=== PATIENT | male | born 1955 | race Caucasian/White ===

== ENCOUNTER 2016-04-01 22:43 | Inpatient (IN) | payer BC, MEDICAID ==
[2016-04-01] MEDS ORDERED: NORMAL SALINE 500 ML IV ONE (23:41)
[2016-04-02 00:01] LABS: HEMATOCRIT 30.7 % (37.9-51.0); HEMOGLOBIN 9.8 g/dL (13.5-17.0); HGB HCT DIFFERENCE -1.3; MEAN CORPUSCULAR HEMOGLOBIN 24.6 pg (27.0-33.4); MEAN CORPUSCULAR VOLUME 77 fl (80-97); RED CELL DISTRIBUTION WIDTH 18.9 % (11.5-14.0); WHITE BLOOD COUNT 21.1 10^3/uL (4.0-10.5)
[2016-04-02 00:08] LABS: PROTHROMBIN TIME 40.9 SEC (11.4-15.4)
[2016-04-02 00:14] LABS: ALANINE AMINOTRANSFERASE 25 U/L (21-72); ALBUMIN 3.3 g/dL (3.5-5.0); ALKALINE PHOSPHATASE 115 U/L (38-126); ANION GAP 13 (5-19); ASPARTATE AMINO TRANSFERASE 23 U/L (17-59); BILIRUBIN,TOTAL 0.7 mg/dL (0.2-1.3); BLOOD UREA NITROGEN 11 mg/dL (7-20); CALCIUM 9.2 mg/dL (8.4-10.2); CARBON DIOXIDE 28 mmol/L (22-30); CHLORIDE 95 mmol/L (98-107); CREATINE KINASE 24 U/L (55-170); CREATININE RESULT 1.05 mg/dL (0.52-1.25); GLUCOSE 122 mg/dL (75-110); LIPASE 209.2 U/L (23-300); POTASSIUM 4.2 mmol/L (3.6-5.0); SODIUM 136.1 mmol/L (137-145); TOTAL PROTEIN 6.5 g/dL (6.3-8.2)
[2016-04-02 00:26] LABS: CREATINE KINASE MB 1.32 ng/mL (<4.55)
[2016-04-02 00:30] LABS: TROPONIN I 0.046 ng/mL
[2016-04-02 00:32] LABS: APPEARANCE,URINE CLEAR; BILIRUBIN,URINE NEGATIVE (NEGATIVE); GLUCOSE, URINE NEGATIVE (NEGATIVE); KETONES,URINE NEGATIVE (NEGATIVE); LEUKOCYTE ESTERASE,URINE NEGATIVE (NEGATIVE); NITRITE,URINE NEGATIVE (NEGATIVE); PROTEIN,URINE NEGATIVE (NEGATIVE); URINE SPECIFIC GRAVITY 1.009; UROBILINOGEN,URINE NEGATIVE mg/dL (<2.0)
[2016-04-02] MEDS ORDERED: VANCOMYCIN HCL INJ 1000 MG VIAL IV ONE (00:33)
[2016-04-02] MEDS ORDERED: PIPERACILLIN/TAZOBACTAM 3.375 GM VIAL IV ONE ×3 (00:33→04:30)
[2016-04-02] MEDS ORDERED: METRONIDAZOLE 500 MG TABLET PO ONE (00:35)
[2016-04-02 00:40] LABS: BAND NEUTROPHILS % (MANUAL) 7 % (3-5); BASOPHILS % (MANUAL) 0 % (0-2); EOSINOPHILS % (MANUAL) 0 % (0-6); LYMPHOCYTES % (MANUAL) 3 % (13-45); TOTAL CELLS COUNTED 100
[2016-04-02] MEDS ORDERED: DIGOXIN INJ 0.5 MG/2 ML AMPULE IV ONE (00:42)
[2016-04-02 00:45] LABS: HYPOCHROMASIA 2+; POLYCHROMASIA SLIGHT; TOXIC GRANULATION 2+
[2016-04-02 00:46] LABS: ANISOCYTOSIS 2+; MICROCYTOSIS SLIGHT; OVALOCYTES 1+
[2016-04-02] MEDS ORDERED: NORMAL SALINE 1000 ML 500 ML IV ONE (01:02)
[2016-04-02 01:09] LABS: ADD ON TESTING BLD IN LAB ACKNOWLEDGE
--- NOTE | 2016-04-02 01:10 | ER Document Report ---
ED General - General Chief Complaint: Abnormal Lab Results Stated Complaint: ABNORMAL LABS Notes: Patient is a 60-year-old male with past medical history of CHF, coronary artery disease, hypertension and hyperlipidemia who presents at the request of his primary care doctor for leukocytosis. Patient also admits to having increasingly severe mucousy, nonbloody diarrhea for the day today. Dr. Torres, the patient's primary care physician contacted and notified him that his white blood cell count was significantly elevated and that he needed to come directly to the emergency department. Patient states that he feels mildly ill but "better than I did last time" referring to the last time he was seen at this emergency department. He has not had any fever or vomiting but does note some mild, diffuse abdominal cramping prior to his episodes of diarrhea. Nothing improves or worsens the symptoms. States been taking all medications as directed. Notes that his home health nurse has been reporting higher heart rates throughout the past several days and that his heart was normal when he was discharged from by the [facility]. Likewise he states he is discharged from [facility] his white blood cell count was normal. He denies any cough, shortness of breath, chest pain, dysuria, headache or neck pain. He has not had a fever at home. TRAVEL OUTSIDE OF THE [place] IN LAST 30 DAYS: No - Related Data Allergies/Adverse Reactions: codeine Allergy (Verified 04/01/16 22:48) Past Medical History - General Information source: Patient - Social History Smoking Status: Never Smoker Frequency of alcohol use: None Drug Abuse: None Lives with: Spouse/Significant other Family History: Reviewed & Not Pertinent Patient has suicidal ideation: No Patient has homicidal ideation: No - Past Medical History Cardiac Medical History: Reports: Hx Coronary Artery Disease, Hx Hypertension Pulmonary Medical History: Reports: Hx Asthma Endocrine Medical History: Reports: Hx Diabetes Mellitus Type 2 Past Surgical History: Reports: Hx Cardiac Surgery - CABG 2014, Hx Coronary Artery Bypass Graft - He had quadruple bypass on 03/08/2014 in [place] Review of Systems - Review of Systems Notes: Constitutional: Negative for fever. HENT: Negative for sore throat. Eyes: Negative for visual changes. Cardiovascular: Negative for chest pain. Positive palpitations Respiratory: Negative for shortness of breath. Gastrointestinal: Negative for abdominal pain, positive persistent diarrhea Genitourinary: Negative for dysuria. Musculoskeletal: Negative for back pain. Skin: Positive for rash. Neurological: Negative for headaches, weakness or numbness. 10 point ROS negative except as marked above and in HPI. Physical Exam - Vital signs Vitals: Pulse Resp BP Pulse Ox 120 H 18 110/73 97 04/01/16 22:48 04/01/16 22:48 04/01/16 22:48 04/01/16 22:48 Interpretation: Tachycardic Notes: PHYSICAL EXAMINATION: GENERAL: Appears older than stated age, uncomfortable in appearance but in no acute distress HEAD: Atraumatic, normocephalic. EYES: Pupils equal round and reactive to light, extraocular movements intact, sclera anicteric, conjunctiva are normal. ENT: nares patent, oropharynx clear without exudates. Moderately dry mucous membranes. NECK: Normal range of motion, supple without lymphadenopathy LUNGS: Breath sounds clear to auscultation bilaterally and equal. No wheezes rales or rhonchi. HEART: Regular tachycardia without murmurs ABDOMEN: Soft, nontender, normoactive bowel sounds. No guarding, no rebound. No masses appreciated. EXTREMITIES: Normal range of motion, 2+ pitting edema bilateral lower extremities NEUROLOGICAL: No focal neurological deficits. Moves all extremities spontaneously and on command. PSYCH: Normal mood, normal affect. SKIN: Warm, Dry, normal turgor, there is a superimposed ulcerated lesion on the right tibial surface with a small amount of purulent drainage. Course - Re-evaluation Re-evalutation: 2315-patient immediately assessed after being found to be severely tachycardic in triage to a heart rate of 140. Patient is somewhat ill in appearance but in no acute obvious distress. His clinical history is most concerning for sepsis secondary to C. difficile colitis versus an area of venous stasis with associated superimposed infection on the right lower extremity although he states multiple infectious disease physicians at [facility] told him that this was not infected. States the area is actually better than before. Patient's pressure was mildly soft with initial systolics in the low 100s in association with his sinus tachycardia. Patient does take digoxin and was told while he was at [facility] that his heart rate had normalized to 94 prior to him being discharged. Will trial a fluid challenge and obtain labs at this time. Patient continues to electronic device monitor and is critically ill at this time given his vitals. 0040-patient has had no response to 500 mL fluid bolus challenge. He does have severe CHF so I am trying to avoid excessive fluid administration. Initial laboratories were returned showing an elevated lactate of 3.4. Patient also has a significant leukocytosis at 21. His troponin was also mildly elevated although below our AMI cutoff I suspect this is demand mediated setting of a significant tachycardia. He hasn't started on vancomycin, Zosyn and oral Flagyl. He has produced a stool sample here that will be sent for C. difficile assay testing. We'll also trial a dose of 0.125 mg of IV digoxin to see if this will help rate control the patient and provide inotropic support given his mildly low blood pressure. 0100-I have spoken with Dr. Torres, the patient's primary care physician who has accepted the patient for admission to the [facility]. 04/02/16 01:17 Patient has had a nonsustained run of ventricular tachycardia approximately 12 beats. This is prior to the infusion of digoxin. The IV digoxin that was provided has had no effect on patient's heart rate. Given the episode of ventricular tachycardia and patient's continued sustained tachycardia, will start an amiodarone infusion at this time. - Vital Signs Vital signs: Temp Pulse Resp BP Pulse Ox 98.5 F 120 H 14 94/62 L 96 04/01/16 23:15 04/01/16 22:48 04/02/16 00:01 04/02/16 00:01 04/02/16 00:01 - Laboratory Result Diagrams: 04/01/16 23:08 04/01/16 23:08 Laboratory results interpreted by me: 04/01/16 04/01/16 04/01/16 23:08 23:08 23:08 WBC 21.1 H RBC 4.00 L Hgb 9.8 L Hct 30.7 L MCV 77 L MCH 24.6 L RDW 18.9 H Plt Count 483 H Seg Neuts % (Manual) 86 H Band Neutrophils % 7 H Lymphocytes % (Manual) 3 L Abs Neuts (Manual) 19.6 H PT Sodium 136.1 L Chloride 95 L Glucose 122 H Lactic Acid 3.4 H Creatine Kinase 24 L Albumin 3.3 L Urine Blood 04/01/16 04/02/16 23:08 00:15 WBC RBC Hgb Hct MCV MCH RDW Plt Count Seg Neuts % (Manual) Band Neutrophils % Lymphocytes % (Manual) Abs Neuts (Manual) PT 40.9 H Sodium Chloride Glucose Lactic Acid Creatine Kinase Albumin Urine Blood SMALL H - EKG Interpretation by Me Additional EKG results interpreted by me: 04/02/16 01:09 Junctional tachycardia, rate 143. No ST elevations or depressions. QTC 488. Critical Care Note - Critical Care Note Total time excluding time spent on procedures (mins): 35 Comments: Critical care time spent obtaining history from patient or surrogate, discussions with consultants, development of treatment plan with patient or surrogate, evaluation of patient's response to treatment, examination of patient , ordering and performing treatments and interventions, ordering and review of laboratory studies, re-evaluation of patient's condition, ordering and review of radiographic studies and review of old charts Discharge - Discharge Clinical Impression: Junctional tachycardia Sepsis Qualifiers: Sepsis type: sepsis due to unspecified organism Qualified Code(s): A41.9 - Sepsis, unspecified organism Leukocytosis Qualifiers: Leukocytosis type: unspecified Qualified Code(s): D72.829 - Elevated white blood cell count, unspecified Diarrhea Qualifiers: Diarrhea type: unspecified type Qualified Code(s): R19.7 - Diarrhea, unspecified Condition: Fair Disposition: ADMITTED INPATIENT [facility] Unit Admitted: [facility]
[2016-04-02] MEDS ORDERED: DEXTROSE 5%-WATER 500 ML with AMIODARONE HCL 900 MG IV PRN ×4 (01:16→16:06)
[2016-04-02] MEDS ORDERED: AMIODARONE HCL 150 MG in DEXTROSE 5%-WATER 100 ML IV ONE (01:17)
[2016-04-02 01:22] LABS: DIGOXIN < 0.40 ng/mL (0.8-2.0)
[2016-04-02] MEDS ORDERED: AMIODARONE HCL INJ 150 MG/3 ML VIAL IV ONE ×2 (01:24→02:04)
[2016-04-02] MEDS ORDERED: ALBUTEROL SULFATE HFA (90 MCG/PUFF) 8 GM MDI (1 MDI/ER DISP) IH PRN (01:24)
[2016-04-02] MEDS ORDERED: METFORMIN HCL PO SCH (01:30)
[2016-04-02] MEDS ORDERED: (PENDING PHARMACY ID) (Lisinopril [Lisinopril] 1 TAB) PO SCH (01:30)
[2016-04-02] MEDS ORDERED: WARFARIN SODIUM 5 MG TABLET PO SCH ×2 (01:30→22:00)
[2016-04-02] MEDS ORDERED: FLUTICASONE/SALMETEROL DISKUS 250-50 MCG/DOSE IH SCH (01:30)
[2016-04-02] MEDS ORDERED: ATORVASTATIN CALCIUM 20 MG TABLET PO SCH (01:30)
[2016-04-02 01:39] LABS: LIPASE 212.8 U/L (23-300)
[2016-04-02 02:03] LABS: PROTHROMBIN TIME 43.9 SEC (11.4-15.4)
[2016-04-02 02:22] LABS: THYROID STIMULATING HORMONE 5.28 uIU/mL (0.47-4.68)
[2016-04-02 02:29] LABS: CREATINE KINASE MB 1.17 ng/mL (<4.55); TROPONIN I 0.04 ng/mL
[2016-04-02] MEDS ORDERED: METOPROLOL SUCCINATE 25 MG TAB.SR.24H PO ONE (02:30)
[2016-04-02] MEDS ORDERED: PIPERACILLIN SODIUM/TAZOBACTAM 3.375 GM in NORMAL SALINE 100 ML IV ONE (02:30)
[2016-04-02] MEDS ORDERED: METRONIDAZOLE 500 MG/NS RTU 100 ML IV ONE (02:30)
[2016-04-02] MEDS ORDERED: FUROSEMIDE 40 MG TABLET PO ONE (02:30)
[2016-04-02] MEDS ORDERED: PIPERACILLIN/TAZOBACTAM 3.375 GM VIAL IV PRN (02:37)
[2016-04-02] MEDS ORDERED: GLUCAGON,HUMAN RECOMB 1 MG INJ IM PRN (04:10)
[2016-04-02] MEDS ORDERED: DEXTROSE 40% GEL 15 GM TUBE PO PRN (04:10)
[2016-04-02] MEDS ORDERED: DEXTROSE 40% GEL 15 GM TUBE X 2 PO PRN (04:10)
[2016-04-02] MEDS ORDERED: DEXTROSE 50%-WATER SYRINGE 25 GM/50 ML DOSE IV PRN (04:10)
[2016-04-02] MEDS ORDERED: DEXTROSE 50%-WATER SYRINGE 12.5 GM/25 ML DOSE IV PRN (04:10)
[2016-04-02] MEDS ORDERED: VANCOMYCIN HCL INJ 500 MG VIAL ONE (06:23)
[2016-04-02] MEDS: VANCOMYCIN HCL INJ 500 MG VIAL PO SCH ×3 (06:36→17:18)
[2016-04-02 07:49] LABS: HEMATOCRIT 30.1 % (37.9-51.0); HEMOGLOBIN 9.2 g/dL (13.5-17.0); HGB HCT DIFFERENCE -2.5; MEAN CORPUSCULAR HGB CONC 30.4 g/dL (32.0-36.0); MEAN CORPUSCULAR VOLUME 79 fl (80-97); RED BLOOD COUNT 3.82 10^6/uL (4.35-5.55); RED CELL DISTRIBUTION WIDTH 19.2 % (11.5-14.0); WHITE BLOOD COUNT 18.2 10^3/uL (4.0-10.5)
[2016-04-02] MEDS: METRONIDAZOLE 500 MG/NS RTU 100 ML IV SCH ×3 (08:06→21:37)
[2016-04-02 08:21] LABS: CREATINE KINASE MB 1.38 ng/mL (<4.55); TROPONIN I 0.038 ng/mL
--- NOTE | 2016-04-02 08:28 | EKG REPORT ---
SEVERITY:- ABNORMAL ECG - SINUS TACHYCARDIA REPOL ABNRM SUGGESTS ISCHEMIA, LATERAL LEADS BORDERLINE PROLONGED QT INTERVAL : Confirmed by: Dorian Santacruz 02-Apr-2016 08:27:58
[2016-04-02] MEDS ORDERED: PIPERACILLIN SODIUM/TAZOBACTAM 3.375 GM in NORMAL SALINE 100 ML IV SCH (09:00)
[2016-04-02] MEDS: FLUTICASONE/SALMETEROL DISKUS 250-50 MCG/DOSE IH SCH ×2 (09:29→21:38)
[2016-04-02] MEDS: METOPROLOL SUCCINATE 25 MG TAB.SR.24H PO SCH (09:31)
[2016-04-02] MEDS: FUROSEMIDE 40 MG TABLET PO SCH (09:31)
[2016-04-02] MEDS: LISINOPRIL 10 MG TABLET PO SCH (09:32)
[2016-04-02 09:42] LABS: APPEARANCE,URINE CLOUDY; BILIRUBIN,URINE NEGATIVE (NEGATIVE); GLUCOSE, URINE NEGATIVE (NEGATIVE); KETONES,URINE NEGATIVE (NEGATIVE); LEUKOCYTE ESTERASE,URINE NEGATIVE (NEGATIVE); NITRITE,URINE NEGATIVE (NEGATIVE); PROTEIN,URINE NEGATIVE (NEGATIVE); URINE SPECIFIC GRAVITY 1.019; UROBILINOGEN,URINE NEGATIVE mg/dL (<2.0)
[2016-04-02] MEDS: INSULIN LISPRO 100 UNIT/ML 3 ML VIAL SUBCUT PRN ×2 (11:29→16:52)
--- NOTE | 2016-04-02 13:12 | PDOC H&P ---
History of Present Illness Admission Date/PCP: 04/02/16 01:20 LIANE LEIGH, History of Present Illness: KENIA MCALLISTER is a 60 year old male with history of chronic systolic heart failure, ischemic cardiomyopathy, he had blood work done on Sunday in the office and I saw the results of the blood work on Sunday, the white blood cell count was 25,000 ,with a left shift, this suggest bacterial infection because of the significantly elevated white blood cell count I advised him to go to the emergency room for evaluation, which he did. In the emergency room he was evaluated, the admitted to passing loose stool with abdominal pain, the white blood cell count emergency room was 21,000 and feces was positive for C. difficile toxin. He was also found to be in atrial fibrillation with rapid ventricular response, in emergency room he was started on amiodarone to control heart rate, he is known to have chronic atrial fibrillation and he is supposed to be on chronic anticoagulation with Coumadin, the last time he was admitted in this hospital which was 02/28/2016. He was found to have thrombos in the left and the right ventricle. He has severe Clostridium difficile colitis with associated systemic inflammatory response syndrome. He has chronic right leg swelling with areas of erythema and Eschar. He said [facility], he was advised that it was not an infection, but clearly there is evidence of inflammation, with redness and pain on palpation of the leg Past Medical History Cardiac Medical History: Reports: Coronary Artery Disease, Myocardial Infarction , Hypertension Pulmonary Medical History: Reports: Asthma Endocrine Medical History: Reports: Diabetes Mellitus Type 2 Past Surgical History Past Surgical History: Reports: Coronary Artery Bypass Graft - He had quadruple bypass on 03/08/2014 in [place] Social History Lives with: Spouse/Significant other Smoking Status: Never Smoker Frequency of Alcohol Use: Rare Hx Recreational Drug Use: No Drugs: None Hx Prescription Drug Abuse: No Family History Family History: Reviewed & Not Pertinent Parental Family History Reviewed: Yes Children Family History Reviewed: Yes Sibling(s) Family History Reviewed.: Yes Medication/Allergy Home Medications: Albuterol Sulfate [Ventolin Hfa] 2 puff IH Q4HP PRN 04/02/16 Aspirin 81 mg PO DAILY 04/02/16 Atorvastatin Calcium [Lipitor 80 mg Tablet] 80 mg PO QHS 04/02/16 Bumetanide [Bumex 0.5 mg Tablet] 0.5 mg PO BID 04/02/16 Digoxin [Lanoxin 0.125 mg Tablet] 0.125 mg PO DAILY 04/02/16 Furosemide [Lasix 40 mg Tablet] 40 mg PO DAILY 04/02/16 Insulin Glargine,Hum.rec.anlog [Lantus Insulin 100 Unit/mL] 20 units PO QHS 11/09 Lisinopril 5 mg PO DAILY 04/02/16 Metformin HCl 500 mg PO BIDACBS 04/02/16 Metoprolol Succinate 25 mg PO DAILY 04/02/16 Potassium Chloride 10 meq PO BID 04/02/16 Allergies/Adverse Reactions: codeine Allergy (Verified 04/01/16 22:48) Review of Systems Constitutional: PRESENT: chills, fever(s) Eyes: ABSENT: visual disturbances Ears: ABSENT: hearing changes Cardiovascular: ABSENT: chest pain, dyspnea on exertion, edema, orthropnea, palpitations Respiratory: ABSENT: cough, hemoptysis Gastrointestinal: PRESENT: abdominal pain, diarrhea Genitourinary: ABSENT: dysuria, hematuria Musculoskeletal: ABSENT: joint swelling Integumentary: ABSENT: rash, wounds Neurological: ABSENT: abnormal gait, abnormal speech, confusion, dizziness, focal weakness, syncope Psychiatric: ABSENT: anxiety, depression, homidical ideation, suicidal ideation Endocrine: ABSENT: cold intolerance, heat intolerance, menstrual abnormalities, polydipsia, polyuria Hematologic/Lymphatic: ABSENT: easy bleeding, easy bruising, lymphadenopathy Physical Exam Vital Signs: Temp Pulse Resp BP Pulse Ox 98.3 F 130 H 18 100/77 98 04/02/16 07:29 04/02/16 08:23 04/02/16 07:29 04/02/16 07:29 04/02/16 07:29 Intake & Output 04/01/16 04/02/16 04/03/16 06:59 06:59 06:59 Intake Total 293 Balance 293 Weight 93.2 kg General appearance: PRESENT: cooperative Head exam: PRESENT: normocephalic Eye exam: PRESENT: PERRLA Respiratory exam: PRESENT: clear to auscultation nik Cardiovascular exam: PRESENT: irregular rhythm, +S1, +S2 Vascular exam: PRESENT: normal capillary refill GI/Abdominal exam: PRESENT: soft Rectal exam: PRESENT: deferred Extremities exam: PRESENT: other - There is redness, swelling of the right leg with eschar, tender to touch Neurological exam: PRESENT: alert, awake, oriented to person, oriented to place , oriented to time, oriented to situation, CN II-XII grossly intact. ABSENT: motor sensory deficit Psychiatric exam: PRESENT: appropriate affect, normal mood Skin exam: PRESENT: dry, intact, warm Results Laboratory Results: 04/02/16 07:41 04/02/16 04/02/16 04/02/16 07:41 08:50 08:50 WBC 18.2 H RBC 3.82 L Hgb 9.2 L Hct 30.1 L MCV 79 L MCH 24.0 L MCHC 30.4 L RDW 19.2 H Plt Count 426 Urine Color YELLOW Urine Appearance CLOUDY Urine pH 5.0 Ur Specific [place] 1.019 Urine Protein NEGATIVE Urine Glucose (UA) NEGATIVE Urine Ketones NEGATIVE Urine Blood SMALL H Urine Nitrite NEGATIVE Ur Leukocyte Esterase NEGATIVE Urine WBC (Auto) 4 Urine RBC (Auto) 10 Stool Occult Blood POSITIVE 04/02/16 04/02/16 04/02/16 01:43 01:43 07:41 Creatine Kinase 22 L 21 L CK-MB (CK-2) 1.17 Troponin I 0.040 04/02/16 07:41 Creatine Kinase CK-MB (CK-2) 1.38 Troponin I 0.038 Impressions: Chest X-Ray 04/02/16 01:00 IMPRESSION: HEART ENLARGED WITHOUT FAILURE. NO OTHER SIGNIFICANT RADIOGRAPHIC FINDING IN THE CHEST. Assessment & Plan - Diagnosis (1) Sepsis Qualifiers: Sepsis type: sepsis due to unspecified organism Qualified Code(s): A41.9 - Sepsis, unspecified organism Is this a current diagnosis for this admission?: YesPlan: He has severe sepsis due to Clostridium difficile colitis. (2) Enterocolitis due to Clostridium difficile Is this a current diagnosis for this admission?: YesPlan: He has severe C. difficile colitis, the white blood cell count is 21,000, he will be treated with Flagyl and by mouth vancomycin, KUB will be ordered to rule out any obstruction of GI tract (3) Chronic systolic heart failure Is this a current diagnosis for this admission?: YesPlan: He will continue beta kaylin, angiotensin converting enzyme inhibitor, diuretic , patient may be started on low dose eplerenone (4) Atrial fibrillation with RVR Is this a current diagnosis for this admission?: Yes (5) Diabetes mellitus type II, controlled Qualifiers: Diabetes mellitus complication status: with neurologic complications Diabetes mellitus complication detail: with polyneuropathy Diabetes mellitus intermediate insulin use: without terminal manager use Qualified Code(s): E11.42 - Type 2 diabetes mellitus with diabetic polyneuropathy Is this a current diagnosis for this admission?: Yes
[2016-04-02 14:53] LABS: CREATINE KINASE MB 1.69 ng/mL (<4.55); TROPONIN I 0.038 ng/mL
[2016-04-02] MEDS: METFORMIN HCL 500 MG TABLET PO SCH (15:10)
[2016-04-02] MEDS: EPLERENONE 25 MG TABLET PO SCH (17:19)
[2016-04-02] MEDS: WARFARIN SODIUM 5 MG TABLET PO SCH (21:26)
[2016-04-02] MEDS: ATORVASTATIN CALCIUM 20 MG TABLET PO SCH (21:38)
[2016-04-03] MEDS: VANCOMYCIN HCL INJ 500 MG VIAL PO SCH ×4 (00:13→17:45)
[2016-04-03] MEDS: METRONIDAZOLE 500 MG/NS RTU 100 ML IV SCH ×4 (03:16→21:29)
[2016-04-03 06:29] LABS: ABSOLUTE LYMPHOCYTES (AUTO) 1.1 10^3/uL (0.5-4.7); ABSOLUTE MONOCYTES (AUTO) 1.7 10^3/uL (0.1-1.4); ABSOLUTE NEUT (AUTO) 13.3 10^3/uL (1.7-8.2); BASOPHILS % (AUTO) 0.3 % (0-2); EOSINOPHILS % (AUTO) 0.2 % (0-6); HEMATOCRIT 30.2 % (37.9-51.0); HEMOGLOBIN 9.5 g/dL (13.5-17.0); HGB HCT DIFFERENCE -1.7; LYMPHOCYTES % (AUTO) 6.7 % (13-45); MEAN CORPUSCULAR HEMOGLOBIN 24.2 pg (27.0-33.4); MEAN CORPUSCULAR HGB CONC 31.5 g/dL (32.0-36.0); MEAN CORPUSCULAR VOLUME 77 fl (80-97); MONOCYTES % (AUTO) 10.3 % (3-13); RED BLOOD COUNT 3.93 10^6/uL (4.35-5.55); RED CELL DISTRIBUTION WIDTH 19.5 % (11.5-14.0); SEGMENTED NEUTROPHILS % (AUTO) 82.5 % (42-78); WHITE BLOOD COUNT 16.1 10^3/uL (4.0-10.5)
[2016-04-03 06:34] LABS: PROTHROMBIN TIME 39.8 SEC (11.4-15.4)
[2016-04-03 06:51] LABS: ALANINE AMINOTRANSFERASE 29 U/L (21-72); ALBUMIN 3.1 g/dL (3.5-5.0); ALKALINE PHOSPHATASE 96 U/L (38-126); ANION GAP 14 (5-19); ASPARTATE AMINO TRANSFERASE 19 U/L (17-59); BLOOD UREA NITROGEN 10 mg/dL (7-20); CALCIUM 8.7 mg/dL (8.4-10.2); CARBON DIOXIDE 25 mmol/L (22-30); CHLORIDE 98 mmol/L (98-107); CREATININE RESULT 1.02 mg/dL (0.52-1.25); Direct HDL 41 mg/dL (>40); GLUCOSE 139 mg/dL (75-110); MAGNESIUM 1.4 mg/dL (1.6-2.3); PHOSPHORUS 3.7 mg/dL (2.5-4.5); POTASSIUM 3.7 mmol/L (3.6-5.0); SODIUM 136.5 mmol/L (137-145); TOTAL PROTEIN 6.2 g/dL (6.3-8.2); TRIGLYCERIDES 63 mg/dL (<150)
[2016-04-03 07:03] LABS: DIRECT LDL < 30 mg/dL (<100)
[2016-04-03 07:13] LABS: APPEARANCE,URINE CLEAR; BILIRUBIN,URINE NEGATIVE (NEGATIVE); GLUCOSE, URINE NEGATIVE (NEGATIVE); KETONES,URINE NEGATIVE (NEGATIVE); LEUKOCYTE ESTERASE,URINE TRACE (NEGATIVE); NITRITE,URINE NEGATIVE (NEGATIVE); PROTEIN,URINE NEGATIVE (NEGATIVE); URINE SPECIFIC GRAVITY 1.005; UROBILINOGEN,URINE NEGATIVE mg/dL (<2.0)
[2016-04-03] MEDS: INSULIN LISPRO 100 UNIT/ML 3 ML VIAL SUBCUT PRN ×4 (07:46→22:57)
[2016-04-03] MEDS: METFORMIN HCL 500 MG TABLET PO SCH ×2 (07:47→15:09)
[2016-04-03] MEDS: METOPROLOL SUCCINATE 25 MG TAB.SR.24H PO SCH (09:22)
[2016-04-03] MEDS: LISINOPRIL 10 MG TABLET PO SCH (09:22)
[2016-04-03] MEDS: FLUTICASONE/SALMETEROL DISKUS 250-50 MCG/DOSE IH SCH ×2 (09:23→21:36)
[2016-04-03] MEDS: FUROSEMIDE 40 MG TABLET PO SCH (09:23)
[2016-04-03] MEDS: EPLERENONE 25 MG TABLET PO SCH ×2 (09:23→17:45)
[2016-04-03] MEDS: DICYCLOMINE HCL 20 MG TABLET PO SCH ×4 (09:23→21:30)
[2016-04-03] MEDS ORDERED: METOPROLOL SUCCINATE 25 MG TAB.SR.24H PO SCH (13:00)
[2016-04-03] MEDS ORDERED: AMIODARONE HCL 200 MG TABLET PO ONE (13:15)
--- NOTE | 2016-04-03 21:05 | PDOC PROGRESS REPORT ---
Subjective Progress Note for:: 04/03/16 Subjective:: Patient was admitted because of severe C. difficile colitis, infection of the right leg and atrial fibrillation with rapid ventricular response Physical Exam Vital Signs: Temp Pulse Resp BP Pulse Ox 97.6 F 112 H 20 113/65 100 04/03/16 20:05 04/03/16 20:05 04/03/16 20:05 04/03/16 20:05 04/03/16 20:05 Intake & Output 04/02/16 04/03/16 04/04/16 06:59 06:59 06:59 Intake Total 293 2165 1369 Output Total 600 200 Balance 293 1565 1169 Weight 93.2 kg 94.2 kg 94.2 kg Head exam: PRESENT: atraumatic, normocephalic Eye exam: PRESENT: PERRLA. ABSENT: scleral icterus Neck exam: PRESENT: full ROM Respiratory exam: PRESENT: clear to auscultation nik Cardiovascular exam: PRESENT: irregular rhythm, RRR, +S1, +S2 GI/Abdominal exam: PRESENT: soft Rectal exam: PRESENT: deferred Neurological exam: PRESENT: alert Results Laboratory Results: 04/03/16 05:27 04/03/16 05:27 04/03/16 04/03/16 04/03/16 05:27 05:27 06:25 WBC 16.1 H RBC 3.93 L Hgb 9.5 L Hct 30.2 L MCV 77 L MCH 24.2 L MCHC 31.5 L RDW 19.5 H Plt Count 482 H Seg Neutrophils % 82.5 H Lymphocytes % 6.7 L Monocytes % 10.3 Eosinophils % 0.2 Basophils % 0.3 Absolute Neutrophils 13.3 H Absolute Lymphocytes 1.1 Absolute Monocytes 1.7 H Absolute Eosinophils 0.0 Absolute Basophils 0.0 Sodium 136.5 L Potassium 3.7 Chloride 98 Carbon Dioxide 25 Anion Gap 14 BUN 10 Creatinine 1.02 Est GFR ( Amer) > 60 Est GFR (Non-Af Amer) > 60 Glucose 139 H Calcium 8.7 Phosphorus 3.7 Magnesium 1.4 L Total Bilirubin 1.0 AST 19 ALT 29 Alkaline Phosphatase 96 Total Protein 6.2 L Albumin 3.1 L Triglycerides 63 Cholesterol 86.60 LDL Cholesterol Direct < 30 VLDL Cholesterol 13.0 HDL Cholesterol 41 Urine Color YELLOW Urine Appearance CLEAR Urine pH 6.0 Ur Specific [place] 1.005 Urine Protein NEGATIVE Urine Glucose (UA) NEGATIVE Urine Ketones NEGATIVE Urine Blood SMALL H Urine Nitrite NEGATIVE Ur Leukocyte Esterase TRACE H Urine WBC (Auto) 3 Urine RBC (Auto) 3 Stool Occult Blood 04/03/16 11:40 WBC RBC Hgb Hct MCV MCH MCHC RDW Plt Count Seg Neutrophils % Lymphocytes % Monocytes % Eosinophils % Basophils % Absolute Neutrophils Absolute Lymphocytes Absolute Monocytes Absolute Eosinophils Absolute Basophils Sodium Potassium Chloride Carbon Dioxide Anion Gap BUN Creatinine Est GFR ( Amer) Est GFR (Non-Af Amer) Glucose Calcium Phosphorus Magnesium Total Bilirubin AST ALT Alkaline Phosphatase Total Protein Albumin Triglycerides Cholesterol LDL Cholesterol Direct VLDL Cholesterol HDL Cholesterol Urine Color Urine Appearance Urine pH Ur Specific [place] Urine Protein Urine Glucose (UA) Urine Ketones Urine Blood Urine Nitrite Ur Leukocyte Esterase Urine WBC (Auto) Urine RBC (Auto) Stool Occult Blood POSITIVE 04/02/16 04/02/16 04/02/16 01:43 01:43 07:41 Creatine Kinase 22 L 21 L CK-MB (CK-2) 1.17 Troponin I 0.040 04/02/16 04/02/16 04/02/16 07:41 13:47 13:47 Creatine Kinase 20 L CK-MB (CK-2) 1.38 1.69 Troponin I 0.038 0.038 Impressions: KUB X-Ray 04/02/16 00:00 IMPRESSION: NO RADIOGRAPHIC EVIDENCE FOR ACUTE ABDOMINAL DISEASE. Lower Extremity MRI 04/02/16 00:00 IMPRESSION: 1. No osteomyelitis. 2. Focal swelling with ill-defined fluid in the mid pereyra. Given the history of redness and swelling, potential abscess. Limited soft tissue ultrasound may prove helpful to determine how much drainable fluid there may be. Tibia/Fibula X-Ray 04/02/16 00:00 IMPRESSION: 1. No osteomyelitis. 2. Focal swelling with ill-defined fluid in the mid pereyra. Given the history of redness and swelling, potential abscess. Limited soft tissue ultrasound may prove helpful to determine how much drainable fluid there may be. Chest X-Ray 04/02/16 01:00 IMPRESSION: HEART ENLARGED WITHOUT FAILURE. NO OTHER SIGNIFICANT RADIOGRAPHIC FINDING IN THE CHEST. Assessment & Plan - Diagnosis (1) Sepsis Qualifiers: Sepsis type: sepsis due to unspecified organism Qualified Code(s): A41.9 - Sepsis, unspecified organism Is this a current diagnosis for this admission?: Yes (2) Enterocolitis due to Clostridium difficile Is this a current diagnosis for this admission?: YesPlan: Continue Flagyl and by mouth vancomycin, the white blood said is elevated, but on the decline (3) Chronic systolic heart failure Is this a current diagnosis for this admission?: Yes (4) Atrial fibrillation with RVR Is this a current diagnosis for this admission?: YesPlan: The amiodarone infusion is discontinued, start by mouth (5) Diabetes mellitus type II, controlled Qualifiers: Diabetes mellitus complication status: with neurologic complications Diabetes mellitus complication detail: with polyneuropathy Diabetes mellitus group home insulin use: without ad terminal makeup operator use Qualified Code(s): E11.42 - Type 2 diabetes mellitus with diabetic polyneuropathy; Z79.4 - alf (current) use of insulin Is this a current diagnosis for this admission?: Yes
[2016-04-03] MEDS: ATORVASTATIN CALCIUM 20 MG TABLET PO SCH (21:30)
[2016-04-03] MEDS: WARFARIN SODIUM 5 MG TABLET PO SCH (21:36)
[2016-04-04] MEDS: VANCOMYCIN HCL INJ 500 MG VIAL PO SCH ×5 (00:32→23:30)
[2016-04-04] MEDS: METRONIDAZOLE 500 MG/NS RTU 100 ML IV SCH ×4 (02:47→22:33)
[2016-04-04 05:55] LABS: PROTHROMBIN TIME 37.8 SEC (11.4-15.4)
[2016-04-04 06:03] LABS: ABSOLUTE BASOPHILS # (AUTO) 0.1 10^3/uL (0.0-0.2); ABSOLUTE LYMPHOCYTES (AUTO) 1.1 10^3/uL (0.5-4.7); ABSOLUTE MONOCYTES (AUTO) 1.3 10^3/uL (0.1-1.4); ABSOLUTE NEUT (AUTO) 10.5 10^3/uL (1.7-8.2); BASOPHILS % (AUTO) 0.4 % (0-2); EOSINOPHILS % (AUTO) 0.3 % (0-6); HEMATOCRIT 30.3 % (37.9-51.0); HEMOGLOBIN 9.4 g/dL (13.5-17.0); HGB HCT DIFFERENCE -2.1; LYMPHOCYTES % (AUTO) 8.2 % (13-45); MEAN CORPUSCULAR HEMOGLOBIN 23.8 pg (27.0-33.4); MEAN CORPUSCULAR HGB CONC 30.9 g/dL (32.0-36.0); MEAN CORPUSCULAR VOLUME 77 fl (80-97); MONOCYTES % (AUTO) 9.8 % (3-13); RED BLOOD COUNT 3.93 10^6/uL (4.35-5.55); RED CELL DISTRIBUTION WIDTH 19.2 % (11.5-14.0); SEGMENTED NEUTROPHILS % (AUTO) 81.3 % (42-78); WHITE BLOOD COUNT 12.9 10^3/uL (4.0-10.5)
[2016-04-04 06:09] LABS: ALANINE AMINOTRANSFERASE 26 U/L (21-72); ALBUMIN 2.9 g/dL (3.5-5.0); ALKALINE PHOSPHATASE 85 U/L (38-126); ANION GAP 12 (5-19); ASPARTATE AMINO TRANSFERASE 19 U/L (17-59); BILIRUBIN,TOTAL 0.7 mg/dL (0.2-1.3); BLOOD UREA NITROGEN 9 mg/dL (7-20); CALCIUM 8.7 mg/dL (8.4-10.2); CARBON DIOXIDE 25 mmol/L (22-30); CHLORIDE 101 mmol/L (98-107); CREATININE RESULT 0.93 mg/dL (0.52-1.25); GLUCOSE 102 mg/dL (75-110); MAGNESIUM 1.5 mg/dL (1.6-2.3); PHOSPHORUS 3.4 mg/dL (2.5-4.5); POTASSIUM 3.5 mmol/L (3.6-5.0); SODIUM 138.3 mmol/L (137-145)
[2016-04-04] MEDS: METFORMIN HCL 500 MG TABLET PO SCH ×2 (08:03→16:58)
[2016-04-04] MEDS: METOPROLOL SUCCINATE 50 MG TAB.SR.24H PO SCH (09:01)
[2016-04-04] MEDS: LISINOPRIL 10 MG TABLET PO SCH (09:15)
[2016-04-04] MEDS: DICYCLOMINE HCL 20 MG TABLET PO SCH ×2 (09:15→13:15)
[2016-04-04] MEDS: FUROSEMIDE 40 MG TABLET PO SCH (09:16)
[2016-04-04] MEDS: AMIODARONE HCL 200 MG TABLET PO SCH (09:16)
[2016-04-04] MEDS: FLUTICASONE/SALMETEROL DISKUS 250-50 MCG/DOSE IH SCH ×2 (09:22→22:42)
[2016-04-04] MEDS: EPLERENONE 25 MG TABLET PO SCH ×2 (09:22→17:00)
[2016-04-04] MEDS ORDERED: POTASSIUM CHLORIDE 10 MEQ TABLET.SA PO ONE (16:30)
[2016-04-04] MEDS: INSULIN LISPRO 100 UNIT/ML 3 ML VIAL SUBCUT PRN ×2 (16:57→22:33)
[2016-04-04] MEDS: CIPROFLOXACIN 400 MG/D5W RTU 400 MG/200 ML RTUPB IV SCH (17:02)
--- NOTE | 2016-04-04 18:52 | PDOC PROGRESS REPORT ---
Subjective Progress Note for:: 04/04/16 Subjective:: Patient was seen by the bedside, he has severe C. difficile colitis, Pseudomonas UTI and Serratia cellulitis of the right leg. The Pseudomonas and Serratia both sensitive to Cipro with very good RENETTA. Patient is improving clinically Physical Exam Vital Signs: Temp Pulse Resp BP Pulse Ox 97.9 F 120 H 20 131/81 H 100 04/04/16 11:57 04/04/16 14:00 04/04/16 11:57 04/04/16 11:57 04/04/16 11:57 Intake & Output 04/03/16 04/04/16 04/05/16 06:59 06:59 06:59 Intake Total 2165 2229 909 Output Total 600 200 Balance 1565 2029 909 Weight 94.2 kg 90.6 kg General appearance: PRESENT: no acute distress Head exam: PRESENT: atraumatic, normocephalic Eye exam: PRESENT: PERRLA Neck exam: PRESENT: full ROM Respiratory exam: PRESENT: clear to auscultation nik Cardiovascular exam: PRESENT: RRR, +S1, +S2 GI/Abdominal exam: PRESENT: normal bowel sounds, soft Rectal exam: PRESENT: deferred Neurological exam: PRESENT: alert Psychiatric exam: PRESENT: appropriate affect, normal mood Skin exam: PRESENT: other - The cellulitis of the right leg Results Laboratory Results: 04/04/16 05:03 04/04/16 05:03 04/04/16 04/04/16 05:03 05:03 WBC 12.9 H RBC 3.93 L Hgb 9.4 L Hct 30.3 L MCV 77 L MCH 23.8 L MCHC 30.9 L RDW 19.2 H Plt Count 421 Seg Neutrophils % 81.3 H Lymphocytes % 8.2 L Monocytes % 9.8 Eosinophils % 0.3 Basophils % 0.4 Absolute Neutrophils 10.5 H Absolute Lymphocytes 1.1 Absolute Monocytes 1.3 Absolute Eosinophils 0.0 Absolute Basophils 0.1 Sodium 138.3 Potassium 3.5 L Chloride 101 Carbon Dioxide 25 Anion Gap 12 BUN 9 Creatinine 0.93 Est GFR ( Amer) > 60 Est GFR (Non-Af Amer) > 60 Glucose 102 Calcium 8.7 Phosphorus 3.4 Magnesium 1.5 L Total Bilirubin 0.7 AST 19 ALT 26 Alkaline Phosphatase 85 Total Protein 6.0 L Albumin 2.9 L 04/02/16 05:53 Leg - Right Gram Stain - Final 04/02/16 08:50 Clean Catch Midstream Urine Culture - Final Pseudomonas Aeruginosa 04/02/16 04/02/16 04/02/16 01:43 01:43 07:41 Creatine Kinase 22 L 21 L CK-MB (CK-2) 1.17 Troponin I 0.040 04/02/16 04/02/16 04/02/16 07:41 13:47 13:47 Creatine Kinase 20 L CK-MB (CK-2) 1.38 1.69 Troponin I 0.038 0.038 Impressions: KUB X-Ray 04/02/16 00:00 IMPRESSION: NO RADIOGRAPHIC EVIDENCE FOR ACUTE ABDOMINAL DISEASE. Lower Extremity MRI 04/02/16 00:00 IMPRESSION: 1. No osteomyelitis. 2. Focal swelling with ill-defined fluid in the mid pereyra. Given the history of redness and swelling, potential abscess. Limited soft tissue ultrasound may prove helpful to determine how much drainable fluid there may be. Tibia/Fibula X-Ray 04/02/16 00:00 IMPRESSION: 1. No osteomyelitis. 2. Focal swelling with ill-defined fluid in the mid pereyra. Given the history of redness and swelling, potential abscess. Limited soft tissue ultrasound may prove helpful to determine how much drainable fluid there may be. Chest X-Ray 04/02/16 01:00 IMPRESSION: HEART ENLARGED WITHOUT FAILURE. NO OTHER SIGNIFICANT RADIOGRAPHIC FINDING IN THE CHEST. Assessment & Plan - Diagnosis (1) Sepsis Qualifiers: Sepsis type: sepsis due to unspecified organism Qualified Code(s): A41.9 - Sepsis, unspecified organism Is this a current diagnosis for this admission?: Yes (2) Enterocolitis due to Clostridium difficile Is this a current diagnosis for this admission?: Yes (3) Chronic systolic heart failure Is this a current diagnosis for this admission?: Yes (4) Atrial fibrillation with RVR Is this a current diagnosis for this admission?: Yes (5) Diabetes mellitus type II, controlled Qualifiers: Diabetes mellitus complication status: with neurologic complications Diabetes mellitus complication detail: with polyneuropathy Diabetes mellitus long term care social worker insulin use: without long term care social worker use Qualified Code(s): E11.42 - Type 2 diabetes mellitus with diabetic polyneuropathy; Z79.4 - assistant terminal manager (current) use of insulin Is this a current diagnosis for this admission?: Yes (6) Pseudomonas urinary tract infection Is this a current diagnosis for this admission?: YesPlan: Sensitive to Cipro with very good RENETTA (7) Serratia marcescens infection Is this a current diagnosis for this admission?: YesPlan: Patient to Cipro with good RENETTA (8) Serratia wound infection Is this a current diagnosis for this admission?: Yes
[2016-04-04] MEDS: ATORVASTATIN CALCIUM 20 MG TABLET PO SCH (22:33)
[2016-04-04] MEDS: WARFARIN SODIUM 5 MG TABLET PO SCH (23:14)
[2016-04-05] MEDS: METRONIDAZOLE 500 MG/NS RTU 100 ML IV SCH ×4 (02:47→21:43)
[2016-04-05] MEDS: VANCOMYCIN HCL INJ 500 MG VIAL PO SCH ×4 (05:41→23:45)
[2016-04-05] MEDS: CIPROFLOXACIN 400 MG/D5W RTU 400 MG/200 ML RTUPB IV SCH ×2 (05:41→17:03)
[2016-04-05 07:45] LABS: HEMATOCRIT 31.1 % (37.9-51.0); HEMOGLOBIN 9.6 g/dL (13.5-17.0); HGB HCT DIFFERENCE -2.3; MEAN CORPUSCULAR HEMOGLOBIN 23.9 pg (27.0-33.4); MEAN CORPUSCULAR HGB CONC 30.8 g/dL (32.0-36.0); MEAN CORPUSCULAR VOLUME 77 fl (80-97); RED BLOOD COUNT 4.02 10^6/uL (4.35-5.55); RED CELL DISTRIBUTION WIDTH 19.6 % (11.5-14.0); WHITE BLOOD COUNT 16.3 10^3/uL (4.0-10.5)
[2016-04-05 07:48] LABS: ALANINE AMINOTRANSFERASE 23 U/L (21-72); ALBUMIN 2.8 g/dL (3.5-5.0); ALKALINE PHOSPHATASE 95 U/L (38-126); ANION GAP 13 (5-19); ASPARTATE AMINO TRANSFERASE 18 U/L (17-59); BILIRUBIN,TOTAL 0.5 mg/dL (0.2-1.3); BLOOD UREA NITROGEN 11 mg/dL (7-20); CALCIUM 8.7 mg/dL (8.4-10.2); CARBON DIOXIDE 24 mmol/L (22-30); CHLORIDE 100 mmol/L (98-107); CREATININE RESULT 1.02 mg/dL (0.52-1.25); GLUCOSE 131 mg/dL (75-110); MAGNESIUM 1.3 mg/dL (1.6-2.3); PHOSPHORUS 3.3 mg/dL (2.5-4.5); POTASSIUM 4.1 mmol/L (3.6-5.0); SODIUM 137.2 mmol/L (137-145); TOTAL PROTEIN 6.1 g/dL (6.3-8.2)
[2016-04-05] MEDS: INSULIN LISPRO 100 UNIT/ML 3 ML VIAL SUBCUT PRN ×4 (07:57→22:42)
[2016-04-05] MEDS: METFORMIN HCL 500 MG TABLET PO SCH ×2 (07:58→15:47)
[2016-04-05 08:19] LABS: PROTHROMBIN TIME 30.1 SEC (11.4-15.4)
[2016-04-05 08:35] LABS: BAND NEUTROPHILS % (MANUAL) 1 % (3-5); LYMPHOCYTES % (MANUAL) 8 % (13-45); TOTAL CELLS COUNTED 100
[2016-04-05 08:36] LABS: ANISOCYTOSIS 2+; BASOPHILS % (MANUAL) 0 % (0-2); BURR CELLS SLIGHT; EOSINOPHILS % (MANUAL) 0 % (0-6); MICROCYTOSIS SLIGHT; OVALOCYTES 1+; POIKILOCYTOSIS 1+; POLYCHROMASIA SLIGHT; TOXIC GRANULATION SLIGHT; TOXIC VACUOLATION PRESENT
[2016-04-05] MEDS: EPLERENONE 25 MG TABLET PO SCH ×2 (09:14→17:05)
[2016-04-05] MEDS: FUROSEMIDE 40 MG TABLET PO SCH (09:15)
[2016-04-05] MEDS: FLUTICASONE/SALMETEROL DISKUS 250-50 MCG/DOSE IH SCH ×2 (09:15→21:44)
[2016-04-05] MEDS: LISINOPRIL 10 MG TABLET PO SCH (09:15)
[2016-04-05] MEDS: AMIODARONE HCL 200 MG TABLET PO SCH (09:15)
[2016-04-05] MEDS: METOPROLOL SUCCINATE 50 MG TAB.SR.24H PO SCH (09:15)
[2016-04-05 19:18] LABS: HEMATOCRIT 31.7 % (37.9-51.0); HEMOGLOBIN 9.9 g/dL (13.5-17.0); MEAN CORPUSCULAR HEMOGLOBIN 23.9 pg (27.0-33.4); MEAN CORPUSCULAR HGB CONC 31.1 g/dL (32.0-36.0); MEAN CORPUSCULAR VOLUME 77 fl (80-97); RED BLOOD COUNT 4.13 10^6/uL (4.35-5.55); RED CELL DISTRIBUTION WIDTH 19.2 % (11.5-14.0); WHITE BLOOD COUNT 16.9 10^3/uL (4.0-10.5)
[2016-04-05 19:47] LABS: BAND NEUTROPHILS % (MANUAL) 2 % (3-5); BASOPHILS % (MANUAL) 0 % (0-2); EOSINOPHILS % (MANUAL) 0 % (0-6); LYMPHOCYTES % (MANUAL) 11 % (13-45); TOTAL CELLS COUNTED 100
[2016-04-05 19:49] LABS: ANISOCYTOSIS 2+; HYPOCHROMASIA SLIGHT; MICROCYTOSIS SLIGHT; TOXIC GRANULATION SLIGHT
--- NOTE | 2016-04-05 20:15 | PDOC PROGRESS REPORT ---
Subjective Progress Note for:: 04/05/16 Subjective:: Patient was seen by the bedside, he has a slight increase in the white blood cell count today , clinically patient is improving, the reason for the slight leukocytosis is not clear Physical Exam Vital Signs: Temp Pulse Resp BP Pulse Ox 98.2 F 114 H 18 110/73 99 04/05/16 15:35 04/05/16 15:35 04/05/16 15:35 04/05/16 15:35 04/05/16 15:35 Intake & Output 04/04/16 04/05/16 04/06/16 06:59 06:59 06:59 Intake Total 2229 2881 2007 Output Total 200 400 Balance 2028 2480 2007 Weight 90.6 kg General appearance: PRESENT: no acute distress Eye exam: PRESENT: PERRLA Respiratory exam: PRESENT: clear to auscultation nik Cardiovascular exam: PRESENT: +S1, +S2 Results Laboratory Results: 04/05/16 18:45 04/05/16 05:43 04/05/16 04/05/16 04/05/16 05:43 05:43 18:45 WBC 16.3 H 16.9 H RBC 4.02 L 4.13 L Hgb 9.6 L 9.9 L Hct 31.1 L 31.7 L MCV 77 L 77 L MCH 23.9 L 23.9 L MCHC 30.8 L 31.1 L RDW 19.6 H 19.2 H Plt Count 480 H 509 H Seg Neutrophils % Not Reportable Not Reportable Lymphocytes % Not Reportable Not Reportable Monocytes % Not Reportable Not Reportable Eosinophils % Not Reportable Not Reportable Basophils % Not Reportable Not Reportable Absolute Neutrophils Not Reportable Not Reportable Absolute Lymphocytes Not Reportable Not Reportable Absolute Monocytes Not Reportable Not Reportable Absolute Eosinophils Not Reportable Not Reportable Absolute Basophils Not Reportable Not Reportable Sodium 137.2 Potassium 4.1 Chloride 100 Carbon Dioxide 24 Anion Gap 13 BUN 11 Creatinine 1.02 Est GFR ( Amer) > 60 Est GFR (Non-Af Amer) > 60 Glucose 131 H Calcium 8.7 Phosphorus 3.3 Magnesium 1.3 L Total Bilirubin 0.5 AST 18 ALT 23 Alkaline Phosphatase 95 Total Protein 6.1 L Albumin 2.8 L 04/02/16 05:53 Leg - Right Gram Stain - Final 04/02/16 05:53 Leg - Right Wound Culture - Final Serratia Marcescens Enterococcus Faecium (Group D) Skin Sho No Anaerobic Organisms 04/02/16 04/02/16 04/02/16 01:43 01:43 07:41 Creatine Kinase 22 L 21 L CK-MB (CK-2) 1.17 Troponin I 0.040 04/02/16 04/02/16 04/02/16 07:41 13:47 13:47 Creatine Kinase 20 L CK-MB (CK-2) 1.38 1.69 Troponin I 0.038 0.038 Impressions: KUB X-Ray 04/02/16 00:00 IMPRESSION: NO RADIOGRAPHIC EVIDENCE FOR ACUTE ABDOMINAL DISEASE. Lower Extremity MRI 04/02/16 00:00 IMPRESSION: 1. No osteomyelitis. 2. Focal swelling with ill-defined fluid in the mid pereyra. Given the history of redness and swelling, potential abscess. Limited soft tissue ultrasound may prove helpful to determine how much drainable fluid there may be. Tibia/Fibula X-Ray 04/02/16 00:00 IMPRESSION: 1. No osteomyelitis. 2. Focal swelling with ill-defined fluid in the mid pereyra. Given the history of redness and swelling, potential abscess. Limited soft tissue ultrasound may prove helpful to determine how much drainable fluid there may be. Chest X-Ray 04/02/16 01:00 IMPRESSION: HEART ENLARGED WITHOUT FAILURE. NO OTHER SIGNIFICANT RADIOGRAPHIC FINDING IN THE CHEST. Assessment & Plan - Diagnosis (1) Sepsis Qualifiers: Sepsis type: sepsis due to unspecified organism Qualified Code(s): A41.9 - Sepsis, unspecified organism Is this a current diagnosis for this admission?: Yes (2) Enterocolitis due to Clostridium difficile Is this a current diagnosis for this admission?: Yes (3) Chronic systolic heart failure Is this a current diagnosis for this admission?: Yes (4) Atrial fibrillation with RVR Is this a current diagnosis for this admission?: Yes (5) Diabetes mellitus type II, controlled Qualifiers: Diabetes mellitus complication status: with neurologic complications Diabetes mellitus complication detail: with polyneuropathy Diabetes mellitus fci insulin use: without terminal system operator use Qualified Code(s): E11.42 - Type 2 diabetes mellitus with diabetic polyneuropathy; Z79.4 - FDC (current) use of insulin Is this a current diagnosis for this admission?: Yes (6) Pseudomonas urinary tract infection Is this a current diagnosis for this admission?: Yes (7) Serratia marcescens infection Is this a current diagnosis for this admission?: Yes (8) Serratia wound infection Is this a current diagnosis for this admission?: Yes
[2016-04-05] MEDS: ATORVASTATIN CALCIUM 20 MG TABLET PO SCH (21:43)
[2016-04-05] MEDS: WARFARIN SODIUM 5 MG TABLET PO SCH (22:00)
[2016-04-05] MEDS: ALBUTEROL SULFATE HFA (90 MCG/PUFF) 200 PUFF/8.5 GM MDI IH PRN (22:43)
[2016-04-06] MEDS: METRONIDAZOLE 500 MG/NS RTU 100 ML IV SCH ×2 (03:53→08:05)
[2016-04-06] MEDS: VANCOMYCIN HCL INJ 500 MG VIAL PO SCH ×4 (05:37→23:57)
[2016-04-06] MEDS: CIPROFLOXACIN 400 MG/D5W RTU 400 MG/200 ML RTUPB IV SCH (05:37)
[2016-04-06] MEDS: INSULIN LISPRO 100 UNIT/ML 3 ML VIAL SUBCUT PRN ×2 (07:34→16:45)
[2016-04-06] MEDS: METFORMIN HCL 500 MG TABLET PO SCH ×2 (07:36→16:25)
[2016-04-06] MEDS: EPLERENONE 25 MG TABLET PO SCH ×2 (09:35→17:19)
[2016-04-06] MEDS: FLUTICASONE/SALMETEROL DISKUS 250-50 MCG/DOSE IH SCH ×2 (09:35→21:56)
[2016-04-06] MEDS: FUROSEMIDE 40 MG TABLET PO SCH (09:35)
[2016-04-06] MEDS: METOPROLOL SUCCINATE 50 MG TAB.SR.24H PO SCH (09:35)
[2016-04-06] MEDS: LISINOPRIL 10 MG TABLET PO SCH (09:36)
[2016-04-06] MEDS: AMIODARONE HCL 200 MG TABLET PO SCH (09:36)
[2016-04-06] MEDS: METRONIDAZOLE 500 MG TABLET PO SCH ×2 (17:22→23:57)
[2016-04-06] MEDS: CIPROFLOXACIN HCL 500 MG TABLET PO SCH (17:22)
[2016-04-06] MEDS: AMPICILLIN TRIHYD 500 MG CAPSULE PO SCH ×2 (17:28→23:57)
[2016-04-06 19:29] LABS: HEMATOCRIT 31.5 % (37.9-51.0); HEMOGLOBIN 9.9 g/dL (13.5-17.0); HGB HCT DIFFERENCE -1.8; MEAN CORPUSCULAR HEMOGLOBIN 24.2 pg (27.0-33.4); MEAN CORPUSCULAR HGB CONC 31.4 g/dL (32.0-36.0); MEAN CORPUSCULAR VOLUME 77 fl (80-97); RED BLOOD COUNT 4.08 10^6/uL (4.35-5.55); RED CELL DISTRIBUTION WIDTH 19.4 % (11.5-14.0)
[2016-04-06 19:45] LABS: BAND NEUTROPHILS % (MANUAL) 3 % (3-5); BASOPHILS % (MANUAL) 0 % (0-2); EOSINOPHILS % (MANUAL) 0 % (0-6); LYMPHOCYTES % (MANUAL) 13 % (13-45); TOTAL CELLS COUNTED 100
[2016-04-06 19:47] LABS: ANISOCYTOSIS 2+; HYPOCHROMASIA SLIGHT; MICROCYTOSIS SLIGHT; POLYCHROMASIA SLIGHT; TOXIC GRANULATION SLIGHT
[2016-04-06 19:50] LABS: ALANINE AMINOTRANSFERASE 22 U/L (21-72); ALBUMIN 3.3 g/dL (3.5-5.0); ALKALINE PHOSPHATASE 99 U/L (38-126); ANION GAP 15 (5-19); ASPARTATE AMINO TRANSFERASE 19 U/L (17-59); BILIRUBIN,TOTAL 0.6 mg/dL (0.2-1.3); BLOOD UREA NITROGEN 18 mg/dL (7-20); CARBON DIOXIDE 21 mmol/L (22-30); CHLORIDE 99 mmol/L (98-107); CREATININE RESULT 1.16 mg/dL (0.52-1.25); GLUCOSE 173 mg/dL (75-110); POTASSIUM 4.4 mmol/L (3.6-5.0); SODIUM 134.7 mmol/L (137-145); TOTAL PROTEIN 6.3 g/dL (6.3-8.2)
--- NOTE | 2016-04-06 20:40 | PDOC DISCHARGE SUMMARY ---
General - Admit/Disc Date/PCP Admission Date/Primary Care Provider: 04/02/16 01:20 LIANE LEIGH, Discharge Date: 04/07/16 - Discharge Diagnosis (1) Sepsis Is this a current diagnosis for this admission?: Yes (2) Enterocolitis due to Clostridium difficile Is this a current diagnosis for this admission?: Yes (3) Chronic systolic heart failure Is this a current diagnosis for this admission?: Yes (4) Atrial fibrillation with RVR Is this a current diagnosis for this admission?: Yes (5) Diabetes mellitus type II, controlled Is this a current diagnosis for this admission?: Yes (6) Pseudomonas urinary tract infection Is this a current diagnosis for this admission?: Yes (7) Serratia marcescens infection Is this a current diagnosis for this admission?: Yes (8) Serratia wound infection Is this a current diagnosis for this admission?: Yes (9) Enterococcus faecalis infection Is this a current diagnosis for this admission?: Yes - Additional Information Home Medications: Albuterol Sulfate [Ventolin Hfa] 2 puff IH Q4HP PRN 04/02/16 Atorvastatin Calcium [Lipitor 80 mg Tablet] 80 mg PO QHS 04/02/16 Digoxin [Lanoxin 0.125 mg Tablet] 0.125 mg PO DAILY 04/02/16 Insulin Glargine,Hum.rec.anlog [Lantus Insulin 100 Unit/mL] 20 units PO QHS 11/09 Metformin HCl 500 mg PO BIDACBS 04/02/16 Amiodarone HCl [Cordarone 200 mg Tablet] 200 mg PO DAILY #30 tablet 04/06/16 Ampicillin Trihydrate [Princepen 500 mg Capsule] 500 mg PO Q6 #20 capsule Bumetanide [Bumex 0.5 mg Tablet] 0.5 mg PO BID #60 04/06/16 Ciprofloxacin HCl [Cipro 500 mg Tablet] 500 mg PO Q12A #14 tablet 04/06/16 Eplerenone [Inspra 25 mg Tablet] 25 mg PO BID #60 tablet 04/06/16 Lisinopril [Prinivil 10 mg Tablet] 40 mg PO DAILY #30 tablet 04/06/16 Metoprolol Succinate [Toprol Xl 50 mg Tab.sr] 50 mg PO DAILY #30 tab.sr.24h 03/11 Metronidazole [Flagyl 500 mg Tablet] 500 mg PO Q6 #20 tablet 04/06/16 Potassium Chloride 10 meq PO DAILY #30 04/06/16 Warfarin Sodium [Coumadin 5 mg Tablet] 5 mg PO QHS #30 tablet 04/06/16 History of Present Illness History of Present Illness: KENIA MCALLISTER is a 60 year old male with history of chronic systolic heart failure, ischemic cardiomyopathy, he had blood work done on Sunday in the office and I saw the results of the blood work on Sunday, the white blood cell count was 25,000 ,with a left shift, this suggest bacterial infection because of the significantly elevated white blood cell count I advised him to go to the emergency room for evaluation, which he did. In the emergency room he was evaluated, the admitted to passing loose stool with abdominal pain, the white blood cell count emergency room was 21,000 and feces was positive for C. difficile toxin. He was also found to be in atrial fibrillation with rapid ventricular response, in emergency room he was started on amiodarone to control heart rate, he is known to have chronic atrial fibrillation and he is supposed to be on chronic anticoagulation with Coumadin, the last time he was admitted in this hospital which was 02/28/2016. He was found to have thrombos in the left and the right ventricle. He has severe Clostridium difficile colitis with associated systemic inflammatory response syndrome. He has chronic right leg swelling with areas of erythema and Eschar. He said [facility], he was advised that it was not an infection, but clearly there is evidence of inflammation, with redness and pain on palpation of the leg Hospital Course Hospital Course: Patient was admitted because of sepsis syndrome due to clostridium difficile colitis, he was treated with IV Flagyl and by mouth vancomycin. He has a right leg lesion. MRI of the leg was obtained and it showed subcutaneous edema in the mid pereyra anteriorly. Focal soft tissue swelling and non-loculated fluid measures up to several centimeters transversely potential abscess was questioned the culture from the wound grew 3 different organisms, Serratia, Enterococcus faecalis and Streptococcus, he also had Pseudomonas UTI, he was treated with IV Cipro, Pseudomonas sensitive to Cipro, Serratia was also sensitive to Cipro, Enterococcus faecalis was sensitive to ampicillin. He also had atrial fibrillation with rapid response and chronic systolic heart failure , he required IV amiodarone for the atrial fibrillation and this was transitioned to by mouth amiodarone. He was also started on eplerenone because of the stage 3-4 systolic heart failure Physical Exam Vital Signs: Temp Pulse Resp BP Pulse Ox 98.1 F 125 H 20 121/78 99 04/06/16 15:44 04/06/16 15:44 04/06/16 15:44 04/06/16 15:44 04/06/16 15:44 Intake & Output 04/05/16 04/06/16 04/07/16 06:59 06:59 06:59 Intake Total 2881 2867 1563 Output Total 400 Balance 2481 2867 1563 Weight 90.6 kg General appearance: PRESENT: no acute distress Eye exam: PRESENT: PERRLA Respiratory exam: PRESENT: clear to auscultation nik Cardiovascular exam: PRESENT: +S1, +S2 GI/Abdominal exam: PRESENT: soft Skin exam: PRESENT: erythema - Of the right lower extremities Results Laboratory Results: 04/06/16 19:10 04/06/16 19:10 04/06/16 04/06/16 19:10 19:10 WBC 15.0 H RBC 4.08 L Hgb 9.9 L Hct 31.5 L MCV 77 L MCH 24.2 L MCHC 31.4 L RDW 19.4 H Plt Count 464 H Seg Neutrophils % Not Reportable Lymphocytes % Not Reportable Monocytes % Not Reportable Eosinophils % Not Reportable Basophils % Not Reportable Absolute Neutrophils Not Reportable Absolute Lymphocytes Not Reportable Absolute Monocytes Not Reportable Absolute Eosinophils Not Reportable Absolute Basophils Not Reportable Sodium 134.7 L Potassium 4.4 Chloride 99 Carbon Dioxide 21 L Anion Gap 15 BUN 18 Creatinine 1.16 Est GFR ( Amer) > 60 Est GFR (Non-Af Amer) > 60 Glucose 173 H Calcium 9.0 Total Bilirubin 0.6 AST 19 ALT 22 Alkaline Phosphatase 99 Total Protein 6.3 Albumin 3.3 L 04/02/16 04/02/16 04/02/16 01:43 01:43 07:41 Creatine Kinase 22 L 21 L CK-MB (CK-2) 1.17 Troponin I 0.040 04/02/16 04/02/16 04/02/16 07:41 13:47 13:47 Creatine Kinase 20 L CK-MB (CK-2) 1.38 1.69 Troponin I 0.038 0.038 Impressions: KUB X-Ray 04/02/16 00:00 IMPRESSION: NO RADIOGRAPHIC EVIDENCE FOR ACUTE ABDOMINAL DISEASE. Lower Extremity MRI 04/02/16 00:00 IMPRESSION: 1. No osteomyelitis. 2. Focal swelling with ill-defined fluid in the mid pereyra. Given the history of redness and swelling, potential abscess. Limited soft tissue ultrasound may prove helpful to determine how much drainable fluid there may be. Tibia/Fibula X-Ray 04/02/16 00:00 IMPRESSION: 1. No osteomyelitis. 2. Focal swelling with ill-defined fluid in the mid pereyra. Given the history of redness and swelling, potential abscess. Limited soft tissue ultrasound may prove helpful to determine how much drainable fluid there may be. Chest X-Ray 04/02/16 01:00 IMPRESSION: HEART ENLARGED WITHOUT FAILURE. NO OTHER SIGNIFICANT RADIOGRAPHIC FINDING IN THE CHEST.
[2016-04-06] MEDS: WARFARIN SODIUM 5 MG TABLET PO SCH (21:56)
[2016-04-06] MEDS: ATORVASTATIN CALCIUM 20 MG TABLET PO SCH (21:56)
[2016-04-06] MEDS: ALBUTEROL SULFATE HFA (90 MCG/PUFF) 200 PUFF/8.5 GM MDI IH PRN (22:06)
[2016-04-07] MEDS: METRONIDAZOLE 500 MG TABLET PO SCH (05:20)
[2016-04-07] MEDS: AMPICILLIN TRIHYD 500 MG CAPSULE PO SCH (05:20)
[2016-04-07] MEDS: VANCOMYCIN HCL INJ 500 MG VIAL PO SCH (05:20)
[2016-04-07] MEDS: CIPROFLOXACIN HCL 500 MG TABLET PO SCH (05:20)
[2016-04-07] MEDS: INSULIN LISPRO 100 UNIT/ML 3 ML VIAL SUBCUT PRN (07:26)
[2016-04-07] MEDS: METFORMIN HCL 500 MG TABLET PO SCH (07:27)
[2016-04-07] MEDS: FLUTICASONE/SALMETEROL DISKUS 250-50 MCG/DOSE IH SCH (10:05)
[2016-04-07] MEDS: LISINOPRIL 10 MG TABLET PO SCH (10:08)
[2016-04-07] MEDS: AMIODARONE HCL 200 MG TABLET PO SCH (10:09)
[2016-04-07] MEDS: EPLERENONE 25 MG TABLET PO SCH (10:09)
[2016-04-07] MEDS: FUROSEMIDE 40 MG TABLET PO SCH (10:10)
[2016-04-07] MEDS: METOPROLOL SUCCINATE 50 MG TAB.SR.24H PO SCH (10:10)
[2016-04-07 10:25] VITALS: BP 102/80
== END 2016-04-07 11:03 | disposition home or self-care (01) | DRG 872 ==
LOC: ER 22:43 → EH 04-02 01:20 → UNDOADMIN 04-02 01:24 → EH 04-02 01:24 → 3W 04-02 03:14
PROVIDERS: ADMIT Internal Medicine; ATTEND Internal Medicine
DX: A41.9 Sepsis, unspecified organism (principal); A04.7 Enterocolitis due to Clostridium difficile; I50.22 Chronic systolic (congestive) heart failure; I47.1 Supraventricular tachycardia; N39.0 Urinary tract infection, site not specified; L03.115 Cellulitis of right lower limb; I48.2 Chronic atrial fibrillation; B96.5 Pseudomonas (aeruginosa) (mallei) (pseudomallei) as the cause of diseases classified elsewhere; B96.89 Other specified bacterial agents as the cause of diseases classified elsewhere; I25.10 Atherosclerotic heart disease of native coronary artery without angina pectoris; I10 Essential (primary) hypertension; E11.9 Type 2 diabetes mellitus without complications; J45.909 Unspecified asthma, uncomplicated; Z79.01 Long term (current) use of anticoagulants; Z79.82 Long term (current) use of aspirin; Z79.4 Long term (current) use of insulin; Z95.1 Presence of aortocoronary bypass graft
CPT/HCPCS: 36415; 71010; 74000; 80048; 80053; 80061; 80076; 80162; 81001; 82150; 82272; 82550; 82553; 82962; 83036; 83605; 83690; 83735; 84100; 84439; 84443; 84484; 85025; 85027; 85610; 87040; 87070; 87075; 87077; 87086; 87088; 87186; 87205; 87493; 93005; 93010; 96365; 96375; 99291; J0282; J0744; J1160; J1815; J2543; J3370; J3490; J7030; J7040; J7060

== ENCOUNTER → 2016-04-21 | Outpatient (CLI) | payer BC, MEDICAID ==
[2016-04-21 19:05] LABS: PROTHROMBIN TIME 39.1 SEC (11.4-15.4)
== END ==
LOC: OD 16:53
PROVIDERS: ATTEND Internal Medicine
DX: Z79.01 Long term (current) use of anticoagulants (principal)
CPT/HCPCS: 36415; 85610

== ENCOUNTER → 2016-04-24 | Outpatient (CLI) | payer BC, MEDICAID ==
[2016-04-24 12:34] LABS: PROTHROMBIN TIME 31.1 SEC (11.4-15.4)
== END ==
LOC: OD 11:36
PROVIDERS: ATTEND Internal Medicine
DX: Z79.01 Long term (current) use of anticoagulants (principal)
CPT/HCPCS: 36415; 85610

== ENCOUNTER → 2016-05-10 | Outpatient (CLI) | payer BC, MEDICAID | LOC: OD 11:59 | PROVIDERS: ATTEND Nurse Practitioner Family | DX: I50.9 Heart failure, unspecified (principal) | CPT/HCPCS: 36415; 80162 ==

== ENCOUNTER → 2016-05-24 | Outpatient (CLI) | payer MEDICAID ==
[2016-05-24 12:16] LABS: PROTHROMBIN TIME 20.5 SEC (11.4-15.4)
== END ==
LOC: OD 10:49
PROVIDERS: ATTEND Internal Medicine
DX: Z79.01 Long term (current) use of anticoagulants (principal)
CPT/HCPCS: 36415; 85610

== ENCOUNTER → 2016-07-03 | Outpatient (CLI) | payer MEDICARE, MEDICAID ==
[2016-07-03 11:04] LABS: PROTHROMBIN TIME 26.9 SEC (11.4-15.4)
== END ==
LOC: OD 10:32
PROVIDERS: ATTEND Internal Medicine
DX: I50.22 Chronic systolic (congestive) heart failure (principal); Z79.01 Long term (current) use of anticoagulants
CPT/HCPCS: 36415; 85610

== ENCOUNTER → 2016-08-28 | Outpatient (CLI) | payer MEDICARE, MEDICAID ==
[2016-08-28 10:43] LABS: PROTHROMBIN TIME 13.3 SEC (11.4-15.4)
== END ==
LOC: OD 09:54
PROVIDERS: ATTEND Internal Medicine
DX: I50.22 Chronic systolic (congestive) heart failure (principal); Z79.01 Long term (current) use of anticoagulants
CPT/HCPCS: 36415; 85610

== ENCOUNTER → 2016-10-04 | Outpatient (CLI) | payer MEDICARE, MEDICAID ==
--- NOTE | 2016-10-04 11:03 | RADIOLOGY REPORT (SQ) ---
EXAM DESCRIPTION: CHEST PA/LATERAL COMPLETED DATE/TIME: 10/04/2016 10:55 am REASON FOR STUDY: CHRONIC SYSTOLIC (CONGESTIVE) HEART FAILURE COMPARISON: 04/02/2016 EXAM PARAMETERS: NUMBER OF VIEWS: two views TECHNIQUE: Digital Frontal and Lateral radiographic views of the chest acquired. RADIATION DOSE: NA LIMITATIONS: none FINDINGS: LUNGS AND PLEURA: There is minimal linear atelectasis in the left base. Lung locke are o therwise clear. No effusions. MEDIASTINUM AND HILAR STRUCTURES: No masses or contour abnormalities. HEART AND VASCULAR STRUCTURES: Heart normal size. No evidence for failure. BONES: No acute findings. HARDWARE: Sternotomy wires are in place. OTHER: No other significant finding. IMPRESSION: Minimal atelectasis left base. No other significant findings. TECHNICAL DOCUMENTATION: JOB ID: [id number]- All Rights Reserved
== END ==
LOC: OD 10:43
PROVIDERS: ATTEND Internal Medicine
DX: I50.22 Chronic systolic (congestive) heart failure (principal); J98.11 Atelectasis
CPT/HCPCS: 71020

== ENCOUNTER → 2017-01-04 | Outpatient (CLI) | payer MEDICARE, MEDICAID ==
--- NOTE | 2017-01-04 10:45 | RADIOLOGY REPORT (SQ) ---
EXAM DESCRIPTION: CHEST PA/LATERAL COMPLETED DATE/TIME: 01/04/2017 10:34 am REASON FOR STUDY: PLEURISY COMPARISON: CT angio chest 02/28/2016 AP chest 04/02/2016, 10/04/2016 EXAM PARAMETERS: NUMBER OF VIEWS: two views TECHNIQUE: Digital Frontal and Lateral radiographic views of the chest acquired. RADIATION DOSE: NA LIMITATIONS: none FINDINGS: LUNGS AND PLEURA: No opacities, masses or pneumothorax. No pleural effusion. MEDIASTINUM AND HILAR STRUCTURES: No masses or contour abnormalities. HEART AND VASCULAR STRUCTURES: No cardiomegaly. Old sternotomy for CABG. BONES: Osteoporotic. No acute changes. HARDWARE: None in the chest. OTHER: No other significant finding. IMPRESSION: No acute findings TECHNICAL DOCUMENTATION: JOB ID: [id number] [employer]- All Rights Reserved
== END ==
LOC: OD 10:14
PROVIDERS: ATTEND Internal Medicine
DX: R09.1 Pleurisy (principal)
CPT/HCPCS: 71020

== ENCOUNTER → 2017-01-05 | Outpatient (CLI) | payer MEDICARE, MEDICAID ==
[2017-01-05 14:29] LABS: PROTHROMBIN TIME 14.5 SEC (11.4-15.4)
== END ==
LOC: OD 12:57
PROVIDERS: ATTEND Internal Medicine
DX: Z79.01 Long term (current) use of anticoagulants (principal); I50.22 Chronic systolic (congestive) heart failure
CPT/HCPCS: 36415; 85610

== ENCOUNTER → 2017-02-01 | Outpatient (CLI) | payer MEDICARE, MEDICAID ==
--- NOTE | 2017-02-01 16:41 | RADIOLOGY REPORT (SQ) ---
EXAM DESCRIPTION: SHOULDER LEFT 2 OR MORE VIEWS COMPLETED DATE/TIME: 02/01/2017 3:51 pm REASON FOR STUDY: PAIN IN LEFT SHOULDER M25.512 PAIN IN LEFT SHOULDER COMPARISON: None. NUMBER OF VIEWS: Three views. TECHNIQUE: Internal rotation, external rotation, and Y view images acquired of the left shoulder. LIMITATIONS: None. FINDINGS: MINERALIZATION: Normal. BONES: No acute fracture or dislocation. No worrisome bone lesions. No significant osteophytes. GLENOHUMERAL JOINT: No significant findings. ACROMIOCLAVICULAR JOINT: No large osteophytes. SOFT TISSUES: No calcifications. VISUALIZED RIBS, SPINE, AND LUNG: No other significant finding. OTHER: No other significant finding. IMPRESSION: NEGATIVE STUDY OF THE LEFT SHOULDER. NO RADIOGRAPHIC EVIDENCE OF ACUTE INJURY. NO EXPLAN ATION FOR PAIN. TECHNICAL DOCUMENTATION: JOB ID: [id number] [employer]- All Rights Reserved
== END ==
LOC: OD 15:32
PROVIDERS: ATTEND Internal Medicine
DX: M25.512 Pain in left shoulder (principal)

== ENCOUNTER → 2017-03-14 | Outpatient (CLI) | payer MEDICARE, MEDICAID ==
[2017-03-14 12:01] LABS: PROTHROMBIN TIME 15.9 SEC (11.4-15.4)
== END ==
LOC: OD 11:17
PROVIDERS: ATTEND Internal Medicine
DX: I50.22 Chronic systolic (congestive) heart failure (principal); Z79.01 Long term (current) use of anticoagulants
CPT/HCPCS: 36415; 85610

== ENCOUNTER 2018-06-16 18:31 | Emergency (ER) | payer MEDICARE ==
[2018-06-16] MEDS ORDERED: IPRATROPIUM/ALBUTEROL 0.5-2.5 MG/3 ML AMPUL NEB ONE (19:10)
[2018-06-16] MEDS ORDERED: BUMETANIDE INJ/PF 1 MG/4 ML SDV IV ONE (19:12)
--- NOTE | 2018-06-16 19:13 | ER Document Report ---
ED Medical Screen (RME) - General Chief Complaint: Asthma Exacerbation Stated Complaint: DIFFICULTY BREATHING Time Seen by Provider: 06/16/18 18:55 Primary Care Provider: LIANE LEIGH MD [Primary Care Provider] - Follow up as needed TRAVEL OUTSIDE OF THE [place] IN LAST 30 DAYS: No - HPI Notes: 06/16/18 19:[address] Leigh coming in for increased shortness of breath weight gain with her retention has ran out of his bronchodilator therapy at home also has been confused about his diuretic regiment taking the wrong diuretic over the last few days. Patient states he feels a short of breath needs a breathing treatment and is full of fluid. - Related Data Allergies/Adverse Reactions: codeine Allergy (Verified 04/01/16 22:48) Past Medical History - Social History Chew tobacco use (# tins/day): No Frequency of alcohol use: None Drug Abuse: None - Past Medical History Cardiac Medical History: Reports: Hx Congestive Heart Failure, Hx Coronary Artery Disease, Hx Heart Attack, Hx Hypertension Pulmonary Medical History: Reports: Hx Asthma Endocrine Medical History: Reports: Hx Diabetes Mellitus Type 2 Renal/ Medical History: Denies: Hx Peritoneal Dialysis Past Surgical History: Reports: Hx Cardiac Surgery - CABG 2014, Hx Coronary Artery Bypass Graft - He had quadruple bypass on 03/08/2014 in [place] Review of Systems - Review of Systems Cardiovascular: Edema Physical Exam - Vital signs Vitals: Temp Pulse Resp BP Pulse Ox 97.7 F 103 H 24 H 153/97 H 96 06/16/18 18:40 06/16/18 18:40 06/16/18 18:40 06/16/18 18:40 06/16/18 18:40 Course - Vital Signs Vital signs: Temp Pulse Resp BP Pulse Ox 97.7 F 103 H 24 H 153/97 H 96 06/16/18 18:40 06/16/18 18:40 06/16/18 18:40 06/16/18 18:40 06/16/18 18:40 Doctor's Discharge - Discharge Referrals: LIANE LEIGH MD [Primary Care Provider] - Follow up as needed
[2018-06-16 19:50] LABS: ABSOLUTE BASOPHILS # (AUTO) 0.1 10^3/uL (0.0-0.2); ABSOLUTE EOSINOPHILS # (AUTO) 0.1 10^3/uL (0.0-0.6); ABSOLUTE LYMPHOCYTES (AUTO) 0.9 10^3/uL (0.5-4.7); ABSOLUTE NEUT (AUTO) 10.5 10^3/uL (1.7-8.2); EOSINOPHILS % (AUTO) 0.9 % (0-6); HEMATOCRIT 43.8 % (37.9-51.0); HEMOGLOBIN 13.9 g/dL (13.5-17.0); LYMPHOCYTES % (AUTO) 7.4 % (13-45); MEAN CORPUSCULAR HEMOGLOBIN 24.6 pg (27.0-33.4); MEAN CORPUSCULAR HGB CONC 31.8 g/dL (32.0-36.0); MEAN CORPUSCULAR VOLUME 77 fl (80-97); MONOCYTES % (AUTO) 7.9 % (3-13); PLATELET COUNT 326 10^3/uL (150-450); RED BLOOD COUNT 5.66 10^6/uL (4.35-5.55); RED CELL DISTRIBUTION WIDTH 17.1 % (11.5-14.0); SEGMENTED NEUTROPHILS % (AUTO) 82.8 % (42-78); TOTAL CELLS COUNTED % (AUTO) 100 %; WHITE BLOOD COUNT 12.7 10^3/uL (4.0-10.5)
[2018-06-16 19:56] LABS: PROTHROMBIN TIME 14.7 SEC (11.4-15.4)
--- NOTE | 2018-06-16 20:01 | RADIOLOGY REPORT (SQ) ---
EXAM DESCRIPTION: CHEST SINGLE VIEW COMPLETED DATE/TIME: 06/16/2018 7:55 pm REASON FOR STUDY: sob COMPARISON: None. NUMBER OF VIEWS: One view. TECHNIQUE: Single frontal radiographic view of the chest acquired. LIMITATIONS: None. FINDINGS: LUNGS AND PLEURA: No opacities, masses or pneumothorax. No pleural effusion. MEDIASTINUM AND HILAR STRUCTURES: No masses. Contour normal. HEART AND VASCULAR STRUCTURES: Heart enlarged without failure. Normal vasculature. BONES: No acute findings. HARDWARE: Sternal wires. OTHER: No other significant finding. IMPRESSION: HEART ENLARGED WITHOUT FAILURE. NO OTHER SIGNIFICANT RADIOGRAPHIC FINDING IN THE CHEST. TECHNICAL DOCUMENTATION: JOB ID: [id number] [employer]- All Rights Reserved Reading location - IP/workstation name: [email or web address]
[2018-06-16 20:11] LABS: ALANINE AMINOTRANSFERASE 27 U/L (21-72); ALBUMIN 3.9 g/dL (3.5-5.0); ALKALINE PHOSPHATASE 93 U/L (38-126); ANION GAP 9 (5-19); ASPARTATE AMINO TRANSFERASE 24 U/L (17-59); BILIRUBIN,DIRECT 0.3 mg/dL (0.0-0.4); BILIRUBIN,TOTAL 1.7 mg/dL (0.2-1.3); BLOOD UREA NITROGEN 18 mg/dL (7-20); CALCIUM 9.3 mg/dL (8.4-10.2); CARBON DIOXIDE 28 mmol/L (22-30); CHLORIDE 100 mmol/L (98-107); CREATINE KINASE 110 U/L (55-170); GLUCOSE 227 mg/dL (75-110); POTASSIUM 4.5 mmol/L (3.6-5.0); SODIUM 137.2 mmol/L (137-145); TOTAL PROTEIN 7.2 g/dL (6.3-8.2)
[2018-06-16 20:12] LABS: DIGOXIN < 0.40 ng/mL (0.8-2.0)
[2018-06-16] MEDS ORDERED: DIGOXIN INJ 0.5 MG/2 ML AMPULE IV ONE (20:19)
[2018-06-16 20:21] LABS: CREATINE KINASE MB 2.73 ng/mL (<4.55)
[2018-06-16 20:23] LABS: TROPONIN I 0.068 ng/mL
[2018-06-16] MEDS ORDERED: ALBUTEROL SULFATE 0.083% NEB 2.5 MG/3 ML AMPUL NEB ONE ×2 (21:17→21:34)
[2018-06-16] MEDS ORDERED: ALBUTEROL SULFATE HFA (90 MCG/PUFF) 8 GM MDI (1 MDI/ER DISP) IH ONE (22:20)
--- NOTE | 2018-06-16 22:38 | ER Document Report ---
Entered by MICHELLE BRADSHAW SCRIBE 06/16/181954 Acting as scribe for:NIGEL BLEVINS MD ED General - General Chief Complaint: Asthma Exacerbation Stated Complaint: DIFFICULTY BREATHING Time Seen by Provider: 06/16/18 18:55 Primary Care Provider: LIANE LEIGH MD [Primary Care Provider] - Follow up as needed Mode of Arrival: Ambulatory Information source: Patient Notes: Patient is a 62 year old male with HTN, CHF, CAD, hyperlipidemia and a history of CABG and afib presents to the emergency department complaining of shortness of breath and weight gain. Patient states he is very short of breath on exertion and further complains of orthopnea. He states he has recently ran out of his asthma inhaler. Patient also complains of gaining weight over the last week stating that he was initially around 219 and is currently approximately 230 pounds. He states that he is confused about which diuretics to take, further stating that he has "Lasix and furosemide "and states one of those medications does not work for him. He also complains of bilateral lower extremity swelling. Patient is currently prescribed digoxin and warfarin. Of significance, patient has chronic iron deficiency anemia and leukocytosis. Reviewing his medications with the patient and his spouse, it turns out that what he takes as a diuretic is Bumex 0.5 mg dosing and ran out about 2 months ago. He was taking it only on an as-needed basis. TRAVEL OUTSIDE OF THE [place] IN LAST 30 DAYS: No - Related Data Allergies/Adverse Reactions: codeine Allergy (Verified 06/16/18 21:44) Past Medical History - General Information source: Patient - Social History Smoking Status: Never Smoker Chew tobacco use (# tins/day): No Frequency of alcohol use: None Drug Abuse: None Family History: Reviewed & Not Pertinent Patient has suicidal ideation: No Patient has homicidal ideation: No - Past Medical History Cardiac Medical History: Reports: Hx Congestive Heart Failure, Hx Coronary Artery Disease, Hx Heart Attack, Hx Hypertension Pulmonary Medical History: Reports: Hx Asthma Endocrine Medical History: Reports: Hx Diabetes Mellitus Type 2 Past Surgical History: Reports: Hx Cardiac Surgery - CABG 2014, Hx Coronary Artery Bypass Graft - He had quadruple bypass on 03/08/2014 in [place] Review of Systems - Review of Systems Constitutional: See HPI, Weight gain EENT: No symptoms reported Cardiovascular: No symptoms reported Respiratory: See HPI, Short of breath Gastrointestinal: No symptoms reported Genitourinary: No symptoms reported Male Genitourinary: No symptoms reported Musculoskeletal: See HPI Skin: No symptoms reported Hematologic/Lymphatic: No symptoms reported Neurological/Psychological: No symptoms reported -: Yes All other systems reviewed and negative Physical Exam - Vital signs Vitals: Temp Pulse Resp BP Pulse Ox 97.7 F 103 H 24 H 153/97 H 96 06/16/18 18:40 06/16/18 18:40 06/16/18 18:40 06/16/18 18:40 06/16/18 18:40 - Notes Notes: GENERAL: Alert, interacts well. No acute distress. HEAD: Normocephalic, atraumatic. EYES: Pupils equal, round, and reactive to light. Extraocular movements intact. ENT: Oral mucosa moist, tongue midline. NECK: Full range of motion. Supple. Trachea midline. LUNGS: Rales bilaterally. No respiratory distress. HEART: Regular rate and rhythm. No murmurs, gallops, or rubs. ABDOMEN: Soft, obese, non-tender, no guarding, rigidity, or rebound. Non- distended. Bowel sounds present in all 4 quadrants. EXTREMITIES: Moves all 4 extremities spontaneously. Pitting edema to the bilateral feet, L>R. Radial and dorsalis pedis pulses 2/4 bilaterally. No cyanosis. NEUROLOGICAL: Alert and oriented x3. Normal speech. PSYCH: Normal affect, normal mood. SKIN: Warm, dry, normal turgor. No rashes or lesions noted. Course - Re-evaluation Re-evalutation: 06/16/18 21:35 Patient reports his breathing feels much better after the DuoNeb treatment. 06/16/18 22:19 Patient reports he has urinated quite a bit and the tension in the skin of his feet has been decreasing. He reports his breathing is back to normal after the breathing treatments and he is ready to go home. He also reports that he was planning on seeing Dr. Leigh tomorrow, so I have asked him to follow-up with Dr. Leigh tomorrow to inquire about his low INR, his low digoxin level, and to ask about a refill of his Bumex diuretic and his albuterol inhaler. He will be sent home with a dispense inhaler for this evening.. - Vital Signs Vital signs: Temp Pulse Resp BP Pulse Ox 97.7 F 103 H 24 H 153/97 H 96 06/16/18 18:40 06/16/18 18:40 06/16/18 18:40 06/16/18 18:40 06/16/18 19:31 - Laboratory Result Diagrams: 06/16/18 19:38 06/16/18 19:38 Laboratory results interpreted by me: 06/16/18 06/16/18 06/16/18 19:38 19:38 19:38 WBC 12.7 H RBC 5.66 H MCV 77 L MCH 24.6 L MCHC 31.8 L RDW 17.1 H Seg Neutrophils % 82.8 H Lymphocytes % 7.4 L Absolute Neutrophils 10.5 H Glucose 227 H Total Bilirubin 1.7 H NT-Pro-B Natriuret Pep 7500 H Digoxin < 0.40 L - Diagnostic Test Radiology reviewed: Image reviewed, Reports reviewed - Cardiomegaly without failure - EKG Interpretation by Me EKG shows normal: Sinus rhythm, [place], QRS Complexes. abnormal: Intervals - Borderline prolonged QT interval, ST-T Waves - Nonspecific lateral T abnormalities Rate: Normal - 98 Rhythm: NSR Voltage: Decreased voltage P Waves: LAE Discharge - Discharge Clinical Impression: COPD with exacerbation, Fluid retention in legs Condition: Stable Disposition: HOME, SELF-CARE Additional Instructions: Use the inhaler that is dispensed as needed for your wheezing. Elevate your feet to try to help the fluid get out of the feet, and use compression stockings. Follow-up with Dr. Leigh tomorrow as planned, and talk with him about your low digoxin level, low bleeding time, and need for refills on your Bumex and your albuterol inhalers. RETURN TO THE EMERGENCY ROOM IF ANY NEW OR WORSENING SYMPTOMS. Referrals: LIANE LEIGH MD [Primary Care Provider] - Follow up tomorrow Scribe Attestation: 06/16/18 22:21 I personally performed the services described in the documentation, reviewed and edited the documentation which was dictated to the scribe in my presence, and it accurately records my words and actions. I personally performed the services described in the documentation, reviewed and edited the documentation which was dictated to the scribe in my presence, and it accurately records my words and actions.
[2018-06-16 22:43] VITALS: BP 157/106
--- NOTE | 2018-06-17 00:14 | EKG REPORT ---
SEVERITY:- ABNORMAL ECG - SINUS RHYTHM PROBABLE LEFT ATRIAL ABNORMALITY LOW VOLTAGE IN FRONTAL LEADS NONSPECIFIC ST-T ABNORMALITIES, LATERAL LEADS BORDERLINE PROLONGED QT INTERVAL : Confirmed by: Dorian Santacruz 17-Jun-2018 00:13:16
== END 2018-06-16 22:44 | disposition home or self-care (01) ==
LOC: ER 18:31
DX: J44.1 Chronic obstructive pulmonary disease with (acute) exacerbation (principal); R60.9 Edema, unspecified; R63.5 Abnormal weight gain; I11.0 Hypertensive heart disease with heart failure; I50.9 Heart failure, unspecified; I25.10 Atherosclerotic heart disease of native coronary artery without angina pectoris; E78.5 Hyperlipidemia, unspecified; Z95.1 Presence of aortocoronary bypass graft; E11.9 Type 2 diabetes mellitus without complications; Z79.899 Other long term (current) drug therapy; Z79.01 Long term (current) use of anticoagulants
CPT/HCPCS: 93005; 94640 ×2; 99285; 96374; 96375; 36415; 82553; 82550; 80162; 85025; 85610; 80053; 84484; 83880; 71045; 93010; J3490 ×2; J1160; A9270 ×2; J7620

== ENCOUNTER 2018-10-09 13:14 | Inpatient (IN) | payer MEDICARE ==
--- NOTE | 2018-10-09 15:14 | ER Document Report ---
ED General - General Chief Complaint: Direct Admit/Private MD Stated Complaint: SICK Time Seen by Provider: 10/09/18 15:13 Mode of Arrival: Ambulatory Information source: Patient, Dr. Davis, [facility] Records Notes: 63-year-old male with asthma, type 2 diabetes, hypertension, coronary artery disease, congestive heart failure presents from Dr. Torres's office for a direct admission. Patient reports persistent cough, dyspnea over the last few months. Denies any fever, chills, chest pain, abdominal pain, weight loss. Patient reports having an echocardiogram with Dr. Santacruz which showed an EF of 20 to 30%. Patient was also recently started on Bumex approximately 3 weeks ago. He denies any weight gain TRAVEL OUTSIDE OF THE [place] IN LAST 30 DAYS: No - HPI Onset: Other Onset/Duration: Gradual Quality of pain: No pain Severity: None Pain Level: Denies Associated symptoms: Nonproductive cough, Leg swelling, Shortness of breath. denies: Body/muscle aches, Chest pain, Fever, Headache, Nausea, Vomiting Exacerbated by: Movement, Coughing Relieved by: Remaining still Similar symptoms previously: Yes Recently seen / treated by doctor: Yes - Related Data Allergies/Adverse Reactions: codeine Allergy (Verified 10/09/18 13:20) Past Medical History - General Information source: Patient, Dr. Davis, [facility] Records - Social History Smoking Status: Never Smoker Frequency of alcohol use: None Drug Abuse: None Lives with: Family Family History: Reviewed & Not Pertinent Patient has suicidal ideation: No Patient has homicidal ideation: No - Past Medical History Cardiac Medical History: Reports: Hx Congestive Heart Failure, Hx Coronary Artery Disease, Hx Heart Attack, Hx Hypertension Pulmonary Medical History: Reports: Hx Asthma Endocrine Medical History: Reports: Hx Diabetes Mellitus Type 2 Renal/ Medical History: Denies: Hx Peritoneal Dialysis Past Surgical History: Reports: Hx Cardiac Surgery - CABG 2014, Hx Coronary Artery Bypass Graft - He had quadruple bypass on 03/08/2014 in [place] Review of Systems - Review of Systems Notes: REVIEW OF SYSTEMS: CONSTITUTIONAL : Denies fever, chills, or sweats. Denies recent illness. Denies weight loss, recent hospitalizations. EENT: Denies visual changes, eye pain. Denies sore throat, oral lesions, difficulty swallowing. CARDIOVASCULAR: Denies chest pain. Denies palpitations. Denies lower extremity edema. RESPIRATORY: +cough. + shortness of breath, denies wheezing. GASTROINTESTINAL: Denies abdominal pain or distention. Denies nausea, vomiting, or diarrhea. Denies blood in vomitus, stools, or per rectum. Denies black, tarry stools. Denies constipation. GENITOURINARY: Denies difficulty urinating, painful urination, frequency, blood in urine, testicular pain or penile discharge. MUSCULOSKELETAL: Denies back or neck pain or stiffness. Denies joint pain + lower extremity swelling. SKIN: Denies rash, lesions or sores. HEMATOLOGIC : Denies easy bruising or bleeding. LYMPHATIC: Denies swollen glands. NEUROLOGICAL: Denies confusion or altered mental status. Denies loss of consciousness. Denies dizziness or lightheadedness. Denies headache. Denies weakness or paralysis. Denies problems difficulty with ambulation, slurred speech. Denies sensory loss, numbness, or tingling. Denies seizures. PSYCHIATRIC: Denies anxiety or stress. Denies depression, suicidal ideation, or Physical Exam - Vital signs Vitals: Temp Pulse Resp BP Pulse Ox 98.2 F 95 18 153/93 H 94 10/09/18 13:23 10/09/18 13:23 10/09/18 13:23 10/09/18 13:23 10/09/18 13:23 - Notes Notes: PHYSICAL EXAMINATION: GENERAL: Well-appearing, well-nourished and in no acute distress. HEAD: Atraumatic, normocephalic. EYES: Pupils equal round and reactive to light, extraocular movements intact, sclera anicteric, conjunctiva are normal. ENT: Nares patent, oropharynx clear without exudates. Moist mucous membranes. NECK: Normal range of motion, supple without lymphadenopathy LUNGS: Diminished breath sounds in the left lower lung field. No wheezes rales or rhonchi. No hypoxia, tachypnea, increased work of breathing, accessory muscle use. HEART: Regular rate and rhythm without murmurs ABDOMEN: Soft, nontender, nondistended abdomen. No guarding, no rebound. No masses appreciated. Musculoskeletal: Normal range of motion, 1+ pitting edema. No cyanosis. NEUROLOGICAL: Cranial nerves grossly intact. Normal speech, normal gait. Normal sensory, motor exams PSYCH: Normal mood, normal affect. SKIN: Warm, Dry, normal turgor, no rashes or lesions noted. Course - Re-evaluation Re-evalutation: Temp Pulse Resp BP Pulse Ox 98.2 F 95 18 153/93 H 94 10/09/18 13:23 10/09/18 13:23 10/09/18 13:23 10/09/18 13:23 10/09/18 13:23 Chest X-Ray 10/09/18 00:00 IMPRESSION: Mild or borderline congestive heart failure. Minimal atelectasis or infiltrate left base. 10/09/18 15:43 63-year-old male presents from Dr. Torres's office as a direct admission for concern for CHF exacerbation. Vital signs reviewed upon arrival and patient is afebrile, hypertensive but not hypoxic. Patient has diminished breath sounds in the left lower lung field but no increased work of breathing. Dr. Torres's admission orders have been placed. Patient requesting a breathing treatment. Admission for inpatient telemetry was placed. 10/09/18 19:03 - Vital Signs Vital signs: Temp Pulse Resp BP Pulse Ox 98.2 F 95 22 H 133/83 H 95 10/09/18 13:23 10/09/18 13:23 10/09/18 17:20 10/09/18 17:20 10/09/18 17:20 - Laboratory Result Diagrams: 10/09/18 16:32 10/09/18 16:32 - Diagnostic Test Radiology reviewed: Image reviewed, Reports reviewed Discharge - Discharge Clinical Impression: Congestive heart failure Qualifiers: Heart failure type: unspecified Heart failure chronicity: unspecified Qualified Code(s): I50.9 - Heart failure, unspecified Dyspnea Qualifiers: Dyspnea type: unspecified Qualified Code(s): R06.00 - Dyspnea, unspecified Condition: Good Disposition: ADMITTED INPATIENT Admitting Provider: Brian Unit Admitted: Telemetry
[2018-10-09 15:19] LABS: APPEARANCE,URINE CLEAR; BILIRUBIN,URINE NEGATIVE (NEGATIVE); COLOR,URINE YELLOW; GLUCOSE, URINE >=500 mg/dL (NEGATIVE); KETONES,URINE NEGATIVE (NEGATIVE); LEUKOCYTE ESTERASE,URINE NEGATIVE (NEGATIVE); NITRITE,URINE NEGATIVE (NEGATIVE); PROTEIN,URINE 100 mg/dL (NEGATIVE); URINE SPECIFIC GRAVITY 1.014; UROBILINOGEN,URINE NEGATIVE mg/dL (<2.0)
[2018-10-09] MEDS ORDERED: IPRATROPIUM/ALBUTEROL 0.5-2.5 MG/3 ML AMPUL NEB ONE (15:41)
--- NOTE | 2018-10-09 15:52 | RADIOLOGY REPORT (SQ) ---
EXAM DESCRIPTION: CHEST 2 VIEWS COMPLETED DATE/TIME: 10/09/2018 3:23 pm REASON FOR STUDY: er chf COMPARISON: None. EXAM PARAMETERS: NUMBER OF VIEWS: TECHNIQUE: Digital Frontal and Lateral radiographic views of the chest acquired. RADIATION DOSE: NA LIMITATIONS: none FINDINGS: LUNGS AND PLEURA: Diffuse prominence of vascular markings suggestive of pulmonary vascular congestion. No katie pulmonary edema. Few markings left lower lung zone -atelectasis versus infilt rate, not present on 06/16/2018. MEDIASTINUM AND HILAR STRUCTURES: No masses or contour abnormalities. HEART AND VASCULAR STRUCTURES: Heart normal size. No evidence for failure. BONES: No acute findings. HARDWARE: None in the chest. OTHER: No other significant finding. IMPRESSION: Mild or borderline congestive heart failure. Minimal atelectasis or infiltrate left bas e. TECHNICAL DOCUMENTATION: JOB ID: [id number] [employer]- All Rights Reserved Reading location - IP/workstation name: [email or web address]
[2018-10-09 17:06] LABS: ABSOLUTE BASOPHILS # (AUTO) 0.1 10^3/uL (0.0-0.2); ABSOLUTE EOSINOPHILS # (AUTO) 0.3 10^3/uL (0.0-0.6); ABSOLUTE LYMPHOCYTES (AUTO) 1.3 10^3/uL (0.5-4.7); ABSOLUTE MONOCYTES (AUTO) 0.8 10^3/uL (0.1-1.4); ABSOLUTE NEUT (AUTO) 9.2 10^3/uL (1.7-8.2); EOSINOPHILS % (AUTO) 2.8 % (0-6); HEMATOCRIT 45.3 % (37.9-51.0); HEMOGLOBIN 14.3 g/dL (13.5-17.0); LYMPHOCYTES % (AUTO) 10.9 % (13-45); MEAN CORPUSCULAR HEMOGLOBIN 23.8 pg (27.0-33.4); MEAN CORPUSCULAR HGB CONC 31.5 g/dL (32.0-36.0); MEAN CORPUSCULAR VOLUME 76 fl (80-97); MONOCYTES % (AUTO) 6.8 % (3-13); PLATELET COUNT 280 10^3/uL (150-450); RED CELL DISTRIBUTION WIDTH 20.6 % (11.5-14.0); SEGMENTED NEUTROPHILS % (AUTO) 78.5 % (42-78); TOTAL CELLS COUNTED % (AUTO) 100 %; WHITE BLOOD COUNT 11.7 10^3/uL (4.0-10.5)
[2018-10-09 17:33] LABS: ALANINE AMINOTRANSFERASE 33 U/L (21-72); ALBUMIN 3.6 g/dL (3.5-5.0); ALKALINE PHOSPHATASE 155 U/L (38-126); ANION GAP 8 (5-19); ASPARTATE AMINO TRANSFERASE 26 U/L (17-59); BILIRUBIN,DIRECT 0.3 mg/dL (0.0-0.4); BLOOD UREA NITROGEN 25 mg/dL (7-20); CALCIUM 9.4 mg/dL (8.4-10.2); CARBON DIOXIDE 29 mmol/L (22-30); CHLORIDE 97 mmol/L (98-107); CREATINE KINASE 64 U/L (55-170); GLUCOSE 319 mg/dL (75-110); POTASSIUM 4.5 mmol/L (3.6-5.0); SODIUM 133.8 mmol/L (137-145); TOTAL PROTEIN 6.7 g/dL (6.3-8.2)
[2018-10-09 17:44] LABS: CREATINE KINASE MB 2.62 ng/mL (<4.55)
[2018-10-09 17:47] LABS: FREE T4 (FREE THYROXINE) 1.14 ng/dL (0.78-2.19)
[2018-10-09 17:49] LABS: TROPONIN I 0.067 ng/mL
[2018-10-09 18:01] LABS: THYROID STIMULATING HORMONE 3.58 uIU/mL (0.47-4.68)
--- NOTE | 2018-10-09 19:21 | PDOC H&P ---
History of Present Illness Admission Date/PCP: 10/09/18 14:54 LIANE LEIGH MD History of Present Illness: KENIA MCALLISTER is a 63 year old male, He has a history of chronic systolic and diastolic heart failure I saw him in the office on Sunday when he came for evaluation of, shortness of breath, orthopnea, PND, he felt he has pneumonia and he needed antibiotic but his symptoms was more consistent with congestive heart failure I advised that he should be admitted to the hospital for management but he declined, he said he preferred to come on on Sunday for admission to the hospital. He was admitted to the hospital, very symptomatic, a 2D echo was done, the ejection fraction of left ventricle was 15%. 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 Santacruz but he declined the device. I consulted Dr. Santacruz regarding this patient presentation, Dr. Santacruz is of the opinion that patient to be transferred to a facility with EP service.He also have type 2 diabetes mellitus poorly compliant with medication that I recommended for him to take on medication reconciliation many of the medication that I recommended he was not taking them, is supposed to be on Coumadin but he claims that he is compliant but the INR is 1 suggesting that he is noncompliant as well. The hemoglobin A1c is 11 a manifestation of poorly controlled diabetes mellitus Past Medical History Cardiac Medical History: Reports: Congestive Heart Failure, Coronary Artery Disease, Myocardial Infarction, Hypertension Pulmonary Medical History: Reports: Asthma Endocrine Medical History: Reports: Diabetes Mellitus Type 2 Past Surgical History Past Surgical History: Reports: Coronary Artery Bypass Graft - He had quadruple bypass on 03/08/2014 in [place] Social History Lives with: Family Smoking Status: Never Smoker Frequency of Alcohol Use: Rare Hx Recreational Drug Use: No Drugs: None Hx Prescription Drug Abuse: No Family History Family History: Reviewed & Not Pertinent Parental Family History Reviewed: Yes Children Family History Reviewed: Yes Sibling(s) Family History Reviewed.: Yes Medication/Allergy Home Medications: Albuterol Sulfate [Albuterol Sulfate Hfa] 2 puff IH Q6HP PRN 10/09/18 Bumetanide [Bumex 1 mg Tablet] 1 mg PO BID 10/09/18 Carvedilol [Coreg 6.25 mg Tablet] 6.25 mg PO Q12 10/09/18 Digoxin [Lanoxin 0.125 mg Tablet] 0.125 mg PO QHS 10/09/18 Fluticasone/Salmeterol [Advair 250-50 Diskus 14 Dose/Diskus] 1 inh IH Q12 10/09/18 Insulin Aspart [Novolog] 0 unit SQ .SLIDING SCALE 10/09/18 Insulin Glargine,Hum.rec.anlog [Lantus Insulin 100 Unit/1 ml 10 ml] 35 unit SUBCUT QHS 10/09/18 Sitagliptin Phosphate [Januvia 50 mg Tablet] 100 mg PO DAILY 10/09/18 Warfarin Sodium [Coumadin 5 mg Tablet] 5 mg PO QHS 10/09/18 Allergies/Adverse Reactions: codeine Allergy (Verified 10/09/18 13:20) Review of Systems Constitutional: ABSENT: chills, fever(s), headache(s), weight gain, weight loss Eyes: ABSENT: visual disturbances Ears: ABSENT: hearing changes Cardiovascular: PRESENT: dyspnea on exertion, edema, orthropnea Respiratory: PRESENT: cough, dyspnea Gastrointestinal: ABSENT: abdominal pain, constipation, diarrhea, hematemesis, hematochezia, nausea, vomiting Genitourinary: ABSENT: dysuria, hematuria Musculoskeletal: ABSENT: joint swelling Integumentary: ABSENT: rash, wounds Neurological: ABSENT: abnormal gait, abnormal speech, confusion, dizziness, focal weakness, syncope Psychiatric: ABSENT: anxiety, depression, homidical ideation, suicidal ideation Endocrine: ABSENT: cold intolerance, heat intolerance, menstrual abnormalities, polydipsia, polyuria Hematologic/Lymphatic: ABSENT: easy bleeding, easy bruising, lymphadenopathy Physical Exam Vital Signs: Temp Pulse Resp BP Pulse Ox 98.2 F 95 22 H 133/83 H 95 10/09/18 13:23 10/09/18 13:23 10/09/18 17:20 10/09/18 17:20 10/09/18 17:20 Intake & Output 10/08/18 10/09/18 10/10/18 06:59 06:59 06:59 Weight 99.1 kg General appearance: PRESENT: mild distress Head exam: PRESENT: atraumatic, normocephalic Eye exam: PRESENT: conjunctiva pink, EOMI, PERRLA Neck exam: PRESENT: full ROM Respiratory exam: PRESENT: crackles, rhonchi Cardiovascular exam: PRESENT: RRR, +S1, +S2 Vascular exam: PRESENT: normal capillary refill GI/Abdominal exam: PRESENT: normal bowel sounds, soft Rectal exam: PRESENT: deferred Neurological exam: PRESENT: alert, CN II-XII grossly intact Psychiatric exam: PRESENT: appropriate affect, normal mood Skin exam: PRESENT: dry, intact, warm. ABSENT: cyanosis, rash Results Laboratory Results: 10/09/18 16:32 10/09/18 16:32 10/09/18 10/09/18 10/09/18 15:00 16:32 16:32 WBC 11.7 H RBC 6.00 H Hgb 14.3 Hct 45.3 MCV 76 L MCH 23.8 L MCHC 31.5 L RDW 20.6 H Plt Count 280 Seg Neutrophils % 78.5 H Lymphocytes % 10.9 L Monocytes % 6.8 Eosinophils % 2.8 Basophils % 1.0 Absolute Neutrophils 9.2 H Absolute Lymphocytes 1.3 Absolute Monocytes 0.8 Absolute Eosinophils 0.3 Absolute Basophils 0.1 Sodium 133.8 L Potassium 4.5 Chloride 97 L Carbon Dioxide 29 Anion Gap 8 BUN 25 H Creatinine 0.85 Est GFR ( Amer) > 60 Est GFR (Non-Af Amer) > 60 Glucose 319 H Calcium 9.4 Magnesium Total Bilirubin 1.0 AST 26 ALT 33 Alkaline Phosphatase 155 H Total Protein 6.7 Albumin 3.6 TSH Free T4 Urine Color YELLOW Urine Appearance CLEAR Urine pH 7.0 Ur Specific [place] 1.014 Urine Protein 100 H Urine Glucose (UA) >=500 H Urine Ketones NEGATIVE Urine Blood SMALL H Urine Nitrite NEGATIVE Ur Leukocyte Esterase NEGATIVE Urine WBC (Auto) 1 Urine RBC (Auto) 2 10/09/18 10/09/18 16:32 16:32 WBC RBC Hgb Hct MCV MCH MCHC RDW Plt Count Seg Neutrophils % Lymphocytes % Monocytes % Eosinophils % Basophils % Absolute Neutrophils Absolute Lymphocytes Absolute Monocytes Absolute Eosinophils Absolute Basophils Sodium Potassium Chloride Carbon Dioxide Anion Gap BUN Creatinine Est GFR ( Amer) Est GFR (Non-Af Amer) Glucose Calcium Magnesium 1.8 Total Bilirubin AST ALT Alkaline Phosphatase Total Protein Albumin TSH 3.58 Free T4 1.14 Urine Color Urine Appearance Urine pH Ur Specific [place] Urine Protein Urine Glucose (UA) Urine Ketones Urine Blood Urine Nitrite Ur Leukocyte Esterase Urine WBC (Auto) Urine RBC (Auto) 10/09/18 10/09/18 16:32 16:32 Creatine Kinase 64 CK-MB (CK-2) 2.62 Troponin I 0.067 NT-Pro-B Natriuret Pep 4980 H Impressions: Chest X-Ray 10/09/18 00:00 IMPRESSION: Mild or borderline congestive heart failure. Minimal atelectasis or infiltrate left base. Assessment & Plan - Diagnosis (1) Acute combined systolic and diastolic congestive heart failure Is this a current diagnosis for this admission?: Yes Plan: Patient with combined systolic and diastolic heart failure, he has underlining ischemic cardiomyopathy with chronic systolic and diastolic heart failure, start intravenous furosemide infusion continue beta-kaylin and Entresto consult cardiology (2) Nonsustained ventricular tachycardia Is this a current diagnosis for this admission?: Yes (3) T2DM (type 2 diabetes mellitus) Qualifiers: Diabetes mellitus complication status: with neurologic complications Diabetes mellitus complication detail: with polyneuropathy Is this a current diagnosis for this admission?: Yes (4) Moderate persistent asthma Qualifiers: Asthma complication type: unspecified Qualified Code(s): J45.40 - Moderate persistent asthma, uncomplicated Is this a current diagnosis for this admission?: Yes
[2018-10-09 20:03] LABS: INTERNATIONAL RATION (INR) 1.07; PROTHROMBIN TIME 13.9 SEC (11.4-15.4)
[2018-10-09 20:19] LABS: APPEARANCE,URINE CLEAR; BILIRUBIN,URINE NEGATIVE (NEGATIVE); COLOR,URINE YELLOW; GLUCOSE, URINE >=500 mg/dL (NEGATIVE); KETONES,URINE NEGATIVE (NEGATIVE); LEUKOCYTE ESTERASE,URINE NEGATIVE (NEGATIVE); NITRITE,URINE NEGATIVE (NEGATIVE); PROTEIN,URINE >=500 mg/dL (NEGATIVE); URINE SPECIFIC GRAVITY 1.021; UROBILINOGEN,URINE NEGATIVE mg/dL (<2.0)
[2018-10-09 21:03] LABS: URINE CREATININE 135.5 mg/dL (22-328)
[2018-10-09] MEDS: ALBUTEROL SULFATE HFA (90 MCG/PUFF) 200 PUFF/8.5 GM MDI IH PRN (21:07)
[2018-10-09] MEDS: SITAGLIPTIN PHOSPHATE 50 MG TABLET PO SCH (21:08)
[2018-10-09 21:09] LABS: UR PRO/CREAT RATIO RESULT 2.6 mg/mg (0.0-0.2)
[2018-10-09] MEDS: INSULIN GLARGINE,HUM.REC.ANLOG 1,000 UNIT/10 ML VIAL SUBCUT SCH (21:13)
[2018-10-09] MEDS: NORMAL SALINE 250 ML with FUROSEMIDE 250 MG IV PRN ×2 (21:14)
[2018-10-09] MEDS: WARFARIN SODIUM 5 MG TABLET PO SCH (21:20)
[2018-10-09] MEDS: CARVEDILOL 6.25 MG TABLET PO SCH (21:24)
[2018-10-09] MEDS: DIGOXIN 0.125 MG TABLET PO SCH (23:15)
[2018-10-10 01:16] LABS: CREATINE KINASE MB 2.59 ng/mL (<4.55); TROPONIN I 0.073 ng/mL
[2018-10-10] MEDS: ALBUTEROL SULFATE HFA (90 MCG/PUFF) 200 PUFF/8.5 GM MDI IH PRN ×3 (06:46→19:06)
[2018-10-10] MEDS: CARVEDILOL 6.25 MG TABLET PO SCH ×2 (06:46→17:11)
[2018-10-10] MEDS ORDERED: GLUCAGON,HUMAN RECOMB 1 MG INJ IM PRN (08:00)
[2018-10-10] MEDS ORDERED: DEXTROSE 40% GEL 15 GM TUBE X 2 PO PRN (08:00)
[2018-10-10] MEDS ORDERED: DEXTROSE 40% GEL 15 GM TUBE PO PRN (08:00)
[2018-10-10] MEDS ORDERED: DEXTROSE 50%-WATER SYRINGE 25 GM/50 ML DOSE IV PRN (08:00)
[2018-10-10] MEDS ORDERED: DEXTROSE 50%-WATER SYRINGE 12.5 GM/25 ML DOSE IV PRN (08:00)
[2018-10-10] MEDS: INSULIN LISPRO 100 UNIT/ML 3 ML VIAL SUBCUT SCH ×4 (08:50→23:11)
[2018-10-10] MEDS: SITAGLIPTIN PHOSPHATE 50 MG TABLET PO SCH (09:00)
[2018-10-10 09:10] LABS: HEMATOCRIT 45.3 % (37.9-51.0); HEMOGLOBIN 14.2 g/dL (13.5-17.0); MEAN CORPUSCULAR HEMOGLOBIN 23.7 pg (27.0-33.4); MEAN CORPUSCULAR HGB CONC 31.4 g/dL (32.0-36.0); MEAN CORPUSCULAR VOLUME 76 fl (80-97); PLATELET COUNT 284 10^3/uL (150-450); RED BLOOD COUNT 6.01 10^6/uL (4.35-5.55); WHITE BLOOD COUNT 12.4 10^3/uL (4.0-10.5)
[2018-10-10 09:27] LABS: ALANINE AMINOTRANSFERASE 34 U/L (21-72); ALBUMIN 3.5 g/dL (3.5-5.0); ALKALINE PHOSPHATASE 121 U/L (38-126); ASPARTATE AMINO TRANSFERASE 33 U/L (17-59); BILIRUBIN,DIRECT 0.3 mg/dL (0.0-0.4); BILIRUBIN,TOTAL 1.2 mg/dL (0.2-1.3); CHOLESTEROL 187.43 mg/dL (0-200); CREATINE KINASE 52 U/L (55-170); TOTAL PROTEIN 6.8 g/dL (6.3-8.2); TRIGLYCERIDES 199 mg/dL (<150)
[2018-10-10 09:30] LABS: INTERNATIONAL RATION (INR) 1.17
[2018-10-10 09:38] LABS: CREATINE KINASE MB 2.57 ng/mL (<4.55); DIRECT LDL 119 mg/dL (<100); TROPONIN I 0.067 ng/mL
[2018-10-10 09:42] LABS: VLDL CHOLESTEROL 39.8 mg/dL (10-31)
[2018-10-10] MEDS ORDERED: ENOXAPARIN SODIUM INJ 40 MG/0.4 ML DISP.SYRIN SUBCUT SCH (15:30)
[2018-10-10] MEDS: NORMAL SALINE 250 ML with FUROSEMIDE 250 MG IV PRN ×2 (17:11)
[2018-10-10] MEDS: PHARMACY COMMUNICATION ORDER MC SCH (17:14)
[2018-10-10] MEDS: IPRATROPIUM/ALBUTEROL 0.5-2.5 MG/3 ML AMPUL NEB PRN (17:40)
[2018-10-10] MEDS: SACUBITRIL/VALSARTAN 24 MG/26 MG TABLET PO SCH (19:05)
--- NOTE | 2018-10-10 19:14 | XCELERA REPORT ---
[address] [address] Transthoracic Echocardiogram Report Name: KENIA MCALLISTER Age: 63 yrs Gender: Male : 1955 Patient Status: Inpatient Patient Location: [address] Study Date: 10/09/2018 06:42 PM Procedure: A complete two-dimensional transthoracic echocardiogram was performed (2D, M-mode, spectral and color flow Doppler). The study was technically difficult with many images being suboptimal in quality. Reason For Study: chf/chest pain Ordering Physician: LIANE LEIGH Performed By: Maritza Beckett Interpretation Summary Left ventricular systolic function is severely reduced. Doppler measurements suggest reversible restrictive left ventricular relaxation, which is associated with grade III/IV or moderate diastolic dysfunction The left ventricle is moderately dilated. There is severe global hypokinesis of the left ventricle. The right ventricle is mildly dilated. The right ventricular systolic function is moderate to severely reduced. The left atrium is moderately dilated. The right atrium is mildly dilated. There is a trace to mild amount of mitral regurgitation There is no mitral valve stenosis. No aortic regurgitation is present. There is no aortic valve stenosis There is a mild amount of tricuspid regurgitation There is mild to moderate pulmonary hypertension by echo Right ventricular systolic pressure is estimated to be elevated at 40-50mmHg. The aortic root is not well visualized but is probably normal size. The inferior vena cava was not well visualized Can not possible RV and or LV apical thrombus. Consider alternative methods to evaluate LVEF such as MUGA scan, cardiac MRI, or cardiac CTA. Consider QUE if clinically indicated. MMode/2D Measurements & Calculations RVDd: 3.6 cm LVIDd: 6.2 cm FS: 4.7 % Ao root diam: IVSd: 0.94 cm LVIDs: 5.9 cm EDV(Teich): 3.4 cm LVPWd: 1.0 cm 191.8 ml Ao root area: ESV(Teich): 9.2 cm2 171.7 ml LA dimension: EF(Teich): 10.5 % 4.9 cm LVLd ap4: 8.6 cm SV(MOD-sp4): EDV(MOD-sp4): 35.0 ml 193.0 ml LVLs ap4: 7.9 cm ESV(MOD-sp4): 158.0 ml EF(MOD-sp4): 18.1 % Doppler Measurements & Calculations MV E max sarah: MV P1/2t max sarah: Ao V2 max: LV V1 max P.5 cm/sec 115.5 cm/sec 81.4 cm/sec 1.6 mmHg MV A max sarah: MV P1/2t: 44.3 msec Ao max PG: LV V1 max: 60.7 cm/sec 2.7 mmHg 63.2 cm/sec MV E/A: 1.9 MVA(P1/2t): 5.0 cm2 MV dec slope: 763.7 cm/sec2 MV dec time: 0.10 sec PA V2 max: PI end-d sarah: TR max sarah: MV P1/2t-pr_phl: 57.0 cm/sec 141.2 cm/sec 306.7 cm/sec 44.3 msec PA max P.3 mmHg TR max P.9 mmHg Left Ventricle The left ventricle is moderately dilated. Left ventricular systolic function is severely reduced. Doppler measurements suggest reversible restrictive left ventricular relaxation, which is associated with grade III/IV or moderate diastolic dysfunction. There is severe global hypokinesis of the left ventricle. Right Ventricle The right ventricle is mildly dilated. There is normal right ventricular wall thickness. The right ventricular systolic function is moderate to severely reduced. Atria The right atrium is mildly dilated. The left atrium is moderately dilated. Interarterial septum not well visualized and not well dopplered. Cannot comment on ASD/PFO presence. Mitral Valve The mitral valve is grossly normal. There is no mitral valve stenosis. There is a trace to mild amount of mitral regurgitation. Aortic Valve The aortic valve opens well. There is no aortic valve stenosis. No aortic regurgitation is present. Tricuspid Valve The tricuspid valve is not well visualized, but is grossly normal. There is no tricuspid stenosis. There is a mild amount of tricuspid regurgitation. There is mild to moderate pulmonary hypertension by echo. Right ventricular systolic pressure is estimated to be elevated at 40-50mmHg. Pulmonic Valve The pulmonic valve is not well visualized. Great Vessels The aortic root is not well visualized but is probably normal size. The inferior vena cava was not well visualized. Effusions There is no pericardial effusion. Incidental Findings Can not possible RV and or LV apical thrombus. Consider alternative methods to evaluate LVEF such as MUGA scan, cardiac MRI, or cardiac CTA. Consider QUE if clinically indicated. : LIANE LEIGH > Dorian Santacruz
--- NOTE | 2018-10-10 19:23 | PDOC PROGRESS REPORT ---
Subjective Progress Note for:: 10/10/18 Subjective:: 63-year-old male with asthma, type 2 diabetes, hypertension, coronary artery disease, congestive heart failure presents from Dr. Torres's office for a direct admission. Patient reports persistent cough, dyspnea over the last few months. Denies any fever, chills, chest pain, abdominal pain, weight loss. Patient reports having an echocardiogram with Dr. Santacruz which showed an EF of 20 to 30%. Patient was also recently started on Bumex approximately 3 weeks ago. He denies any weight gain Patient has history of coronary artery bypass graft surgery, severely depressed LVEF. In the past patient had declined defibrillator placement and had also declined to wear a external defibrillator. However now he is more agreeable. Patient had a 2D echo today which showed LVEF of 15% with severe diffuse hypokinesia. Study was technically difficult. Cannot rule out LV and RV apical thrombus. These were previously suspected on echocardiogram. Patient claims to be on chronic anticoagulation and being compliant with it.. Reason For Visit: CONGESTIVE HEART FAILURE Physical Exam Vital Signs: Temp Pulse Resp BP Pulse Ox 97.6 F 85 18 152/97 H 93 10/10/18 08:23 10/10/18 17:40 10/10/18 17:40 10/10/18 08:23 10/10/18 17:40 Intake & Output 10/09/18 10/10/18 10/11/18 06:59 06:59 06:59 Intake Total 572 40 Output Total 500 Balance 72 40 Weight 99.5 kg Exam: GENERAL: well-nourished and in no acute distress. Alert and oriented x3 HEAD: Atraumatic, normocephalic. EYES: ELFEGO, sclera anicteric, conjunctiva are normal. ENT: Moist mucous membranes. No oral ulcerations or bleeding gums noted. No obvious ear, nose or throat abnormalities noted. NECK: supple without lymphadenopathy. Trachea is central. No cervical or axillary lymphadenopathy noted. Carotids are 2+, JVD only elevated at 8 to 10 cm. LUNGS: Bibasilar fine crackles are noted. No wheezes rales or rhonchi noted. No significant dullness noted on percussion. CHEST: Palpation of the chest wall shows no significant chest wall tenderness. HEART: [place] [employer] HAND, No PSH, 1/6 JAY aortic area, 1/6 dye systolic murmur mitral area, no rubs, no gallops. ABDOMEN: Soft, no significant tenderness appreciated, normoactive bowel sounds. No guarding, no rebound. No rigidity noted . No masses appreciated. EXTREMITIES: Pedal pulses are 1-2+, no calf tenderness noted. No clubbing or cyanosis. Plus pedal edema noted NEUROLOGICAL: Focused neurological exam showed no significant neurologic deficit. Normal speech, no focal weakness appreciated. PSYCH: Normal mood, normal affect. Judgment and insight within normal limits. SKIN: No significant ecchymosis, skin is noted to be warm. MUSCULOSKELETAL EXAM: No significant acute joint swelling noted. Results Laboratory Results: 10/10/18 08:45 10/09/18 16:32 10/09/18 10/10/18 10/10/18 19:52 08:45 08:45 WBC 12.4 H RBC 6.01 H Hgb 14.2 Hct 45.3 MCV 76 L MCH 23.7 L MCHC 31.4 L RDW 21.0 H Plt Count 284 Total Bilirubin 1.2 AST 33 ALT 34 Alkaline Phosphatase 121 Total Protein 6.8 Albumin 3.5 Triglycerides 199 H Cholesterol 187.43 LDL Cholesterol Direct 119 H VLDL Cholesterol 39.8 H HDL Cholesterol 46 Urine Color YELLOW Urine Appearance CLEAR Urine pH 5.0 Ur Specific [place] 1.021 Urine Protein >=500 H Urine Glucose (UA) >=500 H Urine Ketones NEGATIVE Urine Blood NEGATIVE Urine Nitrite NEGATIVE Ur Leukocyte Esterase NEGATIVE Urine WBC (Auto) 2 Urine RBC (Auto) 4 10/09/18 10/09/18 10/10/18 16:32 16:32 00:28 Creatine Kinase 64 58 CK-MB (CK-2) 2.62 Troponin I 0.067 NT-Pro-B Natriuret Pep 4980 H 10/10/18 10/10/18 10/10/18 00:28 08:45 08:45 Creatine Kinase 52 L CK-MB (CK-2) 2.59 2.57 Troponin I 0.073 0.067 NT-Pro-B Natriuret Pep Impressions: Chest X-Ray 10/09/18 00:00 IMPRESSION: Mild or borderline congestive heart failure. Minimal atelectasis or infiltrate left base. Assessment & Plan - Diagnosis (1) Chronic systolic heart failure Is this a current diagnosis for this admission?: Yes (2) Diabetes mellitus type II, controlled Qualifiers: Diabetes mellitus adjunct faculty for medical terminology insulin use: without adjunct faculty for medical terminology use Diabetes mellitus complication status: with neurologic complications Diabetes mellitus complication detail: with polyneuropathy Qualified Code(s): E11.42 - Type 2 diabetes mellitus with diabetic polyneuropathy Is this a current diagnosis for this admission?: Yes (3) Peripheral edema Is this a current diagnosis for this admission?: Yes (4) Coronary artery disease Qualifiers: Coronary Disease-Associated Artery/Lesion type: unspecified vessel or lesion type Associated angina: angina presence unspecified Is this a current diagnosis for this admission?: Yes - Notes Notes: Patient has history of severe dilated ischemic cardiomyopathy. In the past he had declined defibrillator placement either internal or external. He has a history of apical thrombus and is supposed to be on chronic anticoagulation therapy however his INR is inadequate. Patient is noted to have chronically depressed LVEF and would be a candidate for prophylactic defibrillator therapy. Patient is also asking his chances of getting a new heart. Feel that it is best to transfer him to tertiary care for defibrillator placement. In the meantime will try to optimize medical management. Patient has declined to wear a external defibrillator. He is however agreeable for a internal defibrillator placement. We will try to optimize medical therapy. Continue with chronic anticoagulation. Have discussed case with Dr. Oscar Mujica. He has kindly agreed to transfer the patient on his service. - Time Time with patient: Greater than 35 minutes - More than 50% of the time spent coordinating care, discussing management plans with involved caregivers. Management plans discussed with involved personnels. Medical decision making was of moderate to high complexity, patient's has multiple comorbidities. Medications reviewed and adjusted accordingly: Yes
--- NOTE | 2018-10-10 19:51 | PDOC TRANSFER SUMMARY ---
General Admission Date/PCP: 10/09/18 14:54 LIANE LEIGH MD Admission Date: 10/09/18 Accepting Facility: [facility] - Transfer Diagnosis (1) Acute combined systolic and diastolic congestive heart failure Is this a current diagnosis for this admission?: Yes (2) Nonsustained ventricular tachycardia Is this a current diagnosis for this admission?: Yes (3) T2DM (type 2 diabetes mellitus) Is this a current diagnosis for this admission?: Yes (4) Moderate persistent asthma Is this a current diagnosis for this admission?: Yes - Transfer Medications Home Medications: Albuterol Sulfate [Albuterol Sulfate Hfa] 2 puff IH Q6HP PRN 10/09/18 Bumetanide [Bumex 1 mg Tablet] 1 mg PO BID 10/09/18 Carvedilol [Coreg 6.25 mg Tablet] 6.25 mg PO Q12 10/09/18 Digoxin [Lanoxin 0.125 mg Tablet] 0.125 mg PO QHS 10/09/18 Fluticasone/Salmeterol [Advair 250-50 Diskus 14 Dose/Diskus] 1 inh IH Q12 10/09/18 Insulin Aspart [Novolog] 0 unit SQ .SLIDING SCALE 10/09/18 Insulin Glargine,Hum.rec.anlog [Lantus Insulin 100 Unit/1 ml 10 ml] 35 unit SUBCUT QHS 10/09/18 Sitagliptin Phosphate [Januvia 50 mg Tablet] 100 mg PO DAILY 10/09/18 Warfarin Sodium [Coumadin 5 mg Tablet] 5 mg PO QHS 10/09/18 Transfer Medications: Current Medications Albuterol (Proair Hfa Inhalation Aerosol 8.5 Gm Mdi) 2 puff IH Q6HP PRN PRN Reason: SHORTNESS OF BREATH Stop: 11/08/18 19:21 Last Admin: 10/10/18 19:06 Dose: 2 puff Documented by: Albuterol/Ipratropium (Duoneb 3 Ml Ampul) 3 ml NEB RTQ4HP PRN PRN Reason: FOR SOB/WHEEZING Stop: 11/09/18 16:33 Last Admin: 10/10/18 17:40 Dose: 3 ml Documented by: Carvedilol (Coreg 6.25 Mg Tablet) 6.25 mg PO Q12A ROSALINDA Stop: 11/08/18 20:29 Last Admin: 10/10/18 17:11 Dose: 6.25 mg Documented by: Dextrose (Dextrose Inj 50% Syringe (25 Gm/50 Ml)) 12.5 gm IV PRN PRN; Protocol PRN Reason: FOR BG 50-69 IN ALERT PATIENT Stop: 11/09/18 07:59 Dextrose (Dextrose Inj 50% Syringe (25 Gm/50 Ml)) 25 gm IV PRN PRN; Protocol Stop: 11/09/18 07:59 Digoxin (Lanoxin 0.125 Mg Tablet) 0.125 mg PO QHS [facility] Stop: 11/08/18 21:59 Last Admin: 10/09/18 23:15 Dose: 0.125 mg Documented by: Enoxaparin Sodium (Lovenox Inj 40 Mg/0.4 Ml Disp.Syrin) 40 mg SUBCUT DAILY [facility] Stop: 11/09/18 15:29 Last Admin: 10/10/18 17:12 Dose: 40 mg Documented by: Glucagon (Glucagen Inj 1 Mg Vial) 1 mg IM PRN PRN; Protocol PRN Reason: EVALUATE FOR BG < 70 Stop: 11/09/18 07:59 Glucose (Glutose 40% Gel 15 Gm Tube) 15 gm PO PRN PRN; Protocol PRN Reason: FOR BG 50-69 IN ALERT PATIENT Stop: 11/09/18 07:59 Glucose (Glutose 40% Gel 15 Gm Tube) 30 gm PO PRN PRN; Protocol PRN Reason: FOR BG < 50 IN ALERT PATIENT Stop: 11/09/18 07:59 Furosemide 250 mg/ Sodium (Chloride) 250 mls @ 2 mls/hr IV CONTINUOUS PRN PRN Reason: THIS MED IS NOT "PRN" Stop: 11/08/18 17:55 Last Admin: 10/10/18 17:11 Dose: 2 mg/hr, 2 mls/hr Documented by: Insulin Glargine (Lantus Insulin 100 Unit/1 Ml 10 Ml) 35 unit SUBCUT [facility] Stop: 11/08/18 21:59 Last Admin: 10/09/18 21:13 Dose: 35 unit Documented by: Insulin Human Lispro (Humalog Insulin 100 Unit/1 Ml 3 Ml Vial) 0 - 12 unit SUBCUT [facility]; Protocol Stop: 11/09/18 07:59 Last Admin: 07/18/19 17:13 Dose: 2 unit Documented by: Pharmacy Profile Note (Medication Communication Order) 1 each MC 1800 ROSALINDA Stop: 11/09/18 17:59 Last Admin: 10/10/18 17:14 Dose: Not Given Documented by: Sacubitril/Valsartan (Entresto 24 Mg/26 Mg Tablet) 1 tab PO Q12A ROSALINDA Stop: 11/09/18 17:59 Last Admin: 10/10/18 19:05 Dose: 1 tab Documented by: Sitagliptin Phosphate (Januvia 50 Mg Tablet) 100 mg PO DAILY ROSALINDA Stop: 11/08/18 20:29 Last Admin: 10/10/18 09:00 Dose: 100 mg Documented by: Sodium Chloride (Saline Flush 2.5 Ml Monoject Prefil Syrin) 2.5 ml IV Q8 ROSALINDA Stop: 11/08/18 17:59 Last Admin: 10/10/18 14:30 Dose: 2.5 ml Documented by: Warfarin Sodium (Coumadin 5 Mg Tablet) 5 mg PO QHS ROSALINDA Stop: 11/08/18 21:59 Last Admin: 10/09/18 21:20 Dose: 5 mg Documented by: - Allergies Allergies/Adverse Reactions: codeine Allergy (Verified 10/09/18 13:20) Hospital Course Hospital Course: Check H&P for details, patient was admitted yesterday for the management of acute systolic and diastolic heart failure, he has a background of chronic sys tolic and diastolic heart failure. He had episode of nonsustained V. tach, a 2D echo was done, the ejection fraction of left ventricle was 14%. Consultation was obtained from cardiology Dr. Santacruz, patient to be transferred to [facility] facility with the EPS service Physical Exam Vital Signs: Temp Pulse Resp BP Pulse Ox 98.1 F 85 18 155/86 H 93 10/10/18 15:56 10/10/18 17:40 10/10/18 17:40 10/10/18 15:56 10/10/18 17:40 Intake & Output 10/09/18 10/10/18 10/11/18 06:59 06:59 06:59 Intake Total 572 1116 Output Total 500 675 Balance 72 441 Weight 99.5 kg General appearance: PRESENT: no acute distress Eye exam: PRESENT: PERRLA Respiratory exam: PRESENT: rhonchi Cardiovascular exam: PRESENT: +S1, +S2 GI/Abdominal exam: PRESENT: soft Neurological exam: PRESENT: alert, CN II-XII grossly intact Results Laboratory Results: 10/10/18 08:45 10/09/18 16:32 10/09/18 10/10/18 10/10/18 19:52 08:45 08:45 WBC 12.4 H RBC 6.01 H Hgb 14.2 Hct 45.3 MCV 76 L MCH 23.7 L MCHC 31.4 L RDW 21.0 H Plt Count 284 Total Bilirubin 1.2 AST 33 ALT 34 Alkaline Phosphatase 121 Total Protein 6.8 Albumin 3.5 Triglycerides 199 H Cholesterol 187.43 LDL Cholesterol Direct 119 H VLDL Cholesterol 39.8 H HDL Cholesterol 46 Urine Color YELLOW Urine Appearance CLEAR Urine pH 5.0 Ur Specific [place] 1.021 Urine Protein >=500 H Urine Glucose (UA) >=500 H Urine Ketones NEGATIVE Urine Blood NEGATIVE Urine Nitrite NEGATIVE Ur Leukocyte Esterase NEGATIVE Urine WBC (Auto) 2 Urine RBC (Auto) 4 10/09/18 10/09/18 10/10/18 16:32 16:32 00:28 Creatine Kinase 64 58 CK-MB (CK-2) 2.62 Troponin I 0.067 NT-Pro-B Natriuret Pep 4980 H 10/10/18 10/10/18 10/10/18 00:28 08:45 08:45 Creatine Kinase 52 L CK-MB (CK-2) 2.59 2.57 Troponin I 0.073 0.067 NT-Pro-B Natriuret Pep Impressions: Chest X-Ray 10/09/18 00:00 IMPRESSION: Mild or borderline congestive heart failure. Minimal atelectasis or infiltrate left base.
[2018-10-10] MEDS: INSULIN GLARGINE,HUM.REC.ANLOG 1,000 UNIT/10 ML VIAL SUBCUT SCH (23:10)
[2018-10-10] MEDS: WARFARIN SODIUM 5 MG TABLET PO SCH (23:11)
[2018-10-10] MEDS: DIGOXIN 0.125 MG TABLET PO SCH (23:11)
[2018-10-11] MEDS: IPRATROPIUM/ALBUTEROL 0.5-2.5 MG/3 ML AMPUL NEB PRN ×6 (01:12→21:55)
[2018-10-11] MEDS: ALBUTEROL SULFATE HFA (90 MCG/PUFF) 200 PUFF/8.5 GM MDI IH PRN ×3 (02:52→21:38)
[2018-10-11 05:16] LABS: PROTHROMBIN TIME 16.3 SEC (11.4-15.4)
[2018-10-11 05:33] LABS: ANION GAP 7 (5-19); BLOOD UREA NITROGEN 27 mg/dL (7-20); CALCIUM 8.6 mg/dL (8.4-10.2); CARBON DIOXIDE 26 mmol/L (22-30); CHLORIDE 102 mmol/L (98-107); GLUCOSE 151 mg/dL (75-110); POTASSIUM 4.5 mmol/L (3.6-5.0); SODIUM 135.2 mmol/L (137-145)
[2018-10-11] MEDS: CARVEDILOL 6.25 MG TABLET PO SCH ×2 (06:08→17:21)
[2018-10-11] MEDS: SACUBITRIL/VALSARTAN 24 MG/26 MG TABLET PO SCH ×2 (06:08→17:22)
[2018-10-11] MEDS: ENOXAPARIN SODIUM INJ 100 MG/1 ML DISP.SYRIN SUBCUT SCH ×2 (06:09→17:22)
[2018-10-11] MEDS ORDERED: WARFARIN SODIUM 2.5 MG TABLET PO ONE (08:30)
[2018-10-11] MEDS: INSULIN LISPRO 100 UNIT/ML 3 ML VIAL SUBCUT SCH ×4 (08:31→22:25)
--- NOTE | 2018-10-11 08:37 | EKG REPORT ---
SEVERITY:- ABNORMAL ECG - SINUS RHYTHM PROBABLE LEFT ATRIAL ABNORMALITY NONSPECIFIC T ABNORMALITIES, LATERAL LEADS PROLONGED QT INTERVAL IVCD : Confirmed by: Mayito Maynard MD 11-Oct-2018 08:36:43
[2018-10-11 09:32] LABS: APPEARANCE,URINE CLEAR; BILIRUBIN,URINE NEGATIVE (NEGATIVE); COLOR,URINE STRAW; GLUCOSE, URINE NEGATIVE (NEGATIVE); KETONES,URINE NEGATIVE (NEGATIVE); LEUKOCYTE ESTERASE,URINE NEGATIVE (NEGATIVE); NITRITE,URINE NEGATIVE (NEGATIVE); PROTEIN,URINE 30 mg/dL (NEGATIVE); URINE SPECIFIC GRAVITY 1.008; UROBILINOGEN,URINE NEGATIVE mg/dL (<2.0)
[2018-10-11] MEDS: SITAGLIPTIN PHOSPHATE 50 MG TABLET PO SCH (09:51)
[2018-10-11] MEDS ORDERED: SACUBITRIL/VALSARTAN 24 MG/26 MG TABLET PO ONE (13:30)
[2018-10-11] MEDS ORDERED: SACUBITRIL/VALSARTAN 24 MG/26 MG TABLET PO SCH (15:00)
[2018-10-11] MEDS: NORMAL SALINE 250 ML with FUROSEMIDE 250 MG IV PRN ×2 (17:23)
[2018-10-11] MEDS: PHARMACY COMMUNICATION ORDER MC SCH (17:26)
[2018-10-11] MEDS: DIGOXIN 0.125 MG TABLET PO SCH (21:36)
[2018-10-11] MEDS ORDERED: RANOLAZINE 500 MG TAB.SR.12H PO SCH (22:00)
[2018-10-11] MEDS: INSULIN GLARGINE,HUM.REC.ANLOG 1,000 UNIT/10 ML VIAL SUBCUT SCH (22:25)
[2018-10-11 23:37] VITALS: BP 136/80
--- NOTE | 2018-10-12 18:36 | PDOC PROGRESS REPORT ---
Subjective Progress Note for:: 10/11/18 Subjective:: 63-year-old male with asthma, type 2 diabetes, hypertension, coronary artery disease, congestive heart failure presents from Dr. Torres's office for a direct admission. Patient reports persistent cough, dyspnea over the last few months. Denies any fever, chills, chest pain, abdominal pain, weight loss. Patient reports having an echocardiogram with Dr. Santacruz which showed an EF of 20 to 30%. Patient was also recently started on Bumex approximately 3 weeks ago. He denies any weight gain Patient has history of coronary artery bypass graft surgery, severely depressed LVEF. In the past patient had declined defibrillator placement and had also declined to wear a external defibrillator. However now he is more agreeable. Patient had a 2D echo today which showed LVEF of 15% with severe diffuse hypokinesia. Study was technically difficult. Cannot rule out LV and RV apical thrombus. These were previously suspected on echocardiogram. Patient claims to be on chronic anticoagulation and being compliant with it.. Reason For Visit: CONGESTIVE HEART FAILURE Physical Exam Vital Signs: Temp Pulse Resp BP Pulse Ox 97.9 F 86 20 126/74 H 97 10/11/18 20:29 10/11/18 21:55 10/11/18 21:55 10/11/18 20:29 10/11/18 21:55 Intake & Output 10/10/18 10/11/18 10/12/18 06:59 06:59 06:59 Intake Total 572 2058 1230 Output Total 500 1700 950 Balance 72 358 280 Weight 99.5 kg 99.2 kg Exam: GENERAL: well-nourished and in no acute distress. Alert and oriented x3 HEAD: Atraumatic, normocephalic. EYES: ELFEGO, sclera anicteric, conjunctiva are normal. ENT: Moist mucous membranes. No oral ulcerations or bleeding gums noted. No obvious ear, nose or throat abnormalities noted. NECK: supple without lymphadenopathy. Trachea is central. No cervical or axillary lymphadenopathy noted. Carotids are 2+, JVD WNL LUNGS: Breath sounds clear bilaterally. No wheezes rales or rhonchi noted. No significant dullness noted on percussion. CHEST: Palpation of the chest wall shows no significant chest wall tenderness. 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 ABDOMEN: Soft, no significant tenderness appreciated, normoactive bowel sounds. No guarding, no rebound. No rigidity noted . No masses appreciated. EXTREMITIES: Pedal pulses are 1-2+, no calf tenderness noted. No clubbing or cyanosis. 1-2+ pedal edema noted NEUROLOGICAL: Focused neurological exam showed no significant neurologic deficit. Normal speech, no focal weakness appreciated. PSYCH: Normal mood, normal affect. Judgment and insight within normal limits. SKIN: No significant ecchymosis, skin is noted to be warm. MUSCULOSKELETAL EXAM: No significant acute joint swelling noted. Results Laboratory Results: 10/10/18 08:45 10/11/18 04:12 10/11/18 10/11/18 10/11/18 04:12 09:02 11:44 Sodium 135.2 L Potassium 4.5 Chloride 102 Carbon Dioxide 26 Anion Gap 7 BUN 27 H Creatinine 0.97 Est GFR ( Amer) > 60 Est GFR (Non-Af Amer) > 60 Glucose 151 H Calcium 8.6 Urine Color STRAW Urine Appearance CLEAR Urine pH 7.0 Ur Specific [place] 1.008 Urine Protein 30 H Urine Glucose (UA) NEGATIVE Urine Ketones NEGATIVE Urine Blood NEGATIVE Urine Nitrite NEGATIVE Ur Leukocyte Esterase NEGATIVE Urine RBC (Auto) 0 Stool Occult Blood NEGATIVE 10/09/18 15:00 Clean Catch Midstream Urine Culture - Final Enterococcus Faecalis(Group D) 10/09/18 10/09/18 10/10/18 16:32 16:32 00:28 Creatine Kinase 64 58 CK-MB (CK-2) 2.62 Troponin I 0.067 NT-Pro-B Natriuret Pep 4980 H 10/10/18 10/10/18 10/10/18 00:28 08:45 08:45 Creatine Kinase 52 L CK-MB (CK-2) 2.59 2.57 Troponin I 0.073 0.067 NT-Pro-B Natriuret Pep EKG Comments: Showed sinus rhythm without any sustained tachycardia or bradycardia Impressions: Chest X-Ray 10/09/18 00:00 IMPRESSION: Mild or borderline congestive heart failure. Minimal atelectasis or infiltrate left base. Assessment & Plan - Diagnosis (1) Chronic systolic heart failure Is this a current diagnosis for this admission?: Yes (2) Diabetes mellitus type II, controlled Qualifiers: Diabetes mellitus residential insulin use: without residential use Diabetes mellitus complication status: with neurologic complications Diabetes mellitus complication detail: with polyneuropathy Qualified Code(s): E11.42 - Type 2 diabetes mellitus with diabetic polyneuropathy Is this a current diagnosis for this admission?: Yes (3) Peripheral edema Is this a current diagnosis for this admission?: Yes (4) Coronary artery disease Qualifiers: Coronary Disease-Associated Artery/Lesion type: unspecified vessel or lesion type Associated angina: angina presence unspecified Is this a current diagnosis for this admission?: Yes - Notes Notes: Patient generally stable without any recurrence of nonsustained ventricular tachycardia. Vital signs are noted to be stable. He is still on waiting list until a bed becomes available. His medical regimen of congestive heart failure is been gradually optimized. Again I asked if he is willing to go on external defibrillator but he declines this. He prefers to go on internal defibrillator directly. On talking to him it seems he has got cardiomyopathy for quite a while. - Time Time with patient: Greater than 35 minutes - Procedure of internal defibrillator placement etc. discussed. Patient informed that ultimate decision will be updated felt checker as to what kind of internal defibrillator will be placed and if he would place this. Patient also informed that he might need to be seen by a heart failure specialist at tertiary care and considered to be placed on cardiac transplant list or LV assist list etc. if symptoms do not improve. Medications reviewed and adjusted accordingly: Yes
== END 2018-10-11 22:58 | disposition short-term general hospital (02) | DRG 292 ==
LOC: ER 13:14 → EH 14:54 → 3N 23:05
PROVIDERS: ADMIT Internal Medicine; ATTEND Internal Medicine
DX: I11.0 Hypertensive heart disease with heart failure (principal); I47.1 Supraventricular tachycardia; J45.40 Moderate persistent asthma, uncomplicated; I50.43 Acute on chronic combined systolic (congestive) and diastolic (congestive) heart failure; I25.10 Atherosclerotic heart disease of native coronary artery without angina pectoris; E11.42 Type 2 diabetes mellitus with diabetic polyneuropathy; I25.5 Ischemic cardiomyopathy; B95.2 Enterococcus as the cause of diseases classified elsewhere; I25.2 Old myocardial infarction; Z79.4 Long term (current) use of insulin; Z79.899 Other long term (current) drug therapy; Z79.01 Long term (current) use of anticoagulants; Z95.1 Presence of aortocoronary bypass graft; Z88.6 Allergy status to analgesic agent
CPT/HCPCS: 36415; 71046; 80048; 80061; 80076; 80162; 81001; 82272; 82550; 82553; 82570; 82962; 83036; 83735; 83880; 84156; 84439; 84443; 84484; 85025; 85610; 87040; 87086; 87088; 87186; 93005; 93010; 93306; 94640; 99285; J1650; J1815; J1940; J3490; J7050; J7620

== ENCOUNTER → 2019-02-12 | Outpatient (CLI) | payer MEDICARE, OTHER ==
[2019-02-12 13:16] LABS: INTERNATIONAL RATION (INR) 1.12; PROTHROMBIN TIME 14.5 SEC (11.4-15.4)
== END ==
LOC: OD 11:51
PROVIDERS: ATTEND Internal Medicine
DX: I48.20 Chronic atrial fibrillation, unspecified (principal)
CPT/HCPCS: 36415; 85610

== ENCOUNTER → 2019-06-03 | Outpatient (CLI) | payer MEDICARE ==
[2019-06-03 12:44] LABS: PROTHROMBIN TIME 15.3 SEC (11.4-15.4)
== END ==
LOC: OD 11:11
PROVIDERS: ATTEND Internal Medicine
DX: I48.20 Chronic atrial fibrillation, unspecified (principal)
CPT/HCPCS: 36415; 85610

== ENCOUNTER → 2019-06-11 | Outpatient (CLI) | payer MEDICAID, MEDICARE ==
--- NOTE | 2019-06-11 14:28 | RADIOLOGY REPORT (SQ) ---
EXAM DESCRIPTION: ARTERIAL LOWER EXTREM BILAT COMPLETED DATE/TIME: 06/11/2019 12:33 pm REASON FOR STUDY: LT CALF ULCER L97.222 NON-PRESSURE CHRONIC ULCER OF LEFT CALF W FAT LAYER COMPARISON: None. TECHNIQUE: Dynamic and static cha scale and color images acquired of the lower extremity arteries. Additional selected spectral images recorded. ABIs recorded. LIMITATIONS: None. FINDINGS: RIGHT LEG: ABIS: 0.94- 1.02 INFLOW ARTERIES: Normal, no obstruction evident. FEMORAL ARTERIES:Triphasic waveforms. Normal, no velocity elevation to suggest focal stenosis. Normal color Doppler evaluation. No aneurysm. POPLITEAL ARTERY:Multiphasic waveforms. Normal, no velocity elevation to suggest focal stenosis. Norm al color Doppler evaluation. No aneurysm. PATENT TIBIOPERONEAL TRUNK AND 3 VESSEL RUNOFF: Multiphasic waveform in the anterior tibial and poste rior tibial arteries. No high-grade stenosis. Peroneal not well visualized. TBI: Not performed. OTHER: No other significant finding. LEFT LEG: ABIS: 0.94-1.09 INFLOW ARTERIES: Normal, no obstruction evident. FEMORAL ARTERIES:Multiphasic waveforms. Normal, no velocity elevation to suggest focal stenosis. Norm al color Doppler evaluation. No aneurysm. POPLITEAL ARTERY:Multiphasic waveforms. Normal, no velocity elevation to suggest focal stenosis. Norm al color Doppler evaluation. No aneurysm. PATENT TIBIOPERONEAL TRUNK AND 3 VESSEL RUNOFF: Multiphasic waveform in the anterior tibial and poste rior tibial arteries. No high-grade stenosis. Peroneal not well visualized. TBI: Not performed. OTHER: No other significant finding. IMPRESSION: 1. Multiphasic bilateral flow without evidence of focal high-grade stenosis. 2. Grossly normal ABIs as above. COMMENT: [facility] NORMAL: Greater than 1.0 MINIMAL DISEASE: 0.9 to 1.0 CLAUDICATION: 0.5 to 0.9 SEVERE ARTERIAL DISEASE: Less than 0.5 [facility] NORMAL: Greater than 1.0 (1.2 If Heavy Calcifications) NORMAL TO MILD ISCHEMIA: 0.8 to 1.0 MODERATE ISCHEMIA: 0.4 to 0.8 SEVERE ISCHEMIA: Less than 0.4 TECHNICAL DOCUMENTATION: JOB ID: [id number] 2010 [employer]- All Rights Reserved Reading location - IP/workstation name: [email or web address]
== END ==
LOC: SP 09:50
PROVIDERS: ATTEND Nurse Practitioner Family
DX: E11.621 Type 2 diabetes mellitus with foot ulcer (principal); L97.222 Non-pressure chronic ulcer of left calf with fat layer exposed
CPT/HCPCS: 93922; 93925

== ENCOUNTER 2019-06-18 13:05 | Inpatient (IN) | payer MEDICARE ==
[2019-06-18] MEDS ORDERED: VANCOMYCIN HCL 0 MG in DEXTROSE 5%-WATER 250 ML IV NR (14:00)
[2019-06-18] MEDS ORDERED: DEXTROSE 40% GEL 15 GM TUBE PO PRN ×2 (14:09)
[2019-06-18] MEDS ORDERED: GLUCAGON,HUMAN RECOMB 1 MG INJ IM PRN (14:09)
[2019-06-18] MEDS ORDERED: DEXTROSE 50%-WATER 25 GM/50 ML DISP.SYRIN IV PRN ×2 (14:09)
[2019-06-18 15:31] LABS: INTERNATIONAL RATION (INR) 1.38; PARTIAL THROMBOPLASTIN TIME 29.8 SEC (23.5-35.8); PROTHROMBIN TIME 17.1 SEC (11.4-15.4)
--- NOTE | 2019-06-18 15:42 | RADIOLOGY REPORT (SQ) ---
EXAM DESCRIPTION: CHEST SINGLE VIEW COMPLETED DATE/TIME: 06/18/2019 2:49 pm REASON FOR STUDY: copd COMPARISON: 10/09/2018 EXAM PARAMETERS: NUMBER OF VIEWS: One view. TECHNIQUE: Single frontal radiographic view of the chest acquired. RADIATION DOSE: NA LIMITATIONS: None. FINDINGS: LUNGS AND PLEURA: No opacities, masses or pneumothorax. No pleural effusion. MEDIASTINUM AND HILAR STRUCTURES: No masses. Contour normal. HEART AND VASCULAR STRUCTURES: Cardiomegaly. Normal vasculature. BONES: No acute findings. HARDWARE: CABG. Left-sided defibrillator. OTHER: No other significant finding. IMPRESSION: NO ACUTE RADIOGRAPHIC FINDING IN THE CHEST. TECHNICAL DOCUMENTATION: JOB ID: [id number] 2010 [employer]- All Rights Reserved Reading location - IP/workstation name: [email or web address]
[2019-06-18 15:56] LABS: PHOSPHORUS 3.1 mg/dL (2.5-4.5)
[2019-06-18 16:03] LABS: CREATINE KINASE MB 4.16 ng/mL (<4.55)
[2019-06-18 16:11] LABS: TROPONIN I 0.146 ng/mL
[2019-06-18 16:12] LABS: FREE T4 (FREE THYROXINE) 1.04 ng/dL (0.78-2.19)
[2019-06-18 16:26] LABS: THYROID STIMULATING HORMONE 3.71 uIU/mL (0.47-4.68)
[2019-06-18] MEDS: PIPERACILLIN SODIUM/TAZOBACTAM 3.375 GM in NORMAL SALINE 100 ML IV SCH ×2 (16:36→22:24)
[2019-06-18] MEDS: INSULIN LISPRO 100 UNIT/ML 3 ML VIAL SUBCUT SCH ×2 (16:36→22:28)
[2019-06-18 17:10] LABS: APPEARANCE,URINE CLEAR; BILIRUBIN,URINE NEGATIVE (NEGATIVE); COLOR,URINE YELLOW; GLUCOSE, URINE >=500 mg/dL (NEGATIVE); KETONES,URINE NEGATIVE (NEGATIVE); LEUKOCYTE ESTERASE,URINE NEGATIVE (NEGATIVE); NITRITE,URINE NEGATIVE (NEGATIVE); PROTEIN,URINE 100 mg/dL (NEGATIVE); URINE SPECIFIC GRAVITY 1.006; UROBILINOGEN,URINE NEGATIVE mg/dL (<2.0)
[2019-06-18 17:24] LABS: URINE AMPHETAMINES SCREEN NEGATIVE; URINE BARBITURATES SCREEN NEGATIVE; URINE BENZODIAZEPINES SCREEN NEGATIVE; URINE COCAINE SCREEN NEGATIVE; URINE MARIJUANA (THC) SCREEN NEGATIVE; URINE METHADONE SCREEN NEGATIVE; URINE PHENCYCLIDINE SCREEN NEGATIVE
[2019-06-18 17:51] LABS: ABSOLUTE BASOPHILS # (AUTO) 0.1 10^3/uL (0.0-0.2); ABSOLUTE LYMPHOCYTES (AUTO) 0.9 10^3/uL (0.5-4.7); ABSOLUTE MONOCYTES (AUTO) 0.8 10^3/uL (0.1-1.4); ABSOLUTE NEUT (AUTO) 6.7 10^3/uL (1.7-8.2); BASOPHILS % (AUTO) 0.9 % (0-2); EOSINOPHILS % (AUTO) 0.6 % (0-6); HEMATOCRIT 44.3 % (37.9-51.0); HEMOGLOBIN 14.6 g/dL (13.5-17.0); LYMPHOCYTES % (AUTO) 10.9 % (13-45); MEAN CORPUSCULAR HEMOGLOBIN 25.7 pg (27.0-33.4); MEAN CORPUSCULAR HGB CONC 32.9 g/dL (32.0-36.0); MEAN CORPUSCULAR VOLUME 78 fl (80-97); MONOCYTES % (AUTO) 9.2 % (3-13); PLATELET COUNT 226 10^3/uL (150-450); RED BLOOD COUNT 5.68 10^6/uL (4.35-5.55); SEGMENTED NEUTROPHILS % (AUTO) 78.4 % (42-78); TOTAL CELLS COUNTED % (AUTO) 100 %; WHITE BLOOD COUNT 8.6 10^3/uL (4.0-10.5)
--- NOTE | 2019-06-18 18:30 | PDOC CONSULTATION ---
Consultation Consult Date: 06/18/19 Provider Consulted: SURGICAL SURGICALIST Consult reason:: Left leg ulcer History of Present Illness Admission Date/PCP: 06/18/19 13:05 LIANE LEIGH MD Patient complains of: Left leg pain, worsening left leg ulcer History of Present Illness: KENIA MCALLISTER is a 63 year old male seen in consultation at the request of Dr. Leigh. This is a 63-year-old male with a long history of lower extremity edema, due to congestive heart failure. The patient has a nonhealing posterior left calf wound. He reports that it has been worsening. He sees the wound care clinic, which has "scraped it" recently. He reports continued wo rsening of his edema, pain, and tenderness. He denies fevers, chills, nausea, vomiting, chest pain, shortness of breath, dizziness, orthostasis, blurry vision, abdominal pain, melena, hematochezia, hematemesis. He does have exercise intolerance. He does have both diabetes and congestive heart failure. He does not wear compression stockings at home. Past Medical History Cardiac Medical History: Reports: Congestive Heart Failure, Coronary Artery Disease, Myocardial Infarction, Hypertension Pulmonary Medical History: Reports: Asthma Endocrine Medical History: Reports: Diabetes Mellitus Type 2 Past Surgical History Past Surgical History: Reports: Coronary Artery Bypass Graft - He had quadruple bypass on 03/08/2014 in [place] Social History Smoking Status: Former Smoker Frequency of Alcohol Use: Rare Hx Recreational Drug Use: No Drugs: None Hx Prescription Drug Abuse: No Family History Family History: Reviewed & Not Pertinent Parental Family History Reviewed: Yes Children Family History Reviewed: Yes Sibling(s) Family History Reviewed.: Yes Medication/Allergy Home Medications: Albuterol Sulfate [Albuterol Sulfate Hfa] 2 puff IH Q6HP PRN 10/09/18 Bumetanide [Bumex 1 mg Tablet] 1 mg PO BID 10/09/18 Carvedilol [Coreg 6.25 mg Tablet] 6.25 mg PO Q12 10/09/18 Digoxin [Lanoxin 0.125 mg Tablet] 0.125 mg PO QHS 10/09/18 Fluticasone/Salmeterol [Advair 250-50 Diskus 14 Dose/Diskus] 1 inh IH Q12 10/09/18 Insulin Aspart [Novolog] 0 unit SQ .SLIDING SCALE 10/09/18 Insulin Glargine,Hum.rec.anlog [Lantus Insulin 100 Unit/1 ml 10 ml] 35 unit SUBCUT QHS 10/09/18 Sitagliptin Phosphate [Januvia 50 mg Tablet] 100 mg PO DAILY 10/09/18 Warfarin Sodium [Coumadin 5 mg Tablet] 5 mg PO QHS 10/09/18 Allergies/Adverse Reactions: codeine Allergy (Verified 10/09/18 13:20) Review of Systems Constitutional: ABSENT: anorexia, chills Eyes: ABSENT: visual disturbances Ears: ABSENT: hearing changes Nose, Mouth, and Throat: ABSENT: headache(s) Cardiovascular: PRESENT: dyspnea on exertion, edema. ABSENT: chest pain Respiratory: ABSENT: cough, dyspnea Gastrointestinal: ABSENT: abdominal pain, hematemesis, hematochezia, melena, nausea, vomiting Genitourinary: ABSENT: dysuria Musculoskeletal: ABSENT: back pain Integumentary: PRESENT: pruritus, wounds - left leg Neurological: ABSENT: confusion, convulsions, dizziness, weakness Psychiatric: ABSENT: anxiety, depression Endocrine: ABSENT: cold intolerance, heat intolerance Hematologic/Lymphatic: ABSENT: easy bleeding, easy bruising Physical Exam Vital Signs: Temp Pulse Resp BP Pulse Ox 98.5 F 84 20 113/72 92 06/18/19 15:06 06/18/19 15:06 06/18/19 15:06 06/18/19 15:06 06/18/19 15:06 Intake & Output 06/17/19 06/18/19 06/19/19 06:59 06:59 06:59 Intake Total 480 Output Total 1 Balance 479 General appearance: PRESENT: no acute distress, cooperative, obese Head exam: PRESENT: atraumatic, normocephalic Eye exam: PRESENT: EOMI, PERRLA. ABSENT: scleral icterus Mouth exam: PRESENT: moist, neck supple Teeth exam: PRESENT: poor dentation Neck exam: ABSENT: meningismus, tenderness, thyromegaly, tracheal deviation Respiratory exam: PRESENT: unlabored. ABSENT: chest wall tenderness, tachypnea, wheezes Cardiovascular exam: ABSENT: tachycardia Vascular exam: PRESENT: other - Dependent rubor of bilateral lower extremities, below the knee. GI/Abdominal exam: PRESENT: soft. ABSENT: distended, tenderness Rectal exam: PRESENT: deferred Extremities exam: PRESENT: pedal edema, +2 edema, other - Large wound to the left posterior calf with desiccated, necrotic appearing tissue/eschar. Erythema and tenderness to palpation are present.. ABSENT: clubbing Neurological exam: PRESENT: alert, awake, oriented to person, oriented to place, oriented to time, oriented to situation Psychiatric exam: ABSENT: agitated, anxious, depressed Focused psych exam: ABSENT: delusional Skin exam: PRESENT: erythema. ABSENT: cyanosis, jaundice Results Laboratory Results: 06/18/19 15:11 06/18/19 15:11 06/18/19 06/18/19 06/18/19 15:11 15:11 15:11 WBC RBC Hgb Hct MCV MCH MCHC RDW Plt Count Seg Neutrophils % Creatinine Est GFR ( Amer) Phosphorus 3.1 Magnesium 1.6 Ammonia 16.7 Amylase 33 Lipase 241.9 TSH 3.71 Free T4 1.04 Urine Color Urine Appearance Urine pH Ur Specific [place] Urine Protein Urine Glucose (UA) Urine Ketones Urine Blood Urine Nitrite Ur Leukocyte Esterase Urine WBC (Auto) Urine RBC (Auto) 06/18/19 06/18/19 06/18/19 15:11 15:11 15:55 WBC 8.6 RBC 5.68 H Hgb 14.6 Hct 44.3 MCV 78 L MCH 25.7 L MCHC 32.9 RDW 19.0 H Plt Count 226 Seg Neutrophils % 78.4 H Creatinine 0.96 Est GFR ( Amer) > 60 Phosphorus Magnesium Ammonia Amylase Lipase TSH Free T4 Urine Color YELLOW Urine Appearance CLEAR Urine pH 7.0 Ur Specific [place] 1.006 Urine Protein 100 H Urine Glucose (UA) >=500 H Urine Ketones NEGATIVE Urine Blood SMALL H Urine Nitrite NEGATIVE Ur Leukocyte Esterase NEGATIVE Urine WBC (Auto) 1 Urine RBC (Auto) 5 06/18/19 06/18/19 15:11 15:11 Creatine Kinase 122 CK-MB (CK-2) 4.16 Troponin I 0.146 Impressions: Chest X-Ray 06/18/19 13:50 IMPRESSION: NO ACUTE RADIOGRAPHIC FINDING IN THE CHEST. Assessment & Plan - Diagnosis (1) Ulcer of left lower leg Qualifiers: Non-pressure ulcer stage: with fat layer exposed Qualified Code(s): L97.922 - Non-pressure chronic ulcer of unspecified part of left lower leg with fat layer exposed Is this a current diagnosis for this admission?: Yes (2) Congestive heart failure Qualifiers: Heart failure type: unspecified Heart failure chronicity: unspecified Qualified Code(s): I50.9 - Heart failure, unspecified - Plan Summary Plan Summary: This is a 63-year-old male with a large wound to the left posterior calf. I believe his wound is related to his lower extremity edema (exacerbated by his CHF). The patient does not take Lasix on a routine basis or wear compression stockings. The patient has desiccated, necrotic tissue present in the wound. The patient will require debridement of all nonviable tissue. I have offered bedside debridement, but the patient reports that local anesthesia does not work for him due to his over metabolism of the local anesthesia. Plan for operative debridement tomorrow. N.p.o. after midnight. Compression is vital in treatment of the patient's lower extremity ulcer. Along with debridement, the patient should wear compression stockings, to the knee at all times. Without adequate compression, the patient's ulcers will continue to worsen. I will order JENNIFER ro in the hospital today. Surgery will follow.
[2019-06-18] MEDS ORDERED: (PENDING PHARMACY ID) (Insulin Degludec [Tresiba Flextouch U-100] 40 UNIT) SUBCUT SCH (19:00)
[2019-06-18] MEDS ORDERED: ALBUTEROL SULFATE HFA (90 MCG/PUFF) 8 GM MDI (1 MDI/ER DISP) IH PRN (19:00)
--- NOTE | 2019-06-18 19:00 | PDOC H&P ---
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 Patient was admitted directly into the hospital to initiate management. Patient has not been compliant with his diabetic care he does not use the recommended medication, the insurance has also been a challenging factor, most of the medication prescribed requires preauthorization.He has multiple comorbid conditions the ulcer in his leg is most likely venous stasis ulcers he has severe cardiomyopathy with chronic leg edema. Past Medical History Cardiac Medical History: Reports: Congestive Heart Failure, Coronary Artery Disease, Myocardial Infarction, Hypertension Pulmonary Medical History: Reports: Asthma Endocrine Medical History: Reports: Diabetes Mellitus Type 2 Past Surgical History Past Surgical History: Reports: Coronary Artery Bypass Graft - He had quadruple bypass on 03/08/2014 in [place] Social History Smoking Status: Former Smoker Frequency of Alcohol Use: Rare Hx Recreational Drug Use: No Drugs: None Hx Prescription Drug Abuse: No Family History Family History: Reviewed & Not Pertinent Parental Family History Reviewed: Yes Children Family History Reviewed: Yes Sibling(s) Family History Reviewed.: Yes Medication/Allergy Home Medications: Albuterol Sulfate [Albuterol Sulfate Hfa] 2 puff IH Q6HP PRN 06/18/19 Bumetanide [Bumex 1 mg Tablet] 1 mg PO BID 06/18/19 Carvedilol [Coreg 6.25 mg Tablet] 6.25 mg PO Q12 06/18/19 Insulin Degludec [Tresiba Flextouch U-100] 40 unit SUBCUT BID 06/18/19 Ipratropium/Albuterol Sulfate [Duoneb 3 ml Ampul] 1 vial NEB Q4 06/18/19 Sacubitril/Valsartan [Entresto 97 mg/103 mg Tablet] 1 tab PO BID 06/18/19 Warfarin Sodium [Coumadin 5 mg Tablet] 5 mg PO QHS 06/18/19 Allergies/Adverse Reactions: codeine Allergy (Verified 10/09/18 13:20) Review of Systems Constitutional: PRESENT: fatigue. ABSENT: chills, fever(s), headache(s), weight gain, weight loss Eyes: ABSENT: visual disturbances Ears: ABSENT: hearing changes Cardiovascular: ABSENT: chest pain, dyspnea on exertion, edema, orthropnea, palpitations Respiratory: ABSENT: cough, hemoptysis Gastrointestinal: ABSENT: abdominal pain, constipation, diarrhea, hematemesis, hematochezia, nausea, vomiting Genitourinary: ABSENT: dysuria, hematuria Musculoskeletal: ABSENT: joint swelling Integumentary: PRESENT: wounds. ABSENT: rash Neurological: ABSENT: abnormal gait, abnormal speech, confusion, dizziness, focal weakness, syncope Psychiatric: ABSENT: anxiety, depression, homidical ideation, suicidal ideation Endocrine: ABSENT: cold intolerance, heat intolerance, menstrual abnormalities, polydipsia, polyuria Hematologic/Lymphatic: ABSENT: easy bleeding, easy bruising, lymphadenopathy Physical Exam Vital Signs: Temp Pulse Resp BP Pulse Ox 98.5 F 84 20 113/72 92 06/18/19 15:06 06/18/19 15:06 06/18/19 15:06 06/18/19 15:06 06/18/19 15:06 Intake & Output 06/17/19 06/18/19 06/19/19 06:59 06:59 06:59 Intake Total 480 Output Total 1 Balance 479 General appearance: PRESENT: no acute distress, well-developed, well-nourished Head exam: PRESENT: atraumatic, normocephalic Eye exam: PRESENT: conjunctiva pink, EOMI, PERRLA Ear exam: PRESENT: normal external ear exam Mouth exam: PRESENT: moist, tongue midline Neck exam: PRESENT: full ROM Respiratory exam: PRESENT: crackles Cardiovascular exam: PRESENT: RRR, +S1, +S2 Pulses: PRESENT: normal dorsalis pedis pul, +2 pedal pulses bilateral Vascular exam: PRESENT: normal capillary refill GI/Abdominal exam: PRESENT: normal bowel sounds, soft Rectal exam: PRESENT: deferred Extremities exam: PRESENT: pedal edema, other - Infected large round ulcer in the posterior aspect of the left leg Neurological exam: PRESENT: alert, CN II-XII grossly intact Psychiatric exam: PRESENT: appropriate affect, normal mood Skin exam: PRESENT: dry, intact, warm Results Laboratory Results: 06/18/19 15:11 06/18/19 15:11 06/18/19 06/18/19 06/18/19 15:11 15:11 15:11 WBC RBC Hgb Hct MCV MCH MCHC RDW Plt Count Seg Neutrophils % Creatinine Est GFR ( Amer) Phosphorus 3.1 Magnesium 1.6 Ammonia 16.7 Amylase 33 Lipase 241.9 TSH 3.71 Free T4 1.04 Urine Color Urine Appearance Urine pH Ur Specific [place] Urine Protein Urine Glucose (UA) Urine Ketones Urine Blood Urine Nitrite Ur Leukocyte Esterase Urine WBC (Auto) Urine RBC (Auto) 06/18/19 06/18/19 06/18/19 15:11 15:11 15:55 WBC 8.6 RBC 5.68 H Hgb 14.6 Hct 44.3 MCV 78 L MCH 25.7 L MCHC 32.9 RDW 19.0 H Plt Count 226 Seg Neutrophils % 78.4 H Creatinine 0.96 Est GFR ( Amer) > 60 Phosphorus Magnesium Ammonia Amylase Lipase TSH Free T4 Urine Color YELLOW Urine Appearance CLEAR Urine pH 7.0 Ur Specific [place] 1.006 Urine Protein 100 H Urine Glucose (UA) >=500 H Urine Ketones NEGATIVE Urine Blood SMALL H Urine Nitrite NEGATIVE Ur Leukocyte Esterase NEGATIVE Urine WBC (Auto) 1 Urine RBC (Auto) 5 06/18/19 06/18/19 15:11 15:11 Creatine Kinase 122 CK-MB (CK-2) 4.16 Troponin I 0.146 Impressions: Chest X-Ray 06/18/19 13:50 IMPRESSION: NO ACUTE RADIOGRAPHIC FINDING IN THE CHEST. Assessment & Plan - Diagnosis (1) Infected stasis ulcer of left lower extremity Is this a current diagnosis for this admission?: Yes Plan: Patient will require debridement, consultation will be requested from surgery, start IV antibiotic to cover MRSA, gram-negative, gram-positive organisms (2) Chronic combined systolic (congestive) and diastolic (congestive) heart failure Is this a current diagnosis for this admission?: Yes Plan: Patient presently compensated he has elevated troponin most likely from is cardiomyopathy (3) T2DM (type 2 diabetes mellitus) Qualifiers: Diabetes mellitus [facility] insulin use: with rat exterminator use Diabetes mellitus complication status: with neurologic complications Diabetes mellitus complication detail: with polyneuropathy Qualified Code(s): E11.42 - Type 2 diabetes mellitus with diabetic polyneuropathy; Z79.4 - long term (current) use of insulin Is this a current diagnosis for this admission?: Yes Plan: Continue home medications (4) Chronic atrial fibrillation Is this a current diagnosis for this admission?: Yes Plan: Patient will continue Coumadin per Coumadin protocol
[2019-06-18] MEDS: IPRATROPIUM/ALBUTEROL 0.5-2.5 MG/3 ML AMPUL NEB SCH ×2 (20:11→23:46)
[2019-06-18 20:17] LABS: HEMATOCRIT 47.3 % (37.9-51.0); HEMOGLOBIN 15.4 g/dL (13.5-17.0); MEAN CORPUSCULAR HEMOGLOBIN 25.5 pg (27.0-33.4); MEAN CORPUSCULAR HGB CONC 32.5 g/dL (32.0-36.0); MEAN CORPUSCULAR VOLUME 79 fl (80-97); PLATELET COUNT 246 10^3/uL (150-450); RED BLOOD COUNT 6.02 10^6/uL (4.35-5.55); RED CELL DISTRIBUTION WIDTH 19.4 % (11.5-14.0)
[2019-06-18 20:20] LABS: PROTHROMBIN TIME 17.3 SEC (11.4-15.4)
[2019-06-18 20:21] LABS: PARTIAL THROMBOPLASTIN TIME 31.1 SEC (23.5-35.8)
[2019-06-18 20:38] LABS: ALBUMIN 3.1 g/dL (3.5-5.0); ALKALINE PHOSPHATASE 144 U/L (38-126); ANION GAP 9 (5-19); ASPARTATE AMINO TRANSFERASE 49 U/L (17-59); BILIRUBIN,DIRECT 0.4 mg/dL (0.0-0.4); BILIRUBIN,TOTAL 1.7 mg/dL (0.2-1.3); BLOOD UREA NITROGEN 27 mg/dL (7-20); CALCIUM 8.6 mg/dL (8.4-10.2); CARBON DIOXIDE 31 mmol/L (22-30); CHLORIDE 91 mmol/L (98-107); GLUCOSE 224 mg/dL (75-110); TOTAL PROTEIN 6.8 g/dL (6.3-8.2)
[2019-06-18 20:50] LABS: CREATINE KINASE MB 5.05 ng/mL (<4.55); TROPONIN I 0.132 ng/mL
[2019-06-18] MEDS: BUMETANIDE 1 MG TABLET PO SCH (22:29)
[2019-06-18] MEDS: SACUBITRIL/VALSARTAN 97 MG/103 MG TABLET PO SCH (22:29)
[2019-06-18] MEDS: CARVEDILOL 6.25 MG TABLET PO SCH (22:30)
[2019-06-18] MEDS: WARFARIN SODIUM 5 MG TABLET PO SCH (22:52)
[2019-06-18] MEDS: ALBUTEROL SULFATE HFA (90 MCG/PUFF) 8 GM MDI IH PRN (23:23)
[2019-06-18] MEDS: VANCOMYCIN HCL 1,500 MG in DEXTROSE 5%-WATER 250 ML IV SCH (23:28)
[2019-06-19 02:21] LABS: CREATINE KINASE MB 5.48 ng/mL (<4.55); TROPONIN I 0.189 ng/mL
[2019-06-19] MEDS: PIPERACILLIN SODIUM/TAZOBACTAM 3.375 GM in NORMAL SALINE 100 ML IV SCH ×4 (02:58→21:03)
[2019-06-19] MEDS: IPRATROPIUM/ALBUTEROL 0.5-2.5 MG/3 ML AMPUL NEB SCH ×6 (04:13→23:38)
[2019-06-19 07:12] LABS: ABSOLUTE BASOPHILS # (AUTO) 0.1 10^3/uL (0.0-0.2); ABSOLUTE EOSINOPHILS # (AUTO) 0.1 10^3/uL (0.0-0.6); ABSOLUTE LYMPHOCYTES (AUTO) 1.1 10^3/uL (0.5-4.7); ABSOLUTE MONOCYTES (AUTO) 1.3 10^3/uL (0.1-1.4); ABSOLUTE NEUT (AUTO) 6.2 10^3/uL (1.7-8.2); BASOPHILS % (AUTO) 1.1 % (0-2); EOSINOPHILS % (AUTO) 1.3 % (0-6); LYMPHOCYTES % (AUTO) 12.5 % (13-45); MEAN CORPUSCULAR HEMOGLOBIN 25.4 pg (27.0-33.4); MEAN CORPUSCULAR HGB CONC 31.9 g/dL (32.0-36.0); MEAN CORPUSCULAR VOLUME 79 fl (80-97); MONOCYTES % (AUTO) 14.9 % (3-13); PLATELET COUNT 240 10^3/uL (150-450); RED BLOOD COUNT 5.93 10^6/uL (4.35-5.55); SEGMENTED NEUTROPHILS % (AUTO) 70.2 % (42-78); TOTAL CELLS COUNTED % (AUTO) 100 %; WHITE BLOOD COUNT 8.9 10^3/uL (4.0-10.5)
[2019-06-19 07:24] LABS: INTERNATIONAL RATION (INR) 1.37
[2019-06-19 07:30] LABS: ALBUMIN 3.1 g/dL (3.5-5.0); ALKALINE PHOSPHATASE 128 U/L (38-126); ANION GAP 7 (5-19); ASPARTATE AMINO TRANSFERASE 60 U/L (17-59); BILIRUBIN,DIRECT 0.4 mg/dL (0.0-0.4); BILIRUBIN,TOTAL 1.7 mg/dL (0.2-1.3); BLOOD UREA NITROGEN 25 mg/dL (7-20); CALCIUM 8.5 mg/dL (8.4-10.2); CARBON DIOXIDE 32 mmol/L (22-30); CHLORIDE 94 mmol/L (98-107); CHOLESTEROL 163.96 mg/dL (0-200); GLUCOSE 177 mg/dL (75-110); POTASSIUM 3.8 mmol/L (3.6-5.0); TRIGLYCERIDES 102 mg/dL (<150)
[2019-06-19 07:41] LABS: DIRECT LDL 105 mg/dL (<100)
--- NOTE | 2019-06-19 08:50 | PDOC PROGRESS REPORT ---
Subjective Progress Note for:: 06/19/19 Subjective:: No complaints. Reason For Visit: INFECTED ULCER OF THE LEFT LEG,CARDIOMYOPATHY,T2DM Physical Exam Vital Signs: Temp Pulse Resp BP Pulse Ox 97.9 F 80 16 126/85 H 97 06/19/19 03:43 06/19/19 07:00 06/19/19 04:15 06/19/19 03:43 06/19/19 04:15 Intake & Output 06/18/19 06/19/19 06/20/19 06:59 06:59 06:59 Intake Total 931 Output Total 1 Balance 930 Weight 105.2 kg General appearance: PRESENT: no acute distress, cooperative Cardiovascular exam: PRESENT: RRR Extremities exam: PRESENT: other - Left posterior lower leg with approximately 4 to 5 cm full-thickness ulcer with subtle surrounding erythema. The ulcer has croft eschar over what appears to be subcutaneous fat. Results Laboratory Results: 06/19/19 06:51 06/19/19 06:51 06/18/19 06/18/19 06/18/19 15:11 15:11 15:11 WBC RBC Hgb Hct MCV MCH MCHC RDW Plt Count Seg Neutrophils % Sodium Potassium Chloride Carbon Dioxide Anion Gap BUN Creatinine Est GFR ( Amer) Glucose Calcium Phosphorus 3.1 Magnesium 1.6 Total Bilirubin AST Alkaline Phosphatase Ammonia 16.7 Total Protein Albumin Triglycerides Cholesterol LDL Cholesterol Direct VLDL Cholesterol HDL Cholesterol Amylase 33 Lipase 241.9 TSH 3.71 Free T4 1.04 Urine Color Urine Appearance Urine pH Ur Specific [place] Urine Protein Urine Glucose (UA) Urine Ketones Urine Blood Urine Nitrite Ur Leukocyte Esterase Urine WBC (Auto) Urine RBC (Auto) 06/18/19 06/18/19 06/18/19 15:11 15:11 15:55 WBC 8.6 RBC 5.68 H Hgb 14.6 Hct 44.3 MCV 78 L MCH 25.7 L MCHC 32.9 RDW 19.0 H Plt Count 226 Seg Neutrophils % 78.4 H Sodium Potassium Chloride Carbon Dioxide Anion Gap BUN Creatinine 0.96 Est GFR ( Amer) > 60 Glucose Calcium Phosphorus Magnesium Total Bilirubin AST Alkaline Phosphatase Ammonia Total Protein Albumin Triglycerides Cholesterol LDL Cholesterol Direct VLDL Cholesterol HDL Cholesterol Amylase Lipase TSH Free T4 Urine Color YELLOW Urine Appearance CLEAR Urine pH 7.0 Ur Specific [place] 1.006 Urine Protein 100 H Urine Glucose (UA) >=500 H Urine Ketones NEGATIVE Urine Blood SMALL H Urine Nitrite NEGATIVE Ur Leukocyte Esterase NEGATIVE Urine WBC (Auto) 1 Urine RBC (Auto) 5 06/18/19 06/18/19 06/19/19 20:03 20:03 06:51 WBC 9.0 8.9 RBC 6.02 H 5.93 H Hgb 15.4 15.0 Hct 47.3 47.0 MCV 79 L 79 L MCH 25.5 L 25.4 L MCHC 32.5 31.9 L RDW 19.4 H 19.0 H Plt Count 246 240 Seg Neutrophils % 70.2 Sodium 130.7 L Potassium 4.0 Chloride 91 L Carbon Dioxide 31 H Anion Gap 9 BUN 27 H Creatinine 1.04 Est GFR ( Amer) > 60 Glucose 224 H Calcium 8.6 Phosphorus Magnesium Total Bilirubin 1.7 H AST 49 Alkaline Phosphatase 144 H Ammonia Total Protein 6.8 Albumin 3.1 L Triglycerides Cholesterol LDL Cholesterol Direct VLDL Cholesterol HDL Cholesterol Amylase Lipase TSH Free T4 Urine Color Urine Appearance Urine pH Ur Specific [place] Urine Protein Urine Glucose (UA) Urine Ketones Urine Blood Urine Nitrite Ur Leukocyte Esterase Urine WBC (Auto) Urine RBC (Auto) 06/19/19 06:51 WBC RBC Hgb Hct MCV MCH MCHC RDW Plt Count Seg Neutrophils % Sodium 133.2 L Potassium 3.8 Chloride 94 L Carbon Dioxide 32 H Anion Gap 7 BUN 25 H Creatinine 0.97 Est GFR ( Amer) > 60 Glucose 177 H Calcium 8.5 Phosphorus Magnesium Total Bilirubin 1.7 H AST 60 H Alkaline Phosphatase 128 H Ammonia Total Protein 7.0 Albumin 3.1 L Triglycerides 102 Cholesterol 163.96 LDL Cholesterol Direct 105 H VLDL Cholesterol 20.0 HDL Cholesterol 52 Amylase Lipase TSH Free T4 Urine Color Urine Appearance Urine pH Ur Specific [place] Urine Protein Urine Glucose (UA) Urine Ketones Urine Blood Urine Nitrite Ur Leukocyte Esterase Urine WBC (Auto) Urine RBC (Auto) 06/18/19 06/18/19 06/18/19 15:11 15:11 20:03 Creatine Kinase 122 145 CK-MB (CK-2) 4.16 Troponin I 0.146 06/18/19 06/19/19 06/19/19 20:03 01:44 01:44 Creatine Kinase 131 CK-MB (CK-2) 5.05 H 5.48 H Troponin I 0.132 0.189 Impressions: Chest X-Ray 03/25/20 13:50 IMPRESSION: NO ACUTE RADIOGRAPHIC FINDING IN THE CHEST. Assessment & Plan - Diagnosis (1) Infected stasis ulcer of left lower extremity Is this a current diagnosis for this admission?: Yes Plan: Patient would benefit from a debridement of this full-thickness left lower leg ulcer. I have discussed with the patient the risk and benefits of the procedure including risk of prolonged wound healing, infection, bleeding. We will see how much this ulcer will contract in over time but he may require a skin graft in the future.
[2019-06-19] MEDS ORDERED: BUPIVACAINE HCL 0.25 % INJ/PF (2.5 MG/1 ML) 30 ML VIAL ONE (09:00)
[2019-06-19] MEDS ORDERED: LIDOCAINE 1%/EPINEPHRINE INJ 20 ML VIAL ONE (09:00)
[2019-06-19] MEDS ORDERED: FENTANYL CITRATE INJ/PF 100 MCG/2 ML AMPUL ONE (10:13)
[2019-06-19] MEDS ORDERED: MIDAZOLAM 2 MG/2 ML INJ ONE (10:13)
[2019-06-19] MEDS ORDERED: PROPOFOL INJ 200 MG/20 ML VIAL IV ONE (10:13)
[2019-06-19] MEDS ORDERED: LIDOCAINE 1% INJ-PF (10 MG/ML) 30 ML SDV ONE (10:30)
--- NOTE | 2019-06-19 11:01 | Operative Report ---
Operative Report DATE OF SURGERY: 06/19/19 PREOPERATIVE DIAGNOSIS: Infected left posterior lower leg ulcer POSTOPERATIVE DIAGNOSIS: Same OPERATION: Debridement of left lower leg posterior ulcer SURGEON: KATHY WILLIS ANESTHESIA: LMAC TISSUE REMOVED OR ALTERED: Debrided necrotic tissue submitted for Gram stain and culture COMPLICATIONS: None ESTIMATED BLOOD LOSS: 10 cc INTRAOPERATIVE FINDINGS: Approximately 5 x 5 cm ulcer at the left lower leg posteriorly with serpiginous connection to smaller ulcers. Purulent fluid found underneath the necrotic tissue at the base of the ulcers. PROCEDURE: Informed consent was obtained. Patient was brought to the operating room and his left leg was prepped and draped in usual sterile fashion. Local anesthetic was administered. The procedure was done under LMAC. Patient had a 5 x 5 cm deep-seated ulcer at the posterior aspect of his left lower leg (calf) with a serpiginous connection to smaller ulcers. The necrotic eschar was sharply debrided from all of the ulcers using a scalpel going down to bleeding viable tissue. Underneath portions of the necrotic eschar there was purulent fluid. The eschar with the purulent fluid was submitted to pathology for Gram stain and culture. All of the necrotic tissue was debrided. The wound appeared clean. There appears to be just slight oozing but no surgical bleed. With him having an AICD, electrocautery was not used during the case. Dressings were applied. Patient tolerated procedure well with no apparent complications.
[2019-06-19 11:38] LABS: APPEARANCE,URINE CLEAR; BILIRUBIN,URINE NEGATIVE (NEGATIVE); COLOR,URINE YELLOW; GLUCOSE, URINE 50 mg/dL (NEGATIVE); KETONES,URINE NEGATIVE (NEGATIVE); LEUKOCYTE ESTERASE,URINE NEGATIVE (NEGATIVE); NITRITE,URINE NEGATIVE (NEGATIVE); PROTEIN,URINE 100 mg/dL (NEGATIVE); UROBILINOGEN,URINE NEGATIVE mg/dL (<2.0)
[2019-06-19] MEDS: CARVEDILOL 6.25 MG TABLET PO SCH ×2 (12:42→21:49)
[2019-06-19] MEDS: INSULIN LISPRO 100 UNIT/ML 3 ML VIAL SUBCUT SCH ×4 (12:43→22:11)
[2019-06-19] MEDS: BUMETANIDE 1 MG TABLET PO SCH ×2 (12:51→17:27)
[2019-06-19] MEDS: SACUBITRIL/VALSARTAN 97 MG/103 MG TABLET PO SCH ×2 (12:54→21:50)
[2019-06-19] MEDS: VANCOMYCIN HCL 1,500 MG in DEXTROSE 5%-WATER 250 ML IV SCH ×2 (12:58→22:10)
[2019-06-19] MEDS: ALBUTEROL SULFATE HFA (90 MCG/PUFF) 8 GM MDI IH PRN (17:25)
--- NOTE | 2019-06-19 19:45 | PDOC PROGRESS REPORT ---
Subjective Progress Note for:: 06/19/19 Subjective:: Patient seen by the bedside, he had also debridement today, according to the notes of the surgeon it was purulent, The preliminary wound culture demonstrated gram-positive cocci in clusters suggesting Staphylococcus, exact species not known yet. Patient is well covered on present antibiotic, on Zosyn and vancomycin Reason For Visit: INFECTED ULCER OF THE LEFT LEG,CARDIOMYOPATHY,T2DM Physical Exam Vital Signs: Temp Pulse Resp BP Pulse Ox 97.9 F 88 20 131/80 H 90 L 06/19/19 15:49 06/19/19 16:18 06/19/19 16:18 06/19/19 15:49 06/19/19 16:18 Intake & Output 06/18/19 06/19/19 06/20/19 06:59 06:59 06:59 Intake Total 931 911 Output Total 1 5 Balance 930 906 Weight 105.2 kg 105.2 kg General appearance: PRESENT: no acute distress Eye exam: PRESENT: PERRLA Respiratory exam: PRESENT: clear to auscultation nik Cardiovascular exam: PRESENT: +S1, +S2 GI/Abdominal exam: PRESENT: soft Extremities exam: PRESENT: other - Large ulcer in the posterior aspect of the right leg Neurological exam: PRESENT: alert, CN II-XII grossly intact Results Laboratory Results: 06/19/19 06:51 06/19/19 06:51 06/18/19 06/18/19 06/19/19 20:03 20:03 06:51 WBC 9.0 8.9 RBC 6.02 H 5.93 H Hgb 15.4 15.0 Hct 47.3 47.0 MCV 79 L 79 L MCH 25.5 L 25.4 L MCHC 32.5 31.9 L RDW 19.4 H 19.0 H Plt Count 246 240 Seg Neutrophils % 70.2 Sodium 130.7 L Potassium 4.0 Chloride 91 L Carbon Dioxide 31 H Anion Gap 9 BUN 27 H Creatinine 1.04 Est GFR ( Amer) > 60 Glucose 224 H Calcium 8.6 Total Bilirubin 1.7 H AST 49 Alkaline Phosphatase 144 H Total Protein 6.8 Albumin 3.1 L Triglycerides Cholesterol LDL Cholesterol Direct VLDL Cholesterol HDL Cholesterol Urine Color Urine Appearance Urine pH Ur Specific [place] Urine Protein Urine Glucose (UA) Urine Ketones Urine Blood Urine Nitrite Ur Leukocyte Esterase Urine WBC (Auto) Urine RBC (Auto) 06/19/19 06/19/19 06:51 10:35 WBC RBC Hgb Hct MCV MCH MCHC RDW Plt Count Seg Neutrophils % Sodium 133.2 L Potassium 3.8 Chloride 94 L Carbon Dioxide 32 H Anion Gap 7 BUN 25 H Creatinine 0.97 Est GFR ( Amer) > 60 Glucose 177 H Calcium 8.5 Total Bilirubin 1.7 H AST 60 H Alkaline Phosphatase 128 H Total Protein 7.0 Albumin 3.1 L Triglycerides 102 Cholesterol 163.96 LDL Cholesterol Direct 105 H VLDL Cholesterol 20.0 HDL Cholesterol 52 Urine Color YELLOW Urine Appearance CLEAR Urine pH 8.0 Ur Specific [place] 1.010 Urine Protein 100 H Urine Glucose (UA) 50 H Urine Ketones NEGATIVE Urine Blood SMALL H Urine Nitrite NEGATIVE Ur Leukocyte Esterase NEGATIVE Urine WBC (Auto) 0 Urine RBC (Auto) 3 06/18/19 15:55 Clean Catch Midstream Urine Culture - Final Mixed Urogenital Sho 06/18/19 06/18/19 06/18/19 15:11 15:11 20:03 Creatine Kinase 122 145 CK-MB (CK-2) 4.16 Troponin I 0.146 06/18/19 06/19/19 06/19/19 20:03 01:44 01:44 Creatine Kinase 131 CK-MB (CK-2) 5.05 H 5.48 H Troponin I 0.132 0.189 Impressions: Chest X-Ray 06/18/19 13:50 IMPRESSION: NO ACUTE RADIOGRAPHIC FINDING IN THE CHEST. Assessment & Plan - Diagnosis (1) Infected stasis ulcer of left lower extremity Is this a current diagnosis for this admission?: Yes Plan: Continue IV antibiotic status post debridement of the ulcer preliminary results of the culture demonstrated gram-positive cocci in clusters suggesting staph aureus (2) Chronic combined systolic (congestive) and diastolic (congestive) heart failure Is this a current diagnosis for this admission?: Yes Plan: Continue anti-CHF regimen (3) T2DM (type 2 diabetes mellitus) Qualifiers: Diabetes mellitus intermediate project manager insulin use: with care home use Diabetes mellitus complication status: with neurologic complications Diabetes mellitus complication detail: with polyneuropathy Qualified Code(s): E11.42 - Type 2 diabetes mellitus with diabetic polyneuropathy; Z79.4 - parts counterman (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
[2019-06-19] MEDS: WARFARIN SODIUM 5 MG TABLET PO SCH (22:11)
[2019-06-20] MEDS: PIPERACILLIN SODIUM/TAZOBACTAM 3.375 GM in NORMAL SALINE 100 ML IV SCH ×4 (03:49→20:46)
[2019-06-20] MEDS: IPRATROPIUM/ALBUTEROL 0.5-2.5 MG/3 ML AMPUL NEB SCH ×5 (04:22→20:03)
[2019-06-20 05:27] LABS: ABSOLUTE BASOPHILS # (AUTO) 0.1 10^3/uL (0.0-0.2); ABSOLUTE EOSINOPHILS # (AUTO) 0.1 10^3/uL (0.0-0.6); ABSOLUTE LYMPHOCYTES (AUTO) 0.9 10^3/uL (0.5-4.7); ABSOLUTE MONOCYTES (AUTO) 0.9 10^3/uL (0.1-1.4); ABSOLUTE NEUT (AUTO) 5.2 10^3/uL (1.7-8.2); EOSINOPHILS % (AUTO) 2.1 % (0-6); HEMATOCRIT 43.2 % (37.9-51.0); HEMOGLOBIN 14.5 g/dL (13.5-17.0); LYMPHOCYTES % (AUTO) 13.1 % (13-45); MEAN CORPUSCULAR HEMOGLOBIN 26.2 pg (27.0-33.4); MEAN CORPUSCULAR HGB CONC 33.5 g/dL (32.0-36.0); MEAN CORPUSCULAR VOLUME 78 fl (80-97); MONOCYTES % (AUTO) 12.3 % (3-13); PLATELET COUNT 205 10^3/uL (150-450); RED BLOOD COUNT 5.53 10^6/uL (4.35-5.55); RED CELL DISTRIBUTION WIDTH 19.3 % (11.5-14.0); SEGMENTED NEUTROPHILS % (AUTO) 71.5 % (42-78); TOTAL CELLS COUNTED % (AUTO) 100 %; WHITE BLOOD COUNT 7.3 10^3/uL (4.0-10.5)
[2019-06-20 05:33] LABS: PROTHROMBIN TIME 17.3 SEC (11.4-15.4)
[2019-06-20] MEDS: INSULIN LISPRO 100 UNIT/ML 3 ML VIAL SUBCUT SCH ×4 (08:23→21:34)
[2019-06-20 09:57] LABS: VANCOMYCIN,TROUGH 18.1 ug/mL (5.0-20.0)
[2019-06-20] MEDS: BUMETANIDE 1 MG TABLET PO SCH ×2 (10:40→17:30)
[2019-06-20] MEDS: COLLAGENASE CLOSTRIDIUM HIST. OINT 30 GM TP SCH (10:40)
[2019-06-20] MEDS: SACUBITRIL/VALSARTAN 97 MG/103 MG TABLET PO SCH ×2 (10:40→21:38)
[2019-06-20] MEDS: CARVEDILOL 6.25 MG TABLET PO SCH ×2 (10:40→21:33)
[2019-06-20] MEDS: VANCOMYCIN HCL 1,500 MG in DEXTROSE 5%-WATER 250 ML IV SCH ×2 (10:41→21:34)
--- NOTE | 2019-06-20 11:01 | PDOC PROGRESS REPORT ---
Subjective Progress Note for:: 06/20/19 Subjective:: Feels okay. Reason For Visit: INFECTED ULCER OF THE LEFT LEG,CARDIOMYOPATHY,T2DM Physical Exam Vital Signs: Temp Pulse Resp BP Pulse Ox 97.9 F 83 16 132/80 H 95 06/20/19 07:33 06/20/19 08:48 06/20/19 08:48 06/20/19 07:33 06/20/19 08:48 Intake & Output 06/19/19 06/20/19 06/21/19 06:59 06:59 06:59 Intake Total 931 1602 450 Output Total 1 5 Balance 930 1597 450 Weight 105.2 kg 105.1 kg Extremities exam: PRESENT: other - Leg ulcers appear clean. No necrotic debris. Still with some surrounding erythema. Results Laboratory Results: 06/20/19 05:12 06/19/19 06:51 06/19/19 06/20/19 10:35 05:12 WBC 7.3 RBC 5.53 Hgb 14.5 Hct 43.2 MCV 78 L MCH 26.2 L MCHC 33.5 RDW 19.3 H Plt Count 205 Seg Neutrophils % 71.5 Urine Color YELLOW Urine Appearance CLEAR Urine pH 8.0 Ur Specific [place] 1.010 Urine Protein 100 H Urine Glucose (UA) 50 H Urine Ketones NEGATIVE Urine Blood SMALL H Urine Nitrite NEGATIVE Ur Leukocyte Esterase NEGATIVE Urine WBC (Auto) 0 Urine RBC (Auto) 3 06/18/19 15:40 Leg - Diabetic Ulcer Gram Stain - Final 06/18/19 15:55 Clean Catch Midstream Urine Culture - Final Mixed Urogenital Sho 06/18/19 06/18/19 06/18/19 15:11 15:11 20:03 Creatine Kinase 122 145 CK-MB (CK-2) 4.16 Troponin I 0.146 06/18/19 06/19/19 06/19/19 20:03 01:44 01:44 Creatine Kinase 131 CK-MB (CK-2) 5.05 H 5.48 H Troponin I 0.132 0.189 Impressions: Chest X-Ray 06/18/19 13:50 IMPRESSION: NO ACUTE RADIOGRAPHIC FINDING IN THE CHEST. Assessment & Plan - Diagnosis (1) Infected stasis ulcer of left lower extremity Is this a current diagnosis for this admission?: Yes Plan: That is post surgical debridement. The wound appears very clean. Patient still has evidence of cellulitis. Recommend continued antibiotics. I took int raoperative cultures and culture results when available may guide therapy better. The wound can be managed at this point with Santyl ointment daily with follow-up at the wound care clinic when the patient is discharged. Surgery service signing off.
[2019-06-20] MEDS: NYSTATIN 500000 UNIT/5 ML UDCUP PO SCH ×3 (16:06→23:52)
--- NOTE | 2019-06-20 16:51 | RADIOLOGY REPORT (SQ) ---
EXAM DESCRIPTION: CHEST SINGLE VIEW IMAGES COMPLETED DATE/TIME: 06/20/2019 4:41 pm REASON FOR STUDY: pneumonia COMPARISON: 06/18/2019 EXAM PARAMETERS: NUMBER OF VIEWS: One view. TECHNIQUE: Single frontal radiographic view of the chest acquired. RADIATION DOSE: NA LIMITATIONS: None. FINDINGS: LUNGS AND PLEURA: No opacities, masses or pneumothorax. No pleural effusion. MEDIASTINUM AND HILAR STRUCTURES: No masses. Contour normal. HEART AND VASCULAR STRUCTURES: Cardiomegaly. No pulmonary edema. BONES: No acute findings. HARDWARE: Pacemaker. Sternotomy wires. OTHER: No other significant finding. IMPRESSION: Cardiomegaly without pulmonary edema. TECHNICAL DOCUMENTATION: JOB ID: [id number] 2010 [employer]- All Rights Reserved Reading location - IP/workstation name: [email or web address]
--- NOTE | 2019-06-20 17:35 | PDOC PROGRESS REPORT ---
Subjective Progress Note for:: 06/20/19 Subjective:: Patient seen by the bedside, the wound culture from his left leg preliminary results positive for MRSA and gram-negative helio. Patient presently on vancomycin, he complained of shortness of breath on auscultation of his chest there is no wheeze there is no crackles there is bilateral diminished air entry of both lung field. He also has oral thrush Reason For Visit: INFECTED ULCER OF THE LEFT LEG,CARDIOMYOPATHY,T2DM Physical Exam Vital Signs: Temp Pulse Resp BP Pulse Ox 97.9 F 91 16 132/80 H 95 06/20/19 07:33 06/20/19 15:43 06/20/19 15:43 06/20/19 07:33 06/20/19 11:47 Intake & Output 06/19/19 06/20/19 06/21/19 06:59 06:59 06:59 Intake Total 931 1602 800 Output Total 1 5 Balance 930 1597 800 Weight 105.2 kg 105.1 kg 105.1 kg General appearance: PRESENT: no acute distress, well-developed, well-nourished Head exam: PRESENT: atraumatic, normocephalic Eye exam: PRESENT: conjunctiva pink, EOMI, PERRLA Ear exam: PRESENT: normal external ear exam Mouth exam: PRESENT: moist, tongue midline Neck exam: PRESENT: full ROM. ABSENT: carotid bruit, JVD, lymphadenopathy, thyromegaly Respiratory exam: PRESENT: decreased breath sounds Cardiovascular exam: PRESENT: RRR, +S1, +S2 Pulses: PRESENT: normal dorsalis pedis pul, +2 pedal pulses bilateral Vascular exam: PRESENT: normal capillary refill GI/Abdominal exam: PRESENT: normal bowel sounds, soft Rectal exam: PRESENT: deferred Neurological exam: PRESENT: alert, awake, oriented to person, oriented to place, oriented to time, oriented to situation, CN II-XII grossly intact Psychiatric exam: PRESENT: appropriate affect, normal mood Skin exam: PRESENT: dry, intact, warm Results Laboratory Results: 06/20/19 05:12 06/19/19 06:51 06/20/19 05:12 WBC 7.3 RBC 5.53 Hgb 14.5 Hct 43.2 MCV 78 L MCH 26.2 L MCHC 33.5 RDW 19.3 H Plt Count 205 Seg Neutrophils % 71.5 06/18/19 15:40 Leg - Diabetic Ulcer Gram Stain - Final 06/18/19 15:55 Clean Catch Midstream Urine Culture - Final Mixed Urogenital Sho 06/18/19 06/18/19 06/18/19 15:11 15:11 20:03 Creatine Kinase 122 145 CK-MB (CK-2) 4.16 Troponin I 0.146 06/18/19 06/19/19 06/19/19 20:03 01:44 01:44 Creatine Kinase 131 CK-MB (CK-2) 5.05 H 5.48 H Troponin I 0.132 0.189 Impressions: Chest X-Ray 06/20/19 00:00 IMPRESSION: Cardiomegaly without pulmonary edema. Assessment & Plan - Diagnosis (1) Infected stasis ulcer of left lower extremity Is this a current diagnosis for this admission?: Yes Plan: Continue IV antibiotic (2) Chronic combined systolic (congestive) and diastolic (congestive) heart failure Is this a current diagnosis for this admission?: Yes Plan: The chest x-ray was negative for any acute pathology, the shortness of breath is multifactorial in etiology including cardiomyopathy, there is no acute CHF at this time, there is no wheezing that would suggest bronchospasm (3) T2DM (type 2 diabetes mellitus) Qualifiers: Diabetes mellitus senior living insulin use: with senior living use Diabetes mellitus complication status: with neurologic complications Diabetes mellitus complication detail: with polyneuropathy Qualified Code(s): E11.42 - Type 2 diabetes mellitus with diabetic polyneuropathy; Z79.4 - senior care (current) use of insulin Is this a current diagnosis for this admission?: Yes Plan: Poorly controlled diabetes (4) Chronic atrial fibrillation Is this a current diagnosis for this admission?: Yes (5) Oral thrush Is this a current diagnosis for this admission?: Yes Plan: Start nystatin (6) Cellulitis due to MRSA Is this a current diagnosis for this admission?: Yes Plan: He has MRSA cellulitis of the left leg, patient already on vancomycin the MRSA is also sensitive to Bactrim we may need to transition to Bactrim at one point - Time Time Spent with patient: 35 or more minutes Level of Care: IMCU
[2019-06-20] MEDS: MORPHINE SULFATE 10 MG/ML INJ IV PRN (20:54)
[2019-06-20] MEDS: WARFARIN SODIUM 5 MG TABLET PO SCH (21:33)
[2019-06-21] MEDS: IPRATROPIUM/ALBUTEROL 0.5-2.5 MG/3 ML AMPUL NEB SCH ×3 (00:11→07:58)
[2019-06-21 02:24] LABS: APPEARANCE,URINE CLEAR; BILIRUBIN,URINE NEGATIVE (NEGATIVE); COLOR,URINE YELLOW; GLUCOSE, URINE 50 mg/dL (NEGATIVE); KETONES,URINE NEGATIVE (NEGATIVE); LEUKOCYTE ESTERASE,URINE NEGATIVE (NEGATIVE); NITRITE,URINE NEGATIVE (NEGATIVE); PROTEIN,URINE 100 mg/dL (NEGATIVE); URINE SPECIFIC GRAVITY 1.015; UROBILINOGEN,URINE NEGATIVE mg/dL (<2.0)
[2019-06-21] MEDS: PIPERACILLIN SODIUM/TAZOBACTAM 3.375 GM in NORMAL SALINE 100 ML IV SCH ×4 (02:45→21:04)
[2019-06-21 05:10] LABS: ABSOLUTE BASOPHILS # (AUTO) 0.1 10^3/uL (0.0-0.2); ABSOLUTE EOSINOPHILS # (AUTO) 0.3 10^3/uL (0.0-0.6); ABSOLUTE LYMPHOCYTES (AUTO) 1.4 10^3/uL (0.5-4.7); ABSOLUTE MONOCYTES (AUTO) 0.8 10^3/uL (0.1-1.4); ABSOLUTE NEUT (AUTO) 5.1 10^3/uL (1.7-8.2); BASOPHILS % (AUTO) 1.4 % (0-2); EOSINOPHILS % (AUTO) 3.8 % (0-6); HEMATOCRIT 47.1 % (37.9-51.0); HEMOGLOBIN 15.6 g/dL (13.5-17.0); LYMPHOCYTES % (AUTO) 18.5 % (13-45); MEAN CORPUSCULAR VOLUME 79 fl (80-97); MONOCYTES % (AUTO) 10.6 % (3-13); PLATELET COUNT 230 10^3/uL (150-450); RED BLOOD COUNT 5.98 10^6/uL (4.35-5.55); RED CELL DISTRIBUTION WIDTH 19.6 % (11.5-14.0); SEGMENTED NEUTROPHILS % (AUTO) 65.7 % (42-78); TOTAL CELLS COUNTED % (AUTO) 100 %; WHITE BLOOD COUNT 7.8 10^3/uL (4.0-10.5)
[2019-06-21] MEDS: NYSTATIN 500000 UNIT/5 ML UDCUP PO SCH ×3 (05:15→18:12)
[2019-06-21 05:16] LABS: INTERNATIONAL RATION (INR) 1.38; PROTHROMBIN TIME 17.1 SEC (11.4-15.4)
[2019-06-21] MEDS: INSULIN LISPRO 100 UNIT/ML 3 ML VIAL SUBCUT SCH ×4 (08:09→21:50)
[2019-06-21] MEDS: COLLAGENASE CLOSTRIDIUM HIST. OINT 30 GM TP SCH (09:06)
[2019-06-21] MEDS: VANCOMYCIN HCL 1,500 MG in DEXTROSE 5%-WATER 250 ML IV SCH ×2 (09:06→21:48)
[2019-06-21] MEDS: BUMETANIDE 1 MG TABLET PO SCH ×2 (09:06→18:11)
[2019-06-21] MEDS: SACUBITRIL/VALSARTAN 97 MG/103 MG TABLET PO SCH ×2 (09:06→21:54)
[2019-06-21] MEDS: CARVEDILOL 6.25 MG TABLET PO SCH ×2 (09:06→21:50)
[2019-06-21] MEDS: IPRATROPIUM/ALBUTEROL 0.5-2.5 MG/3 ML AMPUL NEB PRN ×2 (12:40→18:21)
--- NOTE | 2019-06-21 16:37 | PDOC PROGRESS REPORT ---
Subjective Progress Note for:: 06/21/19 Subjective:: Patient is on Tresiba insulin he has not been receiving the insulin in the hospital because it is nonformulary, the blood sugar is elevated he will receive the substitute in this hospital which is Lantus Reason For Visit: INFECTED ULCER OF THE LEFT LEG,CARDIOMYOPATHY,T2DM Physical Exam Vital Signs: Temp Pulse Resp BP Pulse Ox 97.6 F 63 18 142/91 H 99 06/21/19 11:57 06/21/19 12:40 06/21/19 12:40 06/21/19 11:57 06/21/19 12:40 Intake & Output 06/20/19 06/21/19 06/22/19 06:59 06:59 06:59 Intake Total 1602 2705 690 Output Total 5 175 Balance 1597 2530 690 Weight 105.1 kg 107.1 kg General appearance: PRESENT: no acute distress Eye exam: PRESENT: PERRLA Respiratory exam: PRESENT: clear to auscultation nik Cardiovascular exam: PRESENT: +S1, +S2 Results Laboratory Results: 06/21/19 04:29 06/19/19 06:51 06/21/19 06/21/19 02:05 04:29 WBC 7.8 RBC 5.98 H Hgb 15.6 Hct 47.1 MCV 79 L MCH 26.0 L MCHC 33.0 RDW 19.6 H Plt Count 230 Seg Neutrophils % 65.7 Urine Color YELLOW Urine Appearance CLEAR Urine pH 6.0 Ur Specific [place] 1.015 Urine Protein 100 H Urine Glucose (UA) 50 H Urine Ketones NEGATIVE Urine Blood NEGATIVE Urine Nitrite NEGATIVE Ur Leukocyte Esterase NEGATIVE Urine WBC (Auto) 0 Urine RBC (Auto) 3 06/19/19 10:36 Leg - Tissue (Surgical) Gram Stain - Final 06/18/19 15:40 Leg - Diabetic Ulcer Gram Stain - Final 06/18/19 15:40 Leg - Diabetic Ulcer Wound Culture - Final Mrsa (Meth Resis Staph Aureus) Escherichia Coli 06/18/19 06/18/19 06/18/19 15:11 15:11 20:03 Creatine Kinase 122 145 CK-MB (CK-2) 4.16 Troponin I 0.146 06/18/19 06/19/19 06/19/19 20:03 01:44 01:44 Creatine Kinase 131 CK-MB (CK-2) 5.05 H 5.48 H Troponin I 0.132 0.189 Impressions: Chest X-Ray 06/20/19 00:00 IMPRESSION: Cardiomegaly without pulmonary edema. Assessment & Plan - Diagnosis (1) Infected stasis ulcer of left lower extremity Is this a current diagnosis for this admission?: Yes Plan: Continue IV antibiotic (2) Chronic combined systolic (congestive) and diastolic (congestive) heart failure Is this a current diagnosis for this admission?: Yes (3) T2DM (type 2 diabetes mellitus) Qualifiers: Diabetes mellitus fpc insulin use: with fpc use Diabetes mellitus complication status: with neurologic complications Diabetes mellitus complication detail: with polyneuropathy Qualified Code(s): E11.42 - Type 2 diabetes mellitus with diabetic polyneuropathy; Z79.4 - [facility] (current) use of insulin Is this a current diagnosis for this admission?: Yes (4) Chronic atrial fibrillation Is this a current diagnosis for this admission?: Yes (5) Oral thrush Is this a current diagnosis for this admission?: Yes (6) Cellulitis due to MRSA Is this a current diagnosis for this admission?: Yes Plan: He will continue IV antibiotic for few more days hopefully transition to p.o. and discharge him on Sunday - Time Time Spent with patient: 25-34 minutes Level of Care: IMCU
[2019-06-21 18:51] LABS: HEMATOCRIT 45.3 % (37.9-51.0); HEMOGLOBIN 14.6 g/dL (13.5-17.0); MEAN CORPUSCULAR HEMOGLOBIN 25.5 pg (27.0-33.4); MEAN CORPUSCULAR HGB CONC 32.2 g/dL (32.0-36.0); MEAN CORPUSCULAR VOLUME 79 fl (80-97); PLATELET COUNT 260 10^3/uL (150-450); RED BLOOD COUNT 5.72 10^6/uL (4.35-5.55); RED CELL DISTRIBUTION WIDTH 19.3 % (11.5-14.0); WHITE BLOOD COUNT 9.5 10^3/uL (4.0-10.5)
[2019-06-21] MEDS: MORPHINE SULFATE 10 MG/ML INJ IV PRN (20:59)
[2019-06-21] MEDS: WARFARIN SODIUM 5 MG TABLET PO SCH (21:49)
[2019-06-22] MEDS: NYSTATIN 500000 UNIT/5 ML UDCUP PO SCH ×5 (01:04→23:16)
[2019-06-22] MEDS: MORPHINE SULFATE 10 MG/ML INJ IV PRN ×4 (01:11→23:15)
[2019-06-22] MEDS: PIPERACILLIN SODIUM/TAZOBACTAM 3.375 GM in NORMAL SALINE 100 ML IV SCH ×5 (06:14→23:15)
[2019-06-22 06:50] LABS: INTERNATIONAL RATION (INR) 1.52; PROTHROMBIN TIME 18.5 SEC (11.4-15.4)
[2019-06-22] MEDS: INSULIN LISPRO 100 UNIT/ML 3 ML VIAL SUBCUT SCH ×4 (07:47→21:23)
[2019-06-22] MEDS: CARVEDILOL 6.25 MG TABLET PO SCH ×2 (09:58→21:22)
[2019-06-22] MEDS: SACUBITRIL/VALSARTAN 97 MG/103 MG TABLET PO SCH ×2 (09:58→21:22)
[2019-06-22] MEDS: BUMETANIDE 1 MG TABLET PO SCH ×2 (09:58→17:55)
[2019-06-22] MEDS: COLLAGENASE CLOSTRIDIUM HIST. OINT 30 GM TP SCH (09:59)
[2019-06-22] MEDS: VANCOMYCIN HCL 1,500 MG in DEXTROSE 5%-WATER 250 ML IV SCH ×2 (09:59→21:23)
--- NOTE | 2019-06-22 14:16 | PDOC PROGRESS REPORT ---
Subjective Progress Note for:: 06/22/19 Subjective:: Patient seen by the bedside will continue antibiotic intravenously until tomorrow hopefully discharge him on Sunday Reason For Visit: INFECTED ULCER OF THE LEFT LEG,CARDIOMYOPATHY,T2DM Physical Exam Vital Signs: Temp Pulse Resp BP Pulse Ox 97.3 F 79 17 131/81 H 95 06/22/19 11:47 06/22/19 11:47 06/22/19 11:47 06/22/19 11:47 06/22/19 11:47 Intake & Output 06/21/19 06/22/19 06/23/19 06:59 06:59 06:59 Intake Total 2705 1622 340 Output Total 175 Balance 2530 1622 340 Weight 107.1 kg 107.5 kg General appearance: PRESENT: no acute distress Eye exam: PRESENT: PERRLA Respiratory exam: PRESENT: clear to auscultation nik Cardiovascular exam: PRESENT: +S1, +S2 GI/Abdominal exam: PRESENT: soft Neurological exam: PRESENT: alert Results Laboratory Results: 06/21/19 18:35 06/19/19 06:51 06/21/19 18:35 WBC 9.5 RBC 5.72 H Hgb 14.6 Hct 45.3 MCV 79 L MCH 25.5 L MCHC 32.2 RDW 19.3 H Plt Count 260 06/19/19 10:36 Leg - Tissue (Surgical) Gram Stain - Final 06/19/19 10:36 Leg - Tissue (Surgical) Wound Culture - Final Mrsa (Meth Resis Staph Aureus) No Anaerobic Organisms 06/18/19 06/18/19 06/18/19 15:11 15:11 20:03 Creatine Kinase 122 145 CK-MB (CK-2) 4.16 Troponin I 0.146 06/18/19 06/19/19 06/19/19 20:03 01:44 01:44 Creatine Kinase 131 CK-MB (CK-2) 5.05 H 5.48 H Troponin I 0.132 0.189 Impressions: Chest X-Ray 06/20/19 00:00 IMPRESSION: Cardiomegaly without pulmonary edema. Assessment & Plan - Diagnosis (1) Infected stasis ulcer of left lower extremity Is this a current diagnosis for this admission?: Yes (2) Chronic combined systolic (congestive) and diastolic (congestive) heart failure Is this a current diagnosis for this admission?: Yes Plan: Continue present regimen for CHF (3) T2DM (type 2 diabetes mellitus) Qualifiers: Diabetes mellitus jail insulin use: with ocean transportation intermediary use Diabetes mellitus complication status: with neurologic complications Diabetes mellitus complication detail: with polyneuropathy Qualified Code(s): E11.42 - Type 2 diabetes mellitus with diabetic polyneuropathy; Z79.4 - senior care (current) use of insulin Is this a current diagnosis for this admission?: Yes (4) Chronic atrial fibrillation Is this a current diagnosis for this admission?: Yes (5) Oral thrush Is this a current diagnosis for this admission?: Yes Plan: Continue nystatin (6) Cellulitis due to MRSA Is this a current diagnosis for this admission?: Yes Plan: Patient will continue IV antibiotic, vancomycin, cefepime - Time Time Spent with patient: 25-34 minutes Level of Care: IMCU Medications reviewed and adjusted accordingly: Yes
[2019-06-22] MEDS: IPRATROPIUM/ALBUTEROL 0.5-2.5 MG/3 ML AMPUL NEB PRN (18:00)
[2019-06-22] MEDS: WARFARIN SODIUM 5 MG TABLET PO SCH (21:22)
[2019-06-23] MEDS: PIPERACILLIN SODIUM/TAZOBACTAM 3.375 GM in NORMAL SALINE 100 ML IV SCH ×3 (05:39→17:21)
[2019-06-23] MEDS: NYSTATIN 500000 UNIT/5 ML UDCUP PO SCH ×3 (05:39→17:21)
[2019-06-23] MEDS: MORPHINE SULFATE 10 MG/ML INJ IV PRN ×2 (05:44→20:03)
[2019-06-23 06:08] LABS: PROTHROMBIN TIME 21.1 SEC (11.4-15.4)
[2019-06-23] MEDS: INSULIN LISPRO 100 UNIT/ML 3 ML VIAL SUBCUT SCH ×4 (08:17→21:27)
[2019-06-23] MEDS: CARVEDILOL 6.25 MG TABLET PO SCH ×2 (09:19→21:25)
[2019-06-23] MEDS: BUMETANIDE 1 MG TABLET PO SCH ×2 (09:20→17:21)
[2019-06-23] MEDS: SACUBITRIL/VALSARTAN 97 MG/103 MG TABLET PO SCH ×2 (09:20→21:28)
[2019-06-23] MEDS: COLLAGENASE CLOSTRIDIUM HIST. OINT 30 GM TP SCH (09:21)
[2019-06-23] MEDS: VANCOMYCIN HCL 1,500 MG in DEXTROSE 5%-WATER 250 ML IV SCH (09:21)
[2019-06-23 10:20] LABS: VANCOMYCIN,TROUGH 30.9 ug/mL (5.0-20.0)
[2019-06-23] MEDS: IPRATROPIUM/ALBUTEROL 0.5-2.5 MG/3 ML AMPUL NEB PRN ×2 (10:34→17:09)
--- NOTE | 2019-06-23 20:52 | PDOC PROGRESS REPORT ---
Subjective Progress Note for:: 06/23/19 Subjective:: Patient seen by the bedside, still on IV antibiotic Reason For Visit: INFECTED ULCER OF THE LEFT LEG,CARDIOMYOPATHY,T2DM Physical Exam Vital Signs: Temp Pulse Resp BP Pulse Ox 97.6 F 80 16 129/85 H 93 06/23/19 19:51 06/23/19 19:51 06/23/19 19:51 06/23/19 19:51 06/23/19 19:51 Intake & Output 06/22/19 06/23/19 06/24/19 06:59 06:59 06:59 Intake Total 1622 2164 895 Balance 1622 2164 895 Weight 107.5 kg 107.9 kg General appearance: PRESENT: no acute distress Eye exam: PRESENT: PERRLA Respiratory exam: PRESENT: clear to auscultation nik Cardiovascular exam: PRESENT: +S1, +S2 GI/Abdominal exam: PRESENT: soft Neurological exam: PRESENT: alert Results Laboratory Results: 06/21/19 18:35 06/23/19 09:24 06/23/19 09:24 Creatinine 1.15 Est GFR ( Amer) > 60 06/18/19 17:00 Blood Blood Culture - Final NO GROWTH IN 5 DAYS 06/18/19 15:11 Blood Blood Culture - Final NO GROWTH IN 5 DAYS 06/18/19 06/18/19 06/18/19 15:11 15:11 20:03 Creatine Kinase 122 145 CK-MB (CK-2) 4.16 Troponin I 0.146 06/18/19 06/19/19 06/19/19 20:03 01:44 01:44 Creatine Kinase 131 CK-MB (CK-2) 5.05 H 5.48 H Troponin I 0.132 0.189 Impressions: Chest X-Ray 06/20/19 00:00 IMPRESSION: Cardiomegaly without pulmonary edema. Assessment & Plan - Diagnosis (1) Infected stasis ulcer of left lower extremity Is this a current diagnosis for this admission?: Yes (2) Chronic combined systolic (congestive) and diastolic (congestive) heart failure Is this a current diagnosis for this admission?: Yes (3) T2DM (type 2 diabetes mellitus) Qualifiers: Diabetes mellitus joint terminal attack controller insulin use: with joint terminal attack controller use Diabetes mellitus complication status: with neurologic complications Diabetes mellitus complication detail: with polyneuropathy Qualified Code(s): E11.42 - Type 2 diabetes mellitus with diabetic polyneuropathy; Z79.4 - care home (current) use of insulin Is this a current diagnosis for this admission?: Yes (4) Chronic atrial fibrillation Is this a current diagnosis for this admission?: Yes (5) Oral thrush Is this a current diagnosis for this admission?: Yes (6) Cellulitis due to MRSA Is this a current diagnosis for this admission?: Yes Plan: Patient will continue IV antibiotic, vancomycin, cefepime - Time Time Spent with patient: 25-34 minutes
--- NOTE | 2019-06-23 21:06 | PDOC DISCHARGE SUMMARY ---
Impression - Admit/DC Date/PCP Admission Date/Primary Care Provider: 06/18/19 13:05 LIANE LEIGH MD Discharge Date: 06/24/19 - Discharge Diagnosis (1) Infected stasis ulcer of left lower extremity Is this a current diagnosis for this admission?: Yes (2) Chronic combined systolic (congestive) and diastolic (congestive) heart failure Is this a current diagnosis for this admission?: Yes (3) T2DM (type 2 diabetes mellitus) Is this a current diagnosis for this admission?: Yes (4) Chronic atrial fibrillation Is this a current diagnosis for this admission?: Yes (5) Oral thrush Is this a current diagnosis for this admission?: Yes (6) Cellulitis due to MRSA Is this a current diagnosis for this admission?: Yes - Additional Information Resuscitation Status: Full Code Discharge Diet: Cardiac, Diabetic Discharge Activity: Activity As Tolerated, Balance Activity w/Rest, Weigh Daily Referrals: LIANE LEIGH MD [Primary Care Provider] - 06/30/19 2:15 pm Prescriptions: Doxycycline Hyclate 100 mg IV BID #28 vial Dapagliflozin Propanediol [Farxiga] 10 mg PO DAILY #90 tablet Home Medications: Albuterol Sulfate [Albuterol Sulfate Hfa] 2 puff IH Q6HP PRN 06/18/19 Bumetanide [Bumex 1 mg Tablet] 1 mg PO BID 06/18/19 Carvedilol [Coreg 6.25 mg Tablet] 6.25 mg PO Q12 06/18/19 Insulin Degludec [Tresiba Flextouch U-100] 40 unit SUBCUT BID 06/18/19 Ipratropium/Albuterol Sulfate [Duoneb 3 ml Ampul] 1 vial NEB Q4 06/18/19 Sacubitril/Valsartan [Entresto 97 mg/103 mg Tablet] 1 tab PO BID 06/18/19 Warfarin Sodium [Coumadin 5 mg Tablet] 5 mg PO QHS 06/18/19 Dapagliflozin Propanediol [Farxiga] 10 mg PO DAILY #90 tablet 06/23/19 Doxycycline Hyclate 100 mg IV BID #28 vial 06/23/19 Physical Exam Vital Signs: Temp Pulse Resp BP Pulse Ox 97.6 F 80 16 129/85 H 93 06/23/19 19:51 06/23/19 19:51 06/23/19 19:51 06/23/19 19:51 06/23/19 19:51 Intake & Output 06/22/19 06/23/19 06/24/19 06:59 06:59 06:59 Intake Total 1624 2165 895 Balance 1620 2164 892 Weight 107.5 kg 107.9 kg Results Laboratory Results: WBC 9.5 10^3/uL (4.0-10.5) 06/21/19 18:35 RBC 5.72 10^6/uL (4.35-5.55) H 06/21/19 18:35 Hgb 14.6 g/dL (13.5-17.0) 06/21/19 18:35 Hct 45.3 % (37.9-51.0) 06/21/19 18:35 MCV 79 fl (80-97) L 06/21/19 18:35 MCH 25.5 pg (27.0-33.4) L 06/21/19 18:35 MCHC 32.2 g/dL (32.0-36.0) 06/21/19 18:35 RDW 19.3 % (11.5-14.0) H 06/21/19 18:35 Plt Count 260 10^3/uL (150-450) 06/21/19 18:35 Lymph % (Auto) 18.5 % (13-45) 06/21/19 04:29 [place] % (Auto) 10.6 % (3-13) 06/21/19 04:29 Eos % (Auto) 3.8 % (0-6) 06/21/19 04:29 Baso % (Auto) 1.4 % (0-2) 06/21/19 04:29 Absolute Neuts (auto) 5.1 10^3/uL (1.7-8.2) 06/21/19 04:29 Absolute Lymphs (auto) 1.4 10^3/uL (0.5-4.7) 06/21/19 04:29 Absolute Monos (auto) 0.8 10^3/uL (0.1-1.4) 06/21/19 04:29 Absolute Eos (auto) 0.3 10^3/uL (0.0-0.6) 06/21/19 04:29 Absolute Basos (auto) 0.1 10^3/uL (0.0-0.2) 06/21/19 04:29 Seg Neutrophils % 65.7 % (42-78) 06/21/19 04:29 PT 21.1 SEC (11.4-15.4) H 06/23/19 05:12 INR 1.80 06/23/19 05:12 APTT 31.1 SEC (23.5-35.8) 06/18/19 20:03 Sodium 133.2 mmol/L (137-145) L 06/19/19 06:51 Potassium 3.8 mmol/L (3.6-5.0) 06/19/19 06:51 Chloride 94 mmol/L (98-107) L 06/19/19 06:51 Carbon Dioxide 32 mmol/L (22-30) H 06/19/19 06:51 Anion Gap 7 (5-19) 06/19/19 06:51 BUN 25 mg/dL (7-20) H 06/19/19 06:51 Creatinine 1.15 mg/dL (0.52-1.25) 06/23/19 09:24 Est GFR ( Amer) > 60 (>60) 06/23/19 09:24 Est GFR (MDRD) Non-Af > 60 (>60) 06/23/19 09:24 Glucose 177 mg/dL (75-110) H 06/19/19 06:51 POC Glucose 319 mg/dL (70-110) H 06/23/19 16:18 Hemoglobin A1c % > 14.0 % (4.7-6.0) H 06/19/19 06:51 Calcium 8.5 mg/dL (8.4-10.2) 06/19/19 06:51 Phosphorus 3.1 mg/dL (2.5-4.5) 06/18/19 15:11 Magnesium 1.6 mg/dL (1.6-2.3) 06/18/19 15:11 Total Bilirubin 1.7 mg/dL (0.2-1.3) H 06/19/19 06:51 Direct Bilirubin 0.4 mg/dL (0.0-0.4) 06/19/19 06:51 Neonat Total Bilirubin Not Reportable 06/19/19 06:51 Neonat Direct Bilirubin Not Reportable 06/19/19 06:51 Neonat Indirect Bili Not Reportable 06/19/19 06:51 AST 60 U/L (17-59) H 06/19/19 06:51 ALT 32 U/L (<50) 06/19/19 06:51 Alkaline Phosphatase 128 U/L (38-126) H 06/19/19 06:51 Ammonia 16.7 umol/L (9-33) 06/18/19 15:11 Creatine Kinase 131 U/L (55-170) 06/19/19 01:44 CK-MB (CK-2) 5.48 ng/mL (<4.55) H 06/19/19 01:44 Troponin I 0.189 ng/mL 06/19/19 01:44 Total Protein 7.0 g/dL (6.3-8.2) 06/19/19 06:51 Albumin 3.1 g/dL (3.5-5.0) L 06/19/19 06:51 Triglycerides 102 mg/dL (<150) 06/19/19 06:51 Cholesterol 163.96 mg/dL (0-200) 06/19/19 06:51 LDL Cholesterol Direct 105 mg/dL (<100) H 06/19/19 06:51 VLDL Cholesterol 20.0 mg/dL (10-31) 06/19/19 06:51 HDL Cholesterol 52 mg/dL (>40) 06/19/19 06:51 Amylase 33 U/L (30-110) 06/18/19 15:11 Lipase 241.9 U/L (23-300) 06/18/19 15:11 TSH 3.71 uIU/mL (0.47-4.68) 06/18/19 15:11 Free T4 1.04 ng/dL (0.78-2.19) 06/18/19 15:11 Urine Color YELLOW 06/21/19 02:05 Urine Appearance CLEAR 06/21/19 02:05 Urine pH 6.0 (5.0-9.0) 06/21/19 02:05 Ur Specific [place] 1.015 06/21/19 02:05 Urine Protein 100 mg/dL (NEGATIVE) H 06/21/19 02:05 Urine Glucose (UA) 50 mg/dL (NEGATIVE) H 06/21/19 02:05 Urine Ketones NEGATIVE mg/dL (NEGATIVE) 06/21/19 02:05 Urine Blood NEGATIVE (NEGATIVE) 06/21/19 02:05 Urine Nitrite NEGATIVE (NEGATIVE) 06/21/19 02:05 Urine Bilirubin NEGATIVE (NEGATIVE) 06/21/19 02:05 Urine Urobilinogen NEGATIVE mg/dL (<2.0) 06/21/19 02:05 Ur Leukocyte Esterase NEGATIVE (NEGATIVE) 06/21/19 02:05 Urine WBC (Auto) 0 /HPF 06/21/19 02:05 Urine RBC (Auto) 3 /HPF 06/21/19 02:05 U Hyaline Cast (Auto) 1 /LPF 06/21/19 02:05 Squamous Epi Cells Auto <1 /HPF 06/21/19 02:05 Urine Mucus (Auto) RARE /LPF 06/21/19 02:05 Urine Ascorbic Acid NEGATIVE (NEGATIVE) 06/21/19 02:05 Time Trough Drawn 0924 06/23/19 09:24 Vancomycin Trough 30.9 ug/mL (5.0-20.0) H 06/23/19 09:24 Urine Opiates Screen NEGATIVE 06/18/19 15:55 Urine Methadone Screen NEGATIVE 06/18/19 15:55 Ur Barbiturates Screen NEGATIVE 06/18/19 15:55 Ur Phencyclidine Scrn NEGATIVE 06/18/19 15:55 Ur Amphetamines Screen NEGATIVE 06/18/19 15:55 U Benzodiazepines Scrn NEGATIVE 06/18/19 15:55 Urine Cocaine Screen NEGATIVE 06/18/19 15:55 U Marijuana (THC) Screen NEGATIVE 06/18/19 15:55 06/18/19 06/18/19 06/19/19 15:11 20:03 01:44 CK-MB (CK-2) 4.16 5.05 H 5.48 H Troponin I 0.146 0.132 0.189 Impressions: Chest X-Ray 06/18/19 13:50 IMPRESSION: NO ACUTE RADIOGRAPHIC FINDING IN THE CHEST. Chest X-Ray 06/20/19 00:00 IMPRESSION: Cardiomegaly without pulmonary edema.
[2019-06-23] MEDS: WARFARIN SODIUM 5 MG TABLET PO SCH (21:25)
[2019-06-24] MEDS: PIPERACILLIN SODIUM/TAZOBACTAM 3.375 GM in NORMAL SALINE 100 ML IV SCH ×2 (00:40→07:18)
[2019-06-24] MEDS: NYSTATIN 500000 UNIT/5 ML UDCUP PO SCH ×2 (00:42→05:36)
[2019-06-24 01:01] LABS: APPEARANCE,URINE CLEAR; BILIRUBIN,URINE NEGATIVE (NEGATIVE); COLOR,URINE YELLOW; GLUCOSE, URINE 50 mg/dL (NEGATIVE); KETONES,URINE NEGATIVE (NEGATIVE); LEUKOCYTE ESTERASE,URINE NEGATIVE (NEGATIVE); NITRITE,URINE NEGATIVE (NEGATIVE); PROTEIN,URINE 100 mg/dL (NEGATIVE); URINE SPECIFIC GRAVITY 1.009; UROBILINOGEN,URINE NEGATIVE mg/dL (<2.0)
[2019-06-24 05:12] LABS: INTERNATIONAL RATION (INR) 2.22
[2019-06-24] MEDS: IPRATROPIUM/ALBUTEROL 0.5-2.5 MG/3 ML AMPUL NEB PRN (07:54)
[2019-06-24 08:44] VITALS: BP 144/87
[2019-06-24] MEDS ORDERED: VANCOMYCIN HCL 1,500 MG in DEXTROSE 5%-WATER 250 ML IV SCH (10:00)
--- NOTE | 2019-06-24 19:37 | PDOC DISCHARGE SUMMARY ---
Impression - Admit/DC Date/PCP Admission Date/Primary Care Provider: 06/18/19 13:05 LIANE LEIGH MD Discharge Date: 06/24/19 - Discharge Diagnosis (1) Infected stasis ulcer of left lower extremity Is this a current diagnosis for this admission?: Yes (2) Chronic combined systolic (congestive) and diastolic (congestive) heart failure Is this a current diagnosis for this admission?: Yes (3) T2DM (type 2 diabetes mellitus) Is this a current diagnosis for this admission?: Yes (4) Chronic atrial fibrillation Is this a current diagnosis for this admission?: Yes (5) Oral thrush Is this a current diagnosis for this admission?: Yes (6) Cellulitis due to MRSA Is this a current diagnosis for this admission?: Yes - Additional Information Resuscitation Status: Full Code Discharge Diet: Cardiac, Diabetic Discharge Activity: Activity As Tolerated, Balance Activity w/Rest, Weigh Daily Referrals: LIANE LEIGH MD [Primary Care Provider] - 06/30/19 2:15 pm Prescriptions: RX: Doxycycline Hyclate 100 mg IV BID #28 vial Dapagliflozin Propanediol [Farxiga] 10 mg PO DAILY #90 tablet Home Medications: RX: Albuterol Sulfate [Albuterol Sulfate Hfa] 2 puff IH Q6HP PRN 06/18/19 RX: Bumetanide [Bumex 1 mg Tablet] 1 mg PO BID 06/18/19 RX: Carvedilol [Coreg 6.25 mg Tablet] 6.25 mg PO Q12 06/18/19 RX: Insulin Degludec [Tresiba Flextouch U-100] 40 unit SUBCUT BID 06/18/19 RX: Ipratropium/Albuterol Sulfate [Duoneb 3 ml Ampul] 1 vial NEB Q4 06/18/19 RX: Sacubitril/Valsartan [Entresto 97 mg/103 mg Tablet] 1 tab PO BID 06/18/19 RX: Warfarin Sodium [Coumadin 5 mg Tablet] 5 mg PO QHS 06/18/19 Dapagliflozin Propanediol [Farxiga] 10 mg PO DAILY #90 tablet 06/23/19 RX: Doxycycline Hyclate 100 mg IV BID #28 vial 06/23/19 History of Present Illiness History of Present Illness: KENIA MCALLISTER is a 63 year old male, He has multiple comorbid conditions including combined chronic systolic and diastolic heart failure status post pacemaker AICD placement, type 2 diabetes mellitus, COPD, he has a large ulcer in the posterior aspect of his left leg, I referred him to wound clinic for management of the ulcer, I received a call from the wound clinic this morning that patient needed to be admitted for intravenous antibiotic management because the ulcer was infected, the wound clinic wants him admitted directly to bypass the ED because of the COVID 19 pandemic issue. Patient was admitted directly into the hospital to initiate management. Patient has not been compliant with his diabetic care he does not use the recommended medication, the insurance has also been a challenging factor, most of the medication prescribed requires preauthorization.He has multiple comorbid conditions the ulcer in his leg is most likely venous stasis ulcers he has severe cardiomyopathy with chronic leg edema. Hospital Course Hospital Course: Patient was admitted for the management of infectedLeft leg, he was initially empirically treated with IV antibiotic vancomycin and Zosyn to cover both MRSA and gram-negative organisms. Consultation was requested from surgery he underwent debridement of the infected ulcer purulent material was collected from the ulcer this was sent for culture, the culture grew gram-negative E. coli and also MRSA, he was continue on vancomycin and Zosyn for a total of 7 days. Patient is discharged home today on doxycycline the MRSA is sensitive to Bactrim and doxycycline but is resistant to all antibiotic the E. coli is sensitive to parenteral Cephalosporin antibiotic for which MRSA is resistant. Patient is d ischarged home on doxycycline Bactrim was my initial choice but there is a drug drug interaction between Bactrim and Entresto. Patient on Entresto for CHF Physical Exam Vital Signs: Temp Pulse Resp BP Pulse Ox 97.8 F 77 19 144/87 H 99 06/24/19 09:33 06/24/19 09:33 06/24/19 09:33 06/24/19 07:56 06/24/19 09:33 Intake & Output 06/23/19 06/24/19 06/25/19 06:59 06:59 06:59 Intake Total 2164 1467 Balance 2164 1467 Weight 107.9 kg 107 kg General appearance: PRESENT: no acute distress Eye exam: PRESENT: PERRLA Respiratory exam: PRESENT: clear to auscultation nik Cardiovascular exam: PRESENT: +S1, +S2 GI/Abdominal exam: PRESENT: soft Extremities exam: PRESENT: other - Left leg ulcer in the posterior calf Neurological exam: PRESENT: alert, CN II-XII grossly intact Results Laboratory Results: WBC 9.5 10^3/uL (4.0-10.5) 06/21/19 18:35 RBC 5.72 10^6/uL (4.35-5.55) H 06/21/19 18:35 Hgb 14.6 g/dL (13.5-17.0) 06/21/19 18:35 Hct 45.3 % (37.9-51.0) 06/21/19 18:35 MCV 79 fl (80-97) L 06/21/19 18:35 MCH 25.5 pg (27.0-33.4) L 06/21/19 18:35 MCHC 32.2 g/dL (32.0-36.0) 06/21/19 18:35 RDW 19.3 % (11.5-14.0) H 06/21/19 18:35 Plt Count 260 10^3/uL (150-450) 06/21/19 18:35 Lymph % (Auto) 18.5 % (13-45) 06/21/19 04:29 [place] % (Auto) 10.6 % (3-13) 06/21/19 04:29 Eos % (Auto) 3.8 % (0-6) 06/21/19 04:29 Baso % (Auto) 1.4 % (0-2) 06/21/19 04:29 Absolute Neuts (auto) 5.1 10^3/uL (1.7-8.2) 06/21/19 04:29 Absolute Lymphs (auto) 1.4 10^3/uL (0.5-4.7) 06/21/19 04:29 Absolute Monos (auto) 0.8 10^3/uL (0.1-1.4) 06/21/19 04:29 Absolute Eos (auto) 0.3 10^3/uL (0.0-0.6) 06/21/19 04:29 Absolute Basos (auto) 0.1 10^3/uL (0.0-0.2) 06/21/19 04:29 Seg Neutrophils % 65.7 % (42-78) 06/21/19 04:29 PT 25.0 SEC (11.4-15.4) H 06/24/19 04:56 INR 2.22 06/24/19 04:56 APTT 31.1 SEC (23.5-35.8) 06/18/19 20:03 Sodium 133.2 mmol/L (137-145) L 06/19/19 06:51 Potassium 3.8 mmol/L (3.6-5.0) 06/19/19 06:51 Chloride 94 mmol/L (98-107) L 06/19/19 06:51 Carbon Dioxide 32 mmol/L (22-30) H 06/19/19 06:51 Anion Gap 7 (5-19) 06/19/19 06:51 BUN 25 mg/dL (7-20) H 06/19/19 06:51 Creatinine 1.15 mg/dL (0.52-1.25) 06/23/19 09:24 Est GFR ( Amer) > 60 (>60) 06/23/19 09:24 Est GFR (MDRD) Non-Af > 60 (>60) 06/23/19 09:24 Glucose 177 mg/dL (75-110) H 06/19/19 06:51 POC Glucose 184 mg/dL (70-110) H 06/24/19 07:54 Hemoglobin A1c % > 14.0 % (4.7-6.0) H 06/19/19 06:51 Calcium 8.5 mg/dL (8.4-10.2) 06/19/19 06:51 Phosphorus 3.1 mg/dL (2.5-4.5) 06/18/19 15:11 Magnesium 1.6 mg/dL (1.6-2.3) 06/18/19 15:11 Total Bilirubin 1.7 mg/dL (0.2-1.3) H 06/19/19 06:51 Direct Bilirubin 0.4 mg/dL (0.0-0.4) 06/19/19 06:51 Neonat Total Bilirubin Not Reportable 06/19/19 06:51 Neonat Direct Bilirubin Not Reportable 06/19/19 06:51 Neonat Indirect Bili Not Reportable 06/19/19 06:51 AST 60 U/L (17-59) H 06/19/19 06:51 ALT 32 U/L (<50) 06/19/19 06:51 Alkaline Phosphatase 128 U/L (38-126) H 06/19/19 06:51 Ammonia 16.7 umol/L (9-33) 06/18/19 15:11 Creatine Kinase 131 U/L (55-170) 06/19/19 01:44 CK-MB (CK-2) 5.48 ng/mL (<4.55) H 06/19/19 01:44 Troponin I 0.189 ng/mL 06/19/19 01:44 Total Protein 7.0 g/dL (6.3-8.2) 06/19/19 06:51 Albumin 3.1 g/dL (3.5-5.0) L 06/19/19 06:51 Triglycerides 102 mg/dL (<150) 06/19/19 06:51 Cholesterol 163.96 mg/dL (0-200) 06/19/19 06:51 LDL Cholesterol Direct 105 mg/dL (<100) H 06/19/19 06:51 VLDL Cholesterol 20.0 mg/dL (10-31) 06/19/19 06:51 HDL Cholesterol 52 mg/dL (>40) 06/19/19 06:51 Amylase 33 U/L (30-110) 06/18/19 15:11 Lipase 241.9 U/L (23-300) 06/18/19 15:11 TSH 3.71 uIU/mL (0.47-4.68) 06/18/19 15:11 Free T4 1.04 ng/dL (0.78-2.19) 06/18/19 15:11 Urine Color YELLOW 06/24/19 00:46 Urine Appearance CLEAR 06/24/19 00:46 Urine pH 6.0 (5.0-9.0) 06/24/19 00:46 Ur Specific [place] 1.009 06/24/19 00:46 Urine Protein 100 mg/dL (NEGATIVE) H 06/24/19 00:46 Urine Glucose (UA) 50 mg/dL (NEGATIVE) H 06/24/19 00:46 Urine Ketones NEGATIVE mg/dL (NEGATIVE) 06/24/19 00:46 Urine Blood SMALL (NEGATIVE) H 06/24/19 00:46 Urine Nitrite NEGATIVE (NEGATIVE) 06/24/19 00:46 Urine Bilirubin NEGATIVE (NEGATIVE) 06/24/19 00:46 Urine Urobilinogen NEGATIVE mg/dL (<2.0) 06/24/19 00:46 Ur Leukocyte Esterase NEGATIVE (NEGATIVE) 06/24/19 00:46 Urine WBC (Auto) 1 /HPF 06/24/19 00:46 Urine RBC (Auto) 1 /HPF 06/24/19 00:46 U Hyaline Cast (Auto) 1 /LPF 06/21/19 02:05 Squamous Epi Cells Auto <1 /HPF 06/24/19 00:46 Urine Mucus (Auto) RARE /LPF 06/21/19 02:05 Urine Ascorbic Acid NEGATIVE (NEGATIVE) 06/24/19 00:46 Time Trough Drawn 0906/23/19 09:24 Vancomycin Trough 30.9 ug/mL (5.0-20.0) H 06/23/19 09:24 Urine Opiates Screen NEGATIVE 06/18/19 15:55 Urine Methadone Screen NEGATIVE 06/18/19 15:55 Ur Barbiturates Screen NEGATIVE 06/18/19 15:55 Ur Phencyclidine Scrn NEGATIVE 06/18/19 15:55 Ur Amphetamines Screen NEGATIVE 06/18/19 15:55 U Benzodiazepines Scrn NEGATIVE 06/18/19 15:55 Urine Cocaine Screen NEGATIVE 06/18/19 15:55 U Marijuana (THC) Screen NEGATIVE 06/18/19 15:55 06/18/19 06/18/19 06/19/19 15:11 20:03 01:44 CK-MB (CK-2) 4.16 5.05 H 5.48 H Troponin I 0.146 0.132 0.189 Impressions: Chest X-Ray 06/18/19 13:50 IMPRESSION: NO ACUTE RADIOGRAPHIC FINDING IN THE CHEST. Chest X-Ray 06/20/19 00:00 IMPRESSION: Cardiomegaly without pulmonary edema. Stroke Is this a Stroke Patient?: No Acute Heart Failure - Is this a Heart Failure Patient?: No
== END 2019-06-24 10:24 | disposition home or self-care (01) | DRG 623 ==
LOC: 3W 13:05
PROVIDERS: ADMIT Internal Medicine; ATTEND Internal Medicine
PROC: 0JBP0ZZ Excision of Left Lower Leg Subcutaneous Tissue and Fascia, Open Approach (ICD-10-PCS; principal; 2019-06-19 10:15)
DX: E11.622 Type 2 diabetes mellitus with other skin ulcer (principal); L03.116 Cellulitis of left lower limb; L97.222 Non-pressure chronic ulcer of left calf with fat layer exposed; I50.42 Chronic combined systolic (congestive) and diastolic (congestive) heart failure; I48.20 Chronic atrial fibrillation, unspecified; B37.0 Candidal stomatitis; I42.9 Cardiomyopathy, unspecified; Z16.29 Resistance to other single specified antibiotic; I83.022 Varicose veins of left lower extremity with ulcer of calf; B95.62 Methicillin resistant Staphylococcus aureus infection as the cause of diseases classified elsewhere; B96.20 Unspecified Escherichia coli [E. coli] as the cause of diseases classified elsewhere; E11.42 Type 2 diabetes mellitus with diabetic polyneuropathy; Z79.4 Long term (current) use of insulin; Z95.810 Presence of automatic (implantable) cardiac defibrillator; Z91.19 Patient's noncompliance with other medical treatment and regimen; Z79.01 Long term (current) use of anticoagulants
CPT/HCPCS: 36415; 400; 71045; 80053; 80061; 80202; 80307; 81001; 82140; 82150; 82550; 82553; 82565; 82962; 83036; 83690; 83735; 84100; 84439; 84443; 84484; 85025; 85610; 85730; 87040; 87070; 87075; 87077; 87086; 87186; 87205; 94640; J1815; J2250; J2270; J2543; J2704; J3010; J3370; J3490; J7050; J7060; J7620

== ENCOUNTER 2020-02-10 13:48 | Inpatient (IN) | payer MEDICARE ==
--- NOTE | 2020-02-10 14:27 | ER Document Report ---
ED Medical Screen (RME) - General Chief Complaint: Swelling Stated Complaint: BODY SWELLING Time Seen by Provider: 02/10/20 14:09 Primary Care Provider: LIANE LEIGH MD [Primary Care Provider] - Follow up as needed TRAVEL OUTSIDE OF THE [place] IN LAST 30 DAYS: No - HPI Notes: 02/10/20 14:23 64-year-old female with a history of insulin-dependent type 2 diabetes, CHF presents to the emergency room for shortness of breath that has become progressively worse Patient is on diuretics a well as "full body swelling". He is having bilateral leg swelling that has become progressively worse. Patient did not check his blood sugar today. Denies chest pain today but states he did have some left-sided chest pain, rib tenderness after he bent over and he felt a "pop" on the left side of his chest. Patient does take diuretics which he states are not helping. I have greeted and performed a rapid initial assessment of this patient. A comprehensive ED assessment and evaluation of the patient, analysis of test results and completion of the medical decision making process will be conducted by additional ED providers. PHYSICAL EXAMINATION: GENERAL: Chronically ill well-nourished and in no acute distress. HEAD: Atraumatic, normocephalic. NECK: Normal range of motion CV: s1, s2 regular LUNGS: No respiratory distress Musculoskeletal: Normal range of motion NEUROLOGICAL: Normal speech, normal gait. SKIN: Warm, Dry, normal turgor, no rashes or lesions noted. Bilateral lower extremities cool to touch, diminished pulses bilaterally, red discoloration. - Related Data Allergies/Adverse Reactions: codeine Allergy (Verified 02/10/20 14:07) Past Medical History - Past Medical History Cardiac Medical History: Reports: Hx Congestive Heart Failure, Hx Coronary Artery Disease, Hx Heart Attack, Hx Hypertension Pulmonary Medical History: Reports: Hx Asthma Endocrine Medical History: Reports: Hx Diabetes Mellitus Type 2 Renal/ Medical History: Denies: Hx Peritoneal Dialysis Past Surgical History: Reports: Hx Cardiac Surgery - CABG 2014, Hx Coronary Artery Bypass Graft - He had quadruple bypass on 03/08/2014 in [place] Physical Exam - Vital signs Vitals: Temp Pulse Resp BP Pulse Ox 97.3 F 107 H 20 145/97 H 96 02/10/20 13:53 02/10/20 13:53 02/10/20 13:53 02/10/20 13:53 02/10/20 13:53 Course - Vital Signs Vital signs: Temp Pulse Resp BP Pulse Ox 97.3 F 107 H 20 145/97 H 96 02/10/20 13:53 02/10/20 13:53 02/10/20 13:53 02/10/20 13:53 02/10/20 13:53 Doctor's Discharge - Discharge Referrals: LIANE LEIGH MD [Primary Care Provider] - Follow up as needed
[2020-02-10 15:40] LABS: ABSOLUTE BASOPHILS # (AUTO) 0.1 10^3/uL (0.0-0.2); ABSOLUTE EOSINOPHILS # (AUTO) 0.1 10^3/uL (0.0-0.6); ABSOLUTE LYMPHOCYTES (AUTO) 0.7 10^3/uL (0.5-4.7); ABSOLUTE MONOCYTES (AUTO) 0.6 10^3/uL (0.1-1.4); ABSOLUTE NEUT (AUTO) 7.4 10^3/uL (1.7-8.2); BASOPHILS % (AUTO) 1.2 % (0-2); EOSINOPHILS % (AUTO) 0.7 % (0-6); HEMATOCRIT 47.5 % (37.9-51.0); HEMOGLOBIN 15.5 g/dL (13.5-17.0); LYMPHOCYTES % (AUTO) 7.8 % (13-45); MEAN CORPUSCULAR HEMOGLOBIN 26.8 pg (27.0-33.4); MEAN CORPUSCULAR HGB CONC 32.6 g/dL (32.0-36.0); MEAN CORPUSCULAR VOLUME 82 fl (80-97); PLATELET COUNT 206 10^3/uL (150-450); RED BLOOD COUNT 5.76 10^6/uL (4.35-5.55); RED CELL DISTRIBUTION WIDTH 18.9 % (11.5-14.0); SEGMENTED NEUTROPHILS % (AUTO) 83.3 % (42-78); TOTAL CELLS COUNTED % (AUTO) 100 %; WHITE BLOOD COUNT 8.9 10^3/uL (4.0-10.5)
[2020-02-10 16:00] LABS: ALBUMIN 3.1 g/dL (3.5-5.0); ALKALINE PHOSPHATASE 153 U/L (38-126); ANION GAP 11 (5-19); ASPARTATE AMINO TRANSFERASE 29 U/L (17-59); BILIRUBIN,DIRECT 0.3 mg/dL (0.0-0.4); BILIRUBIN,TOTAL 1.1 mg/dL (0.2-1.3); BLOOD UREA NITROGEN 27 mg/dL (7-20); CALCIUM 8.8 mg/dL (8.4-10.2); CARBON DIOXIDE 32 mmol/L (22-30); CHLORIDE 83 mmol/L (98-107); TOTAL PROTEIN 6.6 g/dL (6.3-8.2)
[2020-02-10 16:13] LABS: GLUCOSE 407 mg/dL (75-110); TROPONIN I 0.112 ng/mL
--- NOTE | 2020-02-10 17:45 | RADIOLOGY REPORT (SQ) ---
EXAM DESCRIPTION: CHEST 2 VIEWS IMAGES COMPLETED DATE/TIME: 02/10/2020 2:37 pm REASON FOR STUDY: sob, hx of chf COMPARISON: 06/20/2019. EXAM PARAMETERS: NUMBER OF VIEWS: two views TECHNIQUE: Digital Frontal and Lateral radiographic views of the chest acquired. RADIATION DOSE: NA LIMITATIONS: none FINDINGS: LUNGS AND PLEURA: Hyperinflation. Diffuse interstitial prominence. No focal infiltrates. No pleural effusion. MEDIASTINUM AND HILAR STRUCTURES: No masses or contour abnormalities. HEART AND VASCULAR STRUCTURES: Stable cardiomegaly. BONES: No acute findings. HARDWARE: Sternotomy wires and defibrillator. OTHER: No other significant finding. IMPRESSION: COPD WITH CHRONIC INTERSTITIAL CHANGES. STABLE CARDIOMEGALY. NO APPARENT ACUTE FINDING S. TECHNICAL DOCUMENTATION: JOB ID: [id number] [employer]- All Rights Reserved Reading location - IP/workstation name: [email or web address]
[2020-02-10 18:35] LABS: APPEARANCE,URINE TURBID; BILIRUBIN,URINE NEGATIVE (NEGATIVE); COLOR,URINE AMBER; GLUCOSE, URINE >=500 mg/dL (NEGATIVE); KETONES,URINE NEGATIVE (NEGATIVE); LEUKOCYTE ESTERASE,URINE SMALL (NEGATIVE); NITRITE,URINE NEGATIVE (NEGATIVE); PROTEIN,URINE >=500 mg/dL (NEGATIVE); URINE SPECIFIC GRAVITY 1.026
[2020-02-10] MEDS ORDERED: INSULIN REG, HUMAN 100 UNIT/ML 3 ML VIAL (PYX) IV ONE (19:02)
[2020-02-10] MEDS ORDERED: BUMETANIDE INJ/PF 1 MG/4 ML SDV IV ONE (19:52)
--- NOTE | 2020-02-10 19:59 | ER Document Report ---
ED General - General Chief Complaint: Shortness Of Breath Stated Complaint: BODY SWELLING Time Seen by Provider: 02/10/20 14:09 Primary Care Provider: LIANE LEIGH MD [Primary Care Provider] - Follow up as needed Information source: Patient TRAVEL OUTSIDE OF THE [place] IN LAST 30 DAYS: No - HPI Notes: Patient is brought in by family from wound clinic. At wound clinic patient was complaining of shortness of breath and diffuse body swelling. Family states patient has had this problem for some time but is gotten worse over the last 2 to 3 days. They state over the last several days he has had significant swelling of both the upper and lower extremities as well as significant increase of his shortness of breath. Patient states he is not even able to ambulate across the room without having to stop due to shortness of breath. No fever swe ats or chills. He states he has been taking his diuretic as scheduled. Patient denies any fevers. He denies any significant pain. He states that his chronic leg wounds have been relatively stable and do not appear any worse than usual to him and that he has been going to wound care regularly. - Related Data Allergies/Adverse Reactions: codeine Allergy (Verified 02/10/20 18:12) Past Medical History - General Information source: Patient - Social History Smoking Status: Former Smoker Chew tobacco use (# tins/day): No Frequency of alcohol use: None Drug Abuse: None Family History: Reviewed & Not Pertinent - Past Medical History Cardiac Medical History: Reports: Hx Congestive Heart Failure, Hx Coronary Artery Disease, Hx Heart Attack, Hx Hypertension Pulmonary Medical History: Reports: Hx Asthma Endocrine Medical History: Reports: Hx Diabetes Mellitus Type 2 Renal/ Medical History: Denies: Hx Peritoneal Dialysis Past Surgical History: Reports: Hx Cardiac Surgery - CABG 2014, Hx Coronary Artery Bypass Graft - He had quadruple bypass on 03/08/2014 in [place] Review of Systems - Review of Systems Constitutional: denies: Chills, Fever Cardiovascular: denies: Chest pain, Palpitations Respiratory: Short of breath. denies: Cough -: Yes All other systems reviewed and negative Physical Exam - Vital signs Vitals: Temp Pulse Resp BP Pulse Ox 97.3 F 107 H 20 145/97 H 96 02/10/20 13:53 02/10/20 13:53 02/10/20 13:53 02/10/20 13:53 02/10/20 13:53 Interpretation: Hypertensive, Tachycardic - General General appearance: Appears well, Alert - HEENT Head: Normocephalic, Atraumatic Eyes: Normal Pupils: PERRL - Respiratory Respiratory status: No respiratory distress Chest status: Nontender Breath sounds: Decreased air movement, Rales Chest palpation: Normal - Cardiovascular Rhythm: Tachycardia Heart sounds: Normal auscultation Murmur: No - Abdominal Inspection: Normal Distension: No distension Bowel sounds: Normal Tenderness: Nontender Organomegaly: No organomegaly - Back Back: Normal, Nontender - Extremities General upper extremity: Normal inspection, Nontender, Normal color, Normal ROM, Normal temperature General lower extremity: Nontender, Normal temperature, Other - Patient has chronic venous stasis changes with some stable ulcerations. I do not appreciate any acute infectious process at this time.. No: Ryanne's sign - Neurological Neuro grossly intact: Yes Cognition: Normal Orientation: AAOx4 Julius Coma Scale Eye Opening: Spontaneous [place] Coma Scale Verbal: Oriented [place] Coma Scale Motor: Obeys Commands Julius Coma Scale Total: 15 Speech: Normal Motor strength normal: LUE, RUE, LLE, RLE Sensory: Normal - Psychological Associated symptoms: Normal affect, Normal mood - Skin Skin Temperature: Warm Skin Moisture: Dry Skin Color: Erythema Course - Re-evaluation Re-evalutation: 02/10/20 19:57 Patient is sent in from wound care due to extremity swelling. The lower extremities do appear to have chronic wounds but I do not appreciate an acute process. And patient states they do appear and feel stable to him. Patient however states that his extremities are significantly swollen compared to baseline. Patient does have some rales and decreased breath sounds. He does have a low O2 saturation of 93 to 94% on room air. Patient has an elevated BNP relative to his baseline. He is also tachycardic. At this time I will treat the patient with diuretics and admit the patient for a CHF exacerbation. - Vital Signs Vital signs: Temp Pulse Resp BP Pulse Ox 97.3 F 107 H 20 148/107 H 94 02/10/20 13:53 02/10/20 13:53 02/10/20 18:09 02/10/20 18:09 02/10/20 18:09 - Laboratory Result Diagrams: 02/10/20 14:52 02/10/20 14:52 Laboratory results interpreted by me: 02/10/20 02/10/20 02/10/20 14:52 14:52 14:52 RBC 5.76 H MCH 26.8 L RDW 18.9 H Lymph % (Auto) 7.8 L Seg Neutrophils % 83.3 H Sodium 126.3 L Chloride 83 L Carbon Dioxide 32 H BUN 27 H Glucose 407 H* POC Glucose Alkaline Phosphatase 153 H NT-Pro-B Natriuret Pep 14272 H Albumin 3.1 L Urine Protein Urine Glucose (UA) Urine Blood Urine Urobilinogen Ur Leukocyte Esterase 02/10/20 02/10/20 14:52 14:52 RBC MCH RDW Lymph % (Auto) Seg Neutrophils % Sodium Chloride Carbon Dioxide BUN Glucose POC Glucose 395 H Alkaline Phosphatase NT-Pro-B Natriuret Pep Albumin Urine Protein >=500 H Urine Glucose (UA) >=500 H Urine Blood MODERATE H Urine Urobilinogen 2.0 H Ur Leukocyte Esterase SMALL H - Diagnostic Test Radiology reviewed: Image reviewed, Reports reviewed - EKG Interpretation by Me EKG shows normal: Sinus rhythm Rate: Tachycardia - 102 Rhythm: NSR [place]/QRS: Left axis deviation, LAHB/LAFB Discharge - Discharge Clinical Impression: Acute combined systolic and diastolic congestive heart failure, Peripheral edema Condition: Serious Disposition: ADMITTED INPATIENT Admitting Provider: Brian Unit Admitted: [facility]
[2020-02-10] MEDS ORDERED: SACUBITRIL/VALSARTAN 97 MG/103 MG TABLET PO SCH (22:15)
[2020-02-10] MEDS ORDERED: METFORMIN HCL 750 MG PO SCH (22:15)
[2020-02-10] MEDS ORDERED: (PENDING PHARMACY ID) (Dapagliflozin Propanediol [Farxiga] 10 MG Tablet) PO SCH (22:15)
[2020-02-10] MEDS ORDERED: CARVEDILOL 6.25 MG TABLET PO SCH (22:15)
[2020-02-10] MEDS ORDERED: BUMETANIDE 1 MG TABLET PO SCH (22:15)
--- NOTE | 2020-02-10 22:19 | PDOC H&P ---
History of Present Illness Admission Date/PCP: 02/10/20 20:09 LIANE LEIGH MD History of Present Illness: KENIA MCALLISTER is a 64 year old male .He has dilated ischemic cardiomyopathy, chronic systolic and diastolic heart failure, poorly controlled type 2 diabetes mellitus, chronic obstructive pulmonary disease, chronic leg ulcer, he came to the emergency room for evaluation of progressive shortness of breath, presently medically and device therapy optimization, he has AICD/pacemaker implantation, is not particularly compliant with office visits, He is also on chronic antic oagulation with Coumadin for CVA prophylaxis, this is end-stage CHF his best option is heart transplantation, not sure is a candidate for heart transplantation, we will consult Dr. Santacruz is safety administrator for guidance Past Medical History Cardiac Medical History: Reports: Atrial Fibrillation, Congestive Heart Failure, Coronary Artery Disease, Myocardial Infarction, Hypertension Pulmonary Medical History: Reports: Asthma Endocrine Medical History: Reports: Diabetes Mellitus Type 2 Past Surgical History Past Surgical History: Reports: Coronary Artery Bypass Graft - He had quadruple bypass on 03/08/2014 in [place], Internal Defibrillator, Pacemaker Social History Smoking Status: Former Smoker Electronic Cigarette use?: No Frequency of Alcohol Use: Rare Hx Recreational Drug Use: No Drugs: None Hx Prescription Drug Abuse: No Family History Family History: Reviewed & Not Pertinent Parental Family History Reviewed: Yes Children Family History Reviewed: Yes Sibling(s) Family History Reviewed.: Yes Medication/Allergy Home Medications: Albuterol Sulfate [Albuterol Sulfate Hfa] 2 puff IH Q6HP PRN 06/18/19 Bumetanide [Bumex 1 mg Tablet] 1 mg PO BID 06/18/19 Carvedilol [Coreg 6.25 mg Tablet] 6.25 mg PO Q12 06/18/19 Sacubitril/Valsartan [Entresto 97 mg/103 mg Tablet] 1 tab PO BID 06/18/19 Warfarin Sodium [Jantoven 5 mg Tablet] 5 mg PO QHS 06/18/19 Dapagliflozin Propanediol [Farxiga] 10 mg PO DAILY #90 tablet 06/23/19 Digoxin [Lanoxin 0.125 mg Tablet] 0.125 mg PO DAILY 02/10/20 Fluticasone/Umeclidin/Vilanter [Trelegy 100-62.5-25 Mcg Ellipta 14 Dose/Dpi] 1 puff IH DAILY 02/10/20 Metformin HCl [Metformin HCl ER] 750 mg PO QPM 02/10/20 Metolazone [Zaroxolyn 5 mg Tablet] 5 mg PO DAILY 02/10/20 Tramadol HCl [Ultram 50 mg Tablet] 50 mg PO BIDP PRN 02/10/20 Allergies/Adverse Reactions: codeine Allergy (Verified 02/10/20 18:12) Review of Systems Constitutional: ABSENT: chills, fever(s), headache(s), weight gain, weight loss Eyes: ABSENT: visual disturbances Ears: ABSENT: hearing changes Cardiovascular: PRESENT: dyspnea on exertion, edema, orthropnea, palpitations Respiratory: ABSENT: cough, hemoptysis Gastrointestinal: ABSENT: abdominal pain, constipation, diarrhea, hematemesis, hematochezia, nausea, vomiting Genitourinary: ABSENT: dysuria, hematuria Musculoskeletal: ABSENT: joint swelling Integumentary: ABSENT: rash, wounds Neurological: ABSENT: abnormal gait, abnormal speech, confusion, dizziness, focal weakness, syncope Psychiatric: ABSENT: anxiety, depression, homidical ideation, suicidal ideation Endocrine: ABSENT: cold intolerance, heat intolerance, menstrual abnormalities, polydipsia, polyuria Hematologic/Lymphatic: ABSENT: easy bleeding, easy bruising, lymphadenopathy Physical Exam Vital Signs: Temp Pulse Resp BP Pulse Ox 97.6 F 107 H 16 143/106 H 89 L 02/10/20 21:44 02/10/20 13:53 02/10/20 22:01 02/10/20 22:01 02/10/20 22:01 Intake & Output 02/09/20 02/10/20 02/11/20 06:59 06:59 06:59 Output Total 920 Balance -920 Weight 107.8 kg General appearance: PRESENT: other - Elderly male chronically ill looking Head exam: PRESENT: atraumatic, normocephalic Eye exam: PRESENT: PERRLA Ear exam: PRESENT: normal external ear exam Mouth exam: PRESENT: moist, tongue midline Neck exam: PRESENT: full ROM Respiratory exam: PRESENT: rales Cardiovascular exam: PRESENT: RRR, +S1, +S2 Pulses: PRESENT: normal dorsalis pedis pul, +2 pedal pulses bilateral Vascular exam: PRESENT: normal capillary refill GI/Abdominal exam: PRESENT: normal bowel sounds, soft Rectal exam: PRESENT: deferred Extremities exam: PRESENT: pedal edema Neurological exam: PRESENT: alert, CN II-XII grossly intact. ABSENT: motor sensory deficit Psychiatric exam: PRESENT: appropriate affect, normal mood Skin exam: PRESENT: dry, erythema, intact, skin tears, warm Results Laboratory Results: 02/10/20 14:52 02/10/20 14:52 02/10/20 02/10/20 02/10/20 14:52 14:52 14:52 WBC 8.9 RBC 5.76 H Hgb 15.5 Hct 47.5 MCV 82 MCH 26.8 L MCHC 32.6 RDW 18.9 H Plt Count 206 Seg Neutrophils % 83.3 H Sodium 126.3 L Potassium 4.0 Chloride 83 L Carbon Dioxide 32 H Anion Gap 11 BUN 27 H Creatinine 1.15 Est GFR ( Amer) > 60 Glucose 407 H* Calcium 8.8 Total Bilirubin 1.1 AST 29 Alkaline Phosphatase 153 H Total Protein 6.6 Albumin 3.1 L Urine Color RAMA Urine Appearance TURBID Urine pH 5.0 Ur Specific Alexander 1.026 Urine Protein >=500 H Urine Glucose (UA) >=500 H Urine Ketones NEGATIVE Urine Blood MODERATE H Urine Nitrite NEGATIVE Ur Leukocyte Esterase SMALL H Urine WBC (Auto) 21 Urine RBC (Auto) 37 02/10/20 14:52 Troponin I 0.112 NT-Pro-B Natriuret Pep 28935 H Impressions: Chest X-Ray 02/10/20 14:19 IMPRESSION: COPD WITH CHRONIC INTERSTITIAL CHANGES. STABLE CARDIOMEGALY. NO APPARENT ACUTE FINDINGS. Assessment & Plan - Diagnosis (1) Acute combined systolic and diastolic congestive heart failure Is this a current diagnosis for this admission?: Yes Plan: Patient is presently optimized more continue present regimen, consult cardiology for guidance (2) Paroxysmal atrial fibrillation Is this a current diagnosis for this admission?: Yes (3) Type 2 diabetes mellitus with diabetic polyneuropathy Qualifiers: Diabetes mellitus buttermaker helper insulin use: with senior living use Qualified Code(s): E11.42 - Type 2 diabetes mellitus with diabetic polyneuropathy; Z79.4 - ocean transportation intermediary (current) use of insulin Is this a current diagnosis for this admission?: Yes (4) COPD (chronic obstructive pulmonary disease) Qualifiers: COPD type: unspecified COPD Qualified Code(s): J44.9 - Chronic obstructive pulmonary disease, unspecified Is this a current diagnosis for this admission?: Yes (5) Person under investigation for COVID-19 Is this a current diagnosis for this admission?: Yes Plan: I cannot completely rule out SARS-CoV-2 infection, patient will be isolated until ruled out for SARS-CoV-2 infection - Time Time Spent: Greater than 70 Minutes Medications reviewed and adjusted accordingly: Yes Anticipated Discharge Disposition: Home, Self Care Anticipated Discharge Timeframe: within 72 hours
[2020-02-10 23:13] LABS: HEMATOCRIT 49.2 % (37.9-51.0); MEAN CORPUSCULAR HEMOGLOBIN 26.8 pg (27.0-33.4); MEAN CORPUSCULAR HGB CONC 32.6 g/dL (32.0-36.0); MEAN CORPUSCULAR VOLUME 82 fl (80-97); PLATELET COUNT 214 10^3/uL (150-450); RED BLOOD COUNT 5.98 10^6/uL (4.35-5.55); RED CELL DISTRIBUTION WIDTH 18.5 % (11.5-14.0); WHITE BLOOD COUNT 10.3 10^3/uL (4.0-10.5)
[2020-02-10 23:20] LABS: PROTHROMBIN TIME 15.4 SEC (11.4-15.4)
[2020-02-10 23:21] LABS: FIBRINOGEN 512 mg/dL (209-497); PARTIAL THROMBOPLASTIN TIME 30.2 SEC (23.5-35.8)
[2020-02-10] MEDS: DIGOXIN 0.125 MG TABLET PO SCH (23:22)
[2020-02-10 23:23] LABS: D-DIMER 1.07 ug/mL (0.00-0.50)
[2020-02-10] MEDS: FLUTICASONE/UMECLIDIN/VILANTER 100-62.5-25 MCG/DOSE IH SCH (23:23)
[2020-02-10] MEDS: METOLAZONE 5 MG TABLET PO SCH (23:23)
[2020-02-10] MEDS ORDERED: CARVEDILOL 6.25 MG TABLET PO ONE (23:30)
[2020-02-10] MEDS ORDERED: SACUBITRIL/VALSARTAN 97 MG/103 MG TABLET PO ONE (23:30)
[2020-02-10] MEDS ORDERED: BUMETANIDE 1 MG TABLET PO ONE (23:30)
[2020-02-10] MEDS: ALBUTEROL SULFATE HFA (90 MCG/PUFF) 8 GM MDI (1 MDI/ER DISP) IH PRN (23:33)
[2020-02-10 23:36] LABS: A TYPE INFLUENZA AG NEGATIVE (NEGATIVE); B INFLUENZA AG NEGATIVE (NEGATIVE)
[2020-02-10 23:42] LABS: C-REACTIVE PROTEIN 39.9 mg/L (<10.0)
[2020-02-10 23:51] LABS: CREATINE KINASE MB 5.72 ng/mL (<4.55)
[2020-02-10 23:59] LABS: TROPONIN I 0.134 ng/mL
[2020-02-11 00:13] LABS: FERRITIN 48.3 ng/mL (17.9-464.0)
[2020-02-11] MEDS: ALBUTEROL SULFATE HFA (90 MCG/PUFF) 8 GM MDI (1 MDI/ER DISP) IH PRN (06:37)
[2020-02-11 07:02] LABS: INTERNATIONAL RATION (INR) 1.19; PROTHROMBIN TIME 15.3 SEC (11.4-15.4)
[2020-02-11 07:04] LABS: ABSOLUTE BASOPHILS # (AUTO) 0.1 10^3/uL (0.0-0.2); ABSOLUTE EOSINOPHILS # (AUTO) 0.1 10^3/uL (0.0-0.6); ABSOLUTE LYMPHOCYTES (AUTO) 0.9 10^3/uL (0.5-4.7); ABSOLUTE MONOCYTES (AUTO) 0.6 10^3/uL (0.1-1.4); ABSOLUTE NEUT (AUTO) 6.8 10^3/uL (1.7-8.2); BASOPHILS % (AUTO) 1.1 % (0-2); HEMATOCRIT 48.7 % (37.9-51.0); HEMOGLOBIN 15.9 g/dL (13.5-17.0); MEAN CORPUSCULAR HEMOGLOBIN 26.7 pg (27.0-33.4); MEAN CORPUSCULAR HGB CONC 32.7 g/dL (32.0-36.0); MEAN CORPUSCULAR VOLUME 82 fl (80-97); MONOCYTES % (AUTO) 6.8 % (3-13); PLATELET COUNT 192 10^3/uL (150-450); RED BLOOD COUNT 5.96 10^6/uL (4.35-5.55); RED CELL DISTRIBUTION WIDTH 18.4 % (11.5-14.0); SEGMENTED NEUTROPHILS % (AUTO) 80.1 % (42-78); TOTAL CELLS COUNTED % (AUTO) 100 %; WHITE BLOOD COUNT 8.5 10^3/uL (4.0-10.5)
[2020-02-11 07:21] LABS: ALKALINE PHOSPHATASE 115 U/L (38-126); ASPARTATE AMINO TRANSFERASE 36 U/L (17-59); BILIRUBIN,DIRECT 0.5 mg/dL (0.0-0.4); BILIRUBIN,TOTAL 1.9 mg/dL (0.2-1.3); BLOOD UREA NITROGEN 29 mg/dL (7-20); CALCIUM 8.9 mg/dL (8.4-10.2); CHLORIDE 83 mmol/L (98-107); CREATINE KINASE 162 U/L (55-170); GLUCOSE 214 mg/dL (75-110); POTASSIUM 4.5 mmol/L (3.6-5.0); TOTAL PROTEIN 6.5 g/dL (6.3-8.2); TRIGLYCERIDES 98 mg/dL (<150)
[2020-02-11 07:30] LABS: CREATINE KINASE MB 4.6 ng/mL (<4.55); TROPONIN I 0.158 ng/mL
[2020-02-11 07:31] LABS: DIRECT LDL 89 mg/dL (<100)
[2020-02-11 07:33] LABS: FREE T4 (FREE THYROXINE) 1.06 ng/dL (0.78-2.19)
[2020-02-11 07:37] LABS: ANION GAP 8 (5-19); CARBON DIOXIDE 39 mmol/L (22-30); DIGOXIN < 0.40 ng/mL (0.8-2.0)
[2020-02-11 07:47] LABS: THYROID STIMULATING HORMONE 7.87 uIU/mL (0.47-4.68)
[2020-02-11 07:56] LABS: CHOLESTEROL 149.75 mg/dL (0-200)
[2020-02-11 09:21] LABS: APPEARANCE,URINE SLIGHTLY-CLOUDY; BILIRUBIN,URINE NEGATIVE (NEGATIVE); COLOR,URINE AMBER; GLUCOSE, URINE 50 mg/dL (NEGATIVE); KETONES,URINE NEGATIVE (NEGATIVE); LEUKOCYTE ESTERASE,URINE MODERATE (NEGATIVE); NITRITE,URINE NEGATIVE (NEGATIVE); PROTEIN,URINE >=500 mg/dL (NEGATIVE); URINE SPECIFIC GRAVITY 1.018
[2020-02-11] MEDS ORDERED: SACUBITRIL/VALSARTAN 97 MG/103 MG TABLET PO SCH (10:00)
--- NOTE | 2020-02-11 10:12 | EKG REPORT ---
SEVERITY:- ABNORMAL ECG - SINUS TACHYCARDIA LAD, CONSIDER LEFT ANTERIOR FASCICULAR BLOCK ABNRM R PROG, CONSIDER ASMI OR LEAD PLACEMENT PROLONGED QT INTERVAL : Confirmed by: Erika Bateman MD 11-Feb-2020 10:11:28
--- NOTE | 2020-02-11 11:07 | RADIOLOGY REPORT (SQ) ---
EXAM DESCRIPTION: ARTERIAL LOWER EXTREM BILAT IMAGES COMPLETED DATE/TIME: 02/10/2020 4:35 pm REASON FOR STUDY: cool, edema, weak pulses bilaterally COMPARISON: 06/11/2019 TECHNIQUE: Dynamic and static cha scale and color images acquired of the lower extremity arteries. Additional selected spectral images recorded. LIMITATIONS: None. FINDINGS: RIGHT LEG: INFLOW ARTERIES: Normal, no obstruction evident. FEMORAL ARTERIES:Multiphasic waveforms. Normal, no velocity elevation to suggest focal stenosis. Norm al color Doppler evaluation. No aneurysm. POPLITEAL ARTERY:Multiphasic waveforms. Normal, no velocity elevation to suggest focal stenosis. Norm al color Doppler evaluation. No aneurysm. PATENT TIBIOPERONEAL TRUNK AND 3 VESSEL RUNOFF: Yes, normal vessels. OTHER: No other significant finding. LEFT LEG: INFLOW ARTERIES: Normal, no obstruction evident. FEMORAL ARTERIES:Multiphasic waveforms. Normal, no velocity elevation to suggest focal stenosis. Norm al color Doppler evaluation. No aneurysm. POPLITEAL ARTERY:Multiphasic waveforms. Normal, no velocity elevation to suggest focal stenosis. Norm al color Doppler evaluation. No aneurysm. PATENT TIBIOPERONEAL TRUNK AND 3 VESSEL RUNOFF: Yes, normal vessels. OTHER: No other significant finding. IMPRESSION: Multiphasic waveforms throughout. No focal stenosis. No occlusions. TECHNICAL DOCUMENTATION: JOB ID: [id number] 2010 [employer]- All Rights Reserved Reading location - IP/workstation name: [email or web address]
[2020-02-11] MEDS: FLUTICASONE/UMECLIDIN/VILANTER 100-62.5-25 MCG/DOSE IH SCH (11:27)
[2020-02-11] MEDS: DIGOXIN 0.125 MG TABLET PO SCH (11:33)
[2020-02-11] MEDS: BUMETANIDE 1 MG TABLET PO SCH (11:38)
[2020-02-11] MEDS: CARVEDILOL 6.25 MG TABLET PO SCH ×2 (11:38→22:26)
[2020-02-11 13:38] LABS: CREATINE KINASE MB 5.6 ng/mL (<4.55); TROPONIN I 0.125 ng/mL
[2020-02-11] MEDS: METOLAZONE 5 MG TABLET PO SCH (13:58)
[2020-02-11] MEDS ORDERED: METOLAZONE 5 MG TABLET PO ONE (14:00)
[2020-02-11] MEDS: SACUBITRIL/VALSARTAN 97 MG/103 MG TABLET PO SCH ×2 (14:02→22:26)
--- NOTE | 2020-02-11 16:14 | PDOC PROGRESS REPORT ---
Subjective Date:: 02/11/20 Subjective:: Patient seen by the bedside, start low-dose furosemide infusion Reason For Visit: ACUTE SYSTOLIC HEART FAILURE Physical Exam Vital Signs: Temp Pulse Resp BP Pulse Ox 98.0 F 107 H 19 135/86 H 93 02/11/20 05:39 02/10/20 13:53 02/11/20 09:00 02/11/20 06:01 02/11/20 09:00 Intake & Output 02/10/20 02/11/20 02/12/20 06:59 06:59 06:59 Output Total 920 Balance -920 Weight 107.8 kg General appearance: PRESENT: no acute distress Eye exam: PRESENT: PERRLA Respiratory exam: PRESENT: rales, rhonchi Cardiovascular exam: PRESENT: +S1, +S2 GI/Abdominal exam: PRESENT: soft Neurological exam: PRESENT: alert Results Laboratory Results: 02/11/20 06:43 02/11/20 06:43 02/10/20 02/10/20 02/10/20 14:52 14:52 22:42 WBC 10.3 RBC 5.98 H Hgb 16.0 Hct 49.2 MCV 82 MCH 26.8 L MCHC 32.6 RDW 18.5 H Plt Count 214 Seg Neutrophils % Carbonic Acid HCO3/H2CO3 Ratio ABG pH ABG pCO2 ABG pO2 ABG HCO3 ABG O2 Saturation ABG Base Excess FiO2 Sodium 126.3 L Potassium 4.0 Chloride 83 L Carbon Dioxide 32 H Anion Gap 11 BUN 27 H Creatinine 1.15 Est GFR ( Amer) > 60 Glucose 407 H* Calcium 8.8 Magnesium Ferritin Total Bilirubin 1.1 AST 29 Alkaline Phosphatase 153 H C-Reactive Protein Total Protein 6.6 Albumin 3.1 L Triglycerides Cholesterol LDL Cholesterol Direct VLDL Cholesterol HDL Cholesterol TSH Free T4 Urine Color RAMA Urine Appearance TURBID Urine pH 5.0 Ur Specific Media 1.026 Urine Protein >=500 H Urine Glucose (UA) >=500 H Urine Ketones NEGATIVE Urine Blood MODERATE H Urine Nitrite NEGATIVE Ur Leukocyte Esterase SMALL H Urine WBC (Auto) 21 Urine RBC (Auto) 37 02/10/20 02/11/20 02/11/20 22:42 06:43 06:43 WBC 8.5 RBC 5.96 H Hgb 15.9 Hct 48.7 MCV 82 MCH 26.7 L MCHC 32.7 RDW 18.4 H Plt Count 192 Seg Neutrophils % 80.1 H Carbonic Acid HCO3/H2CO3 Ratio ABG pH ABG pCO2 ABG pO2 ABG HCO3 ABG O2 Saturation ABG Base Excess FiO2 Sodium 130.0 L Potassium 4.5 Chloride 83 L Carbon Dioxide 39 H Anion Gap 8 BUN 29 H Creatinine 1.24 Est GFR ( Amer) > 60 Glucose 214 H Calcium 8.9 Magnesium 1.7 Ferritin 48.30 Total Bilirubin 1.9 H AST 36 Alkaline Phosphatase 115 C-Reactive Protein 39.9 H Total Protein 6.5 Albumin 3.0 L Triglycerides 98 Cholesterol 149.75 LDL Cholesterol Direct 89 VLDL Cholesterol 20.0 HDL Cholesterol 52 TSH Free T4 Urine Color Urine Appearance Urine pH Ur Specific Media Urine Protein Urine Glucose (UA) Urine Ketones Urine Blood Urine Nitrite Ur Leukocyte Esterase Urine WBC (Auto) Urine RBC (Auto) 02/11/20 02/11/20 02/11/20 06:43 07:05 12:00 WBC RBC Hgb Hct MCV MCH MCHC RDW Plt Count Seg Neutrophils % Carbonic Acid Cancelled HCO3/H2CO3 Ratio Cancelled ABG pH Cancelled ABG pCO2 Cancelled ABG pO2 Cancelled ABG HCO3 Cancelled ABG O2 Saturation Cancelled ABG Base Excess Cancelled FiO2 Cancelled Sodium Potassium Chloride Carbon Dioxide Anion Gap BUN Creatinine Est GFR ( Amer) Glucose Calcium Magnesium Ferritin Total Bilirubin AST Alkaline Phosphatase C-Reactive Protein Total Protein Albumin Triglycerides Cholesterol LDL Cholesterol Direct VLDL Cholesterol HDL Cholesterol TSH 7.87 H Free T4 1.06 Urine Color RAMA Urine Appearance SLIGHTLY-CLOUDY Urine pH 5.0 Ur Specific Media 1.018 Urine Protein >=500 H Urine Glucose (UA) 50 H Urine Ketones NEGATIVE Urine Blood MODERATE H Urine Nitrite NEGATIVE Ur Leukocyte Esterase MODERATE H Urine WBC (Auto) 15 Urine RBC (Auto) 25 02/10/20 02/10/20 02/10/20 14:52 22:42 22:42 Creatine Kinase 209 H CK-MB (CK-2) 5.72 H Troponin I 0.112 0.134 NT-Pro-B Natriuret Pep 68703 H 02/11/20 02/11/20 02/11/20 06:43 06:43 12:48 Creatine Kinase 162 187 H CK-MB (CK-2) 4.60 H Troponin I 0.158 NT-Pro-B Natriuret Pep 02/11/20 12:48 Creatine Kinase CK-MB (CK-2) 5.60 H Troponin I 0.125 NT-Pro-B Natriuret Pep Impressions: Chest X-Ray 02/10/20 14:19 IMPRESSION: COPD WITH CHRONIC INTERSTITIAL CHANGES. STABLE CARDIOMEGALY. NO APPARENT ACUTE FINDINGS. Lower Extremity Ultrasound 02/10/20 14:21 IMPRESSION: Multiphasic waveforms throughout. No focal stenosis. No occlusions. Assessment & Plan - Diagnosis (1) Acute combined systolic and diastolic congestive heart failure Is this a current diagnosis for this admission?: Yes Plan: Start low-dose furosemide infusion (2) Paroxysmal atrial fibrillation Is this a current diagnosis for this admission?: Yes (3) Type 2 diabetes mellitus with diabetic polyneuropathy Qualifiers: Diabetes mellitus roasterman insulin use: with roasterman use Qualified Code(s): E11.42 - Type 2 diabetes mellitus with diabetic polyneuropathy; Z79.4 - long-term (current) use of insulin Is this a current diagnosis for this admission?: Yes (4) COPD (chronic obstructive pulmonary disease) Qualifiers: COPD type: unspecified COPD Qualified Code(s): J44.9 - Chronic obstructive pulmonary disease, unspecified Is this a current diagnosis for this admission?: Yes (5) Person under investigation for COVID-19 Is this a current diagnosis for this admission?: Yes - Time Time Spent with patient: 25-34 minutes Level of Care: IMCU Medications reviewed and adjusted accordingly: Yes Anticipated discharge: Home Anticipated DC Timeframe: Other
[2020-02-11] MEDS: WARFARIN SODIUM 5 MG TABLET PO SCH (22:27)
[2020-02-12 05:26] LABS: ABSOLUTE BASOPHILS # (AUTO) 0.1 10^3/uL (0.0-0.2); ABSOLUTE EOSINOPHILS # (AUTO) 0.1 10^3/uL (0.0-0.6); ABSOLUTE LYMPHOCYTES (AUTO) 0.9 10^3/uL (0.5-4.7); ABSOLUTE MONOCYTES (AUTO) 0.8 10^3/uL (0.1-1.4); ABSOLUTE NEUT (AUTO) 5.9 10^3/uL (1.7-8.2); BASOPHILS % (AUTO) 0.8 % (0-2); EOSINOPHILS % (AUTO) 1.4 % (0-6); HEMATOCRIT 46.7 % (37.9-51.0); HEMOGLOBIN 15.4 g/dL (13.5-17.0); LYMPHOCYTES % (AUTO) 11.2 % (13-45); MEAN CORPUSCULAR HEMOGLOBIN 26.9 pg (27.0-33.4); MEAN CORPUSCULAR VOLUME 81 fl (80-97); MONOCYTES % (AUTO) 10.6 % (3-13); PLATELET COUNT 190 10^3/uL (150-450); RED BLOOD COUNT 5.74 10^6/uL (4.35-5.55); RED CELL DISTRIBUTION WIDTH 18.2 % (11.5-14.0); TOTAL CELLS COUNTED % (AUTO) 100 %; WHITE BLOOD COUNT 7.8 10^3/uL (4.0-10.5)
[2020-02-12 05:40] LABS: ALBUMIN 2.6 g/dL (3.5-5.0); ALKALINE PHOSPHATASE 105 U/L (38-126); ANION GAP 8 (5-19); ASPARTATE AMINO TRANSFERASE 37 U/L (17-59); BILIRUBIN,DIRECT 0.8 mg/dL (0.0-0.4); BLOOD UREA NITROGEN 33 mg/dL (7-20); CALCIUM 8.6 mg/dL (8.4-10.2); CARBON DIOXIDE 36 mmol/L (22-30); CHLORIDE 83 mmol/L (98-107); GLUCOSE 261 mg/dL (75-110); INTERNATIONAL RATION (INR) 1.27; POTASSIUM 3.7 mmol/L (3.6-5.0); PROTHROMBIN TIME 16.1 SEC (11.4-15.4); TOTAL PROTEIN 5.6 g/dL (6.3-8.2)
[2020-02-12] MEDS ORDERED: DEXTROSE 50%-WATER 25 GM/50 ML DISP.SYRIN IV PRN ×2 (08:35)
[2020-02-12] MEDS ORDERED: GLUCAGON,HUMAN RECOMB 1 MG INJ IM PRN (08:35)
[2020-02-12] MEDS ORDERED: DEXTROSE 40% GEL 15 GM TUBE PO PRN ×2 (08:35)
[2020-02-12] MEDS: DIGOXIN 0.125 MG TABLET PO SCH (09:28)
[2020-02-12] MEDS: CARVEDILOL 6.25 MG TABLET PO SCH ×2 (09:28→22:19)
[2020-02-12] MEDS: FLUTICASONE/UMECLIDIN/VILANTER 100-62.5-25 MCG/DOSE IH SCH (09:31)
[2020-02-12] MEDS: SACUBITRIL/VALSARTAN 97 MG/103 MG TABLET PO SCH ×2 (09:31→17:59)
[2020-02-12] MEDS: NORMAL SALINE 250 ML with FUROSEMIDE 250 MG IV PRN ×2 (09:32)
[2020-02-12] MEDS ORDERED: INSULIN GLARGINE,HUM.REC.ANLOG 1,000 UNIT/10 ML VIAL SUBCUT SCH (10:00)
[2020-02-12] MEDS: INSULIN LISPRO 100 UNIT/ML 3 ML VIAL SUBCUT SCH ×3 (12:25→22:18)
[2020-02-12] MEDS: TRAMADOL HCL 50 MG TABLET PO PRN (12:25)
[2020-02-12] MEDS ORDERED: INSULIN GLARGINE,HUM.REC.ANLOG 1,000 UNIT/10 ML VIAL (PYX) SUBCUT ONE (12:26)
[2020-02-12] MEDS: INSULIN GLARGINE,HUM.REC.ANLOG 1,000 UNIT/10 ML VIAL SUBCUT SCH ×2 (12:27→22:18)
--- NOTE | 2020-02-12 21:14 | PDOC PROGRESS REPORT ---
Subjective Date:: 02/12/20 Subjective:: Patient seen by the bedside, he is diuresing on furosemide infusion Reason For Visit: ACUTE SYSTOLIC HEART FAILURE Physical Exam Vital Signs: Temp Pulse Resp BP Pulse Ox 98.1 F 79 19 123/77 97 02/12/20 12:00 02/12/20 19:00 02/12/20 12:00 02/12/20 12:00 02/12/20 12:00 Intake & Output 02/11/20 02/12/20 02/13/20 06:59 06:59 06:59 Intake Total 380 1050 Output Total 920 Balance -843 727 9531 Weight 107.8 kg 107.8 kg General appearance: PRESENT: no acute distress Eye exam: PRESENT: PERRLA Respiratory exam: PRESENT: clear to auscultation nik Cardiovascular exam: PRESENT: +S1, +S2 GI/Abdominal exam: PRESENT: soft Extremities exam: PRESENT: pedal edema Neurological exam: PRESENT: alert, CN II-XII grossly intact Results Laboratory Results: 02/12/20 04:39 02/12/20 04:39 02/12/20 02/12/20 04:39 04:39 WBC 7.8 RBC 5.74 H Hgb 15.4 Hct 46.7 MCV 81 MCH 26.9 L MCHC 33.0 RDW 18.2 H Plt Count 190 Seg Neutrophils % 76.0 Sodium 126.5 L Potassium 3.7 Chloride 83 L Carbon Dioxide 36 H Anion Gap 8 BUN 33 H Creatinine 1.18 Est GFR ( Amer) > 60 Glucose 261 H Calcium 8.6 Total Bilirubin 2.0 H AST 37 Alkaline Phosphatase 105 Total Protein 5.6 L Albumin 2.6 L 02/10/20 22:45 Throat Throat Culture - Final NORMAL CIELO 02/10/20 02/10/20 02/10/20 14:52 22:42 22:42 Creatine Kinase 209 H CK-MB (CK-2) 5.72 H Troponin I 0.112 0.134 NT-Pro-B Natriuret Pep 55209 H 02/11/20 02/11/20 02/11/20 06:43 06:43 12:48 Creatine Kinase 162 187 H CK-MB (CK-2) 4.60 H Troponin I 0.158 NT-Pro-B Natriuret Pep 02/11/20 12:48 Creatine Kinase CK-MB (CK-2) 5.60 H Troponin I 0.125 NT-Pro-B Natriuret Pep Impressions: Chest X-Ray 02/10/20 14:19 IMPRESSION: COPD WITH CHRONIC INTERSTITIAL CHANGES. STABLE CARDIOMEGALY. NO APPARENT ACUTE FINDINGS. Lower Extremity Ultrasound 02/10/20 14:21 IMPRESSION: Multiphasic waveforms throughout. No focal stenosis. No occlusions. Assessment & Plan - Diagnosis (1) Acute combined systolic and diastolic congestive heart failure Is this a current diagnosis for this admission?: Yes Plan: continue low-dose furosemide infusion (2) Paroxysmal atrial fibrillation Is this a current diagnosis for this admission?: Yes (3) Type 2 diabetes mellitus with diabetic polyneuropathy Qualifiers: Diabetes mellitus correction insulin use: with termite control technician use Qualified Code(s): E11.42 - Type 2 diabetes mellitus with diabetic polyneuropathy; Z79.4 - snf (current) use of insulin Is this a current diagnosis for this admission?: Yes (4) COPD (chronic obstructive pulmonary disease) Qualifiers: COPD type: unspecified COPD Qualified Code(s): J44.9 - Chronic obstructive pulmonary disease, unspecified Is this a current diagnosis for this admission?: Yes (5) Person under investigation for COVID-19 Is this a current diagnosis for this admission?: Yes Plan: pending - Time Time Spent with patient: 15-24 minutes Level of Care: IMCU Medications reviewed and adjusted accordingly: Yes Anticipated discharge: Home Anticipated DC Timeframe: within 72 hours - Inpatient Certification Based on my medical assessment, after consideration of the patient's comorbidities, presenting symptoms, or acuity I expect that the services needed warrant INPATIENT care.: Yes I certify that my determination is in accordance with my understanding of Medicare's requirements for reasonable and necessary INPATIENT services [42 CFR 412.3e].: Yes
[2020-02-12] MEDS: WARFARIN SODIUM 5 MG TABLET PO SCH (22:11)
[2020-02-13] MEDS: TRAMADOL HCL 50 MG TABLET PO PRN ×2 (01:45→22:27)
[2020-02-13 05:29] LABS: INTERNATIONAL RATION (INR) 1.15; PROTHROMBIN TIME 14.9 SEC (11.4-15.4)
[2020-02-13 06:12] LABS: ALBUMIN 3.2 g/dL (3.5-5.0); ALKALINE PHOSPHATASE 114 U/L (38-126); ASPARTATE AMINO TRANSFERASE 47 U/L (17-59); BILIRUBIN,DIRECT 0.5 mg/dL (0.0-0.4); BILIRUBIN,TOTAL 1.5 mg/dL (0.2-1.3); BLOOD UREA NITROGEN 35 mg/dL (7-20); CALCIUM 9.1 mg/dL (8.4-10.2); CHLORIDE 83 mmol/L (98-107); GLUCOSE 122 mg/dL (75-110); POTASSIUM 3.4 mmol/L (3.6-5.0); TOTAL PROTEIN 6.9 g/dL (6.3-8.2)
[2020-02-13 06:18] LABS: ANION GAP 13 (5-19); CARBON DIOXIDE 36 mmol/L (22-30)
[2020-02-13] MEDS: INSULIN LISPRO 100 UNIT/ML 3 ML VIAL SUBCUT SCH ×4 (08:41→22:59)
[2020-02-13] MEDS: INSULIN GLARGINE,HUM.REC.ANLOG 1,000 UNIT/10 ML VIAL SUBCUT SCH ×2 (10:43→22:26)
[2020-02-13] MEDS: CARVEDILOL 6.25 MG TABLET PO SCH ×2 (10:44→22:28)
[2020-02-13] MEDS: FLUTICASONE/UMECLIDIN/VILANTER 100-62.5-25 MCG/DOSE IH SCH (10:44)
[2020-02-13] MEDS: DIGOXIN 0.125 MG TABLET PO SCH (10:44)
[2020-02-13] MEDS: SACUBITRIL/VALSARTAN 97 MG/103 MG TABLET PO SCH ×2 (11:16→20:13)
[2020-02-13] MEDS ORDERED: POTASSI CL 20 MEQ/50 ML RIDER 20 MEQ/50 ML RTUPB IV ONE (13:30)
--- NOTE | 2020-02-13 21:37 | PDOC PROGRESS REPORT ---
Subjective Date:: 02/13/20 Subjective:: Patient seen by the bedside, he is diuresing on furosemide infusion,he feels bet ter ,there is no chest pain Reason For Visit: ACUTE SYSTOLIC HEART FAILURE Physical Exam Vital Signs: Temp Pulse Resp BP Pulse Ox 97.6 F 130 H 20 103/71 100 02/13/20 12:07 02/13/20 16:08 02/13/20 16:08 02/13/20 16:08 02/13/20 16:08 Intake & Output 02/12/20 02/13/20 02/14/20 06:59 06:59 06:59 Intake Total 380 1450 470 Output Total 1100 Balance 380 1450 -630 Weight 107.8 kg 101.3 kg 107.8 kg General appearance: PRESENT: no acute distress Eye exam: PRESENT: PERRLA Respiratory exam: PRESENT: clear to auscultation nik Cardiovascular exam: PRESENT: +S1, +S2 GI/Abdominal exam: PRESENT: soft Neurological exam: PRESENT: alert, CN II-XII grossly intact Results Laboratory Results: 02/12/20 04:39 02/13/20 04:43 02/12/20 02/12/20 02/13/20 20:57 23:55 04:43 Sodium 132.3 L Potassium 3.4 L Chloride 83 L Carbon Dioxide 36 H Anion Gap 13 BUN 35 H Creatinine 1.44 H Est GFR ( Amer) 59 L Glucose 122 H Serum Osmolality 287 Calcium 9.1 Total Bilirubin 1.5 H AST 47 Alkaline Phosphatase 114 Total Protein 6.9 Albumin 3.2 L Urine Osmolality 297 L 02/11/20 07:05 Clean Catch Midstream Urine Culture - Final Enterococcus Faecalis(Group D) 02/10/20 02/10/20 02/10/20 14:52 22:42 22:42 Creatine Kinase 209 H CK-MB (CK-2) 5.72 H Troponin I 0.112 0.134 NT-Pro-B Natriuret Pep 86847 H 02/11/20 02/11/20 02/11/20 06:43 06:43 12:48 Creatine Kinase 162 187 H CK-MB (CK-2) 4.60 H Troponin I 0.158 NT-Pro-B Natriuret Pep 02/11/20 12:48 Creatine Kinase CK-MB (CK-2) 5.60 H Troponin I 0.125 NT-Pro-B Natriuret Pep Impressions: Chest X-Ray 02/10/20 14:19 IMPRESSION: COPD WITH CHRONIC INTERSTITIAL CHANGES. STABLE CARDIOMEGALY. NO APPARENT ACUTE FINDINGS. Lower Extremity Ultrasound 02/10/20 14:21 IMPRESSION: Multiphasic waveforms throughout. No focal stenosis. No occlusions. Assessment & Plan - Diagnosis (1) Acute combined systolic and diastolic congestive heart failure Is this a current diagnosis for this admission?: Yes Plan: continue low-dose furosemide infusion (2) Paroxysmal atrial fibrillation Is this a current diagnosis for this admission?: Yes (3) Type 2 diabetes mellitus with diabetic polyneuropathy Qualifiers: Diabetes mellitus fpc insulin use: with termite inspector use Qualified Code(s): E11.42 - Type 2 diabetes mellitus with diabetic polyneuropathy; Z79.4 - intermediate (current) use of insulin Is this a current diagnosis for this admission?: Yes (4) COPD (chronic obstructive pulmonary disease) Qualifiers: COPD type: unspecified COPD Qualified Code(s): J44.9 - Chronic obstructive pulmonary disease, unspecified Is this a current diagnosis for this admission?: Yes (5) Person under investigation for COVID-19 Is this a current diagnosis for this admission?: Yes Plan: Negative SARS-CoV-2 infection - Time Time Spent with patient: 25-34 minutes Level of Care: IMCU Medications reviewed and adjusted accordingly: Yes Anticipated discharge: Home - Inpatient Certification Based on my medical assessment, after consideration of the patient's comorbidities, presenting symptoms, or acuity I expect that the services needed warrant INPATIENT care.: Yes I certify that my determination is in accordance with my understanding of Medicare's requirements for reasonable and necessary INPATIENT services [42 CFR 412.3e].: Yes
[2020-02-13] MEDS: WARFARIN SODIUM 5 MG TABLET PO SCH (22:27)
[2020-02-13] MEDS: NORMAL SALINE 250 ML with FUROSEMIDE 250 MG IV PRN ×2 (22:28)
[2020-02-13 22:36] LABS: HEMOGLOBIN 16.1 g/dL (13.5-17.0); MEAN CORPUSCULAR HGB CONC 32.9 g/dL (32.0-36.0); MEAN CORPUSCULAR VOLUME 82 fl (80-97); PLATELET COUNT 244 10^3/uL (150-450); RED BLOOD COUNT 5.97 10^6/uL (4.35-5.55); RED CELL DISTRIBUTION WIDTH 18.3 % (11.5-14.0); WHITE BLOOD COUNT 9.5 10^3/uL (4.0-10.5)
[2020-02-13] MEDS: PHARMACY COMMUNICATION ORDER MC SCH (22:58)
[2020-02-14 05:00] LABS: ALBUMIN 3.2 g/dL (3.5-5.0); ALKALINE PHOSPHATASE 118 U/L (38-126); ASPARTATE AMINO TRANSFERASE 45 U/L (17-59); BILIRUBIN,DIRECT 0.5 mg/dL (0.0-0.4); BILIRUBIN,TOTAL 1.4 mg/dL (0.2-1.3); BLOOD UREA NITROGEN 34 mg/dL (7-20); CHLORIDE 84 mmol/L (98-107); GLUCOSE 124 mg/dL (75-110); INTERNATIONAL RATION (INR) 1.33; POTASSIUM 3.5 mmol/L (3.6-5.0); PROTHROMBIN TIME 16.6 SEC (11.4-15.4); TOTAL PROTEIN 6.7 g/dL (6.3-8.2)
[2020-02-14 05:06] LABS: ANION GAP 11 (5-19)
[2020-02-14 05:08] LABS: CARBON DIOXIDE 38 mmol/L (22-30)
[2020-02-14] MEDS: ALBUTEROL SULFATE HFA (90 MCG/PUFF) 8 GM MDI IH PRN (06:43)
[2020-02-14 07:51] LABS: APPEARANCE,URINE CLEAR; BILIRUBIN,URINE NEGATIVE (NEGATIVE); COLOR,URINE YELLOW; GLUCOSE, URINE NEGATIVE (NEGATIVE); KETONES,URINE NEGATIVE (NEGATIVE); LEUKOCYTE ESTERASE,URINE NEGATIVE (NEGATIVE); NITRITE,URINE NEGATIVE (NEGATIVE); PROTEIN,URINE 30 mg/dL (NEGATIVE); URINE SPECIFIC GRAVITY 1.006
[2020-02-14] MEDS: INSULIN LISPRO 100 UNIT/ML 3 ML VIAL SUBCUT SCH ×4 (08:55→22:23)
[2020-02-14] MEDS: CARVEDILOL 6.25 MG TABLET PO SCH ×2 (10:42→22:24)
[2020-02-14] MEDS: SACUBITRIL/VALSARTAN 97 MG/103 MG TABLET PO SCH ×2 (10:43→18:54)
[2020-02-14] MEDS: DIGOXIN 0.125 MG TABLET PO SCH (10:43)
[2020-02-14] MEDS: INSULIN GLARGINE,HUM.REC.ANLOG 1,000 UNIT/10 ML VIAL SUBCUT SCH ×2 (10:49→22:23)
[2020-02-14] MEDS: FLUTICASONE/UMECLIDIN/VILANTER 100-62.5-25 MCG/DOSE IH SCH (10:53)
[2020-02-14] MEDS: TRAMADOL HCL 50 MG TABLET PO PRN (11:42)
[2020-02-14] MEDS: NORMAL SALINE 250 ML with FUROSEMIDE 250 MG IV PRN ×2 (18:55)
[2020-02-14] MEDS: PHARMACY COMMUNICATION ORDER MC SCH (18:56)
--- NOTE | 2020-02-14 19:50 | PDOC PROGRESS REPORT ---
Subjective Date:: 02/14/20 Subjective:: Patient requested for improved frequency of his Tramadol administration for pain control. No chest pain or difficulty with breathing. No nausea, vomiting, or abdominal pain. No fever or chills. Reason For Visit: ACUTE SYSTOLIC HEART FAILURE Physical Exam Vital Signs: Temp Pulse Resp BP Pulse Ox 97.6 F 67 19 129/97 H 100 02/14/20 15:22 02/14/20 15:22 02/14/20 15:22 02/14/20 15:22 02/14/20 15:22 Intake & Output 02/13/20 02/14/20 02/15/20 06:59 06:59 06:59 Intake Total 1450 1131 1082 Output Total 1775 900 Balance 1450 -644 182 Weight 101.3 kg 100.6 kg General appearance: PRESENT: no acute distress, obese Head exam: PRESENT: atraumatic, normocephalic Eye exam: PRESENT: conjunctiva pink. ABSENT: scleral icterus Respiratory exam: PRESENT: clear to auscultation nik Cardiovascular exam: PRESENT: RRR, +S1, +S2. ABSENT: diastolic murmur, rubs, systolic murmur Vascular exam: ABSENT: pallor GI/Abdominal exam: PRESENT: normal bowel sounds, soft. ABSENT: tenderness Extremities exam: PRESENT: pedal edema - reportedly improving Neurological exam: PRESENT: alert, awake Skin exam: PRESENT: dry, warm, other - ulcer on left leg with dressing. Results Laboratory Results: 02/13/20 22:12 02/14/20 04:35 02/13/20 02/14/20 02/14/20 22:12 04:35 06:55 WBC 9.5 RBC 5.97 H Hgb 16.1 Hct 49.0 MCV 82 MCH 27.0 MCHC 32.9 RDW 18.3 H Plt Count 244 Sodium 132.9 L Potassium 3.5 L Chloride 84 L Carbon Dioxide 38 H Anion Gap 11 BUN 34 H Creatinine 1.09 Est GFR ( Amer) > 60 Glucose 124 H Calcium 9.0 Total Bilirubin 1.4 H AST 45 Alkaline Phosphatase 118 Total Protein 6.7 Albumin 3.2 L Urine Color YELLOW Urine Appearance CLEAR Urine pH 8.0 Ur Specific [place] 1.006 Urine Protein 30 H Urine Glucose (UA) NEGATIVE Urine Ketones NEGATIVE Urine Blood NEGATIVE Urine Nitrite NEGATIVE Ur Leukocyte Esterase NEGATIVE Urine WBC (Auto) 0 Urine RBC (Auto) 1 02/10/20 02/10/20 02/10/20 14:52 22:42 22:42 Creatine Kinase 209 H CK-MB (CK-2) 5.72 H Troponin I 0.112 0.134 NT-Pro-B Natriuret Pep 42971 H 02/11/20 02/11/20 02/11/20 06:43 06:43 12:48 Creatine Kinase 162 187 H CK-MB (CK-2) 4.60 H Troponin I 0.158 NT-Pro-B Natriuret Pep 02/11/20 12:48 Creatine Kinase CK-MB (CK-2) 5.60 H Troponin I 0.125 NT-Pro-B Natriuret Pep Impressions: Chest X-Ray 02/10/20 14:19 IMPRESSION: COPD WITH CHRONIC INTERSTITIAL CHANGES. STABLE CARDIOMEGALY. NO APPARENT ACUTE FINDINGS. Lower Extremity Ultrasound 02/10/20 14:21 IMPRESSION: Multiphasic waveforms throughout. No focal stenosis. No occlusions. Assessment & Plan - Diagnosis (1) Acute combined systolic and diastolic congestive heart failure Is this a current diagnosis for this admission?: Yes Plan: Continue current medication management. Obtain BMP, NT-Pro BNP level in AM. (2) Paroxysmal atrial fibrillation Is this a current diagnosis for this admission?: Yes Plan: Continue current medication management. (3) T2DM (type 2 diabetes mellitus) Qualifiers: Diabetes mellitus postal delivery officer insulin use: with long-term use Diabetes ed litus complication status: with neurologic complications Diabetes mellitus complication detail: with polyneuropathy Qualified Code(s): E11.42 - Type 2 diabetes mellitus with diabetic polyneuropathy; Z79.4 - [facility] (current) use of insulin Is this a current diagnosis for this admission?: Yes Plan: Continue current medication management. (4) COPD (chronic obstructive pulmonary disease) Qualifiers: COPD type: unspecified COPD Qualified Code(s): J44.9 - Chronic obstructive pulmonary disease, unspecified Is this a current diagnosis for this admission?: Yes Plan: Continue current medication management. (5) Ulcer of left lower leg Qualifiers: Non-pressure ulcer stage: with fat layer exposed Qualified Code(s): L97.922 - Non-pressure chronic ulcer of unspecified part of left lower leg with fat layer exposed Is this a current diagnosis for this admission?: Yes Plan: Continue current wound dressing. - Time Time Spent with patient: 25-34 minutes Level of Care: IMCU Medications reviewed and adjusted accordingly: Yes Anticipated discharge: Home with Homehealth Anticipated DC Timeframe: within 72 hours - Inpatient Certification Based on my medical assessment, after consideration of the patient's comorbidities, presenting symptoms, or acuity I expect that the services needed warrant INPATIENT care.: Yes I certify that my determination is in accordance with my understanding of Medicare's requirements for reasonable and necessary INPATIENT services [42 CFR 412.3e].: Yes Medical Necessity: Significant Comorbidiites Make Outpatient Treatment Too Risky, Need Close Monitoring Due to Risk of Patient Decompensation, Need For Continuous Telemetry Monitoring, Risk of Complication if Not Cared For in Hospital, Risk of Diagnosis Which Will Require Inpatient Eval/Care/Monitoring Post Hospital Care: D/C Egg [place]er Documentation - Plan Summary Plan Summary: Continue current medication management. Obtain BMP, Mag, and NT-Pro BNP in am. Potassium Chloride 30 mEq po x 2 doses. Change Tramadol to 50 mg po q 8 hours prn for pain management.
[2020-02-14] MEDS: POTASSIUM CHLORIDE 10 MEQ TABLET.ER PO SCH (20:35)
[2020-02-14] MEDS: WARFARIN SODIUM 5 MG TABLET PO SCH (22:23)
[2020-02-15] MEDS: POTASSIUM CHLORIDE 10 MEQ TABLET.ER PO SCH (00:45)
[2020-02-15] MEDS: INSULIN LISPRO 100 UNIT/ML 3 ML VIAL SUBCUT SCH ×4 (08:40→21:18)
[2020-02-15] MEDS: INSULIN GLARGINE,HUM.REC.ANLOG 1,000 UNIT/10 ML VIAL SUBCUT SCH ×2 (10:31→21:06)
[2020-02-15] MEDS: SACUBITRIL/VALSARTAN 97 MG/103 MG TABLET PO SCH ×2 (10:33→17:06)
[2020-02-15] MEDS: DIGOXIN 0.125 MG TABLET PO SCH (10:33)
[2020-02-15] MEDS: CARVEDILOL 6.25 MG TABLET PO SCH ×2 (10:33→21:05)
[2020-02-15] MEDS: FLUTICASONE/UMECLIDIN/VILANTER 100-62.5-25 MCG/DOSE IH SCH (10:36)
[2020-02-15] MEDS: TRAMADOL HCL 50 MG TABLET PO PRN (11:15)
[2020-02-15 13:28] LABS: INTERNATIONAL RATION (INR) 1.53; PROTHROMBIN TIME 18.5 SEC (11.4-15.4)
[2020-02-15 13:33] LABS: ALBUMIN 2.8 g/dL (3.5-5.0); ALKALINE PHOSPHATASE 106 U/L (38-126); ANION GAP 7 (5-19); ASPARTATE AMINO TRANSFERASE 34 U/L (17-59); BILIRUBIN,DIRECT 0.4 mg/dL (0.0-0.4); BILIRUBIN,TOTAL 1.1 mg/dL (0.2-1.3); BLOOD UREA NITROGEN 32 mg/dL (7-20); CALCIUM 8.5 mg/dL (8.4-10.2); CARBON DIOXIDE 39 mmol/L (22-30); CHLORIDE 85 mmol/L (98-107); GLUCOSE 168 mg/dL (75-110); POTASSIUM 3.6 mmol/L (3.6-5.0); TOTAL PROTEIN 5.9 g/dL (6.3-8.2)
[2020-02-15] MEDS ORDERED: TRAMADOL HCL 50 MG TABLET PO ONE (17:00)
[2020-02-15] MEDS: BUMETANIDE 1 MG TABLET PO SCH (17:02)
[2020-02-15] MEDS: NORMAL SALINE 250 ML with FUROSEMIDE 250 MG IV PRN ×2 (17:03)
[2020-02-15] MEDS: PHARMACY COMMUNICATION ORDER MC SCH (17:18)
--- NOTE | 2020-02-15 19:03 | PDOC PROGRESS REPORT ---
Subjective Date:: 02/15/20 Subjective:: Patient denied chest pain or difficulty with breathing. No nausea, vomiting, or abdominal pain. No fever or chills. Reason For Visit: ACUTE SYSTOLIC HEART FAILURE Physical Exam Vital Signs: Temp Pulse Resp BP Pulse Ox 97.5 F 68 18 108/71 98 02/15/20 16:26 02/15/20 16:26 02/15/20 16:26 02/15/20 16:26 02/15/20 16:26 Intake & Output 02/14/20 02/15/20 02/16/20 06:59 06:59 06:59 Intake Total 1131 1322 831 Output Total 1775 2050 Balance -644 -728 831 Weight 100.6 kg 99.9 kg Physical Exam: General appearance: PRESENT: no acute distress, obese Head exam: PRESENT: atraumatic, normocephalic Eye exam: PRESENT: conjunctiva pink. ABSENT: scleral icterus Respiratory exam: PRESENT: clear to auscultation nik Cardiovascular exam: PRESENT: RRR, +S1, +S2. ABSENT: diastolic murmur, rubs, systolic murmur Vascular exam: ABSENT: pallor GI/Abdominal exam: PRESENT: normal bowel sounds, soft. ABSENT: tenderness Extremities exam: PRESENT: pedal edema - reportedly improving Neurological exam: PRESENT: alert, awake Skin exam: PRESENT: dry, warm, other - ulcer on left leg with surrounding erythema, induration, and tenderness to palpation. Results Laboratory Results: 02/13/20 22:12 02/15/20 11:40 02/15/20 11:40 Sodium 130.9 L Potassium 3.6 Chloride 85 L Carbon Dioxide 39 H Anion Gap 7 BUN 32 H Creatinine 1.11 Est GFR ( Amer) > 60 Glucose 168 H Calcium 8.5 Magnesium 1.7 Total Bilirubin 1.1 AST 34 Alkaline Phosphatase 106 Total Protein 5.9 L Albumin 2.8 L 02/10/20 02/10/20 02/10/20 14:52 22:42 22:42 Creatine Kinase 209 H CK-MB (CK-2) 5.72 H Troponin I 0.112 0.134 NT-Pro-B Natriuret Pep 68217 H 02/11/20 02/11/20 02/11/20 06:43 06:43 12:48 Creatine Kinase 162 187 H CK-MB (CK-2) 4.60 H Troponin I 0.158 NT-Pro-B Natriuret Pep 02/11/20 02/15/20 12:48 11:40 Creatine Kinase CK-MB (CK-2) 5.60 H Troponin I 0.125 NT-Pro-B Natriuret Pep 5990 H Impressions: Chest X-Ray 02/10/20 14:19 IMPRESSION: COPD WITH CHRONIC INTERSTITIAL CHANGES. STABLE CARDIOMEGALY. NO APPARENT ACUTE FINDINGS. Lower Extremity Ultrasound 02/10/20 14:21 IMPRESSION: Multiphasic waveforms throughout. No focal stenosis. No occlusions. Assessment & Plan - Diagnosis (1) Acute combined systolic and diastolic congestive heart failure Is this a current diagnosis for this admission?: Yes (2) Paroxysmal atrial fibrillation Is this a current diagnosis for this admission?: Yes (3) T2DM (type 2 diabetes mellitus) Qualifiers: Diabetes mellitus equipment operator intermodal yard insulin use: with equipment operator intermodal yard use Diabetes mellitus complication status: with neurologic complications Diabetes mellitus complication detail: with polyneuropathy Qualified Code(s): E11.42 - Type 2 diabetes mellitus with diabetic polyneuropathy; Z79.4 - equipment operator intermodal yard (current) use of insulin Is this a current diagnosis for this admission?: Yes (4) COPD (chronic obstructive pulmonary disease) Qualifiers: COPD type: unspecified COPD Qualified Code(s): J44.9 - Chronic obstructive pulmonary disease, unspecified Is this a current diagnosis for this admission?: Yes (5) Ulcer of left lower leg Qualifiers: Non-pressure ulcer stage: with fat layer exposed Qualified Code(s): L97.922 - Non-pressure chronic ulcer of unspecified part of left lower leg with fat layer exposed Is this a current diagnosis for this admission?: Yes - Time Time Spent with patient: 25-34 minutes Level of Care: IMCU Medications reviewed and adjusted accordingly: Yes Anticipated discharge: Home with Homehealth Anticipated DC Timeframe: within 72 hours - Inpatient Certification Based on my medical assessment, after consideration of the patient's comorbidities, presenting symptoms, or acuity I expect that the services needed warrant INPATIENT care.: Yes I certify that my determination is in accordance with my understanding of Medicare's requirements for reasonable and necessary INPATIENT services [42 CFR 412.3e].: Yes Medical Necessity: Significant Comorbidiites Make Outpatient Treatment Too Risky, Need Close Monitoring Due to Risk of Patient Decompensation, Need For Continuous Telemetry Monitoring, Risk of Complication if Not Cared For in Hospital, Risk of Diagnosis Which Will Require Inpatient Eval/Care/Monitoring Post Hospital Care: D/C Operations Officer Documentation - Plan Summary Plan Summary: Continue current medication management.
[2020-02-15] MEDS: ALBUTEROL SULFATE HFA (90 MCG/PUFF) 8 GM MDI IH PRN (19:21)
[2020-02-15] MEDS: WARFARIN SODIUM 5 MG TABLET PO SCH (21:05)
[2020-02-16 06:16] LABS: INTERNATIONAL RATION (INR) 1.55; PROTHROMBIN TIME 18.7 SEC (11.4-15.4)
[2020-02-16 06:39] LABS: BLOOD UREA NITROGEN 34 mg/dL (7-20); CALCIUM 8.7 mg/dL (8.4-10.2); GLUCOSE 202 mg/dL (75-110)
[2020-02-16 06:40] LABS: ALBUMIN 3.2 g/dL (3.5-5.0); ALKALINE PHOSPHATASE 128 U/L (38-126); ANION GAP 14 (5-19); ASPARTATE AMINO TRANSFERASE 42 U/L (17-59); BILIRUBIN,DIRECT 0.5 mg/dL (0.0-0.4); BILIRUBIN,TOTAL 1.1 mg/dL (0.2-1.3); CHLORIDE 89 mmol/L (98-107); POTASSIUM 4.1 mmol/L (3.6-5.0); TOTAL PROTEIN 6.8 g/dL (6.3-8.2)
[2020-02-16 06:42] LABS: CARBON DIOXIDE 28 mmol/L (22-30)
[2020-02-16] MEDS: INSULIN LISPRO 100 UNIT/ML 3 ML VIAL SUBCUT SCH ×4 (08:12→22:32)
--- NOTE | 2020-02-16 09:00 | Durable Medical Equipment ---
Patient Information Patient Information: Name: KENIA MCALLISTER Age:64 Address:[facility] [address] [place], [place] Ordering Provider GOLDIE TOLBERT RN Diagnosis Acute combined systolic and diastolic congestive heart failure (Acute) I50.41 COPD (chronic obstructive pulmonary disease) (Acute) Paroxysmal atrial fibrillation (Acute) I48.0 Peripheral edema (Acute) R60.9 Person under investigation for COVID-19 (Acute) Z20.828 Type 2 diabetes mellitus with diabetic polyneuropathy (Acute) E11.42 Home Oxygen - Oxygen Order Oxygen Order: Nasal Cannula Oxygen settings: 2 LITERS - O2 Saturation O2 Sats on Room Air at rest (%): 83 O2 sats ambulation without O2 (%): 81 O2 sats ambulation with O2 (%): 93 O2 (liters): 2
[2020-02-16] MEDS: SACUBITRIL/VALSARTAN 97 MG/103 MG TABLET PO SCH ×2 (09:22→17:25)
[2020-02-16] MEDS: CARVEDILOL 6.25 MG TABLET PO SCH ×2 (09:22→22:33)
[2020-02-16] MEDS: DIGOXIN 0.125 MG TABLET PO SCH (09:22)
[2020-02-16] MEDS: BUMETANIDE 1 MG TABLET PO SCH ×2 (09:23→17:26)
[2020-02-16] MEDS: FLUTICASONE/UMECLIDIN/VILANTER 100-62.5-25 MCG/DOSE IH SCH (09:23)
[2020-02-16] MEDS: INSULIN GLARGINE,HUM.REC.ANLOG 1,000 UNIT/10 ML VIAL SUBCUT SCH ×2 (09:23→22:32)
[2020-02-16] MEDS: NORMAL SALINE 250 ML with FUROSEMIDE 250 MG IV PRN ×2 (17:25)
[2020-02-16] MEDS: PHARMACY COMMUNICATION ORDER MC SCH (17:26)
[2020-02-16] MEDS: TRAMADOL HCL 50 MG TABLET PO PRN (17:30)
--- NOTE | 2020-02-16 20:22 | PDOC DISCHARGE SUMMARY ---
Impression - Admit/DC Date/PCP Admission Date/Primary Care Provider: 02/10/20 20:09 LIANE LEIGH MD Discharge Date: 02/16/20 - Discharge Diagnosis (1) Acute combined systolic and diastolic congestive heart failure Is this a current diagnosis for this admission?: Yes (2) Paroxysmal atrial fibrillation Is this a current diagnosis for this admission?: Yes (3) Type 2 diabetes mellitus with diabetic polyneuropathy Is this a current diagnosis for this admission?: Yes (4) COPD (chronic obstructive pulmonary disease) Is this a current diagnosis for this admission?: Yes (5) Person under investigation for COVID-19 Is this a current diagnosis for this admission?: Yes - Additional Information Discharge Diet: Cardiac, Diabetic Discharge Activity: Activity As Tolerated, Balance Activity w/Rest, Weigh Daily Referrals: LIANE LEIGH MD [Primary Care Provider] - Prescriptions: Spironolactone [Aldactone 25 mg Tablet] 25 mg PO DAILY #90 Home Medications: Albuterol Sulfate [Albuterol Sulfate Hfa] 2 puff IH Q6HP PRN 06/18/19 Bumetanide [Bumex 1 mg Tablet] 1 mg PO BID 06/18/19 Carvedilol [Coreg 6.25 mg Tablet] 6.25 mg PO Q12 06/18/19 Sacubitril/Valsartan [Entresto 97 mg/103 mg Tablet] 1 tab PO BID 06/18/19 Dapagliflozin Propanediol [Farxiga] 10 mg PO DAILY #90 tablet 06/23/19 Digoxin [Lanoxin 0.125 mg Tablet] 0.125 mg PO DAILY 02/10/20 Fluticasone/Umeclidin/Vilanter [Trelegy 100-62.5-25 Mcg Ellipta 14 Dose/Dpi] 1 puff IH DAILY 02/10/20 Metformin HCl [Metformin HCl ER] 750 mg PO QPM 02/10/20 Metolazone [Zaroxolyn 5 mg Tablet] 5 mg PO DAILY 02/10/20 Tramadol HCl [Ultram 50 mg Tablet] 50 mg PO BIDP PRN 02/10/20 Carvedilol [Coreg 6.25 mg Tablet] 6.25 mg PO Q12 tablet 02/16/20 Spironolactone [Aldactone 25 mg Tablet] 25 mg PO DAILY #90 02/16/20 Warfarin Sodium [Jantoven 5 mg Tablet] 7.5 mg PO QHS #30 02/16/20 History of Present Illiness History of Present Illness: KENIA MCALLISTER is a 64 year old male .He has dilated ischemic cardiomyopathy, chronic systolic and diastolic heart failure, poorly controlled type 2 diabetes mellitus, chronic obstructive pulmonary disease, chronic leg ulcer, he came to the emergency room for evaluation of progressive shortness of breath, presently medically and device therapy optimization, he has AICD/pacemaker implantation, is not particularly compliant with office visits, He is also on chronic anticoagulation with Coumadin for CVA prophylaxis, this is end-stage CHF his best option is heart transplantation, not sure is a candidate for heart transplantation, we will consult Dr. Santacruz his laboratory scientist for guidance Hospital Course Hospital Course: Patient was admitted for the management of acute on chronic systolic heart failure, she was treated with IV furosemide infusion with good result, he was continue on beta-kaylin ARNI.Patient diuresed quite effectively Physical Exam Vital Signs: Temp Pulse Resp BP Pulse Ox 97.2 F 67 18 116/81 98 02/16/20 15:49 02/16/20 15:49 02/16/20 15:49 02/16/20 15:49 02/16/20 15:49 Intake & Output 02/15/20 02/16/20 02/17/20 06:59 06:59 06:59 Intake Total 1322 831 962 Output Total 2050 Balance -728 831 962 Weight 99.9 kg 98.6 kg General appearance: PRESENT: no acute distress Eye exam: PRESENT: PERRLA Respiratory exam: PRESENT: clear to auscultation nik Cardiovascular exam: PRESENT: +S1, +S2 GI/Abdominal exam: PRESENT: soft Neurological exam: PRESENT: alert Results Laboratory Results: WBC 9.5 10^3/uL (4.0-10.5) 02/13/20 22:12 RBC 5.97 10^6/uL (4.35-5.55) H 02/13/20 22:12 Hgb 16.1 g/dL (13.5-17.0) 02/13/20 22:12 Hct 49.0 % (37.9-51.0) 02/13/20 22:12 MCV 82 fl (80-97) 02/13/20 22:12 MCH 27.0 pg (27.0-33.4) 02/13/20 22:12 MCHC 32.9 g/dL (32.0-36.0) 02/13/20 22:12 RDW 18.3 % (11.5-14.0) H 02/13/20 22:12 Plt Count 244 10^3/uL (150-450) 02/13/20 22:12 Lymph % (Auto) 11.2 % (13-45) L 02/12/20 04:39 [place] % (Auto) 10.6 % (3-13) 02/12/20 04:39 Eos % (Auto) 1.4 % (0-6) 02/12/20 04:39 Baso % (Auto) 0.8 % (0-2) 02/12/20 04:39 Absolute Neuts (auto) 5.9 10^3/uL (1.7-8.2) 02/12/20 04:39 Absolute Lymphs (auto) 0.9 10^3/uL (0.5-4.7) 02/12/20 04:39 Absolute Monos (auto) 0.8 10^3/uL (0.1-1.4) 02/12/20 04:39 Absolute Eos (auto) 0.1 10^3/uL (0.0-0.6) 02/12/20 04:39 Absolute Basos (auto) 0.1 10^3/uL (0.0-0.2) 02/12/20 04:39 Seg Neutrophils % 76.0 % (42-78) 02/12/20 04:39 PT 18.7 SEC (11.4-15.4) H 02/16/20 04:38 INR 1.55 02/16/20 04:38 APTT 30.2 SEC (23.5-35.8) 02/10/20 22:42 Fibrinogen 512 mg/dL (209-497) H 02/10/20 22:42 D-Dimer 1.07 ug/mL (0.00-0.50) H 02/10/20 22:42 Carbonic Acid Cancelled 02/11/20 12:00 HCO3/H2CO3 Ratio Cancelled 02/11/20 12:00 ABG pH Cancelled 02/11/20 12:00 ABG pCO2 Cancelled 02/11/20 12:00 ABG pO2 Cancelled 02/11/20 12:00 ABG HCO3 Cancelled 02/11/20 12:00 ABG Total CO2 Cancelled 02/11/20 12:00 ABG O2 Saturation Cancelled 02/11/20 12:00 ABG Base Excess Cancelled 02/11/20 12:00 FiO2 Cancelled 02/11/20 12:00 Sodium 130.8 mmol/L (137-145) L 02/16/20 04:38 Potassium 4.1 mmol/L (3.6-5.0) 02/16/20 04:38 Chloride 89 mmol/L (98-107) L 02/16/20 04:38 Carbon Dioxide 28 mmol/L (22-30) D 02/16/20 04:38 Anion Gap 14 (5-19) 02/16/20 04:38 BUN 34 mg/dL (7-20) H 02/16/20 04:38 Creatinine 1.11 mg/dL (0.52-1.25) 02/16/20 04:38 Est GFR ( Amer) > 60 (>60) 02/16/20 04:38 Est GFR (MDRD) Non-Af > 60 (>60) 02/16/20 04:38 Glucose 202 mg/dL (75-110) H 02/16/20 04:38 POC Glucose 150 mg/dL (70-110) H 02/16/20 15:50 Hemoglobin A1c % 13.5 % (4.7-6.0) H 02/11/20 06:43 Serum Osmolality 287 mOsm/kg (275-301) 02/12/20 20:57 Calcium 8.7 mg/dL (8.4-10.2) 02/16/20 04:38 Magnesium 1.7 mg/dL (1.6-2.3) 02/15/20 11:40 Ferritin 48.30 ng/mL (17.9-464.0) 02/10/20 22:42 Total Bilirubin 1.1 mg/dL (0.2-1.3) 02/16/20 04:38 Direct Bilirubin 0.5 mg/dL (0.0-0.4) H 02/16/20 04:38 Neonat Total Bilirubin Not Reportable 02/16/20 04:38 Neonat Direct Bilirubin Not Reportable 02/16/20 04:38 Neonat Indirect Bili Not Reportable 02/16/20 04:38 AST 42 U/L (17-59) 02/16/20 04:38 ALT 18 U/L (<50) 02/16/20 04:38 Alkaline Phosphatase 128 U/L (38-126) H 02/16/20 04:38 Lactate Dehydrogenase 329 U/L (120-246) H 02/10/20 22:42 Creatine Kinase 187 U/L (55-170) H 02/11/20 12:48 CK-MB (CK-2) 5.60 ng/mL (<4.55) H 02/11/20 12:48 Troponin I 0.125 ng/mL 02/11/20 12:48 C-Reactive Protein 39.9 mg/L (<10.0) H 02/10/20 22:42 NT-Pro-B Natriuret Pep 5990 pg/mL (<125) H 02/15/20 11:40 Total Protein 6.8 g/dL (6.3-8.2) 02/16/20 04:38 Albumin 3.2 g/dL (3.5-5.0) L 02/16/20 04:38 Triglycerides 98 mg/dL (<150) 02/11/20 06:43 Cholesterol 149.75 mg/dL (0-200) 02/11/20 06:43 LDL Cholesterol Direct 89 mg/dL (<100) 02/11/20 06:43 VLDL Cholesterol 20.0 mg/dL (10-31) 02/11/20 06:43 HDL Cholesterol 52 mg/dL (>40) 02/11/20 06:43 TSH 7.87 uIU/mL (0.47-4.68) H 02/11/20 06:43 Free T4 1.06 ng/dL (0.78-2.19) 02/11/20 06:43 Urine Color YELLOW 02/14/20 06:55 Urine Appearance CLEAR 02/14/20 06:55 Urine pH 8.0 (5.0-9.0) 02/14/20 06:55 Ur Specific [place] 1.006 02/14/20 06:55 Urine Protein 30 mg/dL (NEGATIVE) H 02/14/20 06:55 Urine Glucose (UA) NEGATIVE mg/dL (NEGATIVE) 02/14/20 06:55 Urine Ketones NEGATIVE mg/dL (NEGATIVE) 02/14/20 06:55 Urine Blood NEGATIVE (NEGATIVE) 02/14/20 06:55 Urine Nitrite NEGATIVE (NEGATIVE) 02/14/20 06:55 Urine Bilirubin NEGATIVE (NEGATIVE) 02/14/20 06:55 Urine Urobilinogen 2.0 mg/dL (<2.0) H 02/14/20 06:55 Ur Leukocyte Esterase NEGATIVE (NEGATIVE) 02/14/20 06:55 Urine WBC (Auto) 0 /HPF 02/14/20 06:55 Urine RBC (Auto) 1 /HPF 02/14/20 06:55 U Hyaline Cast (Auto) 79 /LPF 02/11/20 07:05 Urine Bacteria (Auto) TRACE /HPF 02/11/20 07:05 Squamous Epi Cells Auto <1 /HPF 02/14/20 06:55 Urine Mucus (Auto) RARE /LPF 02/14/20 06:55 Urine Osmolality 297 mOsm/kg (300-900) L 02/12/20 23:55 Urine Sodium 108 mmol/L (30-90) H 02/12/20 23:55 Urine Ascorbic Acid NEGATIVE (NEGATIVE) 02/14/20 06:55 Digoxin < 0.40 ng/mL (0.8-2.0) L 02/11/20 06:43 COVID-19 Source See comment 02/10/20 22:52 COVID-19 (KIRBY) Not Detected (Not Detect) 02/10/20 22:52 Influenza A (Rapid) NEGATIVE (NEGATIVE) 02/10/20 22:45 Influenza B (Rapid) NEGATIVE (NEGATIVE) 02/10/20 22:45 Group A Strep Rapid NEGATIVE (NEGATIVE) 02/10/20 22:45 02/10/20 02/10/20 02/11/20 14:52 22:42 06:43 CK-MB (CK-2) 5.72 H 4.60 H Troponin I 0.112 0.134 0.158 NT-Pro-B Natriuret Pep 40899 H 02/11/20 02/15/20 12:48 11:40 CK-MB (CK-2) 5.60 H Troponin I 0.125 NT-Pro-B Natriuret Pep 5990 H Impressions: Chest X-Ray 02/10/20 14:19 IMPRESSION: COPD WITH CHRONIC INTERSTITIAL CHANGES. STABLE CARDIOMEGALY. NO APPARENT ACUTE FINDINGS. Lower Extremity Ultrasound 02/10/20 14:21 IMPRESSION: Multiphasic waveforms throughout. No focal stenosis. No occlusions. Stroke Is this a Stroke Patient?: No Acute Heart Failure Is this a Heart Failure Patient?: Yes Documentation of LVEF assessment?: Yes LVEF: LVEF Less Than or Equal to 35% Anticoagulant Therapy: Yes Discharged on Evidence-Based Beta Blockers: Yes Discharged on ARNI?: Yes For LVEF <35%, discharged on Aldosterone Antagonist?: Yes Follow-up Appointment scheduled within 7 days?: Yes
[2020-02-16 22:22] LABS: HEMATOCRIT 48.4 % (37.9-51.0); HEMOGLOBIN 15.6 g/dL (13.5-17.0); MEAN CORPUSCULAR HEMOGLOBIN 26.7 pg (27.0-33.4); MEAN CORPUSCULAR HGB CONC 32.2 g/dL (32.0-36.0); MEAN CORPUSCULAR VOLUME 83 fl (80-97); PLATELET COUNT 225 10^3/uL (150-450); RED BLOOD COUNT 5.84 10^6/uL (4.35-5.55); RED CELL DISTRIBUTION WIDTH 18.9 % (11.5-14.0); WHITE BLOOD COUNT 8.8 10^3/uL (4.0-10.5)
[2020-02-16] MEDS: WARFARIN SODIUM 5 MG TABLET PO SCH (22:33)
[2020-02-17 06:36] LABS: INTERNATIONAL RATION (INR) 1.67; PROTHROMBIN TIME 19.8 SEC (11.4-15.4)
[2020-02-17 06:54] LABS: ALBUMIN 2.9 g/dL (3.5-5.0); ALKALINE PHOSPHATASE 121 U/L (38-126); ANION GAP 8 (5-19); ASPARTATE AMINO TRANSFERASE 30 U/L (17-59); BILIRUBIN,DIRECT 0.3 mg/dL (0.0-0.4); BILIRUBIN,TOTAL 0.9 mg/dL (0.2-1.3); BLOOD UREA NITROGEN 32 mg/dL (7-20); CALCIUM 8.8 mg/dL (8.4-10.2); CARBON DIOXIDE 33 mmol/L (22-30); CHLORIDE 91 mmol/L (98-107); GLUCOSE 218 mg/dL (75-110); POTASSIUM 3.7 mmol/L (3.6-5.0); TOTAL PROTEIN 6.2 g/dL (6.3-8.2)
[2020-02-17 10:58] VITALS: BP 123/77
[2020-02-17] MEDS: INSULIN GLARGINE,HUM.REC.ANLOG 1,000 UNIT/10 ML VIAL SUBCUT SCH (11:03)
[2020-02-17] MEDS: DIGOXIN 0.125 MG TABLET PO SCH (11:05)
[2020-02-17] MEDS: BUMETANIDE 1 MG TABLET PO SCH (11:06)
[2020-02-17] MEDS: CARVEDILOL 6.25 MG TABLET PO SCH (11:06)
[2020-02-17] MEDS: FLUTICASONE/UMECLIDIN/VILANTER 100-62.5-25 MCG/DOSE IH SCH (11:07)
[2020-02-17] MEDS: SACUBITRIL/VALSARTAN 97 MG/103 MG TABLET PO SCH (11:07)
[2020-02-17] MEDS ORDERED: WARFARIN SODIUM 2.5 MG TABLET PO ONE (22:00)
== END 2020-02-17 12:19 | disposition home or self-care (01) | DRG 292 ==
LOC: ER 13:48 → EH 20:09 → 3W 02-11 16:04 → 3S 02-13 06:41
PROVIDERS: ADMIT Internal Medicine; ATTEND Internal Medicine
DX: I11.0 Hypertensive heart disease with heart failure (principal); L97.922 Non-pressure chronic ulcer of unspecified part of left lower leg with fat layer exposed; Z79.01 Long term (current) use of anticoagulants; I42.0 Dilated cardiomyopathy; Z95.1 Presence of aortocoronary bypass graft; E11.42 Type 2 diabetes mellitus with diabetic polyneuropathy; I50.41 Acute combined systolic (congestive) and diastolic (congestive) heart failure; I48.0 Paroxysmal atrial fibrillation; J44.9 Chronic obstructive pulmonary disease, unspecified; I25.5 Ischemic cardiomyopathy; I25.10 Atherosclerotic heart disease of native coronary artery without angina pectoris; E66.9 Obesity, unspecified; Z11.59 Encounter for screening for other viral diseases; Z79.84 Long term (current) use of oral hypoglycemic drugs; Z79.899 Other long term (current) drug therapy; Z95.810 Presence of automatic (implantable) cardiac defibrillator; I25.2 Old myocardial infarction; Z87.891 Personal history of nicotine dependence; Z88.6 Allergy status to analgesic agent; Z68.35 Body mass index [BMI] 35.0-35.9, adult
CPT/HCPCS: 36415; 36600; 71046; 80053; 80061; 80162; 81001; 82550; 82553; 82728; 82962; 83036; 83615; 83735; 83880; 83930; 83935; 84300; 84439; 84443; 84484; 85025; 85027; 85379; 85384; 85610; 85730; 86140; 87070; 87086; 87088; 87186; 87635; 87804; 87880; 93005; 93010; 93306; 93925; 96374; 99285; C9803; J1815; J1940; J3480; J3490; J7050

== ENCOUNTER 2020-03-09 15:30 | Emergency (ER) | payer MEDICARE ==
--- NOTE | 2020-03-09 16:31 | RADIOLOGY REPORT (SQ) ---
EXAM DESCRIPTION: CHEST SINGLE VIEW IMAGES COMPLETED DATE/TIME: 03/09/2020 4:21 pm REASON FOR STUDY: bed 1 short of breath COMPARISON: 02/10/2020 NUMBER OF VIEWS: One view. TECHNIQUE: Single frontal radiographic view of the chest acquired. LIMITATIONS: None. FINDINGS: LUNGS AND PLEURA: No opacities, masses or pneumothorax. No pleural effusion. MEDIASTINUM AND HILAR STRUCTURES: Stable. HEART AND VASCULAR STRUCTURES: Heart enlarged without failure. Normal vasculature. BONES: No acute findings. HARDWARE: CABG. Stable position of left pacemaker. OTHER: No other significant finding. IMPRESSION: Cardiomegaly. No acute findings. TECHNICAL DOCUMENTATION: JOB ID: [id number] 2010 [employer]- All Rights Reserved Reading location - IP/workstation name: [email or web address]
--- NOTE | 2020-03-09 17:07 | ER Document Report ---
ED General - General Chief Complaint: Shortness Of Breath Stated Complaint: SHORTNESS OF BREATH Time Seen by Provider: 03/09/20 17:06 Primary Care Provider: LIANE LEIGH MD [Primary Care Provider] - Follow up as needed TRAVEL OUTSIDE OF THE [place] IN LAST 30 DAYS: No - HPI Notes: 64-year-old male presents with "low oxygen level". Patient states that at 2 PM he had visit at the wound clinic. He states that when he was walking from the parking lot into the building for his appointment he felt short of breath and was breathing hard. He states that his oxygen saturations were 80-82%. He states that this is the first time he has had low oxygen levels like this. Was otherwise usual state of health yesterday. States that he was admitted a few weeks ago for shortness of breath and "swollen with water". He states that he is feels like he swollen with water, though "not a lot" and less than last time. He is not coughing. No fever. No known Covid exposures. Denies chest pain. He reports compliance with his medications, stating that he was recently starting on many new medications, however has not yet taken his Bumex today. - Related Data Allergies/Adverse Reactions: codeine Allergy (Verified 02/10/20 18:12) Past Medical History - General Information source: Patient - Social History Smoking Status: Never Smoker Frequency of alcohol use: None Drug Abuse: None Family History: Reviewed & Not Pertinent - Past Medical History Cardiac Medical History: Reports: Hx Atrial Fibrillation, Hx Congestive Heart Failure, Hx Coronary Artery Disease, Hx Heart Attack, Hx Hypertension Pulmonary Medical History: Reports: Hx Asthma Endocrine Medical History: Reports: Hx Diabetes Mellitus Type 2 Renal/ Medical History: Denies: Hx Peritoneal Dialysis Past Surgical History: Reports: Hx Cardiac Surgery - CABG 2014, Hx Coronary Artery Bypass Graft - He had quadruple bypass on 03/08/2014 in [place], Hx Open Heart Surgery - 4vcabg Review of Systems - Review of Systems Constitutional: denies: Fever EENT: No symptoms reported Cardiovascular: denies: Chest pain Respiratory: Short of breath. denies: Cough Gastrointestinal: denies: Abdominal pain, Diarrhea, Vomiting Genitourinary: No symptoms reported Male Genitourinary: No symptoms reported Musculoskeletal: No symptoms reported Skin: Other - Chronic lower extremity wounds Hematologic/Lymphatic: Other - On anticoagulation Neurological/Psychological: No symptoms reported Physical Exam - Vital signs Vitals: Resp Pulse Ox 20 93 03/09/20 15:50 03/09/20 15:50 - General General appearance: Appears well, Alert In distress: None - HEENT Head: Normocephalic, Atraumatic Extraocular movements intact: Yes Pupils: PERRL Neck: Other - No JVD - Respiratory Respiratory status: Other - Speaks in full sentences. No: Labored, Tachypnea Breath sounds: Normal - Cardiovascular Rhythm: Regular Heart sounds: Normal auscultation Murmur: Yes Normal capillary refill: Yes - Abdominal Tenderness: Nontender - Extremities General lower extremity: No: Edema - Neurological Neuro grossly intact: Yes Cognition: Normal Orientation: AAOx4 - Psychological Associated symptoms: Normal affect - Skin Skin Temperature: Warm Course - Re-evaluation Re-evalutation: 64-year-old male with HFrEF 15% on recent echo here with shortness of breath while ambulating into wound care clinic today, reported hypoxia on room air. Patient has had no documented hypoxia here while in the emergency department. He does not exhibit any signs of respiratory distress, he is able to speak in full sentences and has fairly good air movement. He has been described as having end-stage heart failure in the last discharge summary. Suspect that his shortness of breath is related to his heart failure versus overall deco nditioning, he does not appear to be overtly edematous at this time. Has not taken his Bumex yet, will give IV dose of this now to see if this helps symptomatically. Will check labs and chest x-ray. I reviewed his medication list, appears that warfarin and digoxin are listed, will check appropriate levels of these. 03/09/20 19:45 No leukocytosis or left shift. No acute anemia. INR slightly subtherapeutic at 1.23. Mild hyponatremia, chronic per lab review. Potassium within normal limits. Creatinine within normal limits. Troponin leak present, appears to be chronic, value today is actually lower than he has been in quite some time. BNP is elevated, appears to be chronic and within values recently obtained. Suspect this is chronic given his known reduced EF. Digoxin level also subtherapeutic. 03/09/20 19:50 Patient reports he is feeling better. On room air he is 97% while talking. I discussed with him his subtherapeutic values. He reports he has a history of this and has been accusing the past of not taking them as directed, he states he is concerned maybe he does not metabolize them correctly. I instructed him to please have very close follow-up with his video manager, to call tomorrow morning to discuss the subtherapeutic levels, he verbalized understanding. Return precautions given, stable at time of discharge. - Vital Signs Vital signs: Temp Pulse Resp BP Pulse Ox 98.0 F 16 146/108 H 94 03/09/20 18:19 03/09/20 19:29 03/09/20 19:29 03/09/20 19:00 - Laboratory Results Result Diagrams: 03/09/20 17:52 03/09/20 17:52 Laboratory Results Interpreted: 03/09/20 03/09/20 03/09/20 17:52 17:52 17:52 RBC 5.96 H MCH 26.2 L MCHC 31.7 L RDW 19.4 H Lymph % (Auto) 11.7 L Seg Neutrophils % 78.1 H PT Sodium 131.5 L Chloride 91 L Carbon Dioxide 32 H BUN 39 H Glucose 201 H NT-Pro-B Natriuret Pep 8180 H Digoxin 0.41 L 03/09/20 17:52 RBC MCH MCHC RDW Lymph % (Auto) Seg Neutrophils % PT 15.7 H Sodium Chloride Carbon Dioxide BUN Glucose NT-Pro-B Natriuret Pep Digoxin Critical Laboratory Results Reviewed: Yes Attending or Supervising Physician who Reviewed Labs: AMPARO VERGARA - Radiology Results Critical Radiology Results Reviewed: No Critical Results Discharge - Discharge Clinical Impression: Shortness of breath Disposition: HOME, SELF-CARE Additional Instructions: Please continue all of your medications as prescribed, be sure to take them every day as directed. Please have very close follow-up with your video manager, please call first thing tomorrow morning to discuss your low INR and low digoxin levels. Return to the emergency department for any concerning worsening sympt oms. Referrals: LIANE LEIGH MD [Primary Care Provider] - Follow up as needed
[2020-03-09] MEDS ORDERED: BUMETANIDE INJ/PF 1 MG/4 ML SDV IV ONE (17:19)
[2020-03-09 18:37] LABS: ABSOLUTE BASOPHILS # (AUTO) 0.1 10^3/uL (0.0-0.2); ABSOLUTE EOSINOPHILS # (AUTO) 0.1 10^3/uL (0.0-0.6); ABSOLUTE LYMPHOCYTES (AUTO) 0.9 10^3/uL (0.5-4.7); ABSOLUTE MONOCYTES (AUTO) 0.6 10^3/uL (0.1-1.4); BASOPHILS % (AUTO) 1.2 % (0-2); EOSINOPHILS % (AUTO) 0.8 % (0-6); HEMATOCRIT 49.2 % (37.9-51.0); HEMOGLOBIN 15.6 g/dL (13.5-17.0); LYMPHOCYTES % (AUTO) 11.7 % (13-45); MEAN CORPUSCULAR HEMOGLOBIN 26.2 pg (27.0-33.4); MEAN CORPUSCULAR HGB CONC 31.7 g/dL (32.0-36.0); MEAN CORPUSCULAR VOLUME 83 fl (80-97); MONOCYTES % (AUTO) 8.2 % (3-13); PLATELET COUNT 254 10^3/uL (150-450); RED BLOOD COUNT 5.96 10^6/uL (4.35-5.55); RED CELL DISTRIBUTION WIDTH 19.4 % (11.5-14.0); SEGMENTED NEUTROPHILS % (AUTO) 78.1 % (42-78); TOTAL CELLS COUNTED % (AUTO) 100 %; WHITE BLOOD COUNT 7.7 10^3/uL (4.0-10.5)
[2020-03-09 18:39] LABS: INTERNATIONAL RATION (INR) 1.23; PROTHROMBIN TIME 15.7 SEC (11.4-15.4)
[2020-03-09 18:50] LABS: ANION GAP 9 (5-19); BLOOD UREA NITROGEN 39 mg/dL (7-20); CARBON DIOXIDE 32 mmol/L (22-30); CHLORIDE 91 mmol/L (98-107); DIGOXIN 0.41 ng/mL (0.8-2.0); GLUCOSE 201 mg/dL (75-110); POTASSIUM 3.9 mmol/L (3.6-5.0)
[2020-03-09 19:03] LABS: TROPONIN I 0.086 ng/mL
[2020-03-09 20:05] VITALS: BP 170/115
--- NOTE | 2020-03-10 02:01 | EKG REPORT ---
SEVERITY:- ABNORMAL ECG - SINUS RHYTHM LOW VOLTAGE IN FRONTAL LEADS CONSIDER ANTERIOR INFARCT NONSPECIFIC T ABNORMALITIES, LATERAL LEADS PROLONGED QT INTERVAL : Confirmed by: Erika Bateman MD 10-Mar-2020 02:00:08
== END 2020-03-09 20:25 | disposition home or self-care (01) ==
LOC: ER 15:30
DX: J45.909 Unspecified asthma, uncomplicated (principal); I11.0 Hypertensive heart disease with heart failure; I50.9 Heart failure, unspecified; R06.02 Shortness of breath; E87.1 Hypo-osmolality and hyponatremia; I25.10 Atherosclerotic heart disease of native coronary artery without angina pectoris; E11.9 Type 2 diabetes mellitus without complications; I48.91 Unspecified atrial fibrillation; Z88.6 Allergy status to analgesic agent; Z88.5 Allergy status to narcotic agent; Z79.01 Long term (current) use of anticoagulants; Z95.5 Presence of coronary angioplasty implant and graft
CPT/HCPCS: 99285; 96374; 11042 ×2; J3490; 36415; 71045; 80048; 80162; 83880; 84484; 85025; 85610; 93005; 93010

== ENCOUNTER 2020-03-10 14:58 | Inpatient (IN) | payer MEDICARE ==
--- NOTE | 2020-03-10 15:31 | ER Document Report ---
ED Medical Screen (RME) - General Chief Complaint: Shortness Of Breath Stated Complaint: SHORT OF BREATH Time Seen by Provider: 03/10/20 15:21 Primary Care Provider: LIANE LEIGH MD [Primary Care Provider] - Follow up as needed TRAVEL OUTSIDE OF THE [place] IN LAST 30 DAYS: No - HPI Notes: 03/10/20 15:32 64-year-old male with history of congestive heart failure presents to ED for evaluation of increased shortness of breath. Patient reports it is worse with ambulation. Patient states that he has been taking his Bumex at home without improvement. Also reports increasing lower extremity swelling. Patient notes that he was seen here twice yesterday and has seen his primary care physician without improvement. Patient sees Dr. Leigh. Notes that he has not had any cough or cold symptoms. He denies nausea or vomiting. Denies abdominal pain. Patient states that he noticed his oxygen saturation was low last night. Patient had been on oxygen most of the day yesterday and was discharged home without it. Denies any other complaints. - Related Data Allergies/Adverse Reactions: codeine Allergy (Verified 02/10/20 18:12) Past Medical History - Past Medical History Cardiac Medical History: Reports: Hx Atrial Fibrillation, Hx Congestive Heart Failure, Hx Coronary Artery Disease, Hx Heart Attack, Hx Hypertension Pulmonary Medical History: Reports: Hx Asthma Endocrine Medical History: Reports: Hx Diabetes Mellitus Type 2 Renal/ Medical History: Denies: Hx Peritoneal Dialysis Past Surgical History: Reports: Hx Cardiac Surgery - CABG 2014, Hx Coronary Artery Bypass Graft - He had quadruple bypass on 03/08/2014 in [place], Hx Open Heart Surgery - 4vcabg Physical Exam - Vital signs Vitals: Temp Pulse Resp BP Pulse Ox 97.6 F 83 20 125/85 96 03/10/20 15:08 03/10/20 15:08 03/10/20 15:08 03/10/20 15:08 03/10/20 15:08 General: Alert and oriented x3. Sitting comfortably in a stretcher. Skin: Intact without any jaundice, pallor, or erythema. Warm and dry. HEENT: Normocephalic, atraumatic. Pupils are equal round reactive to light and accommodation. Extraocular movements are intact. TMs without erythema or bulging. Canals are clear. Nares patent without any discharge. Teeth in good condition. Pharynx without erythema, edema, or exudates. No tonsillar enlargement. Uvula is midline. Airway is patent. Neck: Supple with no lymphadenopathy. Full range of motion. Heart: Regular rate and rhythm. S1,S2. No murmurs, rubs, or gallops. Lungs: Crackles to lower lung locke. No wheezes, rhonchi Equal chest expansion. No retractions. Abdomen: Soft, nontender to palpation, nondistended. Positive bowel sounds in all 4 quadrants. No hepatosplenomegaly. No masses. No CVA tenderness bilaterally. Neuro: GCS 15. Moving all extremities without discomfort. Extremities: 1+ pitting edema to bilateral lower extremities. NO calf tenderness. No cyanosis or clubbing. Radial and pedal pulses 2+ bilaterally. Decreased capillary refill Psych: Mood and affect appropriate. Course - Vital Signs Vital signs: Temp Pulse Resp BP Pulse Ox 97.6 F 83 20 125/85 96 03/10/20 15:08 03/10/20 15:08 03/10/20 15:08 03/10/20 15:08 03/10/20 15:08 Doctor's Discharge - Discharge Referrals: LIANE LEIGH MD [Primary Care Provider] - Follow up as needed
--- NOTE | 2020-03-10 15:59 | RADIOLOGY REPORT (SQ) ---
EXAM DESCRIPTION: CHEST SINGLE VIEW IMAGES COMPLETED DATE/TIME: 03/10/2020 3:45 pm REASON FOR STUDY: chest pain COMPARISON: AP view of the chest on 03/09/2020. EXAM PARAMETERS: NUMBER OF VIEWS: One view. TECHNIQUE: An AP view of the chest was obtained. RADIATION DOSE: NA LIMITATIONS: None. FINDINGS: LUNGS AND PLEURA: No consolidation, pleural effusion or pneumothorax. MEDIASTINUM AND HILAR STRUCTURES: No mediastinal or hilar contour abnormality. HEART AND VASCULAR STRUCTURES: The cardiac silhouette is enlarged. BONES: No acute findings. HARDWARE: Sternotomy wires, mediastinal surgical clips, and left subclavian vein approach transvenous pacer. OTHER: No other finding. IMPRESSION: Cardiomegaly without a superimposed acute cardiopulmonary process. TECHNICAL DOCUMENTATION: JOB ID: [id number] [employer]- All Rights Reserved Reading location - IP/workstation name: [email or web address]
[2020-03-10 17:22] LABS: ABSOLUTE EOSINOPHILS # (AUTO) 0.1 10^3/uL (0.0-0.6); ABSOLUTE LYMPHOCYTES (AUTO) 0.8 10^3/uL (0.5-4.7); ABSOLUTE MONOCYTES (AUTO) 0.6 10^3/uL (0.1-1.4); TOTAL CELLS COUNTED % (AUTO) 100 %
[2020-03-10 17:33] LABS: ABSOLUTE BASOPHILS # (AUTO) 0.1 10^3/uL (0.0-0.2); BASOPHILS % (AUTO) 1.7 % (0-2); EOSINOPHILS % (AUTO) 2.2 % (0-6); HEMOGLOBIN 14.5 g/dL (13.5-17.0); LYMPHOCYTES % (AUTO) 12.4 % (13-45); MEAN CORPUSCULAR HEMOGLOBIN 26.1 pg (27.0-33.4); MEAN CORPUSCULAR HGB CONC 32.2 g/dL (32.0-36.0); MEAN CORPUSCULAR VOLUME 81 fl (80-97); MONOCYTES % (AUTO) 8.5 % (3-13); PLATELET COUNT 233 10^3/uL (150-450); RED BLOOD COUNT 5.55 10^6/uL (4.35-5.55); SEGMENTED NEUTROPHILS % (AUTO) 75.2 % (42-78); WHITE BLOOD COUNT 6.7 10^3/uL (4.0-10.5)
--- NOTE | 2020-03-10 17:39 | ER Document Report ---
ED General - General Chief Complaint: Shortness Of Breath Stated Complaint: SHORT OF BREATH Time Seen by Provider: 03/10/20 15:21 Primary Care Provider: LIANE LEIGH MD [Primary Care Provider] - Follow up as needed Mode of Arrival: Ambulatory Information source: Patient TRAVEL OUTSIDE OF THE [place] IN LAST 30 DAYS: No - HPI Notes: Patient is brought in by son due to shortness of breath. Patient states when he woke up this morning he felt short of breath when he tried his nebulizer and inhaler both and had no relief. Patient was here yesterday for similar complaints. Patient states that he felt like he could not get air in. I called and discussed the case with the who states that her was telling her today that he could "not get enough air". And so she called her son. Her son then came and brought the patient to the emergency department. The son states that the his father has had several visits to the primary and to the emergency department for similar complaints. Patient does not wear home oxygen. He does not have CPAP or BiPAP at home. He is no longer a smoker. Patient denies any pain. The shortness of breath today was constant. Is worse with exertion and better with rest. He states there is no improvement with his home medications. - Related Data Allergies/Adverse Reactions: codeine Allergy (Verified 02/10/20 18:12) Home Medications: bumex Past Medical History - General Information source: Patient - Social History Smoking Status: Former Smoker Chew tobacco use (# tins/day): No Frequency of alcohol use: None Drug Abuse: None Family History: Reviewed & Not Pertinent Patient has homicidal ideation: No - Past Medical History Cardiac Medical History: Reports: Hx Atrial Fibrillation, Hx Congestive Heart Failure, Hx Coronary Artery Disease, Hx Heart Attack, Hx Hypertension Pulmonary Medical History: Reports: Hx Asthma Endocrine Medical History: Reports: Hx Diabetes Mellitus Type 2 Renal/ Medical History: Denies: Hx Peritoneal Dialysis Past Surgical History: Reports: Hx Cardiac Surgery - CABG 2014, Hx Coronary Artery Bypass Graft - He had quadruple bypass on 03/08/2014 in [place], Hx Open Heart Surgery - 4vcabg Review of Systems - Review of Systems Constitutional: denies: Chills, Fever Cardiovascular: denies: Chest pain, Palpitations Respiratory: Cough, Short of breath -: Yes All other systems reviewed and negative Physical Exam - Vital signs Vitals: Temp Pulse Resp BP Pulse Ox 97.6 F 83 20 125/85 96 03/10/20 15:08 03/10/20 15:08 03/10/20 15:08 03/10/20 15:08 03/10/20 15:08 Interpretation: Normal - General General appearance: Appears well, Alert - HEENT Head: Normocephalic, Atraumatic Eyes: Normal Pupils: PERRL - Respiratory Respiratory status: No respiratory distress Chest status: Nontender Breath sounds: Decreased air movement Chest palpation: Normal - Cardiovascular Rhythm: Regular Heart sounds: Normal auscultation Murmur: No - Abdominal Inspection: Normal Distension: No distension Bowel sounds: Normal Tenderness: Nontender Organomegaly: No organomegaly - Back Back: Normal, Nontender - Extremities General upper extremity: Normal inspection, Nontender, Normal color, Normal ROM, Normal temperature General lower extremity: Other - Bilaterally patient has evidence of chronic venous stasis with some erythema. Wounds are dressed and managed by wound care. - Neurological Neuro grossly intact: Yes Cognition: Normal Orientation: AAOx4 Tyler Coma Scale Eye Opening: Spontaneous Julius Coma Scale Verbal: Oriented Julius Coma Scale Motor: Obeys Commands Tyler Coma Scale Total: 15 Speech: Normal Motor strength normal: LUE, RUE, LLE, RLE Sensory: Normal - Psychological Associated symptoms: Normal affect, Normal mood - Skin Skin Temperature: Warm Skin Moisture: Dry Skin Color: Normal Course - Re-evaluation Re-evalutation: 03/10/20 18:22 Patient presents with shortness of breath. On laboratory values patient's BNP is elevated compared to yesterday patient's creatinine is also increased. I will treat the patient with some Bumex. We will await the results of the patient's CT of the chest. I have already spoke with the patient's primary care physician who admit the patient for diuresis. - Vital Signs Vital signs: Temp Pulse Resp BP Pulse Ox 97.6 F 83 20 125/85 96 03/10/20 15:08 03/10/20 15:08 03/10/20 15:08 03/10/20 15:08 03/10/20 15:08 - Laboratory Results Result Diagrams: 03/10/20 17:00 03/10/20 17:00 Laboratory Results Interpreted: 03/10/20 03/10/20 03/10/20 17:00 17:00 17:00 MCH 26.1 L RDW 19.0 H Lymph % (Auto) 12.4 L Sodium 132.6 L Chloride 89 L Carbon Dioxide 38 H BUN 44 H Creatinine 1.45 H Est GFR ( Amer) 59 L Est GFR (MDRD) Non-Af 49 L Glucose 168 H Total Bilirubin 1.8 H Direct Bilirubin 0.7 H Alkaline Phosphatase 127 H Creatine Kinase 198 H CK-MB (CK-2) 6.84 H NT-Pro-B Natriuret Pep 12767 H Albumin 3.2 L Critical Laboratory Results Reviewed: No Critical Results - Radiology Results Critical Radiology Results Reviewed: No Critical Results - EKG Interpretation by Tx EKG shows normal: Sinus rhythm Rate: Normal - 72 Rhythm: NSR [place]/QRS: Left axis deviation Discharge - Discharge Clinical Impression: CHF (congestive heart failure) Qualifiers: Heart failure type: unspecified Heart failure chronicity: acute Qualified Cod e(s): I50.9 - Heart failure, unspecified Condition: Serious Disposition: ADMITTED INPATIENT Admitting Provider: Brian Unit Admitted: Telemetry Referrals: LIANE LEIGH MD [Primary Care Provider] - Follow up as needed
[2020-03-10 17:44] LABS: ALBUMIN 3.2 g/dL (3.5-5.0); ALKALINE PHOSPHATASE 127 U/L (38-126); ANION GAP 6 (5-19); ASPARTATE AMINO TRANSFERASE 40 U/L (17-59); BILIRUBIN,DIRECT 0.7 mg/dL (0.0-0.4); BILIRUBIN,TOTAL 1.8 mg/dL (0.2-1.3); BLOOD UREA NITROGEN 44 mg/dL (7-20); CALCIUM 9.1 mg/dL (8.4-10.2); CARBON DIOXIDE 38 mmol/L (22-30); CHLORIDE 89 mmol/L (98-107); CREATINE KINASE 198 U/L (55-170); GLUCOSE 168 mg/dL (75-110); POTASSIUM 4.1 mmol/L (3.6-5.0); TOTAL PROTEIN 6.9 g/dL (6.3-8.2)
[2020-03-10 17:56] LABS: CREATINE KINASE MB 6.84 ng/mL (<4.55)
[2020-03-10 17:59] LABS: TROPONIN I 0.109 ng/mL
[2020-03-10] MEDS ORDERED: BUMETANIDE INJ/PF 1 MG/4 ML SDV IV ONE (18:46)
[2020-03-10] MEDS ORDERED: ENOXAPARIN SODIUM INJ 120 MG/0.8 ML DISP.SYRIN SUBCUT ONE (18:48)
[2020-03-10] MEDS ORDERED: ACETAMINOPHEN 325 MG TABLET PO PRN (19:39)
--- NOTE | 2020-03-10 19:52 | PDOC H&P ---
History of Present Illness Admission Date/PCP: 03/10/20 18:32 LIANE LEIGH MD History of Present Illness: KENIA MCALLISTER is a 64 year old male, He has a history of chronic combined systolic and diastolic heart failure, COPD, paroxysmal atrial fibrillation he came to the emergency room for evaluation of shortness of breath. This was the second ED visit in 2 days, he said when he woke up he felt short of breath when he used his nebulizer and inhaler he had no relief. Apparently patient was brought to emergency room by his son. He was recently admitted in this hospital on February 10, 2020, he was discharged on February 16, 2020, he is well optimized on medical therapy, device therapy, he has AICD/pacemaker placement.Part of patient problem could be medication compliance he was supposed to be on Entresto but the medication that was reconciled by the pharmacist Entresto was not listed. The arterial blood gas on room air, pH 7.5 PCO2 41.6 PO2 83.6 bicarbonate 31This is consistent with metabolic alkalosis probably due to overdiuresis Past Medical History Cardiac Medical History: Reports: Atrial Fibrillation, Congestive Heart Failure, Coronary Artery Disease, Myocardial Infarction, Hypertension Pulmonary Medical History: Reports: Asthma Endocrine Medical History: Reports: Diabetes Mellitus Type 2 Past Surgical History Past Surgical History: Reports: Coronary Artery Bypass Graft - He had quadruple bypass on 03/08/2014 in [place], Internal Defibrillator, Pacemaker Social History Smoking Status: Former Smoker Electronic Cigarette use?: No Frequency of Alcohol Use: Rare Hx Recreational Drug Use: No Drugs: None Hx Prescription Drug Abuse: No Family History Family History: Reviewed & Not Pertinent Parental Family History Reviewed: Yes Children Family History Reviewed: Yes Sibling(s) Family History Reviewed.: Yes Medication/Allergy Home Medications: Albuterol Sulfate [Albuterol Sulfate Hfa] 2 puff IH Q6HP PRN 06/18/19 Fluticasone/Umeclidin/Vilanter [Trelegy 100-62.5-25 Mcg Ellipta 14 Dose/Dpi] 1 puff IH DAILY 02/10/20 Tramadol HCl [Ultram 50 mg Tablet] 50 mg PO BIDP PRN 02/10/20 Spironolactone [Aldactone 25 mg Tablet] 25 mg PO DAILY #90 02/16/20 Warfarin Sodium [Jantoven 5 mg Tablet] 7.5 mg PO QHS #30 02/16/20 Insulin Aspart [Novolog] 5 unit SQ TID 03/10/20 Insulin Degludec [Tresiba] 40 unit SQ DAILY 03/10/20 Nystatin [Mycostatin 831300 Unit/mL Susp 60 mL] 4 ml PO QID 03/10/20 Allergies/Adverse Reactions: codeine Allergy (Verified 02/10/20 18:12) Review of Systems Constitutional: ABSENT: chills, fever(s), headache(s), weight gain, weight loss Eyes: ABSENT: visual disturbances Ears: ABSENT: hearing changes Cardiovascular: PRESENT: dyspnea on exertion, orthropnea Respiratory: ABSENT: cough, hemoptysis Gastrointestinal: ABSENT: abdominal pain, constipation, diarrhea, hematemesis, hematochezia, nausea, vomiting Genitourinary: ABSENT: dysuria, hematuria Musculoskeletal: ABSENT: joint swelling Integumentary: ABSENT: rash, wounds Neurological: ABSENT: abnormal gait, abnormal speech, confusion, dizziness, focal weakness, syncope Psychiatric: ABSENT: anxiety, depression, homidical ideation, suicidal ideation Endocrine: ABSENT: cold intolerance, heat intolerance, menstrual abnormalities, polydipsia, polyuria Hematologic/Lymphatic: ABSENT: easy bleeding, easy bruising, lymphadenopathy Physical Exam Vital Signs: Temp Pulse Resp BP Pulse Ox 97.8 F 83 20 148/79 H 98 03/10/20 19:00 03/10/20 15:08 03/10/20 19:00 03/10/20 19:00 03/10/20 19:00 Intake & Output 03/09/20 03/10/20 03/11/20 06:59 06:59 06:59 Weight 107.8 kg General appearance: PRESENT: no acute distress Head exam: PRESENT: atraumatic, normocephalic Eye exam: PRESENT: PERRLA Ear exam: PRESENT: normal external ear exam Mouth exam: PRESENT: moist, tongue midline Neck exam: PRESENT: full ROM Respiratory exam: PRESENT: crackles Cardiovascular exam: PRESENT: RRR, +S1, +S2 Pulses: PRESENT: normal dorsalis pedis pul, +2 pedal pulses bilateral Vascular exam: PRESENT: normal capillary refill GI/Abdominal exam: PRESENT: normal bowel sounds, soft Rectal exam: PRESENT: deferred Neurological exam: PRESENT: alert, CN II-XII grossly intact Psychiatric exam: PRESENT: appropriate affect, normal mood Skin exam: PRESENT: dry, intact, warm. ABSENT: cyanosis, rash Results Laboratory Results: 03/10/20 17:00 03/10/20 17:00 03/10/20 03/10/20 17:00 17:00 WBC 6.7 RBC 5.55 Hgb 14.5 Hct 45.0 MCV 81 MCH 26.1 L MCHC 32.2 RDW 19.0 H Plt Count 233 Seg Neutrophils % 75.2 Sodium 132.6 L Potassium 4.1 Chloride 89 L Carbon Dioxide 38 H Anion Gap 6 BUN 44 H Creatinine 1.45 H Est GFR ( Amer) 59 L Glucose 168 H Calcium 9.1 Magnesium 1.8 Total Bilirubin 1.8 H AST 40 Alkaline Phosphatase 127 H Total Protein 6.9 Albumin 3.2 L 03/10/20 03/10/20 17:00 17:00 Creatine Kinase 198 H CK-MB (CK-2) 6.84 H Troponin I 0.109 NT-Pro-B Natriuret Pep 63503 H Impressions: Chest X-Ray 03/10/20 15:30 IMPRESSION: Cardiomegaly without a superimposed acute cardiopulmonary process. Assessment & Plan - Diagnosis (1) Acute combined systolic and diastolic congestive heart failure Is this a current diagnosis for this admission?: Yes Plan: Patient is admitted to the hospital, consult cardiology for guidance (2) COPD (chronic obstructive pulmonary disease) Qualifiers: COPD type: unspecified COPD Qualified Code(s): J44.9 - Chronic obstructive pulmonary disease, unspecified Is this a current diagnosis for this admission?: Yes - Time Time Spent: Greater than 70 Minutes Medications reviewed and adjusted accordingly: Yes Anticipated Discharge Disposition: Home, Self Care Anticipated Discharge Timeframe: within 72 hours - Inpatient Certification Based on my medical assessment, after consideration of the patient's comorbidities, presenting symptoms, or acuity I expect that the services needed warrant INPATIENT care.: Yes I certify that my determination is in accordance with my understanding of Medicare's requirements for reasonable and necessary INPATIENT services [42 CFR 412.3e].: Yes
[2020-03-10 19:55] LABS: APPEARANCE,URINE CLEAR; BILIRUBIN,URINE NEGATIVE (NEGATIVE); COLOR,URINE YELLOW; GLUCOSE, URINE >=500 mg/dL (NEGATIVE); KETONES,URINE NEGATIVE (NEGATIVE); LEUKOCYTE ESTERASE,URINE NEGATIVE (NEGATIVE); NITRITE,URINE NEGATIVE (NEGATIVE); PROTEIN,URINE 100 mg/dL (NEGATIVE); URINE SPECIFIC GRAVITY 1.009
--- NOTE | 2020-03-10 20:20 | RADIOLOGY REPORT (SQ) ---
EXAM DESCRIPTION: CTA CHEST CLINICAL HISTORY: 64 years Male; sob TECHNIQUE: CT of the chest without intravenous contrast. Exam was supposed to be a CT pulmonary angiogram however the IV infiltrated in the exam is essentially an unenhanced CT scan of the chest. All CT scans at this facility use dose modulation, iterative reconstruction, and/or weight based dosing when appropriate to reduce radiation dose to as low as reasonably achievable. COMPARISON: CTA of the chest 02/28/2016 FINDINGS: Chest: Lungs: there is patchy perihilar and lower lobe volume loss which is similar to the previous exam. Small bilateral pleural effusions are noted. The right pleural effusion has diminished in the left pleural effusion is new. No pulmonary nodules or masses. Mediastinum: Four-chamber cardiac enlargement is noted. There is pacemaker in place and coronary artery calcifications. Postoperative change of CABG. Small nonspecific mediastinal lymph nodes. These do not meet size criteria for pathologic process and are unchanged. Bones:No acute bone findings. Sternum is healed. Sternal wires are in place. There is diffuse edema of the subcutaneous tissues of the chest. Upper Abdomen: Multiple small low density areas are present in the left liver lobe suggestive of cysts. These are unchanged. IMPRESSION: 1. Nondiagnostic CT pulmonary angiogram because of IV infiltration. This is an unenhanced CT scan of the chest. 2. Small pleural effusions with nonspecific patchy perihilar and infrahilar volume loss. 3. Diffuse enlargement the cardiac silhouette. Atherosclerotic coronary artery disease.
[2020-03-10 20:21] LABS: INTERNATIONAL RATION (INR) 1.21; PROTHROMBIN TIME 15.5 SEC (11.4-15.4)
[2020-03-10 20:22] LABS: FIBRINOGEN 388 mg/dL (209-497); PARTIAL THROMBOPLASTIN TIME 32.3 SEC (23.5-35.8)
[2020-03-10 20:25] LABS: D-DIMER 1.77 ug/mL (0.00-0.50)
[2020-03-10 21:42] LABS: ARTERIAL BLOOD BASE EXCESS 7.6 mmol/L; ARTERIAL BLOOD H2CO3 1.25 mmol/L (1.05-1.35); ARTERIAL BLOOD HCO3 31.6 mmol/L (20-24); ARTERIAL BLOOD PCO2 41.6 mmHg (35-45); ARTERIAL BLOOD PO2 83.6 mmHg (80-100); ARTERIAL BLOOD TOTAL CO2 32.8 mmol/L (23-27)
[2020-03-10 21:51] LABS: ARTERIAL BLOOD FIO2 21%
[2020-03-10 21:58] LABS: A TYPE INFLUENZA AG NEGATIVE (NEGATIVE); B INFLUENZA AG NEGATIVE (NEGATIVE)
[2020-03-10 21:59] LABS: C-REACTIVE PROTEIN 30.2 mg/L (<10.0); DIGOXIN 0.41 ng/mL (0.8-2.0)
--- NOTE | 2020-03-10 21:59 | EKG REPORT ---
SEVERITY:- ABNORMAL ECG - SINUS RHYTHM PROBABLE LEFT ATRIAL ABNORMALITY LAD, CONSIDER LEFT ANTERIOR FASCICULAR BLOCK NONSPECIFIC T ABNORMALITIES, LATERAL LEADS BORDERLINE PROLONGED QT INTERVAL : Confirmed by: Erika Bateman MD 10-Mar-2020 21:58:12
[2020-03-10 22:29] LABS: FERRITIN 41.8 ng/mL (17.9-464.0)
[2020-03-10] MEDS ORDERED: ALBUTEROL SULFATE HFA (90 MCG/PUFF) 8 GM MDI (1 MDI/ER DISP) IH PRN (23:04)
[2020-03-10] MEDS ORDERED: NYSTATIN SUSP 100000 UNIT/1 ML 60 ML BOTTLE PO SCH (23:15)
[2020-03-10] MEDS ORDERED: INSULIN DEGLUDEC 100 UNIT/ML SUBCUT SCH (23:15)
[2020-03-10] MEDS: SPIRONOLACTONE 25 MG TABLET PO SCH (23:44)
[2020-03-10 23:46] LABS: HEMOGLOBIN 15.1 g/dL (13.5-17.0); MEAN CORPUSCULAR HEMOGLOBIN 26.5 pg (27.0-33.4); MEAN CORPUSCULAR HGB CONC 32.7 g/dL (32.0-36.0); MEAN CORPUSCULAR VOLUME 81 fl (80-97); PLATELET COUNT 229 10^3/uL (150-450); RED BLOOD COUNT 5.69 10^6/uL (4.35-5.55); RED CELL DISTRIBUTION WIDTH 19.1 % (11.5-14.0); WHITE BLOOD COUNT 7.8 10^3/uL (4.0-10.5)
[2020-03-10] MEDS: FUROSEMIDE INJ/PF 40 MG/4 ML SDV IV SCH (23:48)
[2020-03-11] MEDS: FLUTICASONE/UMECLIDIN/VILANTER 100-62.5-25 MCG/DOSE IH SCH ×2 (03:14→10:25)
[2020-03-11] MEDS: SACUBITRIL/VALSARTAN 97 MG/103 MG TABLET PO SCH ×3 (03:14→17:22)
[2020-03-11] MEDS: TRAMADOL HCL 50 MG TABLET PO PRN ×2 (03:27→21:23)
[2020-03-11 07:08] LABS: PROTHROMBIN TIME 16.4 SEC (11.4-15.4)
[2020-03-11 07:22] LABS: ABSOLUTE BASOPHILS # (AUTO) 0.1 10^3/uL (0.0-0.2); ABSOLUTE EOSINOPHILS # (AUTO) 0.2 10^3/uL (0.0-0.6); ABSOLUTE LYMPHOCYTES (AUTO) 1.1 10^3/uL (0.5-4.7); ABSOLUTE MONOCYTES (AUTO) 0.8 10^3/uL (0.1-1.4); ABSOLUTE NEUT (AUTO) 5.4 10^3/uL (1.7-8.2); EOSINOPHILS % (AUTO) 2.4 % (0-6); HEMATOCRIT 47.7 % (37.9-51.0); HEMOGLOBIN 15.2 g/dL (13.5-17.0); MEAN CORPUSCULAR HEMOGLOBIN 25.9 pg (27.0-33.4); MEAN CORPUSCULAR HGB CONC 31.8 g/dL (32.0-36.0); MEAN CORPUSCULAR VOLUME 82 fl (80-97); MONOCYTES % (AUTO) 10.5 % (3-13); PLATELET COUNT 236 10^3/uL (150-450); RED BLOOD COUNT 5.86 10^6/uL (4.35-5.55); SEGMENTED NEUTROPHILS % (AUTO) 71.1 % (42-78); TOTAL CELLS COUNTED % (AUTO) 100 %; WHITE BLOOD COUNT 7.6 10^3/uL (4.0-10.5)
[2020-03-11 07:38] LABS: ALBUMIN 3.3 g/dL (3.5-5.0); ALKALINE PHOSPHATASE 119 U/L (38-126); ANION GAP 8 (5-19); ASPARTATE AMINO TRANSFERASE 46 U/L (17-59); BILIRUBIN,DIRECT 0.9 mg/dL (0.0-0.4); BILIRUBIN,TOTAL 2.3 mg/dL (0.2-1.3); BLOOD UREA NITROGEN 46 mg/dL (7-20); CALCIUM 9.4 mg/dL (8.4-10.2); CARBON DIOXIDE 38 mmol/L (22-30); CHLORIDE 87 mmol/L (98-107); CHOLESTEROL 139.09 mg/dL (0-200); CREATINE KINASE 142 U/L (55-170); GLUCOSE 146 mg/dL (75-110); POTASSIUM 4.2 mmol/L (3.6-5.0); TRIGLYCERIDES 106 mg/dL (<150)
[2020-03-11 07:48] LABS: DIRECT LDL 81 mg/dL (<100)
[2020-03-11] MEDS: NYSTATIN 500000 UNIT/5 ML UDCUP PO SCH ×4 (10:23→21:14)
[2020-03-11] MEDS: FUROSEMIDE INJ/PF 40 MG/4 ML SDV IV SCH (10:23)
[2020-03-11] MEDS: SPIRONOLACTONE 25 MG TABLET PO SCH (10:24)
--- NOTE | 2020-03-11 21:15 | PDOC CONSULTATION ---
Consultation-Blank Consultation: CARDIOLOGY CONSULTATION by Dr. Erika Bateman on 03/11/2020. Patient seen at 3:30 PM. 60 minutes spent on this patient more than 50% time spent direct patient care. CONSULT REQUESTING PHYSICIAN: Dr. Torres. REASON FOR CONSULTATION: Patient with heart failure HISTORY OF PRESENT ILLNESS: Patient is a 64-year-old male with known history of coronary artery disease, history of PR, history of severe ischemic and dilated cardiomyopathy with severely reduced LV ejection fraction, history of AICD placement, history of COPD/asthma, history of chronic kidney disease, and history of AICD placement admitted with complaints of shortness of breath with orthopnea but no PND or leg edema. He denies any chest pain discomfort. He states that he has been having intermittent wheezing. The patient this was a second time to the emergency room the previous one was a few days ago. There was some mixup with his medications and he was supposed to be on Entresto and he was not on it. He states that he had wheezing and dry cough nonproductive sputum. 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 He denies any firing of his AICD there is no leg edema. The patient states with the current treatment he is improving. Past Medical History Cardiac Medical History: Reports: Atrial Fibrillation, Congestive Heart Failure, Coronary Artery Disease, Myocardial Infarction, Hypertension Pulmonary Medical History: Reports: Asthma Endocrine Medical History: Reports: Diabetes Mellitus Type 2 Past Surgical History Past Surgical History: Reports: Coronary Artery Bypass Graft - He had quadruple bypass on 03/08/2014 in [place], Internal Defibrillator, Pacemaker Social History Smoking Status: Former Smoker Electronic Cigarette use?: No Frequency of Alcohol Use: Rare Hx Recreational Drug Use: No Drugs: None Hx Prescription Drug Abuse: No Family History Family History: Reviewed & Not Pertinent Parental Family History Reviewed: Yes Children Family History Reviewed: Yes Sibling(s) Family History Reviewed.: Yes RESUSCITATION STATUS: The patient is a full code his daughter is a surrogate healthcare decision maker. Medication/Allergy Home Medications: Albuterol Sulfate [Albuterol Sulfate Hfa] 2 puff IH Q6HP PRN 06/17/ Fluticasone/Umeclidin/Vilanter [Trelegy 100-62.5-25 Mcg Ellipta 14 Dose/Dpi] 1 puff IH DAILY 02/10/20 Tramadol HCl [Ultram 50 mg Tablet] 50 mg PO BIDP PRN 02/10/20 Spironolactone [Aldactone 25 mg Tablet] 25 mg PO DAILY #90 02/16/20 Warfarin Sodium [Jantoven 5 mg Tablet] 7.5 mg PO QHS #30 02/16/20 Insulin Aspart [Novolog] 5 unit SQ TID 03/10/20 Insulin Degludec [Tresiba] 40 unit SQ DAILY 03/10/20 Nystatin [Mycostatin 244929 Unit/mL Susp 60 mL] 4 ml PO QID 03/10/20 Allergies/Adverse Reactions: codeine Allergy (Verified 02/10/20 18:12) Current Medications Generic Name Dose Route Start Last Admin Trade Name Freq PRN Reason Stop Dose Admin Acetaminophen 650 mg 03/10/20 19:39 Acetaminophen 325 Mg Tablet PO 04/09/20 19:38 Q4HP PRN FOR PAIN Albuterol 2 puff 03/10/20 23:04 Albuterol Sulfate Hfa (90 Mcg/Puff) 8 Gm Mdi (1 Mdi/Er Disp) IH 04/09/20 23:03 Q6HP PRN SHORTNESS OF BREATH Fluticasone/Vilanterol 1 inh 03/10/20 23:15 03/11/20 10:25 Fluticasone/Umeclidin/Vilanter 100-62.5-25 Mcg/Dose IH 04/09/20 23:14 1 inh DAILY ROSALINDA Administration Furosemide 40 mg 03/10/20 23:15 03/11/20 10:23 Furosemide Inj/Pf 40 Mg/4 Ml Sdv IV 04/09/20 23:14 40 mg DAILY ROSALINDA Administration Nystatin 400,000 unit 03/11/20 10:00 03/11/20 21:14 Nystatin [id number] Unit/5 Ml Udcup PO 03/18/20 09:59 400,000 unit QID ROSALINDA Administration Patient Own Medication 40 unit 03/10/20 23:15 Insulin Degludec [Tresiba] SQ 04/09/20 23:14 DAILY ROSALINDA Pharmacy Consult 1 dose 03/10/20 23:07 Coumadin Pharmacy To Dose PO 04/09/20 23:06 .PHARMACY TO DOSE PRN THIS MED IS NOT "PRN" Protocol Sacubitril/Valsartan 1 tab 03/10/20 23:15 03/11/20 17:22 Sacubitril/Valsartan 97 Mg/103 Mg Tablet PO 04/09/20 23:14 1 tab BID ROSALINDA Administration Sodium Chloride 2.5 ml 03/10/20 19:45 03/11/20 21:15 Normal Saline Flush 2.5 Ml Disp.Syrin IV 04/09/20 19:44 2.5 ml Q8 ROSALINDA Administration Spironolactone 25 mg 03/10/20 23:15 03/11/20 10:24 Spironolactone 25 Mg Tablet PO 04/09/20 23:14 25 mg DAILY ROSALINDA Administration Tramadol HCl 50 mg 03/10/20 23:04 03/11/20 21:23 Tramadol Hcl 50 Mg Tablet PO 03/17/20 23:03 50 mg BIDP PRN Administration FOR PAIN Discontinued Medications Generic Name Dose Route Start Last Admin Trade Name Freq PRN Reason Stop Dose Admin Bumetanide 1 mg 03/10/20 18:46 03/10/20 19:33 Bumetanide Inj/Pf 1 Mg/4 Ml Sdv IV 03/10/20 18:47 1 mg NOW ONE Administration Enoxaparin Sodium 110 mg 03/10/20 18:48 03/10/20 19:33 Enoxaparin Sodium Inj 120 Mg/0.8 Ml Disp.Syrin SUBCUT 03/10/20 18:49 110 mg NOW ONE Administration Nystatin 4 unit 03/10/20 23:15 03/11/20 03:14 Nystatin Susp [id number] Unit/1 Ml 60 Ml Bottle PO 04/09/20 23:14 Not Given QID [facility] Review of Systems Constitutional: ABSENT: chills, fever(s), headache(s), weight gain, weight loss Eyes: ABSENT: visual disturbances Ears: ABSENT: hearing changes Cardiovascular: PRESENT: dyspnea on exertion, orthropnea Respiratory: ABSENT: cough, hemoptysis Gastrointestinal: ABSENT: abdominal pain, constipation, diarrhea, hematemesis, hematochezia, nausea, vomiting Genitourinary: ABSENT: dysuria, hematuria Musculoskeletal: ABSENT: joint swelling Integumentary: ABSENT: rash, wounds Neurological: ABSENT: abnormal gait, abnormal speech, confusion, dizziness, focal weakness, syncope Psychiatric: ABSENT: anxiety, depression, homidical ideation, suicidal ideation Endocrine: ABSENT: cold intolerance, heat intolerance, menstrual abnormalities, polydipsia, polyuria Hematologic/Lymphatic: ABSENT: easy bleeding, easy bruising, lymphadenopathy PHYSICAL EXAMINATION: The patient moderately obese at present in no acute distress. Selected Entries 03/11/20 15:58 Temperature 97.8 F Temperature Oral Source Pulse Rate 91 Respiratory 18 Rate Blood Pressure 120/92 H Blood Pressure 101 Mean BP Location Left Arm BP Position Supine O2 Sat by Pulse 92 Oximetry Oxygen Delivery Room Air Method HEAD: Is atraumatic. Normocephalic. EYES: Pupils are equal round regular reactive to light and accommodation. Extraocular movements are normal. There is no conjunctival pallor. There is no scleral icterus. EARS: Tympanic membranes are intact. External auditory canals are clear. NOSE: There is no deviated nasal septum. There is no inflammation of the nasal mucous membrane. MOUTH: Mucous membranes of mouth are moist. Tongue is moist. There is no ulcers. There is no bleeding from the gums. THROAT: There is no redness of the oropharynx. There is no exudates. SKIN: There is no skin rashes. There is no skin lesions. There is no petechia or ecchymosis. NECK: Is supple. There is no JVD. Carotids are equal there is no bruits. There is no lymphadenopathy. There is no accessory muscle respiration use. Trachea central. LUNGS: There is diminished air entry prolonged expiration with a few scattered rhonchi. There is hyperresonance on percussion. At present there is no rales of CHF. HEART: S1-S2 is heard. S1 is of normal intensity. There is no S3 gallop. There is no S4 gallop. There is systolic murmur left sternal border and the apex there is no rub. ABDOMEN: Is soft. Nontender. There is no hepatosplenomegaly. Bowel sounds are well heard. EXTREMITIES: Femorals are diminished. There is no femoral bruits. Leg pulses are diminished. There is trace pedal edema bilaterally. There is no DVT or cellulitis. There is no calf tenderness. There is no cyanosis or clubbing. SPEECH LANGUAGE PATHOLOGIST PRN: The patient is conscious awake alert oriented x3 with no focal deficits. PSYCHIATRIC:. Patient judgment insight are intact his affect is normal. Labs- Entire Visit 03/10/20 03/10/20 03/10/20 17:00 17:00 17:00 WBC 6.7 RBC 5.55 Hgb 14.5 Hct 45.0 MCV 81 MCH 26.1 L MCHC 32.2 RDW 19.0 H Plt Count 233 Lymph % (Auto) 12.4 L [place] % (Auto) 8.5 Eos % (Auto) 2.2 Baso % (Auto) 1.7 Absolute Neuts (auto) 5.0 Absolute Lymphs (auto) 0.8 Absolute Monos (auto) 0.6 Absolute Eos (auto) 0.1 Absolute Basos (auto) 0.1 Seg Neutrophils % 75.2 PT INR APTT Fibrinogen D-Dimer Carbonic Acid HCO3/H2CO3 Ratio ABG pH ABG pCO2 ABG pO2 ABG HCO3 ABG Total CO2 ABG O2 Saturation ABG Base Excess FiO2 Sodium 132.6 L Potassium 4.1 Chloride 89 L Carbon Dioxide 38 H Anion Gap 6 BUN 44 H Creatinine 1.45 H Est GFR ( Amer) 59 L Est GFR (MDRD) Non-Af 49 L Glucose 168 H Hemoglobin A1c % Calcium 9.1 Magnesium 1.8 Ferritin Total Bilirubin 1.8 H Direct Bilirubin 0.7 H Neonat Total Bilirubin Not Reportable Neonat Direct Bilirubin Not Reportable Neonat Indirect Bili Not Reportable AST 40 ALT 20 Alkaline Phosphatase 127 H Lactate Dehydrogenase Creatine Kinase 198 H CK-MB (CK-2) 6.84 H Troponin I 0.109 C-Reactive Protein NT-Pro-B Natriuret Pep 38587 H Total Protein 6.9 Albumin 3.2 L Triglycerides Cholesterol LDL Cholesterol Direct VLDL Cholesterol HDL Cholesterol Free T4 Urine Color Urine Appearance Urine pH Ur Specific [place] Urine Protein Urine Glucose (UA) Urine Ketones Urine Blood Urine Nitrite Urine Nitrite (Reflex) Urine Bilirubin Urine Urobilinogen Ur Leukocyte Esterase Leukocyte Esterase Rfl Urine WBC (Auto) Urine RBC (Auto) U Hyaline Cast (Auto) Urine Bacteria (Auto) Urine Red Cell Clumps Urine WBC (Reflex) Urine WBC Clumps Squamous Epi Cells Auto U Non-Squamous Epis Auto Calcium Carbonate Cryst Calcium Phosphate Cryst Calcium Oxalate Cr Auto Leucine Crystals Cystine Crystals Uric Acid Cryst (Auto) Triple Phos Cryst (Auto) Tyrosine Crystals Amorphous Sediment Auto Cellular Casts Epithelial Casts (Auto) Fatty Casts Granular Casts (Auto) Waxy Casts (Auto) Broad Casts RBC Casts (Auto) WBC Casts (Auto) Urine Mucus (Auto) U Trichomonas (Auto) Ur Yeast w Hyphae Urine Yeast (Budding) Urine Ascorbic Acid Maikel Human Metapneumo PCR Digoxin Adenovirus (PCR) B. pertussis DNA (PCR) B.parapertussis DNA PCR C. pneumoniae DNA (PCR) Coronavirus OC43 (PCR) Coronavirus HKU1 (PCR) Coronavirus 229E (PCR) Coronavirus NL63 (PCR) Influenza A (Rapid) Influenza A (RT-PCR) Influenza A (H1) PCR Influ A (H1N1/09) PCR Influenza A (H3) PCR Influenza Type A (PCR) Influenza B (Rapid) Influenza B (RT-PCR) Influenza Type B (PCR) M. pneumoniae (PCR) Parainfluenza 1 (PCR) Parainfluenza 2 (PCR) Parainfluenza 3 (PCR) Parainfluenza 4 (PCR) RSV (RT-PCR) RSV (PCR) Entero/Rhino (PCR) SARS-CoV-2 (PCR) SARS-CoV-2 Rap RNA(RT-PCR) Group A Strep Rapid 03/10/20 03/10/20 03/10/20 17:00 17:00 17:00 WBC RBC Hgb Hct MCV MCH MCHC RDW Plt Count Lymph % (Auto) [place] % (Auto) Eos % (Auto) Baso % (Auto) Absolute Neuts (auto) Absolute Lymphs (auto) Absolute Monos (auto) Absolute Eos (auto) Absolute Basos (auto) Seg Neutrophils % PT 15.5 H INR 1.21 APTT 32.3 Fibrinogen 388 D-Dimer 1.77 H Carbonic Acid HCO3/H2CO3 Ratio ABG pH ABG pCO2 ABG pO2 ABG HCO3 ABG Total CO2 ABG O2 Saturation ABG Base Excess FiO2 Sodium Potassium Chloride Carbon Dioxide Anion Gap BUN Creatinine Est GFR ( Amer) Est GFR (MDRD) Non-Af Glucose Hemoglobin A1c % Calcium Magnesium Ferritin Total Bilirubin Direct Bilirubin Neonat Total Bilirubin Neonat Direct Bilirubin Neonat Indirect Bili AST ALT Alkaline Phosphatase Lactate Dehydrogenase Creatine Kinase CK-MB (CK-2) Troponin I C-Reactive Protein NT-Pro-B Natriuret Pep Total Protein Albumin Triglycerides Cholesterol LDL Cholesterol Direct VLDL Cholesterol HDL Cholesterol Free T4 Urine Color YELLOW Cancelled Urine Appearance CLEAR Cancelled Urine pH 8.0 Cancelled Ur Specific [place] 1.009 Cancelled Urine Protein 100 H Cancelled Urine Glucose (UA) >=500 H Cancelled Urine Ketones NEGATIVE Cancelled Urine Blood NEGATIVE Cancelled Urine Nitrite NEGATIVE Urine Nitrite (Reflex) Cancelled Urine Bilirubin NEGATIVE Cancelled Urine Urobilinogen 4.0 H Cancelled Ur Leukocyte Esterase NEGATIVE Leukocyte Esterase Rfl Cancelled Urine WBC (Auto) 1 Urine RBC (Auto) 3 Cancelled U Hyaline Cast (Auto) Cancelled Urine Bacteria (Auto) TRACE Cancelled Urine Red Cell Clumps Cancelled Urine WBC (Reflex) Cancelled Urine WBC Clumps Cancelled Squamous Epi Cells Auto <1 Cancelled U Non-Squamous Epis Auto Cancelled Calcium Carbonate Cryst Cancelled Calcium Phosphate Cryst Cancelled Calcium Oxalate Cr Auto Cancelled Leucine Crystals Cancelled Cystine Crystals Cancelled Uric Acid Cryst (Auto) Cancelled Triple Phos Cryst (Auto) Cancelled Tyrosine Crystals Cancelled Amorphous Sediment Auto Cancelled Cellular Casts Cancelled Epithelial Casts (Auto) Cancelled Fatty Casts Cancelled Granular Casts (Auto) Cancelled Waxy Casts (Auto) Cancelled Broad Casts Cancelled RBC Casts (Auto) Cancelled WBC Casts (Auto) Cancelled Urine Mucus (Auto) RARE Cancelled U Trichomonas (Auto) Cancelled Ur Yeast w Hyphae Cancelled Urine Yeast (Budding) Cancelled Urine Ascorbic Acid NEGATIVE Cancelled Maikel Human Metapneumo PCR Digoxin Adenovirus (PCR) B. pertussis DNA (PCR) B.parapertussis DNA PCR C. pneumoniae DNA (PCR) Coronavirus OC43 (PCR) Coronavirus HKU1 (PCR) Coronavirus 229E (PCR) Coronavirus NL63 (PCR) Influenza A (Rapid) Influenza A (RT-PCR) Influenza A (H1) PCR Influ A (H1N1/09) PCR Influenza A (H3) PCR Influenza Type A (PCR) Influenza B (Rapid) Influenza B (RT-PCR) Influenza Type B (PCR) M. pneumoniae (PCR) Parainfluenza 1 (PCR) Parainfluenza 2 (PCR) Parainfluenza 3 (PCR) Parainfluenza 4 (PCR) RSV (RT-PCR) RSV (PCR) Entero/Rhino (PCR) SARS-CoV-2 (PCR) SARS-CoV-2 Rap RNA(RT-PCR) Group A Strep Rapid 03/10/20 03/10/20 03/10/20 21:07 21:07 21:07 WBC RBC Hgb Hct MCV MCH MCHC RDW Plt Count Lymph % (Auto) [place] % (Auto) Eos % (Auto) Baso % (Auto) Absolute Neuts (auto) Absolute Lymphs (auto) Absolute Monos (auto) Absolute Eos (auto) Absolute Basos (auto) Seg Neutrophils % PT INR APTT Fibrinogen D-Dimer Carbonic Acid HCO3/H2CO3 Ratio ABG pH ABG pCO2 ABG pO2 ABG HCO3 ABG Total CO2 ABG O2 Saturation ABG Base Excess FiO2 Sodium Potassium Chloride Carbon Dioxide Anion Gap BUN Creatinine Est GFR ( Amer) Est GFR (MDRD) Non-Af Glucose Hemoglobin A1c % Calcium Magnesium Ferritin Total Bilirubin Direct Bilirubin Neonat Total Bilirubin Neonat Direct Bilirubin Neonat Indirect Bili AST ALT Alkaline Phosphatase Lactate Dehydrogenase Creatine Kinase CK-MB (CK-2) Troponin I C-Reactive Protein NT-Pro-B Natriuret Pep Total Protein Albumin Triglycerides Cholesterol LDL Cholesterol Direct VLDL Cholesterol HDL Cholesterol Free T4 Urine Color Urine Appearance Urine pH Ur Specific [place] Urine Protein Urine Glucose (UA) Urine Ketones Urine Blood Urine Nitrite Urine Nitrite (Reflex) Urine Bilirubin Urine Urobilinogen Ur Leukocyte Esterase Leukocyte Esterase Rfl Urine WBC (Auto) Urine RBC (Auto) U Hyaline Cast (Auto) Urine Bacteria (Auto) Urine Red Cell Clumps Urine WBC (Reflex) Urine WBC Clumps Squamous Epi Cells Auto U Non-Squamous Epis Auto Calcium Carbonate Cryst Calcium Phosphate Cryst Calcium Oxalate Cr Auto Leucine Crystals Cystine Crystals Uric Acid Cryst (Auto) Triple Phos Cryst (Auto) Tyrosine Crystals Amorphous Sediment Auto Cellular Casts Epithelial Casts (Auto) Fatty Casts Granular Casts (Auto) Waxy Casts (Auto) Broad Casts RBC Casts (Auto) WBC Casts (Auto) Urine Mucus (Auto) U Trichomonas (Auto) Ur Yeast w Hyphae Urine Yeast (Budding) Urine Ascorbic Acid Maikel Human Metapneumo PCR NOT DETECTED Digoxin Adenovirus (PCR) NOT DETECTED B. pertussis DNA (PCR) NOT DETECTED B.parapertussis DNA PCR NOT DETECTED C. pneumoniae DNA (PCR) NOT DETECTED Coronavirus OC43 (PCR) NOT DETECTED Coronavirus HKU1 (PCR) NOT DETECTED Coronavirus 229E (PCR) NOT DETECTED Coronavirus NL63 (PCR) NOT DETECTED Influenza A (Rapid) NEGATIVE Influenza A (RT-PCR) Influenza A (H1) PCR NOT DETECTED Influ A (H1N1/09) PCR NOT DETECTED Influenza A (H3) PCR NOT DETECTED Influenza Type A (PCR) NOT DETECTED Influenza B (Rapid) NEGATIVE Influenza B (RT-PCR) Influenza Type B (PCR) NOT DETECTED M. pneumoniae (PCR) NOT DETECTED Parainfluenza 1 (PCR) NOT DETECTED Parainfluenza 2 (PCR) NOT DETECTED Parainfluenza 3 (PCR) NOT DETECTED Parainfluenza 4 (PCR) NOT DETECTED RSV (RT-PCR) RSV (PCR) NOT DETECTED Entero/Rhino (PCR) NOT DETECTED SARS-CoV-2 (PCR) NOT DETECTED SARS-CoV-2 Rap RNA(RT-PCR) Group A Strep Rapid NEGATIVE 03/10/20 03/10/20 03/10/20 21:07 21:08 21:08 WBC RBC Hgb Hct MCV MCH MCHC RDW Plt Count Lymph % (Auto) [place] % (Auto) Eos % (Auto) Baso % (Auto) Absolute Neuts (auto) Absolute Lymphs (auto) Absolute Monos (auto) Absolute Eos (auto) Absolute Basos (auto) Seg Neutrophils % PT INR APTT Fibrinogen D-Dimer Carbonic Acid HCO3/H2CO3 Ratio ABG pH ABG pCO2 ABG pO2 ABG HCO3 ABG Total CO2 ABG O2 Saturation ABG Base Excess FiO2 Sodium Potassium Chloride Carbon Dioxide Anion Gap BUN Creatinine Est GFR ( Amer) Est GFR (MDRD) Non-Af Glucose Hemoglobin A1c % Calcium Magnesium 1.8 Ferritin 41.80 Total Bilirubin Direct Bilirubin Neonat Total Bilirubin Neonat Direct Bilirubin Neonat Indirect Bili AST ALT Alkaline Phosphatase Lactate Dehydrogenase 371 H Creatine Kinase CK-MB (CK-2) Troponin I 0.096 C-Reactive Protein 30.2 H NT-Pro-B Natriuret Pep Total Protein Albumin Triglycerides Cholesterol LDL Cholesterol Direct VLDL Cholesterol HDL Cholesterol Free T4 Urine Color Urine Appearance Urine pH Ur Specific [place] Urine Protein Urine Glucose (UA) Urine Ketones Urine Blood Urine Nitrite Urine Nitrite (Reflex) Urine Bilirubin Urine Urobilinogen Ur Leukocyte Esterase Leukocyte Esterase Rfl Urine WBC (Auto) Urine RBC (Auto) U Hyaline Cast (Auto) Urine Bacteria (Auto) Urine Red Cell Clumps Urine WBC (Reflex) Urine WBC Clumps Squamous Epi Cells Auto U Non-Squamous Epis Auto Calcium Carbonate Cryst Calcium Phosphate Cryst Calcium Oxalate Cr Auto Leucine Crystals Cystine Crystals Uric Acid Cryst (Auto) Triple Phos Cryst (Auto) Tyrosine Crystals Amorphous Sediment Auto Cellular Casts Epithelial Casts (Auto) Fatty Casts Granular Casts (Auto) Waxy Casts (Auto) Broad Casts RBC Casts (Auto) WBC Casts (Auto) Urine Mucus (Auto) U Trichomonas (Auto) Ur Yeast w Hyphae Urine Yeast (Budding) Urine Ascorbic Acid Maikel Human Metapneumo PCR Digoxin 0.41 L Adenovirus (PCR) B. pertussis DNA (PCR) B.parapertussis DNA PCR C. pneumoniae DNA (PCR) Coronavirus OC43 (PCR) Coronavirus HKU1 (PCR) Coronavirus 229E (PCR) Coronavirus NL63 (PCR) Influenza A (Rapid) Influenza A (RT-PCR) Cancelled Influenza A (H1) PCR Influ A (H1N1/09) PCR Influenza A (H3) PCR Influenza Type A (PCR) Influenza B (Rapid) Influenza B (RT-PCR) Cancelled Influenza Type B (PCR) M. pneumoniae (PCR) Parainfluenza 1 (PCR) Parainfluenza 2 (PCR) Parainfluenza 3 (PCR) Parainfluenza 4 (PCR) RSV (RT-PCR) Cancelled RSV (PCR) Entero/Rhino (PCR) SARS-CoV-2 (PCR) SARS-CoV-2 Rap RNA(RT-PCR) Cancelled Group A Strep Rapid 03/10/20 03/10/20 03/10/20 21:08 21:30 23:33 WBC 7.8 RBC 5.69 H Hgb 15.1 Hct 46.0 MCV 81 MCH 26.5 L MCHC 32.7 RDW 19.1 H Plt Count 229 Lymph % (Auto) [place] % (Auto) Eos % (Auto) Baso % (Auto) Absolute Neuts (auto) Absolute Lymphs (auto) Absolute Monos (auto) Absolute Eos (auto) Absolute Basos (auto) Seg Neutrophils % PT INR APTT Fibrinogen D-Dimer Carbonic Acid 1.25 HCO3/H2CO3 Ratio 25:1 ABG pH 7.50 H ABG pCO2 41.6 ABG pO2 83.6 ABG HCO3 31.6 H ABG Total CO2 32.8 H ABG O2 Saturation 97.0 ABG Base Excess 7.6 FiO2 21% Sodium Potassium Chloride Carbon Dioxide Anion Gap BUN Creatinine Est GFR ( Amer) Est GFR (MDRD) Non-Af Glucose Hemoglobin A1c % Calcium Magnesium Ferritin Total Bilirubin Direct Bilirubin Neonat Total Bilirubin Neonat Direct Bilirubin Neonat Indirect Bili AST ALT Alkaline Phosphatase Lactate Dehydrogenase Creatine Kinase CK-MB (CK-2) Troponin I C-Reactive Protein NT-Pro-B Natriuret Pep Total Protein Albumin Triglycerides Cholesterol LDL Cholesterol Direct VLDL Cholesterol HDL Cholesterol Free T4 1.13 Urine Color Urine Appearance Urine pH Ur Specific [place] Urine Protein Urine Glucose (UA) Urine Ketones Urine Blood Urine Nitrite Urine Nitrite (Reflex) Urine Bilirubin Urine Urobilinogen Ur Leukocyte Esterase Leukocyte Esterase Rfl Urine WBC (Auto) Urine RBC (Auto) U Hyaline Cast (Auto) Urine Bacteria (Auto) Urine Red Cell Clumps Urine WBC (Reflex) Urine WBC Clumps Squamous Epi Cells Auto U Non-Squamous Epis Auto Calcium Carbonate Cryst Calcium Phosphate Cryst Calcium Oxalate Cr Auto Leucine Crystals Cystine Crystals Uric Acid Cryst (Auto) Triple Phos Cryst (Auto) Tyrosine Crystals Amorphous Sediment Auto Cellular Casts Epithelial Casts (Auto) Fatty Casts Granular Casts (Auto) Waxy Casts (Auto) Broad Casts RBC Casts (Auto) WBC Casts (Auto) Urine Mucus (Auto) U Trichomonas (Auto) Ur Yeast w Hyphae Urine Yeast (Budding) Urine Ascorbic Acid Maikel Human Metapneumo PCR Digoxin Adenovirus (PCR) B. pertussis DNA (PCR) B.parapertussis DNA PCR C. pneumoniae DNA (PCR) Coronavirus OC43 (PCR) Coronavirus HKU1 (PCR) Coronavirus 229E (PCR) Coronavirus NL63 (PCR) Influenza A (Rapid) Influenza A (RT-PCR) Influenza A (H1) PCR Influ A (H1N1/09) PCR Influenza A (H3) PCR Influenza Type A (PCR) Influenza B (Rapid) Influenza B (RT-PCR) Influenza Type B (PCR) M. pneumoniae (PCR) Parainfluenza 1 (PCR) Parainfluenza 2 (PCR) Parainfluenza 3 (PCR) Parainfluenza 4 (PCR) RSV (RT-PCR) RSV (PCR) Entero/Rhino (PCR) SARS-CoV-2 (PCR) SARS-CoV-2 Rap RNA(RT-PCR) Group A Strep Rapid 03/11/20 03/11/20 03/11/20 06:41 07:05 07:05 WBC 7.6 RBC 5.86 H Hgb 15.2 Hct 47.7 MCV 82 MCH 25.9 L MCHC 31.8 L RDW 19.0 H Plt Count 236 Lymph % (Auto) 15.0 [place] % (Auto) 10.5 Eos % (Auto) 2.4 Baso % (Auto) 1.0 Absolute Neuts (auto) 5.4 Absolute Lymphs (auto) 1.1 Absolute Monos (auto) 0.8 Absolute Eos (auto) 0.2 Absolute Basos (auto) 0.1 Seg Neutrophils % 71.1 PT 16.4 H INR 1.30 APTT Fibrinogen D-Dimer Carbonic Acid HCO3/H2CO3 Ratio ABG pH ABG pCO2 ABG pO2 ABG HCO3 ABG Total CO2 ABG O2 Saturation ABG Base Excess FiO2 Sodium 132.6 L Potassium 4.2 Chloride 87 L Carbon Dioxide 38 H Anion Gap 8 BUN 46 H Creatinine 1.43 H Est GFR ( Amer) > 60 Est GFR (MDRD) Non-Af 49 L Glucose 146 H Hemoglobin A1c % Calcium 9.4 Magnesium Ferritin Total Bilirubin 2.3 H Direct Bilirubin 0.9 H Neonat Total Bilirubin Not Reportable Neonat Direct Bilirubin Not Reportable Neonat Indirect Bili Not Reportable AST 46 ALT 20 Alkaline Phosphatase 119 Lactate Dehydrogenase Creatine Kinase 142 CK-MB (CK-2) Troponin I C-Reactive Protein NT-Pro-B Natriuret Pep Total Protein 7.0 Albumin 3.3 L Triglycerides 106 Cholesterol 139.09 LDL Cholesterol Direct 81 VLDL Cholesterol 21.0 HDL Cholesterol 50 Free T4 Urine Color Urine Appearance Urine pH Ur Specific [place] Urine Protein Urine Glucose (UA) Urine Ketones Urine Blood Urine Nitrite Urine Nitrite (Reflex) Urine Bilirubin Urine Urobilinogen Ur Leukocyte Esterase Leukocyte Esterase Rfl Urine WBC (Auto) Urine RBC (Auto) U Hyaline Cast (Auto) Urine Bacteria (Auto) Urine Red Cell Clumps Urine WBC (Reflex) Urine WBC Clumps Squamous Epi Cells Auto U Non-Squamous Epis Auto Calcium Carbonate Cryst Calcium Phosphate Cryst Calcium Oxalate Cr Auto Leucine Crystals Cystine Crystals Uric Acid Cryst (Auto) Triple Phos Cryst (Auto) Tyrosine Crystals Amorphous Sediment Auto Cellular Casts Epithelial Casts (Auto) Fatty Casts Granular Casts (Auto) Waxy Casts (Auto) Broad Casts RBC Casts (Auto) WBC Casts (Auto) Urine Mucus (Auto) U Trichomonas (Auto) Ur Yeast w Hyphae Urine Yeast (Budding) Urine Ascorbic Acid Maikel Human Metapneumo PCR Digoxin Adenovirus (PCR) B. pertussis DNA (PCR) B.parapertussis DNA PCR C. pneumoniae DNA (PCR) Coronavirus OC43 (PCR) Coronavirus HKU1 (PCR) Coronavirus 229E (PCR) Coronavirus NL63 (PCR) Influenza A (Rapid) Influenza A (RT-PCR) Influenza A (H1) PCR Influ A (H1N1/09) PCR Influenza A (H3) PCR Influenza Type A (PCR) Influenza B (Rapid) Influenza B (RT-PCR) Influenza Type B (PCR) M. pneumoniae (PCR) Parainfluenza 1 (PCR) Parainfluenza 2 (PCR) Parainfluenza 3 (PCR) Parainfluenza 4 (PCR) RSV (RT-PCR) RSV (PCR) Entero/Rhino (PCR) SARS-CoV-2 (PCR) SARS-CoV-2 Rap RNA(RT-PCR) Group A Strep Rapid 03/11/20 07:05 WBC RBC Hgb Hct MCV MCH MCHC RDW Plt Count Lymph % (Auto) [place] % (Auto) Eos % (Auto) Baso % (Auto) Absolute Neuts (auto) Absolute Lymphs (auto) Absolute Monos (auto) Absolute Eos (auto) Absolute Basos (auto) Seg Neutrophils % PT INR APTT Fibrinogen D-Dimer Carbonic Acid HCO3/H2CO3 Ratio ABG pH ABG pCO2 ABG pO2 ABG HCO3 ABG Total CO2 ABG O2 Saturation ABG Base Excess FiO2 Sodium Potassium Chloride Carbon Dioxide Anion Gap BUN Creatinine Est GFR ( Amer) Est GFR (MDRD) Non-Af Glucose Hemoglobin A1c % 10.8 H Calcium Magnesium Ferritin Total Bilirubin Direct Bilirubin Neonat Total Bilirubin Neonat Direct Bilirubin Neonat Indirect Bili AST ALT Alkaline Phosphatase Lactate Dehydrogenase Creatine Kinase CK-MB (CK-2) Troponin I C-Reactive Protein NT-Pro-B Natriuret Pep Total Protein Albumin Triglycerides Cholesterol LDL Cholesterol Direct VLDL Cholesterol HDL Cholesterol Free T4 Urine Color Urine Appearance Urine pH Ur Specific [place] Urine Protein Urine Glucose (UA) Urine Ketones Urine Blood Urine Nitrite Urine Nitrite (Reflex) Urine Bilirubin Urine Urobilinogen Ur Leukocyte Esterase Leukocyte Esterase Rfl Urine WBC (Auto) Urine RBC (Auto) U Hyaline Cast (Auto) Urine Bacteria (Auto) Urine Red Cell Clumps Urine WBC (Reflex) Urine WBC Clumps Squamous Epi Cells Auto U Non-Squamous Epis Auto Calcium Carbonate Cryst Calcium Phosphate Cryst Calcium Oxalate Cr Auto Leucine Crystals Cystine Crystals Uric Acid Cryst (Auto) Triple Phos Cryst (Auto) Tyrosine Crystals Amorphous Sediment Auto Cellular Casts Epithelial Casts (Auto) Fatty Casts Granular Casts (Auto) Waxy Casts (Auto) Broad Casts RBC Casts (Auto) WBC Casts (Auto) Urine Mucus (Auto) U Trichomonas (Auto) Ur Yeast w Hyphae Urine Yeast (Budding) Urine Ascorbic Acid Maikel Human Metapneumo PCR Digoxin Adenovirus (PCR) B. pertussis DNA (PCR) B.parapertussis DNA PCR C. pneumoniae DNA (PCR) Coronavirus OC43 (PCR) Coronavirus HKU1 (PCR) Coronavirus 229E (PCR) Coronavirus NL63 (PCR) Influenza A (Rapid) Influenza A (RT-PCR) Influenza A (H1) PCR Influ A (H1N1/09) PCR Influenza A (H3) PCR Influenza Type A (PCR) Influenza B (Rapid) Influenza B (RT-PCR) Influenza Type B (PCR) M. pneumoniae (PCR) Parainfluenza 1 (PCR) Parainfluenza 2 (PCR) Parainfluenza 3 (PCR) Parainfluenza 4 (PCR) RSV (RT-PCR) RSV (PCR) Entero/Rhino (PCR) SARS-CoV-2 (PCR) SARS-CoV-2 Rap RNA(RT-PCR) Group A Strep Rapid Chest X-Ray 03/10/20 15:30 IMPRESSION: Cardiomegaly without a superimposed acute cardiopulmonary process. Chest/Abdomen CTA 03/10/20 17:09 IMPRESSION: 1. Nondiagnostic CT pulmonary angiogram because of IV infiltration. This is an unenhanced CT scan of the chest. 2. Small pleural effusions with nonspecific patchy perihilar and infrahilar volume loss. 3. Diffuse enlargement the cardiac silhouette. Atherosclerotic coronary artery disease. IMPRESSION/RECOMMENDATION: 1. Acute on chronic hypoxic respiratory failure. Seems to be improved continue current treatment. 2. Chronic systolic heart failure: At present compensated. No evidence of acute CHF. 3. History of asthma/COPD: Continue anti-COPD medication. Acute exacerbation seems to have improved. 4. Ischemic and dilated cardiomyopathy with severely reduced LV ejection fraction. Continue Entresto would recommend adding metoprolol. Will discuss with Dr. Torres prior to starting this 5. Coronary artery disease: History of prior PR. No anginal symptoms. 6. 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 We will continue antidiabetic treatment with insulin and Accu-Cheks as per protocol. 7. Chronic kidney disease stage III: Avoid nephrotoxic drugs. In view of the patient's chronic kidney disease we will decrease the patient's Lovenox as per renal dosing. 8 Paroxysmal atrial fibrillation: At present in sinus rhythm. Continue Coumadin and Lovenox. Would lower the dose of Lovenox. 9 History of AICD placement. No firing of AICD. Medications reviewed. We will add beta-kaylin after discussing with Dr. Torres. Medical regimen management plan will be discussed with Dr. Torres. Medical decision making is of high complexity. 60 minutes spent as patient more than 50% time spent direct patient care. Will follow. 8.
--- NOTE | 2020-03-11 22:19 | PDOC PROGRESS REPORT ---
Subjective Date:: 03/11/20 Subjective:: Patient seen by the bedside, he was admitted yesterday, he felt he may need of oxygen but his arterial blood gas on room air demonstrated adequate arterial oxygenation Reason For Visit: ACUTE SYSTOLIC HEART FAILURE Physical Exam Vital Signs: Temp Pulse Resp BP Pulse Ox 97.8 F 89 18 120/92 H 92 03/11/20 20:55 03/11/20 19:00 03/11/20 15:58 03/11/20 15:58 03/11/20 15:58 Intake & Output 03/10/20 03/11/20 03/12/20 06:59 06:59 06:59 Intake Total 0 1139 Output Total 0 Balance 0 1139 Weight 107.8 kg General appearance: PRESENT: no acute distress Eye exam: PRESENT: PERRLA Respiratory exam: PRESENT: crackles, rhonchi Cardiovascular exam: PRESENT: +S1, +S2 GI/Abdominal exam: PRESENT: soft Neurological exam: PRESENT: alert Results Laboratory Results: 03/11/20 07:05 03/11/20 07:05 03/10/20 03/10/20 03/10/20 21:08 21:08 23:33 WBC 7.8 RBC 5.69 H Hgb 15.1 Hct 46.0 MCV 81 MCH 26.5 L MCHC 32.7 RDW 19.1 H Plt Count 229 Seg Neutrophils % Sodium Potassium Chloride Carbon Dioxide Anion Gap BUN Creatinine Est GFR ( Amer) Glucose Calcium Ferritin 41.80 Total Bilirubin AST Alkaline Phosphatase Total Protein Albumin Triglycerides Cholesterol LDL Cholesterol Direct VLDL Cholesterol HDL Cholesterol Free T4 1.13 03/11/20 03/11/20 07:05 07:05 WBC 7.6 RBC 5.86 H Hgb 15.2 Hct 47.7 MCV 82 MCH 25.9 L MCHC 31.8 L RDW 19.0 H Plt Count 236 Seg Neutrophils % 71.1 Sodium 132.6 L Potassium 4.2 Chloride 87 L Carbon Dioxide 38 H Anion Gap 8 BUN 46 H Creatinine 1.43 H Est GFR ( Amer) > 60 Glucose 146 H Calcium 9.4 Ferritin Total Bilirubin 2.3 H AST 46 Alkaline Phosphatase 119 Total Protein 7.0 Albumin 3.3 L Triglycerides 106 Cholesterol 139.09 LDL Cholesterol Direct 81 VLDL Cholesterol 21.0 HDL Cholesterol 50 Free T4 03/10/20 03/10/20 03/10/20 17:00 17:00 21:08 Creatine Kinase 198 H CK-MB (CK-2) 6.84 H Troponin I 0.109 0.096 NT-Pro-B Natriuret Pep [id number] H 03/11/20 07:05 Creatine Kinase 142 CK-MB (CK-2) Troponin I NT-Pro-B Natriuret Pep Impressions: Chest X-Ray 03/10/20 15:30 IMPRESSION: Cardiomegaly without a superimposed acute cardiopulmonary process. Chest/Abdomen CTA 03/10/20 17:09 IMPRESSION: 1. Nondiagnostic CT pulmonary angiogram because of IV infiltration. This is an unenhanced CT scan of the chest. 2. Small pleural effusions with nonspecific patchy perihilar and infrahilar volume loss. 3. Diffuse enlargement the cardiac silhouette. Atherosclerotic coronary artery disease. Assessment & Plan - Diagnosis (1) Acute combined systolic and diastolic congestive heart failure Is this a current diagnosis for this admission?: Yes Plan: Continue present treatment (2) COPD (chronic obstructive pulmonary disease) Qualifiers: COPD type: unspecified COPD Qualified Code(s): J44.9 - Chronic obstructive pulmonary disease, unspecified Is this a current diagnosis for this admission?: Yes (3) Paroxysmal atrial fibrillation Is this a current diagnosis for this admission?: Yes Plan: Continue anticoagulation with Coumadin (4) Type 2 diabetes mellitus with diabetic polyneuropathy Qualifiers: Diabetes mellitus fpc insulin use: with termite treater use Qualified Code(s): E11.42 - Type 2 diabetes mellitus with diabetic polyneuropathy; Z79.4 - FDC (current) use of insulin Is this a current diagnosis for this admission?: Yes Plan: Continue treatment - Time Time Spent with patient: 25-34 minutes Level of Care: IMCU Medications reviewed and adjusted accordingly: Yes Anticipated discharge: Home Anticipated DC Timeframe: within 72 hours
[2020-03-12 07:02] LABS: PROTHROMBIN TIME 17.3 SEC (11.4-15.4)
[2020-03-12 07:05] LABS: HEMATOCRIT 46.3 % (37.9-51.0); MEAN CORPUSCULAR HEMOGLOBIN 26.4 pg (27.0-33.4); MEAN CORPUSCULAR HGB CONC 32.4 g/dL (32.0-36.0); MEAN CORPUSCULAR VOLUME 81 fl (80-97); PLATELET COUNT 236 10^3/uL (150-450); RED BLOOD COUNT 5.69 10^6/uL (4.35-5.55); WHITE BLOOD COUNT 8.1 10^3/uL (4.0-10.5)
[2020-03-12 07:27] LABS: ALBUMIN 2.6 g/dL (3.5-5.0); ALKALINE PHOSPHATASE 114 U/L (38-126); ANION GAP 9 (5-19); ASPARTATE AMINO TRANSFERASE 33 U/L (17-59); BILIRUBIN,DIRECT 0.8 mg/dL (0.0-0.4); BILIRUBIN,TOTAL 2.4 mg/dL (0.2-1.3); BLOOD UREA NITROGEN 38 mg/dL (7-20); CALCIUM 9.2 mg/dL (8.4-10.2); CARBON DIOXIDE 34 mmol/L (22-30); CHLORIDE 88 mmol/L (98-107); CREATINE KINASE 109 U/L (55-170); GLUCOSE 173 mg/dL (75-110); POTASSIUM 3.6 mmol/L (3.6-5.0)
[2020-03-12] MEDS: NYSTATIN 500000 UNIT/5 ML UDCUP PO SCH ×4 (09:54→22:37)
[2020-03-12] MEDS: SPIRONOLACTONE 25 MG TABLET PO SCH (09:54)
[2020-03-12] MEDS: FUROSEMIDE INJ/PF 40 MG/4 ML SDV IV SCH (09:57)
[2020-03-12] MEDS: FLUTICASONE/UMECLIDIN/VILANTER 100-62.5-25 MCG/DOSE IH SCH (09:59)
[2020-03-12] MEDS: SACUBITRIL/VALSARTAN 97 MG/103 MG TABLET PO SCH ×2 (10:10→17:19)
[2020-03-12 10:22] LABS: APPEARANCE,URINE CLEAR; BILIRUBIN,URINE NEGATIVE (NEGATIVE); COLOR,URINE YELLOW; GLUCOSE, URINE >=500 mg/dL (NEGATIVE); KETONES,URINE NEGATIVE (NEGATIVE); LEUKOCYTE ESTERASE,URINE NEGATIVE (NEGATIVE); NITRITE,URINE NEGATIVE (NEGATIVE); PROTEIN,URINE 100 mg/dL (NEGATIVE); URINE SPECIFIC GRAVITY 1.014
[2020-03-12] MEDS: TRAMADOL HCL 50 MG TABLET PO PRN (11:36)
--- NOTE | 2020-03-12 19:28 | Progress Note ---
Provider Note Provider Note: Cardiology PROGRESS NOTE by Dr. Erika Tadeo on 03/12/2020. SUBJECTIVE: The patient states he feels fine he denies any shortness of breath orthopnea PND. His legs are wrapped in bandages but he states that there is no edema. There is no chest pain or discomfort. There is no arrhythmias seen on the monitor. There is no firing of his AICD. PHYSICAL EXAMINATION: The patient is mildly obese in no acute distress. Selected Entries 03/12/20 11:25 Temperature 97.8 F Temperature Oral Source Pulse Rate 85 Respiratory 16 Rate Blood Pressure 132/76 H Blood Pressure 94 Mean BP Location Right Arm BP Position Supine O2 Sat by Pulse 92 Oximetry Oxygen Delivery Room Air Method HEAD: Is atraumatic. Normocephalic. EYES: Pupils are equal round regular reactive to light and accommodation. Extraocular movements are normal. There is no conjunctival pallor. There is no scleral icterus. EARS: Tympanic membranes are intact. External auditory canals are clear. NOSE: There is no deviated nasal septum. There is no inflammation of the nasal mucous membrane. MOUTH: Mucous membranes of mouth are moist. Tongue is moist. There is no ulcers. There is no bleeding from the gums. THROAT: There is no redness of the oropharynx. There is no exudates. SKIN: There is no skin rashes. There is no skin lesions. There is no petechia or ecchymosis. NECK: Is supple. There is no JVD. Carotids are equal there is no bruits. There is no lymphadenopathy. There is no accessory muscle respiration use. Trachea central. LUNGS: There is diminished air entry prolonged expiration with a few scattered rhonchi. There is hyperresonance on percussion. At present there is no rales of CHF. HEART: S1-S2 is heard. S1 is of normal intensity. There is no S3 gallop. There is no S4 gallop. There is systolic murmur left sternal border and the apex there is no rub. ABDOMEN: Is soft. Nontender. There is no hepatosplenomegaly. Bowel sounds are well heard. EXTREMITIES: Femorals are diminished. There is no femoral bruits. Leg pulses are diminished. There is trace pedal edema bilaterally. There is no DVT or cellulitis. There is no calf tenderness. There is no cyanosis or clubbing. BED BUG EXTERMINATOR: The patient is conscious awake alert oriented x3 with no focal deficits. PSYCHIATRIC:. Patient judgment insight are intact his affect is normal. Labs- All tests 24 hr 03/12/20 03/12/20 03/12/20 06:22 06:22 06:22 WBC 8.1 RBC 5.69 H Hgb 15.0 Hct 46.3 MCV 81 MCH 26.4 L MCHC 32.4 RDW 19.0 H Plt Count 236 PT 17.3 H INR 1.40 Sodium 130.8 L Potassium 3.6 Chloride 88 L Carbon Dioxide 34 H Anion Gap 9 BUN 38 H Creatinine 1.31 H Est GFR ( Amer) > 60 Est GFR (MDRD) Non-Af 55 L Glucose 173 H POC Glucose Calcium 9.2 Total Bilirubin 2.4 H Direct Bilirubin 0.8 H Neonat Total Bilirubin Not Reportable Neonat Direct Bilirubin Not Reportable Neonat Indirect Bili Not Reportable AST 33 ALT 17 Alkaline Phosphatase 114 Creatine Kinase 109 Total Protein 6.0 L Albumin 2.6 L Urine Color Urine Appearance Urine pH Ur Specific [place] Urine Protein Urine Glucose (UA) Urine Ketones Urine Blood Urine Nitrite Urine Bilirubin Urine Urobilinogen Ur Leukocyte Esterase Urine WBC (Auto) Urine RBC (Auto) Urine Bacteria (Auto) Squamous Epi Cells Auto Urine Ascorbic Acid 03/12/20 03/12/20 03/12/20 09:43 11:23 16:24 WBC RBC Hgb Hct MCV MCH MCHC RDW Plt Count PT INR Sodium Potassium Chloride Carbon Dioxide Anion Gap BUN Creatinine Est GFR ( Amer) Est GFR (MDRD) Non-Af Glucose POC Glucose 212 H 219 H Calcium Total Bilirubin Direct Bilirubin Neonat Total Bilirubin Neonat Direct Bilirubin Neonat Indirect Bili AST ALT Alkaline Phosphatase Creatine Kinase Total Protein Albumin Urine Color YELLOW Urine Appearance CLEAR Urine pH 8.0 Ur Specific [place] 1.014 Urine Protein 100 H Urine Glucose (UA) >=500 H Urine Ketones NEGATIVE Urine Blood NEGATIVE Urine Nitrite NEGATIVE Urine Bilirubin NEGATIVE Urine Urobilinogen 4.0 H Ur Leukocyte Esterase NEGATIVE Urine WBC (Auto) 0 Urine RBC (Auto) 1 Urine Bacteria (Auto) TRACE Squamous Epi Cells Auto <1 Urine Ascorbic Acid NEGATIVE Chest X-Ray 03/10/20 15:30 IMPRESSION: Cardiomegaly without a superimposed acute cardiopulmonary process. Chest/Abdomen CTA 03/10/20 17:09 IMPRESSION: 1. Nondiagnostic CT pulmonary angiogram because of IV infiltration. This is an unenhanced CT scan of the chest. 2. Small pleural effusions with nonspecific patchy perihilar and infrahilar volume loss. 3. Diffuse enlargement the cardiac silhouette. Atherosclerotic coronary artery disease. IMPRESSION/RECOMMENDATION: 1. Acute on chronic hypoxic respiratory failure. Seems to be improved continue current treatment. 2. Chronic systolic heart failure: At present compensated. No evidence of acute CHF. 3. History of asthma/COPD: Continue anti-COPD medication. Acute exacerbation seems to have improved. 4. Ischemic and dilated cardiomyopathy with severely reduced LV ejection fraction. Continue Entresto would recommend adding metoprolol. Discussed with Dr. Torres. The patient in the past was on a beta-kaylin. But the patient has been noncompliant as with his other medications. Hence we will restart the patient on Toprol-XL 25 mg p.o. twice daily. 5. Coronary artery disease: History of prior GA. No anginal symptoms. 6. 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 We will continue antidiabetic treatment with insulin and Accu-Cheks as per protocol. 7. Chronic kidney disease stage III: Avoid nephrotoxic drugs. 8 Paroxysmal atrial fibrillation: At present in sinus rhythm. Continue Coumadin . 9 History of AICD placement. No firing of AICD. Medications reviewed. Will add beta-kaylin as discussed with Dr. Torres. Medical regimen management plan will be discussed with Dr. Torres. Medical decision making is of high complexit due to starting new medications. . 40 minutes spent as patient more than 50% time spent direct patient care. Cardiac status is stable. We will sign off and follow the patient in the office.
--- NOTE | 2020-03-12 22:59 | PDOC PROGRESS REPORT ---
Subjective Date:: 03/12/20 Subjective:: Patient seen by the bedside, he does not qualify for home supplemental oxygen Reason For Visit: ACUTE SYSTOLIC HEART FAILURE Physical Exam Vital Signs: Temp Pulse Resp BP Pulse Ox 97.6 F 84 20 132/77 H 95 03/12/20 16:26 03/12/20 16:26 03/12/20 16:26 03/12/20 16:26 03/12/20 16:26 Intake & Output 03/11/20 03/12/20 03/13/20 06:59 06:59 06:59 Intake Total 0 1239 1392 Output Total 0 125 Balance 0 1239 1267 Weight 107.8 kg 93.7 kg 93.7 kg General appearance: PRESENT: no acute distress Eye exam: PRESENT: PERRLA Respiratory exam: PRESENT: clear to auscultation nik Cardiovascular exam: PRESENT: +S1, +S2 GI/Abdominal exam: PRESENT: soft Neurological exam: PRESENT: alert Results Laboratory Results: 03/12/20 06:22 03/12/20 06:22 03/12/20 03/12/20 03/12/20 06:22 06:22 09:43 WBC 8.1 RBC 5.69 H Hgb 15.0 Hct 46.3 MCV 81 MCH 26.4 L MCHC 32.4 RDW 19.0 H Plt Count 236 Sodium 130.8 L Potassium 3.6 Chloride 88 L Carbon Dioxide 34 H Anion Gap 9 BUN 38 H Creatinine 1.31 H Est GFR ( Amer) > 60 Glucose 173 H Calcium 9.2 Total Bilirubin 2.4 H AST 33 Alkaline Phosphatase 114 Total Protein 6.0 L Albumin 2.6 L Urine Color YELLOW Urine Appearance CLEAR Urine pH 8.0 Ur Specific [place] 1.014 Urine Protein 100 H Urine Glucose (UA) >=500 H Urine Ketones NEGATIVE Urine Blood NEGATIVE Urine Nitrite NEGATIVE Ur Leukocyte Esterase NEGATIVE Urine WBC (Auto) 0 Urine RBC (Auto) 1 03/10/20 21:07 Throat Throat Culture - Final NORMAL CIELO 03/10/20 17:00 Clean Catch Midstream Urine Culture - Final Proteus Mirabilis 03/10/20 03/10/20 03/10/20 17:00 17:00 21:08 Creatine Kinase 198 H CK-MB (CK-2) 6.84 H Troponin I 0.109 0.096 NT-Pro-B Natriuret Pep [id number] H 03/11/20 03/12/20 07:05 06:22 Creatine Kinase 142 109 CK-MB (CK-2) Troponin I NT-Pro-B Natriuret Pep Impressions: Chest X-Ray 03/10/20 15:30 IMPRESSION: Cardiomegaly without a superimposed acute cardiopulmonary process. Chest/Abdomen CTA 03/10/20 17:09 IMPRESSION: 1. Nondiagnostic CT pulmonary angiogram because of IV infiltration. This is an unenhanced CT scan of the chest. 2. Small pleural effusions with nonspecific patchy perihilar and infrahilar volume loss. 3. Diffuse enlargement the cardiac silhouette. Atherosclerotic coronary artery disease. Assessment & Plan - Diagnosis (1) Acute combined systolic and diastolic congestive heart failure Is this a current diagnosis for this admission?: Yes Plan: Continue present treatment (2) COPD (chronic obstructive pulmonary disease) Qualifiers: COPD type: unspecified COPD Qualified Code(s): J44.9 - Chronic obstructive pulmonary disease, unspecified Is this a current diagnosis for this admission?: Yes (3) Paroxysmal atrial fibrillation Is this a current diagnosis for this admission?: Yes Plan: Continue anticoagulation with Coumadin (4) Type 2 diabetes mellitus with diabetic polyneuropathy Qualifiers: Diabetes mellitus long term acute care registered nurse insulin use: with snf use Qualified Code(s): E11.42 - Type 2 diabetes mellitus with diabetic polyneuropathy; Z79.4 - manager terminal (current) use of insulin Is this a current diagnosis for this admission?: Yes Plan: Continue treatment - Time Time Spent with patient: 25-34 minutes Level of Care: IMCU Medications reviewed and adjusted accordingly: Yes Anticipated discharge: Home Anticipated DC Timeframe: within 72 hours
[2020-03-13 05:55] LABS: ABSOLUTE BASOPHILS # (AUTO) 0.1 10^3/uL (0.0-0.2); ABSOLUTE EOSINOPHILS # (AUTO) 0.1 10^3/uL (0.0-0.6); ABSOLUTE NEUT (AUTO) 5.1 10^3/uL (1.7-8.2); BASOPHILS % (AUTO) 1.2 % (0-2); EOSINOPHILS % (AUTO) 1.5 % (0-6); HEMATOCRIT 46.5 % (37.9-51.0); HEMOGLOBIN 15.1 g/dL (13.5-17.0); LYMPHOCYTES % (AUTO) 13.6 % (13-45); MEAN CORPUSCULAR HEMOGLOBIN 26.3 pg (27.0-33.4); MEAN CORPUSCULAR HGB CONC 32.4 g/dL (32.0-36.0); MEAN CORPUSCULAR VOLUME 81 fl (80-97); MONOCYTES % (AUTO) 13.6 % (3-13); PLATELET COUNT 247 10^3/uL (150-450); RED BLOOD COUNT 5.74 10^6/uL (4.35-5.55); RED CELL DISTRIBUTION WIDTH 19.3 % (11.5-14.0); SEGMENTED NEUTROPHILS % (AUTO) 70.1 % (42-78); TOTAL CELLS COUNTED % (AUTO) 100 %; WHITE BLOOD COUNT 7.3 10^3/uL (4.0-10.5)
[2020-03-13 06:26] LABS: ALBUMIN 2.9 g/dL (3.5-5.0); ALKALINE PHOSPHATASE 114 U/L (38-126); ANION GAP 7 (5-19); ASPARTATE AMINO TRANSFERASE 36 U/L (17-59); BILIRUBIN,DIRECT 0.7 mg/dL (0.0-0.4); BILIRUBIN,TOTAL 2.4 mg/dL (0.2-1.3); BLOOD UREA NITROGEN 31 mg/dL (7-20); CALCIUM 9.4 mg/dL (8.4-10.2); CARBON DIOXIDE 34 mmol/L (22-30); CHLORIDE 90 mmol/L (98-107); CREATINE KINASE 86 U/L (55-170); GLUCOSE 169 mg/dL (75-110); POTASSIUM 3.8 mmol/L (3.6-5.0); TOTAL PROTEIN 6.4 g/dL (6.3-8.2)
[2020-03-13 06:28] LABS: INTERNATIONAL RATION (INR) 1.22; PROTHROMBIN TIME 15.6 SEC (11.4-15.4)
[2020-03-13 06:36] LABS: APPEARANCE,URINE CLEAR; BILIRUBIN,URINE NEGATIVE (NEGATIVE); COLOR,URINE YELLOW; GLUCOSE, URINE >=500 mg/dL (NEGATIVE); KETONES,URINE NEGATIVE (NEGATIVE); LEUKOCYTE ESTERASE,URINE NEGATIVE (NEGATIVE); NITRITE,URINE NEGATIVE (NEGATIVE); PROTEIN,URINE 100 mg/dL (NEGATIVE); URINE SPECIFIC GRAVITY 1.011
[2020-03-13] MEDS ORDERED: DEXTROSE 50%-WATER SYRINGE 25 GM/50 ML DOSE IV PRN (09:00)
[2020-03-13] MEDS ORDERED: DEXTROSE 40% GEL 15 GM TUBE PO PRN ×3 (09:00→14:37)
[2020-03-13] MEDS ORDERED: GLUCAGON,HUMAN RECOMB 1 MG INJ IM PRN ×2 (09:00→14:37)
[2020-03-13] MEDS ORDERED: DEXTROSE 50%-WATER SYRINGE 12.5 GM/25 ML DOSE IV PRN (09:00)
[2020-03-13] MEDS ORDERED: DEXTROSE 40% GEL 15 GM TUBE X 2 PO PRN (09:00)
[2020-03-13] MEDS: FLUTICASONE/UMECLIDIN/VILANTER 100-62.5-25 MCG/DOSE IH SCH (10:00)
[2020-03-13] MEDS: FUROSEMIDE INJ/PF 40 MG/4 ML SDV IV SCH (11:32)
[2020-03-13] MEDS: SACUBITRIL/VALSARTAN 97 MG/103 MG TABLET PO SCH ×2 (11:33→17:11)
[2020-03-13] MEDS: NYSTATIN 500000 UNIT/5 ML UDCUP PO SCH ×4 (11:33→21:46)
[2020-03-13] MEDS: SPIRONOLACTONE 25 MG TABLET PO SCH (11:34)
[2020-03-13] MEDS: TRAMADOL HCL 50 MG TABLET PO PRN ×2 (11:57→19:46)
[2020-03-13] MEDS ORDERED: DEXTROSE 50%-WATER 25 GM/50 ML DISP.SYRIN IV PRN ×2 (14:37)
[2020-03-13] MEDS: INSULIN LISPRO 100 UNIT/ML 3 ML VIAL SUBCUT SCH ×2 (17:12→22:38)
[2020-03-13] MEDS ORDERED: MAGNESIUM SULFATE/D5W 1 GM/100 ML RTUPB IV ONE (18:09)
--- NOTE | 2020-03-13 18:16 | PDOC PROGRESS REPORT ---
Subjective Date:: 03/13/20 Subjective:: Patient seen by the bedside, he has severe ischemic cardiomyopathy with baseline shortness of breath, he does not qualify for home oxygen, able to maintain adequate oxygen saturation in ambient air even after exertion. Patient may have medication adherence problem, the medication reconciled by the pharmacist did not include Entresto or any beta-kaylin suggesting that he has not been consistently taking the medications that is needed to prevent recurrent inpatient care Reason For Visit: ACUTE SYSTOLIC HEART FAILURE Physical Exam Vital Signs: Temp Pulse Resp BP Pulse Ox 98.0 F 82 16 114/73 97 03/13/20 16:39 03/13/20 16:39 03/13/20 16:39 03/13/20 16:39 03/13/20 16:39 Intake & Output 03/12/20 03/13/20 03/14/20 06:59 06:59 06:59 Intake Total 1239 1814 818 Output Total 250 Balance 1239 1564 818 Weight 93.7 kg 91.2 kg 91.2 kg General appearance: PRESENT: no acute distress Eye exam: PRESENT: PERRLA Respiratory exam: PRESENT: clear to auscultation nik Cardiovascular exam: PRESENT: +S1, +S2 GI/Abdominal exam: PRESENT: soft Neurological exam: PRESENT: alert, CN II-XII grossly intact Results Laboratory Results: 03/13/20 05:10 03/13/20 05:10 03/13/20 03/13/20 03/13/20 05:10 05:10 05:10 WBC 7.3 RBC 5.74 H Hgb 15.1 Hct 46.5 MCV 81 MCH 26.3 L MCHC 32.4 RDW 19.3 H Plt Count 247 Seg Neutrophils % 70.1 Sodium 131.2 L Potassium 3.8 Chloride 90 L Carbon Dioxide 34 H Anion Gap 7 BUN 31 H Creatinine 1.13 Est GFR ( Amer) > 60 Glucose 169 H Calcium 9.4 Magnesium 1.5 L Total Bilirubin 2.4 H AST 36 Alkaline Phosphatase 114 Total Protein 6.4 Albumin 2.9 L Urine Color Urine Appearance Urine pH Ur Specific [place] Urine Protein Urine Glucose (UA) Urine Ketones Urine Blood Urine Nitrite Ur Leukocyte Esterase Urine WBC (Auto) Urine RBC (Auto) 03/13/20 05:54 WBC RBC Hgb Hct MCV MCH MCHC RDW Plt Count Seg Neutrophils % Sodium Potassium Chloride Carbon Dioxide Anion Gap BUN Creatinine Est GFR ( Amer) Glucose Calcium Magnesium Total Bilirubin AST Alkaline Phosphatase Total Protein Albumin Urine Color YELLOW Urine Appearance CLEAR Urine pH 8.0 Ur Specific [place] 1.011 Urine Protein 100 H Urine Glucose (UA) >=500 H Urine Ketones NEGATIVE Urine Blood NEGATIVE Urine Nitrite NEGATIVE Ur Leukocyte Esterase NEGATIVE Urine WBC (Auto) 1 Urine RBC (Auto) 1 03/10/20 03/10/20 03/10/20 17:00 17:00 21:08 Creatine Kinase 198 H CK-MB (CK-2) 6.84 H Troponin I 0.109 0.096 NT-Pro-B Natriuret Pep [id number] H 03/11/20 03/12/20 03/13/20 07:05 06:22 05:10 Creatine Kinase 142 109 86 CK-MB (CK-2) Troponin I NT-Pro-B Natriuret Pep Impressions: Chest X-Ray 03/10/20 15:30 IMPRESSION: Cardiomegaly without a superimposed acute cardiopulmonary process. Chest/Abdomen CTA 03/10/20 17:09 IMPRESSION: 1. Nondiagnostic CT pulmonary angiogram because of IV infiltration. This is an unenhanced CT scan of the chest. 2. Small pleural effusions with nonspecific patchy perihilar and infrahilar volume loss. 3. Diffuse enlargement the cardiac silhouette. Atherosclerotic coronary artery disease. Assessment & Plan - Diagnosis (1) Acute combined systolic and diastolic congestive heart failure Is this a current diagnosis for this admission?: Yes Plan: Continue present treatment (2) COPD (chronic obstructive pulmonary disease) Qualifiers: COPD type: unspecified COPD Qualified Code(s): J44.9 - Chronic obstructive pulmonary disease, unspecified Is this a current diagnosis for this admission?: Yes (3) Paroxysmal atrial fibrillation Is this a current diagnosis for this admission?: Yes Plan: Continue anticoagulation with Coumadin (4) Type 2 diabetes mellitus with diabetic polyneuropathy Qualifiers: Diabetes mellitus residential insulin use: with ad terminal makeup operator use Qualified Code(s): E11.42 - Type 2 diabetes mellitus with diabetic polyneuropathy; Z79.4 - assisted (current) use of insulin Is this a current diagnosis for this admission?: Yes Plan: Continue treatment - Time Time Spent with patient: 35 or more minutes Level of Care: IMCU Medications reviewed and adjusted accordingly: Yes Anticipated discharge: Home Anticipated DC Timeframe: within 24 hours - Inpatient Certification Based on my medical assessment, after consideration of the patient's comorbidities, presenting symptoms, or acuity I expect that the services needed warrant INPATIENT care.: Yes I certify that my determination is in accordance with my understanding of Medicare's requirements for reasonable and necessary INPATIENT services [42 CFR 412.3e].: Yes
[2020-03-13] MEDS ORDERED: METOPROLOL SUCCINATE 50 MG TAB.SR.24H PO ONE (18:45)
--- NOTE | 2020-03-13 20:47 | Progress Note ---
Provider Note Provider Note: CARDIOLOGY PROGRESS NOTE by Dr. Erika Bateman on 03/13/2020. OBJECTIVE: The patient denies any chest pain or discomfort. There is no shortness of breath. There is no PND orthopnea. There is no anginal symptoms. There is no recurrence of atrial fibrillation. There is no ventricular arrhythmias seen on the monitor. There is no firing of his AICD. There is no TIA CVA symptoms. There is no bleeding on Coumadin. His INR is still subtherapeutic. He complains of pain in the knee joints and back. Probably has arthritis. As per Dr. Torres the patient does not qualify for home oxygen. I have discussed at length with the patient and the patient's son the need for the patient to be very compliant with his medications. PHYSICAL EXAMINATION: The patient is moderately obese in no acute distress. Selected Entries 03/13/20 16:39 Temperature 98.0 F Temperature Oral Source Pulse Rate 82 Respiratory 16 Rate Blood Pressure 114/73 Blood Pressure 86 Mean BP Location Left Arm BP Position Supine O2 Sat by Pulse 97 Oximetry Oxygen Delivery Room Air Method HEAD: Is atraumatic. Normocephalic. EYES: Pupils are equal round regular reactive to light and accommodation. Extraocular movements are normal. There is no conjunctival pallor. There is no scleral icterus. EARS: Tympanic membranes are intact. External auditory canals are clear. NOSE: There is no deviated nasal septum. There is no inflammation of the nasal mucous membrane. MOUTH: Mucous membranes of mouth are moist. Tongue is moist. There is no ulcers. There is no bleeding from the gums. THROAT: There is no redness of the oropharynx. There is no exudates. SKIN: There is no skin rashes. There is no skin lesions. There is no petechia or ecchymosis. NECK: Is supple. There is no JVD. Carotids are equal there is no bruits. There is no lymphadenopathy. There is no accessory muscle respiration use. Trachea central. LUNGS: There is diminished air entry prolonged expiration with a few scattered rhonchi. There is hyperresonance on percussion. At present there is no rales of CHF. HEART: S1-S2 is heard. S1 is of normal intensity. There is no S3 gallop. There is no S4 gallop. There is systolic murmur left sternal border and the apex there is no rub. ABDOMEN: Is soft. Nontender. There is no hepatosplenomegaly. Bowel sounds are well heard. EXTREMITIES: Femorals are diminished. There is no femoral bruits. Leg pulses are diminished. There is trace pedal edema bilaterally. There is no DVT or cellulitis. There is no calf tenderness. There is no cyanosis or clubbing. 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 PSYCHIATRIC:. Patient judgment insight are intact his affect is normal. Labs- All tests 24 hr 03/12/20 03/13/20 03/13/20 21:28 05:10 05:10 WBC 7.3 RBC 5.74 H Hgb 15.1 Hct 46.5 MCV 81 MCH 26.3 L MCHC 32.4 RDW 19.3 H Plt Count 247 Lymph % (Auto) 13.6 Jewell % (Auto) 13.6 H Eos % (Auto) 1.5 Baso % (Auto) 1.2 Absolute Neuts (auto) 5.1 Absolute Lymphs (auto) 1.0 Absolute Monos (auto) 1.0 Absolute Eos (auto) 0.1 Absolute Basos (auto) 0.1 Seg Neutrophils % 70.1 PT 15.6 H INR 1.22 Sodium Potassium Chloride Carbon Dioxide Anion Gap BUN Creatinine Est GFR ( Amer) Est GFR (MDRD) Non-Af Glucose POC Glucose 204 H Calcium Magnesium Total Bilirubin Direct Bilirubin Neonat Total Bilirubin Neonat Direct Bilirubin Neonat Indirect Bili AST ALT Alkaline Phosphatase Creatine Kinase Total Protein Albumin Urine Color Urine Appearance Urine pH Ur Specific [place] Urine Protein Urine Glucose (UA) Urine Ketones Urine Blood Urine Nitrite Urine Bilirubin Urine Urobilinogen Ur Leukocyte Esterase Urine WBC (Auto) Urine RBC (Auto) Squamous Epi Cells Auto Urine Ascorbic Acid 03/13/20 03/13/20 03/13/20 05:10 05:10 05:54 WBC RBC Hgb Hct MCV MCH MCHC RDW Plt Count Lymph % (Auto) Jewell % (Auto) Eos % (Auto) Baso % (Auto) Absolute Neuts (auto) Absolute Lymphs (auto) Absolute Monos (auto) Absolute Eos (auto) Absolute Basos (auto) Seg Neutrophils % PT INR Sodium 131.2 L Potassium 3.8 Chloride 90 L Carbon Dioxide 34 H Anion Gap 7 BUN 31 H Creatinine 1.13 Est GFR ( Amer) > 60 Est GFR (MDRD) Non-Af > 60 Glucose 169 H POC Glucose Calcium 9.4 Magnesium 1.5 L Total Bilirubin 2.4 H Direct Bilirubin 0.7 H Neonat Total Bilirubin Not Reportable Neonat Direct Bilirubin Not Reportable Neonat Indirect Bili Not Reportable AST 36 ALT 18 Alkaline Phosphatase 114 Creatine Kinase 86 Total Protein 6.4 Albumin 2.9 L Urine Color YELLOW Urine Appearance CLEAR Urine pH 8.0 Ur Specific [place] 1.011 Urine Protein 100 H Urine Glucose (UA) >=500 H Urine Ketones NEGATIVE Urine Blood NEGATIVE Urine Nitrite NEGATIVE Urine Bilirubin NEGATIVE Urine Urobilinogen 4.0 H Ur Leukocyte Esterase NEGATIVE Urine WBC (Auto) 1 Urine RBC (Auto) 1 Squamous Epi Cells Auto <1 Urine Ascorbic Acid NEGATIVE 03/13/20 03/13/20 03/13/20 07:28 11:13 16:37 WBC RBC Hgb Hct MCV MCH MCHC RDW Plt Count Lymph % (Auto) Jewell % (Auto) Eos % (Auto) Baso % (Auto) Absolute Neuts (auto) Absolute Lymphs (auto) Absolute Monos (auto) Absolute Eos (auto) Absolute Basos (auto) Seg Neutrophils % PT INR Sodium Potassium Chloride Carbon Dioxide Anion Gap BUN Creatinine Est GFR ( Amer) Est GFR (MDRD) Non-Af Glucose POC Glucose 177 H 265 H 272 H Calcium Magnesium Total Bilirubin Direct Bilirubin Neonat Total Bilirubin Neonat Direct Bilirubin Neonat Indirect Bili AST ALT Alkaline Phosphatase Creatine Kinase Total Protein Albumin Urine Color Urine Appearance Urine pH Ur Specific [place] Urine Protein Urine Glucose (UA) Urine Ketones Urine Blood Urine Nitrite Urine Bilirubin Urine Urobilinogen Ur Leukocyte Esterase Urine WBC (Auto) Urine RBC (Auto) Squamous Epi Cells Auto Urine Ascorbic Acid Chest X-Ray 03/10/20 15:30 IMPRESSION: Cardiomegaly without a superimposed acute cardiopulmonary process. Chest/Abdomen CTA 03/10/20 17:09 IMPRESSION: 1. Nondiagnostic CT pulmonary angiogram because of IV infiltration. This is an unenhanced CT scan of the chest. 2. Small pleural effusions with nonspecific patchy perihilar and infrahilar volume loss. 3. Diffuse enlargement the cardiac silhouette. Atherosclerotic coronary artery disease. IMPRESSION/RECOMMENDATION: 1. Acute on chronic hypoxic respiratory failure. Seems to be improved continue current treatment. 2. Chronic systolic heart failure: At present compensated. No evidence of acute CHF. 3. History of asthma/COPD: Continue anti-COPD medication. Acute exacerbation seems to have improved. 4. Ischemic and dilated cardiomyopathy with severely reduced LV ejection fraction. Continue Entresto would recommend adding metoprolol. Discussed with Dr. Torres. The patient in the past was on a beta-kaylin. But the patient has been noncompliant as with his other medications. Hence we will restart the patient on Toprol-XL 25 mg p.o. twice daily. 5. Coronary artery disease: History of prior AK. No anginal symptoms. 6. 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 We will continue antidiabetic treatment with insulin and Accu-Cheks as per protocol. 7. Chronic kidney disease stage III: Avoid nephrotoxic drugs. In view of the patient's chronic kidney disease we will decrease the patient's Lovenox as per renal dosing. 8 Paroxysmal atrial fibrillation: At present in sinus rhythm. Continue Coumadin. 9 History of AICD placement. No firing of AICD. Medications reviewed. Will add beta-kaylin as discussed with Dr. Torres. Medical regimen management plan will be discussed with Dr. Torres. Medical decision making is of moderate complexity due to starting new medications. . 40 minutes spent as patient more than 50% time spent direct patient care. Cardiac status is stable. We will sign off. Will follow the patient in the office. Discussed with patient and son. Discussed with Dr. Torres..
[2020-03-13] MEDS ORDERED: WARFARIN SODIUM 7.5 MG TABLET PO SCH (22:00)
[2020-03-13 23:21] LABS: HEMATOCRIT 45.3 % (37.9-51.0); HEMOGLOBIN 14.6 g/dL (13.5-17.0); MEAN CORPUSCULAR HEMOGLOBIN 26.1 pg (27.0-33.4); MEAN CORPUSCULAR HGB CONC 32.4 g/dL (32.0-36.0); MEAN CORPUSCULAR VOLUME 81 fl (80-97); PLATELET COUNT 277 10^3/uL (150-450); RED CELL DISTRIBUTION WIDTH 18.5 % (11.5-14.0); WHITE BLOOD COUNT 7.7 10^3/uL (4.0-10.5)
[2020-03-14 07:21] LABS: ABSOLUTE BASOPHILS # (AUTO) 0.1 10^3/uL (0.0-0.2); ABSOLUTE EOSINOPHILS # (AUTO) 0.2 10^3/uL (0.0-0.6); ABSOLUTE LYMPHOCYTES (AUTO) 1.4 10^3/uL (0.5-4.7); ABSOLUTE NEUT (AUTO) 4.9 10^3/uL (1.7-8.2); EOSINOPHILS % (AUTO) 2.1 % (0-6); HEMATOCRIT 48.7 % (37.9-51.0); LYMPHOCYTES % (AUTO) 18.4 % (13-45); MEAN CORPUSCULAR HEMOGLOBIN 26.6 pg (27.0-33.4); MEAN CORPUSCULAR HGB CONC 32.8 g/dL (32.0-36.0); MEAN CORPUSCULAR VOLUME 81 fl (80-97); MONOCYTES % (AUTO) 13.3 % (3-13); PLATELET COUNT 241 10^3/uL (150-450); RED CELL DISTRIBUTION WIDTH 19.2 % (11.5-14.0); SEGMENTED NEUTROPHILS % (AUTO) 65.2 % (42-78); TOTAL CELLS COUNTED % (AUTO) 100 %; WHITE BLOOD COUNT 7.5 10^3/uL (4.0-10.5)
[2020-03-14 07:30] LABS: INTERNATIONAL RATION (INR) 1.15; PROTHROMBIN TIME 14.9 SEC (11.4-15.4)
[2020-03-14 07:46] LABS: ALBUMIN 3.3 g/dL (3.5-5.0); ALKALINE PHOSPHATASE 114 U/L (38-126); ANION GAP 10 (5-19); ASPARTATE AMINO TRANSFERASE 43 U/L (17-59); BILIRUBIN,DIRECT 0.6 mg/dL (0.0-0.4); BILIRUBIN,TOTAL 1.8 mg/dL (0.2-1.3); BLOOD UREA NITROGEN 29 mg/dL (7-20); CALCIUM 9.3 mg/dL (8.4-10.2); CARBON DIOXIDE 29 mmol/L (22-30); CHLORIDE 92 mmol/L (98-107); CREATINE KINASE 85 U/L (55-170); GLUCOSE 199 mg/dL (75-110); POTASSIUM 4.9 mmol/L (3.6-5.0); TOTAL PROTEIN 7.2 g/dL (6.3-8.2)
[2020-03-14] MEDS: INSULIN LISPRO 100 UNIT/ML 3 ML VIAL SUBCUT SCH ×2 (08:01→12:24)
[2020-03-14] MEDS ORDERED: METOPROLOL SUCCINATE 50 MG TAB.SR.24H PO SCH (10:00)
[2020-03-14] MEDS: NYSTATIN 500000 UNIT/5 ML UDCUP PO SCH ×2 (10:56→13:27)
[2020-03-14] MEDS: FLUTICASONE/UMECLIDIN/VILANTER 100-62.5-25 MCG/DOSE IH SCH (10:56)
[2020-03-14] MEDS: FUROSEMIDE INJ/PF 40 MG/4 ML SDV IV SCH (10:56)
[2020-03-14] MEDS: SPIRONOLACTONE 25 MG TABLET PO SCH (10:57)
[2020-03-14] MEDS: SACUBITRIL/VALSARTAN 97 MG/103 MG TABLET PO SCH (10:57)
[2020-03-14] MEDS: TRAMADOL HCL 50 MG TABLET PO PRN (13:28)
[2020-03-14 15:08] VITALS: BP 143/92
--- NOTE | 2020-03-14 16:45 | PDOC DISCHARGE SUMMARY ---
Impression - Admit/DC Date/PCP Admission Date/Primary Care Provider: 03/10/20 18:32 LIANE LEIGH MD Discharge Date: 03/14/20 - Discharge Diagnosis (1) Acute combined systolic and diastolic congestive heart failure Is this a current diagnosis for this admission?: Yes (2) COPD (chronic obstructive pulmonary disease) Is this a current diagnosis for this admission?: Yes (3) Paroxysmal atrial fibrillation Is this a current diagnosis for this admission?: Yes (4) Type 2 diabetes mellitus with diabetic polyneuropathy Is this a current diagnosis for this admission?: Yes (5) Metabolic alkalosis Is this a current diagnosis for this admission?: Yes - Additional Information Discharge Diet: Cardiac, Diabetic Discharge Activity: Activity As Tolerated, Balance Activity w/Rest, Weigh Daily Referrals: ROSEMARIE LAZO MD [ACTIVE STAFF] - 03/22/20 LIANE LEIGH MD [Primary Care Provider] - 03/23/20 1:30 pm Prescriptions: Sacubitril/Valsartan [Entresto 97 mg/103 mg Tablet] 1 tab PO BID #180 tablet Dapagliflozin Propanediol [Farxiga] 10 mg PO DAILY #90 tablet Metoprolol Succinate [Toprol Xl 50 mg Tab.sr] 50 mg PO DAILY #90 tab.sr.24h Home Medications: Albuterol Sulfate [Albuterol Sulfate Hfa] 2 puff IH Q6HP PRN 06/18/19 Fluticasone/Umeclidin/Vilanter [Trelegy 100-62.5-25 Mcg Ellipta 14 Dose/Dpi] 1 puff IH DAILY 02/10/20 Tramadol HCl [Ultram 50 mg Tablet] 50 mg PO BIDP PRN 02/10/20 Spironolactone [Aldactone 25 mg Tablet] 25 mg PO DAILY #90 02/16/20 Warfarin Sodium [Jantoven 5 mg Tablet] 7.5 mg PO QHS #30 02/16/20 Insulin Aspart [Novolog] 5 unit SQ TID 03/10/20 Insulin Degludec [Tresiba] 40 unit SQ DAILY 03/10/20 Nystatin [Mycostatin 519393 Unit/1 ml Susp 60 ml Btl] 4 ml PO QID 03/10/20 Dapagliflozin Propanediol [Farxiga] 10 mg PO DAILY #90 tablet 03/14/20 Metoprolol Succinate [Toprol Xl 50 mg Tab.sr] 50 mg PO DAILY #90 tab.sr.24h 03/14/20 Sacubitril/Valsartan [Entresto 97 mg/103 mg Tablet] 1 tab PO BID #180 tablet 03/14/20 History of Present Illiness History of Present Illness: KENIA MCALLISTER is a 64 year old male, He has a history of chronic combined systolic and diastolic heart failure, COPD, paroxysmal atrial fibrillation he came to the emergency room for evaluation of shortness of breath. This was the second ED visit in 2 days, he said when he woke up he felt short of breath when he used his nebulizer and inhaler he had no relief. Apparently patient was brought to emergency room by his son. He was recently admitted in this hospital on February 10, 2020, he was discharged on February 16, 2020, he is well optimized on medical therapy, device therapy, he has AICD/pacemaker placement.Part of patient problem could be medication compliance he was supposed to be on Entresto but the medication that was reconciled by the pharmacist Entresto was not listed. The arterial blood gas on room air, pH 7.5 PCO2 41.6 PO2 83.6 bicarbonate 31This is consistent with metabolic alkalosis probably due to overdiuresis Hospital Course Hospital Course: He has chronic systolic and diastolic heart failure, chronic obstructive lung disease, noncompliance with medication, he came to the emergency room for evaluation of shortness of breath, this was the second ED visit, the emergency room physician felt patient needed inpatient care. He was in CHF, patient thought he needed home oxygen but the oxygen saturation in ambient air was more than 90% even after exercise in the hospital the oxygen saturation was still adequate so it does not meet the criteria for outpatient oxygen. Part of the patient's problem is medication adherence. He was supposed to be on Farxiga, Entresto, metoprolol but the medication that was reconciled by the pharmacist did not include the above listed medication that is essential to prevent recurrent hospitalization.He was treated with IV Lasix, he was started back on Entresto and metoprolol, he was seen in consultation by the university registrar Dr. Sarabia. Physical Exam Vital Signs: Temp Pulse Resp BP Pulse Ox 98.0 F 69 18 143/92 H 96 03/14/20 15:02 03/14/20 15:02 03/14/20 15:02 03/14/20 15:02 03/14/20 15:02 Intake & Output 03/13/20 03/14/20 03/15/20 06:59 06:59 06:59 Intake Total 1814 1058 Output Total 250 Balance 1564 1058 Weight 91.2 kg 91.2 kg General appearance: PRESENT: no acute distress Eye exam: PRESENT: PERRLA Respiratory exam: PRESENT: clear to auscultation nik Cardiovascular exam: PRESENT: +S1, +S2 GI/Abdominal exam: PRESENT: soft Neurological exam: PRESENT: alert Results Laboratory Results: WBC 7.5 10^3/uL (4.0-10.5) 03/14/20 06:25 RBC 6.00 10^6/uL (4.35-5.55) H 03/14/20 06:25 Hgb 16.0 g/dL (13.5-17.0) 03/14/20 06:25 Hct 48.7 % (37.9-51.0) 03/14/20 06:25 MCV 81 fl (80-97) 03/14/20 06:25 MCH 26.6 pg (27.0-33.4) L 03/14/20 06:25 MCHC 32.8 g/dL (32.0-36.0) 03/14/20 06:25 RDW 19.2 % (11.5-14.0) H 03/14/20 06:25 Plt Count 241 10^3/uL (150-450) 03/14/20 06:25 Lymph % (Auto) 18.4 % (13-45) 03/14/20 06:25 [place] % (Auto) 13.3 % (3-13) H 03/14/20 06:25 Eos % (Auto) 2.1 % (0-6) 03/14/20 06:25 Baso % (Auto) 1.0 % (0-2) 03/14/20 06:25 Absolute Neuts (auto) 4.9 10^3/uL (1.7-8.2) 03/14/20 06:25 Absolute Lymphs (auto) 1.4 10^3/uL (0.5-4.7) 03/14/20 06:25 Absolute Monos (auto) 1.0 10^3/uL (0.1-1.4) 03/14/20 06:25 Absolute Eos (auto) 0.2 10^3/uL (0.0-0.6) 03/14/20 06:25 Absolute Basos (auto) 0.1 10^3/uL (0.0-0.2) 03/14/20 06:25 Seg Neutrophils % 65.2 % (42-78) 03/14/20 06:25 PT 14.9 SEC (11.4-15.4) 03/14/20 06:25 INR 1.15 03/14/20 06:25 APTT 32.3 SEC (23.5-35.8) 03/10/20 17:00 Fibrinogen 388 mg/dL (209-497) 03/10/20 17:00 D-Dimer 1.77 ug/mL (0.00-0.50) H 03/10/20 17:00 Carbonic Acid 1.25 mmol/L (1.05-1.35) 03/10/20 21:30 HCO3/H2CO3 Ratio 25:1 03/10/20 21:30 ABG pH 7.50 (7.35-7.45) H 03/10/20 21:30 ABG pCO2 41.6 mmHg (35-45) 03/10/20 21:30 ABG pO2 83.6 mmHg (80-100) 03/10/20 21:30 ABG HCO3 31.6 mmol/L (20-24) H 03/10/20 21:30 ABG Total CO2 32.8 mmol/L (23-27) H 03/10/20 21:30 ABG O2 Saturation 97.0 % (94-98) 03/10/20 21:30 ABG Base Excess 7.6 mmol/L 03/10/20 21:30 FiO2 21% 03/10/20 21:30 Sodium 130.5 mmol/L (137-145) L 03/14/20 06:25 Potassium 4.9 mmol/L (3.6-5.0) 03/14/20 06:25 Chloride 92 mmol/L (98-107) L 03/14/20 06:25 Carbon Dioxide 29 mmol/L (22-30) 03/14/20 06:25 Anion Gap 10 (5-19) 03/14/20 06:25 BUN 29 mg/dL (7-20) H 03/14/20 06:25 Creatinine 1.22 mg/dL (0.52-1.25) 03/14/20 06:25 Est GFR ( Amer) > 60 (>60) 03/14/20 06:25 Est GFR (MDRD) Non-Af 59 (>60) L 03/14/20 06:25 Glucose 199 mg/dL (75-110) H 03/14/20 06:25 POC Glucose 222 mg/dL (70-110) H 03/14/20 12:01 Hemoglobin A1c % 10.8 % (4.7-6.0) H 03/11/20 07:05 Calcium 9.3 mg/dL (8.4-10.2) 03/14/20 06:25 Magnesium 1.5 mg/dL (1.6-2.3) L 03/13/20 05:10 Ferritin 41.80 ng/mL (17.9-464.0) 03/10/20 21:08 Total Bilirubin 1.8 mg/dL (0.2-1.3) H 03/14/20 06:25 Direct Bilirubin 0.6 mg/dL (0.0-0.4) H 03/14/20 06:25 Neonat Total Bilirubin Not Reportable 03/14/20 06:25 Neonat Direct Bilirubin Not Reportable 03/14/20 06:25 Neonat Indirect Bili Not Reportable 03/14/20 06:25 AST 43 U/L (17-59) 03/14/20 06:25 ALT 21 U/L (<50) 03/14/20 06:25 Alkaline Phosphatase 114 U/L (38-126) 03/14/20 06:25 Lactate Dehydrogenase 371 U/L (120-246) H 03/10/20 21:08 Creatine Kinase 85 U/L (55-170) 03/14/20 06:25 CK-MB (CK-2) 6.84 ng/mL (<4.55) H 03/10/20 17:00 Troponin I 0.096 ng/mL 03/10/20 21:08 C-Reactive Protein 30.2 mg/L (<10.0) H 03/10/20 21:08 NT-Pro-B Natriuret Pep 61102 pg/mL (<125) H 03/10/20 17:00 Total Protein 7.2 g/dL (6.3-8.2) 03/14/20 06:25 Albumin 3.3 g/dL (3.5-5.0) L 03/14/20 06:25 Triglycerides 106 mg/dL (<150) 03/11/20 07:05 Cholesterol 139.09 mg/dL (0-200) 03/11/20 07:05 LDL Cholesterol Direct 81 mg/dL (<100) 03/11/20 07:05 VLDL Cholesterol 21.0 mg/dL (10-31) 03/11/20 07:05 HDL Cholesterol 50 mg/dL (>40) 03/11/20 07:05 Free T4 1.13 ng/dL (0.78-2.19) 03/10/20 21:08 Urine Color YELLOW 03/13/20 05:54 Urine Appearance CLEAR 03/13/20 05:54 Urine pH 8.0 (5.0-9.0) 03/13/20 05:54 Ur Specific [place] 1.011 03/13/20 05:54 Urine Protein 100 mg/dL (NEGATIVE) H 03/13/20 05:54 Urine Glucose (UA) >=500 mg/dL (NEGATIVE) H 03/13/20 05:54 Urine Ketones NEGATIVE mg/dL (NEGATIVE) 03/13/20 05:54 Urine Blood NEGATIVE (NEGATIVE) 03/13/20 05:54 Urine Nitrite NEGATIVE (NEGATIVE) 03/13/20 05:54 Urine Nitrite (Reflex) Cancelled 03/10/20 17:00 Urine Bilirubin NEGATIVE (NEGATIVE) 03/13/20 05:54 Urine Urobilinogen 4.0 mg/dL (<2.0) H 03/13/20 05:54 Ur Leukocyte Esterase NEGATIVE (NEGATIVE) 03/13/20 05:54 Leukocyte Esterase Rfl Cancelled 03/10/20 17:00 Urine WBC (Auto) 1 /HPF 03/13/20 05:54 Urine RBC (Auto) 1 /HPF 03/13/20 05:54 U Hyaline Cast (Auto) Cancelled 03/10/20 17:00 Urine Bacteria (Auto) TRACE /HPF 03/12/20 09:43 Urine Red Cell Clumps Cancelled 03/10/20 17:00 Urine WBC (Reflex) Cancelled 03/10/20 17:00 Urine WBC Clumps Cancelled 03/10/20 17:00 Squamous Epi Cells Auto <1 /HPF 03/13/20 05:54 U Non-Squamous Epis Auto Cancelled 03/10/20 17:00 Calcium Carbonate Cryst Cancelled 03/10/20 17:00 Calcium Phosphate Cryst Cancelled 03/10/20 17:00 Calcium Oxalate Cr Auto Cancelled 03/10/20 17:00 Leucine Crystals Cancelled 03/10/20 17:00 Cystine Crystals Cancelled 03/10/20 17:00 Uric Acid Cryst (Auto) Cancelled 03/10/20 17:00 Triple Phos Cryst (Auto) Cancelled 03/10/20 17:00 Tyrosine Crystals Cancelled 03/10/20 17:00 Amorphous Sediment Auto Cancelled 03/10/20 17:00 Cellular Casts Cancelled 03/10/20 17:00 Epithelial Casts (Auto) Cancelled 03/10/20 17:00 Fatty Casts Cancelled 03/10/20 17:00 Granular Casts (Auto) Cancelled 03/10/20 17:00 Waxy Casts (Auto) Cancelled 03/10/20 17:00 Broad Casts Cancelled 03/10/20 17:00 RBC Casts (Auto) Cancelled 03/10/20 17:00 WBC Casts (Auto) Cancelled 03/10/20 17:00 Urine Mucus (Auto) Cancelled 03/10/20 17:00 Urine Mucus (Auto) RARE /LPF 03/10/20 17:00 U Trichomonas (Auto) Cancelled 03/10/20 17:00 Ur Yeast w Hyphae Cancelled 03/10/20 17:00 Urine Yeast (Budding) Cancelled 03/10/20 17:00 Urine Ascorbic Acid NEGATIVE (NEGATIVE) 03/13/20 05:54 Maikel Human Metapneumo PCR NOT DETECTED (NOT DETECT) 03/10/20 21:07 Digoxin 0.41 ng/mL (0.8-2.0) L 03/10/20 21:08 Adenovirus (PCR) NOT DETECTED (NOT DETECT) 03/10/20 21:07 B. pertussis DNA (PCR) NOT DETECTED (NOT DETECT) 03/10/20 21:07 B.parapertussis DNA PCR NOT DETECTED (NOT DETECT) 03/10/20 21:07 C. pneumoniae DNA (PCR) NOT DETECTED (NOT DETECT) 03/10/20 21:07 Coronavirus OC43 (PCR) NOT DETECTED (NOT DETECT) 03/10/20 21:07 Coronavirus HKU1 (PCR) NOT DETECTED (NOT DETECT) 03/10/20 21:07 Coronavirus 229E (PCR) NOT DETECTED (NOT DETECT) 03/10/20 21:07 Coronavirus NL63 (PCR) NOT DETECTED (NOT DETECT) 03/10/20 21:07 Influenza A (Rapid) NEGATIVE (NEGATIVE) 03/10/20 21:07 Influenza A (RT-PCR) Cancelled 03/10/20 21:07 Influenza A (H1) PCR NOT DETECTED (NOT DETECT) 03/10/20 21:07 Influ A (H1N1/09) PCR NOT DETECTED (NOT DETECT) 03/10/20 21:07 Influenza A (H3) PCR NOT DETECTED (NOT DETECT) 03/10/20 21:07 Influenza Type A (PCR) NOT DETECTED (NOT DETECT) 03/10/20 21:07 Influenza B (Rapid) NEGATIVE (NEGATIVE) 03/10/20 21:07 Influenza B (RT-PCR) Cancelled 03/10/20 21:07 Influenza Type B (PCR) NOT DETECTED (NOT DETECT) 03/10/20 21:07 M. pneumoniae (PCR) NOT DETECTED (NOT DETECT) 03/10/20 21:07 Parainfluenza 1 (PCR) NOT DETECTED (NOT DETECT) 03/10/20 21:07 Parainfluenza 2 (PCR) NOT DETECTED (NOT DETECT) 03/10/20 21:07 Parainfluenza 3 (PCR) NOT DETECTED (NOT DETECT) 03/10/20 21:07 Parainfluenza 4 (PCR) NOT DETECTED (NOT DETECT) 03/10/20 21:07 RSV (RT-PCR) Cancelled 03/10/20 21:07 RSV (PCR) NOT DETECTED (NOT DETECT) 03/10/20 21:07 Entero/Rhino (PCR) NOT DETECTED (NOT DETECT) 03/10/20 21:07 SARS-CoV-2 (PCR) NOT DETECTED (NOT DETECT) 03/10/20 21:07 SARS-CoV-2 Rap RNA(RT-PCR) Cancelled 03/10/20 21:07 Group A Strep Rapid NEGATIVE (NEGATIVE) 03/10/20 21:07 03/10/20 03/10/20 17:00 21:08 CK-MB (CK-2) 6.84 H Troponin I 0.109 0.096 NT-Pro-B Natriuret Pep 45832 H Impressions: Chest X-Ray 03/10/20 15:30 IMPRESSION: Cardiomegaly without a superimposed acute cardiopulmonary process. Chest/Abdomen CTA 03/10/20 17:09 IMPRESSION: 1. Nondiagnostic CT pulmonary angiogram because of IV infiltration. This is an unenhanced CT scan of the chest. 2. Small pleural effusions with nonspecific patchy perihilar and infrahilar volume loss. 3. Diffuse enlargement the cardiac silhouette. Atherosclerotic coronary artery disease. Stroke Is this a Stroke Patient?: No Acute Heart Failure Is this a Heart Failure Patient?: No
== END 2020-03-14 15:39 | disposition home or self-care (01) | DRG 291 ==
LOC: ER 14:58 → EH 18:32 → UNDOADMIN 18:32 → 3W 03-11 02:28 → 3S 03-11 20:07 → 5 03-13 17:50
PROVIDERS: ADMIT Internal Medicine; ATTEND Internal Medicine
DX: I11.0 Hypertensive heart disease with heart failure (principal); J96.21 Acute and chronic respiratory failure with hypoxia; E87.3 Alkalosis; I50.43 Acute on chronic combined systolic (congestive) and diastolic (congestive) heart failure; E11.42 Type 2 diabetes mellitus with diabetic polyneuropathy; I48.0 Paroxysmal atrial fibrillation; J44.9 Chronic obstructive pulmonary disease, unspecified; I25.10 Atherosclerotic heart disease of native coronary artery without angina pectoris; Z20.828 Contact with and (suspected) exposure to other viral communicable diseases; I42.0 Dilated cardiomyopathy; I25.5 Ischemic cardiomyopathy; Z91.14 Patient's other noncompliance with medication regimen; R79.1 Abnormal coagulation profile; I25.2 Old myocardial infarction; Z95.810 Presence of automatic (implantable) cardiac defibrillator; Z95.1 Presence of aortocoronary bypass graft; Z79.51 Long term (current) use of inhaled steroids; Z79.4 Long term (current) use of insulin; Z88.6 Allergy status to analgesic agent; Z87.891 Personal history of nicotine dependence; Z79.01 Long term (current) use of anticoagulants; Z79.899 Other long term (current) drug therapy
CPT/HCPCS: 0202U; 36415; 36600; 71045; 71275; 80048; 80053; 80061; 80162; 81001; 82550; 82553; 82728; 82803; 82962; 83036; 83615; 83735; 83880; 84439; 84484; 85025; 85027; 85379; 85384; 85610; 85730; 86140; 87070; 87086; 87088; 87186; 87804; 87880; 93005; 93010; 99285; J1650; J1815; J1940; J3475; J3490